=== PATIENT | male | born 1960 | race Caucasian/White ===

== ENCOUNTER → 2020-06-18 09:11 | Outpatient (CLI) | payer MEDICARE, SELFPAY ==
[2020-06-18 19:16] LABS: SARS-CoV-2 RNA PCR Negative
== END ==
DX: Z01.812 Encounter for preprocedural laboratory examination (principal); Z20.822 Contact with and (suspected) exposure to COVID-19
CPT/HCPCS: C9803; U0003; U0005

== ENCOUNTER 2020-07-11 00:54 | Day surgery (SDC) | payer MEDICARE, MEDICAID, SELFPAY ==
[2020-06-08 14:34] VITALS: BMI 28.3
[2020-07-08 10:14] VITALS: BMI 28.0
[2020-07-11 08:38] VITALS: BP 138/87; PULSE 100; RESP 20; TEMP 36; O2SAT 100; BMI 28.2
--- NOTE | 2020-07-11 08:51 | WPDANESEPPF ---
Anes - Initial Pre Proc Eval Procedure: Operation Date: 07/11/20 09:00 Proposed Procedures p Esophagogastroduodenoscopy & Screening Colonoscopy - Mich Miller MD Date/Time: 07/11/20 08:51 Surgeon: Mich Miller MD Pre Op Diagnosis: dysphagia, neoplasm screening Patient Data Age: 59 Gender: M Height: 5 ft 6 in Weight: 79.3 kg Last Vital Signs Temp 36.0 C L 07/11/20 08:38 Pulse 100 07/11/20 08:38 Resp 20 07/11/20 08:38 BP 138/87 07/11/20 08:38 Pulse Ox 100 07/11/20 08:38 Allergies Allergy/AdvReac Type Severity Reaction Status Date / Time No Known Allergies Allergy Verified 07/11/20 08:37 Home Medications Medication Instructions Recorded Confirmed Type losartan 50 mg tablet 50 mg PO DAILY 05/24/20 07/11/20 History memantine 10 mg tablet 10 mg PO BID 05/24/20 07/11/20 History omeprazole 20 mg capsule,delayed 20 mg PO DAILY 05/24/20 07/11/20 History release sennosides 8.6 mg tablet 8.6 mg PO BID 05/24/20 07/11/20 History aripiprazole [Abilify] 5 mg PO DAILY 06/08/20 07/11/20 History donepezil 10 mg PO HS 06/08/20 07/11/20 History duloxetine 60 mg PO DAILY 06/08/20 07/11/20 History lamotrigine [Lamictal] 100 mg PO BID 06/08/20 07/11/20 History melatonin 5 mg PO HS 06/08/20 07/11/20 History Patient hx anesthesia problems: none Family hx anesthesia problems: none [facility] Past Medical History Medical History (Updated 07/11/20 @ 08:51 by Oscar Bowden MD) GERD (gastroesophageal reflux disease) Hypertension Schizophrenia Social History Social History Smoking status: Former smoker Tobacco type: cigarettes Alcohol intake: former Alcohol use details: ALCOHOL ABUSE Substance use: never Living arrangements: half-way Additional living arrangements comments: INFORMATION PROVIDED BY LEYDA AT [facility] Gender identity (if verbalized by the patient): Male Spiritual care concerns: No Anes - Eval Final PreProcedure Day of Procedure 07/11/20 08:51 Patient weight: overweight Lungs: clear to auscultation Airway: Mallampati scale class II Neurological: alert and oriented Last oral intake: >/= 8 hours ASA classification: III Emergent: no Anesthetic plan: proceed Anesthesia type and monitoring: general GIVS and standard monitoring Informed Consent: The patient's anesthetic plan and its attendant risks and benefits were discussed with the patient/family/POA. Questions were solicited and answers provided to the satisfaction of the patient/family/POA.
[2020-07-11] MEDS: LACTATED RINGERS 1,000 ML 150 ML IV CONT (09:00)
--- NOTE | 2020-07-11 09:09 | SUR.OPER ---
esophageal balloon 12-15 mm, lot [id number], exp 02/22/2022(
--- NOTE | 2020-07-11 09:15 | P.HP_ITS ---
History of Present Illness History of Present Illness Consent: Risks, benefits, and alternatives have been discussed and questions answered. Patient agrees to proceed with procedure. Chief complaint: dysphagia, neoplasm screening Narrative: Dax Esteban is a 59 year old male With chronic dysphagia. He is also here for colon cancer screening Review of Systems Review of Systems: All systems reviewed & are unremarkable except as noted in HPI and below PMFSH Past Medical History Medical History GERD (gastroesophageal reflux disease) Hypertension Schizophrenia Social History Social History Smoking status: Former smoker Tobacco type: cigarettes Alcohol intake: former Alcohol use details: ALCOHOL ABUSE Substance use: never Living arrangements: [facility] Additional living arrangements comments: INFORMATION PROVIDED BY LEYDA AT [facility] Gender identity (if verbalized by the patient): Male Spiritual care concerns: No Meds Home Medications and Allergies Home Medications Medication Instructions Recorded Confirmed Type losartan 50 mg tablet 50 mg PO DAILY 05/24/20 07/11/20 History memantine 10 mg tablet 10 mg PO BID 05/24/20 07/11/20 History omeprazole 20 mg capsule,delayed 20 mg PO DAILY 05/24/20 07/11/20 History release sennosides 8.6 mg tablet 8.6 mg PO BID 05/24/20 07/11/20 History aripiprazole [Abilify] 5 mg PO DAILY 06/08/20 07/11/20 History donepezil 10 mg PO HS 06/08/20 07/11/20 History duloxetine 60 mg PO DAILY 06/08/20 07/11/20 History lamotrigine [Lamictal] 100 mg PO BID 06/08/20 07/11/20 History melatonin 5 mg PO HS 06/08/20 07/11/20 History Allergies Allergy/AdvReac Type Severity Reaction Status Date / Time No Known Allergies Allergy Verified 07/11/20 08:37 Vital Signs Vital Signs - 24 hr 07/11/20 08:38 Temperature 36.0 C L Pulse Rate 100 Respiratory Rate 20 Blood Pressure 138/87 Pulse Oximetry 100 Exam Const: General: alert Orientation/consciousness: patient oriented x3 Resp: Auscultation: clear to auscultation bilaterally Cardio: Rhythm: regular rhythm GI: GI Palp: Yes Soft to palpation and No Tenderness to palpation present (GI) Neuro: General: patient oriented x3 Assessment and Plan Assessment and plan (1) Dysphagia: Code(s): R13.10 - Dysphagia, unspecified Status: Acute Assessment and Plan: EGD with possible biopsy or dilatation or cautery. (2) Colon cancer screening: Code(s): Z12.11 - Encounter for screening for malignant neoplasm of colon Status: Acute Assessment and Plan: Colonoscopy with possible biopsy or polypectomy or cautery or injection of substances.
--- NOTE | 2020-07-11 09:26 | SUR.OPER ---
resolution 360 clip 235 cm, lot [id number], exp 04/29/2023
[2020-07-11 09:31] VITALS: BP 142/71; PULSE 85; RESP 21; O2SAT 99
[2020-07-11 09:41] VITALS: BP 143/77; PULSE 85; RESP 25; O2SAT 96
[2020-07-11 09:51] VITALS: BP 135/79; PULSE 82; RESP 19; O2SAT 100
== END 2020-07-11 10:03 | disposition home or self-care (01) ==
PROVIDERS: PCP Internal Medicine; Visit Provider Internal Medicine Gastroenterology
PROC: 0DJ08ZZ Inspection of Upper Intestinal Tract, Via Natural or Artificial Opening Endoscopic (ICD-10-PCS; CPT 43235; principal; 2020-07-11 09:00)
DX: Z12.11 Encounter for screening for malignant neoplasm of colon (principal); R13.10 Dysphagia, unspecified; D12.3 Benign neoplasm of transverse colon; K22.2 Esophageal obstruction; K21.9 Gastro-esophageal reflux disease without esophagitis; K63.89 Other specified diseases of intestine; I10 Essential (primary) hypertension; F20.9 Schizophrenia, unspecified; Z87.891 Personal history of nicotine dependence
CPT/HCPCS: 45385; 43249; 88305; C1726; J2704; J7120

== ENCOUNTER 2020-09-12 12:52 | Inpatient (IN) | payer MEDICARE, MEDICAID, SELFPAY ==
[2020-09-12] VITALS (9 sets, daily range): BP systolic 92–105; BP diastolic 48–84; PULSE 75–101; RESP 12–20; TEMP 36.3–36.7; O2SAT 95–99; BMI 23.9
--- NOTE | ~2020-09-12 | CT_ITS ---
EXAMINATION: CT abdomen pelvis wo con EXAM DATE: 09/12/2020 14:14 INDICATION: Nausea and vomiting. Planning gastric bypass surgery. TECHNIQUE: Spiral CT of the abdomen and pelvis was performed without contrast. Axial, coronal and sag ittal images were reviewed. The dose-length product (DLP) for this examination was 701.16 mGy-cm. T he exposure was tailored according to patient size (auto mA exposure control), and iterative reconstr uction (ASIR) was used as additional dose reduction technique. Comparison is made to prior examinatio n from 02/04/2008. FINDINGS: Esophagus is mildly distended with mildly hyperdense fluid inside, can't exclude intralumin al polyp given that there is a round density measuring 1.5 cm within the lumen of this. 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 No r ight nephrolithiasis or hydronephrosis. The prostate is unremarkable. Small left inguinal fat-contai karis hernia. The bladder is unremarkable. The liver, spleen, adrenal glands and pancreas are unrema rkable. Single small gallstone identified. There is no retroperitoneal or pelvic lymphadenopathy. There is mild to moderate scattered arteriosclerotic disease. The appendix is normal. The stomach and small bowel are unremarkable. There is expected amount of c olonic stool. No free intraperitoneal gas. The heart is normal in size. There are no pericardial or pleural effusions. The lung bases are unremarkable. There are no osteoblastic or osteolytic les ions identified. IMPRESSION: 1. Esophageal fluid with more central filling defect, could be ingested food stuff or polyp/mass. Co nsider esophagram or endoscopy. 2. Severe chronic left renal atrophy. Reviewed, dictated and finalized at location B. IMPRESSION: 1. Esophageal fluid with more central filling defect, could be ingested food s tuff or polyp/mass. Consider esophagram or endoscopy. 2. Severe chronic left renal atrophy.
--- NOTE | ~2020-09-12 | XR_ITS ---
EXAMINATION: XR esophogram water soluble DATE: 09/12/2020 15:23 INDICATION: Vomiting with possible distal esophageal mass TECHNIQUE: The patient drank water soluble contrast. Fluoroscopic spot radiographs of the soft tissue s were obtained. Fluoroscopy exposure time was 0.8 minutes. A total of 242 images were obtained. Tot al DAP was 2.96 mGycm^2 COMPARISON: CT dated 09/12/2020 FINDINGS: There is an obstructing approximately 2-2.5 cm mass with smooth margins at the distalmost esophagus. Over the course of 4 minutes of observation following the initial swallow, no contrast was seen exten ding beyond the mass. At this point the patient experienced additional nausea and vomited the contras t material. The more proximal esophagus appears normal without additional mass or stricture. IMPRESSION: 1. Obstructing 2-2.5 cm mass in the distal esophagus. Unclear whether this represents an endogenous n eoplasm or exogenous ingested foreign body. Recommend endoscopy for further evaluation. Reviewed, dictated and finalized at location A. IMPRESSION: 1. Obstructing 2-2.5 cm mass in the distal esophagus. Unclear whether this repr esents an endogenous neoplasm or exogenous ingested foreign body. Recommend end oscopy for further evaluation.
[2020-09-12] MEDS: SODIUM CHLORIDE 0.9% IV 1,000 ML 999 ML IV CONT (13:32)
[2020-09-12] MEDS: ONDANSETRON INJ 4 MG/2 ML VIAL IV PUSH (13:32)
[2020-09-12 13:36] LABS: Basophils Absolute Auto 0.2 K/mm3 (0.0-0.1); Basophils Percent Auto 1.1 % (0.2-1.2); Eosinophils Percent Auto 0.2 % (0-4.4); Hematocrit 49.3 % (42.0-52.0); Immature Granulocyte Absolute 0.09 K/mm3 (0.00-0.031); Immature Granulocyte Percent A 0.7 % (0-0.5); Lymphocytes Percent Auto 13.4 % (18.3-44.2); Mean Corpuscular HGB Conc 28.4 g/dl (32-36); Mean Corpuscular Hemoglobin 22.2 pg (26-34); Mean Corpuscular Volume 78.3 fl (80-100); Mean Platelet Volume 10.3 fl (7.4-10.4); Monocytes Absolute Auto 0.9 K/mm3 (0.1-0.6); Monocytes Percent Auto 6.4 % (2.6-8.5); Neutrophils Absolute Auto 10.5 K/mm3 (1.3-6.7); Neutrophils Percent Auto 78.2 % (45.5-73.1); Platelet Count Result 418 k/mm3 (150-375); Red Cell Distribution Width 22.7 % (11.5-14.5); White Blood Count 13.5 K/mm3 (4.5-10.0)
[2020-09-12 13:48] LABS: Alanine Aminotransferase 30 U/L (4-50); Albumin Level 4.8 g/dL (3.5-5.1); Alkaline Phosphatase 145 U/L (38-126); Anion Gap 20 mmol/L (8-16); Aspartate Amino Transferase 48 U/L (17-59); Bilirubin,Total 1.5 mg/dL (0.2-1.3); Blood Urea Nitrogen 106 mg/dL (9-20); Calcium 9.8 mg/dL (8.4-10.2); Carbon Dioxide 24 mmol/L (22-30); Chloride 111 mmol/L (98-107); Estimated CRCL calculation 24 ml/min; Estimated Glomerular Filt Rate 24; Glucose 159 mg/dL (65-110); Lipase 205 U/L (23-300); Potassium 3.7 mmol/L (3.4-5.0); Sodium 155 mmol/L (137-145)
--- NOTE | 2020-09-12 14:22 | ED.NAVMDI ---
HPI - Nausea/Vomiting/Diarrhea General Chief complaint: Nausea/Vomiting/Diarrhea Stated complaint: N/V Time Seen by Provider: 09/12/20 12:57 History of Present Illness HPI Narrative: Patient is a 5-year-old male who [facility] from [facility] with [facility] and vomiting. Patient is a poor historian and has history of schizophrenia. According to the [facility] patient has had nausea and vomiting for years however it is increased in frequency. They have scheduled him for an outpatient endoscopy performed next week at [facility]. Vomiting worsened today so he was sent in for further evaluation. Related Data Home Medications Medication Instructions Recorded Confirmed aripiprazole 5 mg PO DAILY 09/12/20 09/12/20 donepezil 10 mg PO HS 09/12/20 09/12/20 duloxetine 60 mg PO HS 09/12/20 09/12/20 lamotrigine 100 mg PO BID 09/12/20 09/12/20 losartan 50 mg PO DAILY 09/12/20 09/12/20 melatonin 5 mg PO HS 09/12/20 09/12/20 memantine 10 mg PO BID 09/12/20 09/12/20 multivitamin with minerals 1 tablet PO DAILY 09/12/20 09/12/20 omeprazole 20 mg PO DAILY 09/12/20 09/12/20 sennosides [senna] 8.6 mg PO BID 09/12/20 09/12/20 Allergies Allergy/AdvReac Type Severity Reaction Status Date / Time spider venom Allergy Unknown Swelling Verified 09/12/20 21:36 Review of Systems Review of Systems: ROS unobtainable: Yes unobtainable due to mental status (Poor historian due to schizophrenia and memory impairment.) [facility] Past Medical History Medical History (Updated 09/12/20 @ 23:46 by Huber Montalvo MD) Benign tumor of meningioma (cerebral) Bipolar disorder Chronic obstructive pulmonary disease Fatty liver Former smoker Hypertension Left renal atrophy Memory impairment Peripheral neuropathy Recovering alcoholic in remission Type 2 diabetes mellitus Surgical History Surgical History History of arthroscopic knee surgery Anterior cruciate ligament repair. Family History Family History Mother Liver cancer Social History Social History (Updated 09/12/20 @ 22:04 by Natasha Centeno PA-C) Social History: The patient is currently at [facility]. He does not remember how long he has been there. Former smoker. Recovering alcoholic. No illicit substance use. His brother, Tee Esteban, is his emergency contact. Code status: DNR. Exam Narrative: Exam Narrative: GENERAL: Well-appearing, well-nourished, and in no acute distress. HEAD: Normocephalic, atraumatic. EYES: PERRL and EOMI. ENT: Mucous membranes moist. CHEST: Clear to auscultation. No respiratory distress. HEART: Regular rate and rhythm. Normal peripheral pulses. ABDOMEN: Soft, nontender, nondistended. EXTREMITIES: Normal range of motion. No edema. SKIN: Warm, dry, no rash. NEURO: Alert and oriented x3. PSYCH: Normal mood and affect. Course Course Emergency Course: Admit to hospitalist service. GI consulted. They like patient to remain n.p.o. so he can have a scope in the morning. Vital Signs Vital signs: Vital Signs Temperature 97.3 F L 09/12/20 13:32 Pulse Rate 101 H 09/12/20 13:32 Respiratory Rate 14 09/12/20 13:32 Blood Pressure 104/84 09/12/20 13:32 Pulse Oximetry 99 09/12/20 13:32 Temperature 98.0 F 09/12/20 21:49 Pulse Rate 75 09/12/20 21:49 Respiratory Rate 17 09/12/20 21:49 Blood Pressure 92/48 L 09/12/20 21:49 Pulse Oximetry 95 09/12/20 21:49 MDM - Nausea/Vomiting/Diarrhea Lab Data Result diagrams: 09/12/20 13:21 09/12/20 13:21 Labs: Lab Results 09/12/20 09/12/20 Range/Units 13:21 13:21 WBC 13.5 H (4.5-10.0) K/mm3 RBC 6.30 H (4.6-6.20) M/mm3 Hgb 14.0 (14.0-18.0) g/dL Hct 49.3 (42.0-52.0) % MCV 78.3 L (80-100) fl MCH 22.2 L (26-34) pg MCHC 28.4 L (32-36) g/dl RDW 22.7 H (11.5-14.5) % Plt Count 418 H (150-37
[2020-09-12] MEDS: SODIUM CHLORIDE 0.9% IV 1,000 ML 999 ML (17:30)
--- NOTE | 2020-09-12 17:30 | PC.NURSE ---
ERP notified about patient manual blood pressure being 96/60. EDP ordered additional 1L fluid bolus via verbal order readback.
[2020-09-12] MEDS: SODIUM CHLORIDE 0.45% 1,000 ML 100 ML IV CONT (18:36)
--- NOTE | 2020-09-12 18:45 | PC.NURSE ---
EDP aware about patient blood pressure being low. Good radial pulses. No new orders at this time.
--- NOTE | 2020-09-12 19:15 | PM.IMHP ---
H&P: HPI History of Present Illness Date/Time: 09/12/20 19:15 Chief Complaint: Nausea and vomiting. Narrative: This is a 59-year-old male with memory impairment, bipolar disorder, GERD, and hypertension who presented to the emergency department earlier today via EMS from [facility] for evaluation of nausea and vomiting. He is not a very good historian and answers a lot of my questions I forgot or I do not know and as such some of the following is obtained via a review of his electronic medical records. He reports ongoing issues with vomiting over a couple of years and it sounds like he has intermittent dysphagia with both liquids and solids. It is my understanding that he has an upcoming appointment for an EGD at [facility] in the next week or so for evaluation of the same. I am not sure why the patient was sent in today as he cannot give me a good history. At the time my evaluation he does endorse a weight loss though he is unable to quantify. He has no complaints at this time and in fact asked me several times for something to drink. He denies fever, chills, sweats, odynophagia, chest pain, shortness of breath, and nausea. Review of Systems Review of Systems: Narrative: Twelve systems were reviewed with pertinent positives and negatives as per HPI. Somewhat limited as he seems to have pretty significant short-term memory loss. For instance he does not recall how long he has been at the care home, does not remember when he quit smoking or drinking, and he does not even know why he was brought to the hospital today. He does not believe he has had any recent cold or flu symptoms. He has not noticed a change in urine output. He denies lightheadedness and dizziness. Reports occasional dyspnea on exertion. No cough. Except as documented all other systems were reviewed and are negative. [facility] Past Medical History Medical History (Updated 09/12/20 @ 22:08 by Natasha Centeno PA-C) Benign tumor of meningioma (cerebral) Bipolar disorder Chronic obstructive pulmonary disease Fatty liver Former smoker Hypertension Left renal atrophy Memory impairment Peripheral neuropathy Recovering alcoholic in remission Type 2 diabetes mellitus Surgical History Surgical History History of arthroscopic knee surgery Anterior cruciate ligament repair. Family History Family History Mother Liver cancer Social History Social History (Updated 09/12/20 @ 22:04 by Natasha Centeno PA-C) Social History: The patient is currently at [facility]. He does not remember how long he has been there. Former smoker. Recovering alcoholic. No illicit substance use. His brother, Tee Esteban, is his emergency contact. Code status: DNR. Meds Home Medications and Allergies Home Medications Medication Instructions Recorded Confirmed Type aripiprazole 5 mg PO DAILY 09/12/20 09/12/20 History donepezil 10 mg PO HS 09/12/20 09/12/20 History duloxetine 60 mg PO HS 09/12/20 09/12/20 History lamotrigine 100 mg PO BID 09/12/20 09/12/20 History losartan 50 mg PO DAILY 09/12/20 09/12/20 History melatonin 5 mg PO HS 09/12/20 09/12/20 History memantine 10 mg PO BID 09/12/20 09/12/20 History multivitamin with minerals 1 tablet PO DAILY 09/12/20 09/12/20 History omeprazole 20 mg PO DAILY 09/12/20 09/12/20 History sennosides [senna] 8.6 mg PO BID 09/12/20 09/12/20 History Allergies Allergy/AdvReac Type Severity Reaction Status Date / Time spider venom Allergy Unknown Swelling Verified 09/12/20 21:36 Vital Signs Vital Signs - 24 hr 09/12/20 13:32 09/12/20 15:02 09/12/20 16:00 Temperature 97.3 F L Pulse Rate 101 H 92 94 Respiratory Rate 14 14 14 Blood Pressure 104/84 100/71 101/70 Pulse Oximetry 99 98 99 09/12/20 16:21 Temperature Pulse Rate 96 Respiratory Rate 14 Blood Pressure 105/66 Pulse Oximetr
--- NOTE | 2020-09-12 20:18 | PC.NURSE ---
This patient, Dax Esteban, was admitted to [facility] Room 333-01. Patient/family oriented to hospital policies and general routines including ID bracelet, bed and alarms, visiting hours, pain management, procedures, bathroom and other care routines, personal items, smoking policy, room service/diet, and visiting hours. Information on how to activate the Rapid Response Team has been discussed. Patient/Family are encouraged to report perceived risks to care and to ask questions if they do not understand what they are told or what they should do.
[2020-09-13] VITALS (10 sets, daily range): BP systolic 84–115; BP diastolic 47–76; PULSE 56–77; RESP 14–25; TEMP 35.6–36.6; O2SAT 95–100; BMI 23.9
[2020-09-13 06:34] LABS: Hematocrit 41.1 % (42.0-52.0); Hemoglobin 11.3 g/dL (14.0-18.0); Mean Corpuscular HGB Conc 27.5 g/dl (32-36); Mean Corpuscular Hemoglobin 22.4 pg (26-34); Mean Corpuscular Volume 81.4 fl (80-100); Mean Platelet Volume 10.3 fl (7.4-10.4); Platelet Count Result 282 k/mm3 (150-375); Red Blood Count 5.05 M/mm3 (4.6-6.20); Red Cell Distribution Width 22.6 % (11.5-14.5); White Blood Count 9.2 K/mm3 (4.5-10.0)
--- NOTE | 2020-09-13 07:42 | WPDGICN ---
Assessment and Plan Assessment and plan (1) Esophageal obstruction: Code(s): K22.2 - Esophageal obstruction Status: Acute Assessment and Plan: he is NPO and will be scheduled for EGD to be done later this morning. Hopefully this is something benign that we can treat endoscopically, although he is a former smoker and I am suspicious he may have malignancy (2) Anemia: Code(s): D64.9 - Anemia, unspecified Status: Acute Assessment and Plan: hemoglobin dropped from 14 to 11.3, obviously from rehydration. He has shown no signs of gastrointestinal bleeding. (3) ISABELA (acute kidney injury): Code(s): N17.9 - Acute kidney failure, unspecified Status: Acute Assessment and Plan: Hopefully this is mostly from dehydration and the fact that he has been unable to eat or drink for several days prior to his admission. GI Consult Note Consult date/time: 09/13/20 07:42 HPI: Dax Esteban is a 59 year old male who is admitted through the emergency room with inability to swallow. He states that he has been having trouble eating and drinking for at least 2 weeks. He does not believe that he was eating something that got stuck. He does not give a lot of history or details. A CT scan done in the emergency room revealed an apparent esophageal mass or foreign body, as well as standing fluid in the esophagus Review of Systems Review of Systems: All systems reviewed & are unremarkable except as noted in HPI and below PMFSH Past Medical History Medical History Benign tumor of meningioma (cerebral) Bipolar disorder Chronic obstructive pulmonary disease Fatty liver Former smoker Hypertension Left renal atrophy Memory impairment Peripheral neuropathy Recovering alcoholic in remission Type 2 diabetes mellitus Surgical History Surgical History History of arthroscopic knee surgery Anterior cruciate ligament repair. Family History Family History Mother Liver cancer Social History Social History Social History: The patient is currently at [facility]. He does not remember how long he has been there. Former smoker. Recovering alcoholic. No illicit substance use. His brother, Tee Esteban, is his emergency contact. Code status: DNR. Meds Home Medications and Allergies Home Medications Medication Instructions Recorded Confirmed Type aripiprazole 5 mg PO DAILY 09/12/20 09/12/20 History donepezil 10 mg PO HS 09/12/20 09/12/20 History duloxetine 60 mg PO HS 09/12/20 09/12/20 History lamotrigine 100 mg PO BID 09/12/20 09/12/20 History losartan 50 mg PO DAILY 09/12/20 09/12/20 History melatonin 5 mg PO HS 09/12/20 09/12/20 History memantine 10 mg PO BID 09/12/20 09/12/20 History multivitamin with minerals 1 tablet PO DAILY 09/12/20 09/12/20 History omeprazole 20 mg PO DAILY 09/12/20 09/12/20 History sennosides [senna] 8.6 mg PO BID 09/12/20 09/12/20 History Allergies Allergy/AdvReac Type Severity Reaction Status Date / Time spider venom Allergy Unknown Swelling Verified 09/12/20 21:36 Vital Signs Vital Signs - 24 hr 09/12/20 13:32 09/12/20 15:02 09/12/20 16:00 Temperature 36.3 C L Pulse Rate 101 H 92 94 Respiratory Rate 14 14 14 Blood Pressure 104/84 100/71 101/70 Pulse Oximetry 99 98 99 09/12/20 16:21 09/12/20 17:30 09/12/20 18:08 Temperature Pulse Rate 96 84 90 Respiratory Rate 14 12 14 Blood Pressure 105/66 96/60 L 104/58 L Pulse Oximetry 98 98 99 09/12/20 18:46 09/12/20 19:50 09/12/20 21:49 Temperature 36.4 C 36.7 C Pulse Rate 81 77 75 Respiratory Rate 20 20 17 Blood Pressure 92/58 L 97/55 L 92/48 L Pulse Oximetry 99 96 95 09/13/20 05:36 Temperature 36.6 C Pulse Rate 77 Respiratory Rate 18 Blood Pre
[2020-09-13] MEDS: SODIUM CHLORIDE 0.45% 1,000 ML 100 ML IV CONT (07:47)
--- NOTE | 2020-09-13 08:26 | WPDANESEPPF ---
Anes - Initial Pre Proc Eval Procedure: Operation Date: 09/13/20 12:30 Proposed Procedures p Esophagogastroduodenoscopy - Mich Miller MD Date/Time: 09/13/20 08:26 Surgeon: Vikram Barron MD Pre Op Diagnosis: esophageal obstruction, eugenio, hypernatremia Patient Data Age: 59 Gender: M Height: 1.68 m Weight: 67.2 kg Last Vital Signs Temp 36.6 C 09/13/20 05:36 Pulse 77 09/13/20 05:36 Resp 18 09/13/20 05:36 BP 115/57 L 09/13/20 05:36 Pulse Ox 95 09/13/20 05:36 Allergies Allergy/AdvReac Type Severity Reaction Status Date / Time spider venom Allergy Unknown Swelling Verified 09/12/20 21:36 Home Medications Medication Instructions Recorded Confirmed Type aripiprazole 5 mg PO DAILY 09/12/20 09/12/20 History donepezil 10 mg PO HS 09/12/20 09/12/20 History duloxetine 60 mg PO HS 09/12/20 09/12/20 History lamotrigine 100 mg PO BID 09/12/20 09/12/20 History losartan 50 mg PO DAILY 09/12/20 09/12/20 History melatonin 5 mg PO HS 09/12/20 09/12/20 History memantine 10 mg PO BID 09/12/20 09/12/20 History multivitamin with minerals 1 tablet PO DAILY 09/12/20 09/12/20 History omeprazole 20 mg PO DAILY 09/12/20 09/12/20 History sennosides [senna] 8.6 mg PO BID 09/12/20 09/12/20 History Laboratory Tests 09/12/20 09/12/20 09/12/20 13:21 13:21 22:23 WBC 13.5 K/mm3 H K/mm3 (4.5-10.0) RBC 6.30 M/mm3 H M/mm3 (4.6-6.20) Hgb 14.0 g/dL g/dL (14.0-18.0) Hct 49.3 % % (42.0-52.0) MCV 78.3 fl L fl (80-100) MCH 22.2 pg L pg (26-34) MCHC 28.4 g/dl L g/dl (32-36) RDW 22.7 % H % (11.5-14.5) Plt Count 418 k/mm3 H k/mm3 (150-375) MPV 10.3 fl fl (7.4-10.4) Immature Gran % (Auto) 0.7 % H % (0-0.5) Neut % (Auto) 78.2 % H % (45.5-73.1) Lymph % (Auto) 13.4 % L % (18.3-44.2) [place] % (Auto) 6.4 % % (2.6-8.5) Eos % (Auto) 0.2 % % (0-4.4) Baso % (Auto) 1.1 % % (0.2-1.2) Lymph # (Auto) 1.80 K/mm3 K/mm3 (0.9-3.2) [place] # (Auto) 0.9 K/mm3 H K/mm3 (0.1-0.6) Eos # (Auto) 0.0 K/mm3 K/mm3 (0-0.3) Baso # (Auto) 0.2 K/mm3 H K/mm3 (0.0-0.1) Abs Immat Gran (auto) 0.09 K/mm3 H K/mm3 (0.00-0.031) Absolute Neuts (auto) 10.5 K/mm3 H K/mm3 (1.3-6.7) Absolute Nucleated RBC 0.0 K/mm3 K/mm3 (0.0-0.012) Nucleated RBC % 0.0 % % (0.0-0.2) Sodium 155 mmol/L H mmol/L Pending (137-145) Potassium 3.7 mmol/L mmol/L Pending (3.4-5.0) Chloride 111 mmol/L H mmol/L Pending (98-107) Carbon Dioxide 24 mmol/L mmol/L Pending (22-30) Anion Gap 20 mmol/L H mmol/L Pending (8-16) BUN 106 mg/dL H mg/dL Pending (9-20) Creatinine 2.70 mg/dL H mg/dL Pending (0.7-1.3) Estim Creat Clear Calc 24 ml/min ml/min Pending Estimated GFR 24 L Pending (59 - ) Glucose 159 mg/dL H mg/dL Pending (65-110) Hemoglobin A1c Calcium 9.8 mg/dL mg/dL Pending (8.4-10.2) Magnesium Pending Total Bilirubin 1.5 mg/dL H mg/dL (0.2-1.3) AST 48 U/L U/L (17-59) ALT 30 U/L U/L (4-50) Alkaline Phosphatase 145 U/L H U/L (38-126) Total Protein 9.0 g/dL H g/dL (6.3-8.2) Albumin 4.8 g/dL g/dL (3.5-5.1) Lipase 205 U/L U/L (23-300) 09/12/20 09/13/20 09/13/20 23:37 05:45 07:22 WBC 9.2 K/mm3 K/mm3 (4.5-10.0) RBC 5.05 M/mm3 M/mm3 (4.6-6.20) Hgb 11.3 g/dL L g/dL (14.0-18.0) Hct 41.1 % L % (42.0-52.0) MCV 81.4 fl fl (80-100) MCH 22.4 pg L pg (26-34) MCHC 27.5 g/dl L g/dl (32-36) RDW 22.6 % H % (11.5-14.5) Plt Count 282 k/mm3 k/mm3 (150-375) MPV 10.3 fl fl (7.4-10.4) Ayla
[2020-09-13 10:54] LABS: Anion Gap 12 mmol/L (8-16); Blood Urea Nitrogen 94 mg/dL (9-20); Calcium 8.3 mg/dL (8.4-10.2); Carbon Dioxide 23 mmol/L (22-30); Chloride 119 mmol/L (98-107); Estimated CRCL calculation 29 ml/min; Estimated Glomerular Filt Rate 31; Glucose 106 mg/dL (65-110); Sodium 154 mmol/L (137-145)
[2020-09-13] MEDS: LACTATED RINGERS 1,000 ML 100 ML IV CONT (11:27)
[2020-09-13] MEDS: BENZOCAINE (*SP) 60 ML SPRAY CAN (HURRICAINE) 1 SPRAY MUCOUS MEM (11:52)
--- NOTE | 2020-09-13 12:49 | PM.IMPN ---
Progress Note: A&P Assessment and Plan (1) Mass of esophagus: Code(s): K22.8 - Other specified diseases of esophagus Status: Acute Assessment and Plan: he has been complaining of nausea vomiting and dysphagia. He also has significant weight loss. CT shows a superficial fluid with central filling defect. Severe chronic left renal atrophy was also seen. Barium esophagram showed to 2.5 cm mass in the distal esophagus. Gastroenterology service was consulted. Endoscopy shows severe stenosis in the gastroesophageal junction. Multiple biopsies were obtained from the lower 3rd esophagus for pathology. Stenosis could be traversed. No other significant findings other than here till hernia seen. Gastroenterology service has recommended pantoprazole 40 mg twice a day. He will be started on diet With full liquid diet. Will advance the diet if he is able to tolerated. (2) Dehydration: Code(s): E86.0 - Dehydration Status: Acute Assessment and Plan: Continue IV fluid hydration. (3) Acute kidney injury: Code(s): N17.9 - Acute kidney failure, unspecified Status: Acute Assessment and Plan: He did have acute kidney injury with creatinine of 2.7. With IV fluid hydration creatinine is trending down which is 2.2 today. Continue IV fluid resuscitation. Repeat BMP in the a.m.. Continue to monitor renal parameters and electrolytes. Continue to monitor intake output records. Avoid nephrotoxic agent. (4) Hypertension: Code(s): I10 - Essential (primary) hypertension Status: Acute Assessment and Plan: Will hold losartan for now. Resume blood pressure medication once his blood pressure improved and his acute kidney injury improves as well. (5) Bipolar disorder: Code(s): F31.9 - Bipolar disorder, unspecified Status: Acute Assessment and Plan: Continue Abilify, duloxetine and lamotrigine. (6) Hypernatremia: Code(s): E87.0 - Hyperosmolality and hypernatremia Status: Acute Assessment and Plan: Serum sodium was 155 at the time of presentation likely secondary to dehydration and free water deficit. Will change IV fluids from half-normal saline to D5 half-normal saline. I encouraged him to hydrate himself with free water as well. (7) Anemia: Code(s): D64.9 - Anemia, unspecified Status: Acute Assessment and Plan: Some drop in H&H noticed today which is likely as a result of hemodilution because of IV hydration. Has no ongoing bleeding signs. Additional Plan DVT prophylaxis with subcu heparin GI prophylaxis with pantoprazole full code Subjective Date/time seen: 09/13/20 12:49 He was NPO for GI evaluation and upper GI endoscopy. Denied have any specific complaints. He was asking for ice chips. He denied have any chest pain cough shortness of breath abdominal pain fever and chills. He denied have any further nausea vomiting. Review of Systems Review of Systems: All systems reviewed & are unremarkable except as noted in HPI and below Exam Narrative: Exam Narrative: General: Chronically ill-appearing male sitting up in bed in no distress. Neck: Supple. Respiratory: Decreased lung sounds at the bases otherwise clear to auscultation. Cardiovascular: Regular rate and rhythm with S1-S2. Gastrointestinal: soft nontender Extremities: No cyanosis, clubbing, or edema. Neurological: Alert oriented x3 Psychiatric: Pleasantly confused and cooperative. Appropriate mood. Objective Data Vital Signs Vital Signs: Vital Signs - 24 hr 09/12/20 13:32 09/12/20 15:02 09/12/20 16:00 Temperature 36.3 C L Pulse Rate 101 H 92 94 Respiratory Rate 14 14 14 Blood Pressure 104/84 100/71 101/70 Pulse Oximetry 99 98 99 09/12/20 16:21 09/12/20 17:30 09/12/20 18:08 Temperature Pulse Rate 96 84 90 Respiratory Rate 14 1
[2020-09-13] MEDS: DEXTROSE 5%/0.45% SOD CHL 1,000 ML 150 ML IV CONT ×2 (13:07→19:55)
--- NOTE | 2020-09-13 15:16 | PCNSR ---
On 09/13/20, the student, Nicolasa Meadows, provided care and [facility]. I have reviewed the student's documentation and agree with the findings.
[2020-09-13] MEDS: SENNOSIDES 8.6 MG TABLET PO (16:40)
[2020-09-13] MEDS: MEMANTINE 10 MG TABLET PO (16:40)
[2020-09-13 16:56] LABS: Hemoglobin A1C 9.7 % (<5.7)
[2020-09-13] MEDS: HEPARIN SODIUM 5,000 UNITS/ML VIAL 5000 UNITS SUB-Q (19:56)
[2020-09-13] MEDS: DULoxetine HCL 60 MG CAPSULE.DR PO (19:56)
[2020-09-13] MEDS: PANTOPRAZOLE 40 MG TABLET PO (19:56)
[2020-09-13] MEDS: MELATONIN 5 MG TABLET PO (19:56)
[2020-09-13] MEDS: lamoTRIgine 100 MG TABLET PO (19:56)
[2020-09-13] MEDS: DONEPEZIL HCL 10 MG TABLET PO (19:56)
[2020-09-14 05:54] VITALS: BP 95/51; PULSE 57; RESP 18; TEMP 36.3; O2SAT 98
[2020-09-14 06:40] LABS: Basophils Absolute Auto 0.1 K/mm3 (0.0-0.1); Basophils Percent Auto 1.2 % (0.2-1.2); Eosinophils Absolute Auto 0.3 K/mm3 (0-0.3); Eosinophils Percent Auto 4.2 % (0-4.4); Hematocrit 37.1 % (42.0-52.0); Hemoglobin 10.3 g/dL (14.0-18.0); Immature Granulocyte Absolute 0.06 K/mm3 (0.00-0.031); Immature Granulocyte Percent A 0.9 % (0-0.5); Lymphocytes Absolute Auto 1.58 K/mm3 (0.9-3.2); Lymphocytes Percent Auto 22.8 % (18.3-44.2); Mean Corpuscular HGB Conc 27.8 g/dl (32-36); Mean Corpuscular Hemoglobin 22.2 pg (26-34); Mean Platelet Volume 10.5 fl (7.4-10.4); Monocytes Absolute Auto 0.5 K/mm3 (0.1-0.6); Monocytes Percent Auto 6.6 % (2.6-8.5); Neutrophils Absolute Auto 4.5 K/mm3 (1.3-6.7); Neutrophils Percent Auto 64.3 % (45.5-73.1); Platelet Count Result 210 k/mm3 (150-375); Red Blood Count 4.64 M/mm3 (4.6-6.20); Red Cell Distribution Width 21.2 % (11.5-14.5); White Blood Count 6.9 K/mm3 (4.5-10.0)
[2020-09-14 06:58] LABS: Anion Gap 11 mmol/L (8-16); Blood Urea Nitrogen 33 mg/dL (9-20); Calcium 8.3 mg/dL (8.4-10.2); Carbon Dioxide 23 mmol/L (22-30); Chloride 111 mmol/L (98-107); Estimated CRCL calculation 63 ml/min; Estimated Glomerular Filt Rate > 60; Glucose 203 mg/dL (65-110); Potassium 3.2 mmol/L (3.4-5.0); Sodium 145 mmol/L (137-145)
--- NOTE | 2020-09-14 07:27 | WPDGIPROGNO ---
Progress Note: A&P Assessment and Plan (1) Esophageal obstruction: Code(s): K22.2 - Esophageal obstruction Status: Acute Assessment and Plan: he is tolerating diet. Will give him regular food this morning and then he should be able to be discharged. He needs to call me on Saturday to discuss results of his biopsies (2) Erosive esophagitis: Code(s): K22.10 - Ulcer of esophagus without bleeding Status: Acute Assessment and Plan: biopsies were obtained to rule out malignancy. He will need b.i.d. pantoprazole for 3 weeks. He should call me Saturday to discuss results Subjective Date/time seen: 09/14/20 07:27 he has no complaints today. He has no difficulty swallowing. I discussed results of endoscopy, severe esophagitis with ulceration and stricture. He states that he is sure it is due to his lifestyle. 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 He does not usually get heartburn Review of Systems Review of Systems: All systems reviewed & are unremarkable except as noted in HPI and below Exam Const: General: alert Orientation/consciousness: patient oriented x3 Resp: Auscultation: clear to auscultation bilaterally Cardio: Rhythm: regular rhythm GI: GI Palp: Yes Soft to palpation and No Tenderness to palpation present (GI) Neuro: General: patient oriented x3 Objective Data Vital Signs Vital Signs: Vital Signs - 24 hr 09/13/20 10:22 09/13/20 11:07 09/13/20 12:00 Temperature 35.6 C L Pulse Rate 60 72 Respiratory Rate 16 25 H Blood Pressure 107/62 84/52 L Pulse Oximetry 95 98 97 09/13/20 12:10 09/13/20 12:20 09/13/20 12:30 Temperature Pulse Rate 61 66 56 L Respiratory Rate 14 14 16 Blood Pressure 107/61 101/60 115/76 Pulse Oximetry 97 100 100 09/13/20 14:00 09/13/20 20:00 09/13/20 21:43 Temperature 36.3 C L 36.3 C L Pulse Rate 56 L 63 Respiratory Rate 18 18 18 Blood Pressure 112/58 L 98/47 L Pulse Oximetry 96 99 09/14/20 05:54 Temperature 36.3 C L Pulse Rate 57 L Respiratory Rate 18 Blood Pressure 95/51 L Pulse Oximetry 98 Intake/Output Intake/Output: Intake & Output 07/25/21 07/26/21 07/27/21 07/28/21 23:59 23:59 23:59 23:59 Intake Total 1999 3970 350 Balance 1999 3970 350 Meds/Results Medications: Active Medications Generic Name Dose Route Start Last Admin Trade Name Dustyq PRN Reason Stop Dose Admin Aripiprazole 5 mg 09/13/20 09:00 09/13/20 07:44 Aripiprazole 5 Mg Tablet PO Not Given DAILY KARISSA Donepezil HCl 10 mg 09/13/20 03:15 09/13/20 19:56 Donepezil Hcl 10 Mg Tablet PO 10 mg HS KARISSA Administration Duloxetine HCl 60 mg 09/13/20 03:15 09/13/20 19:56 Duloxetine Hcl 60 Mg Capsule.Dr PO 60 mg HS KARISSA Administration Heparin Sodium (Porcine) 5,000 units 09/13/20 21:00 09/13/20 19:56 Heparin Sodium 5,000 Units/Ml Vial SUB-Q 5,000 units Q12HR KARISSA Administration Dextrose/Sodium Chloride 1,000 mls @ 150 mls/hr 09/13/20 13:00 09/13/20 19:55 Dextrose 5% Sodium Chloride 0.45% IV CONT 150 mls/hr .Q6H40M KARISSA Administration Lamotrigine 100 mg 09/13/20 09:00 09/13/20 19:56 Lamotrigine 100 Mg Tablet PO 100 mg Q12HR KARISSA Administration Melatonin 5 mg 09/13/20 03:15 09/13/20 19:56 Melatonin 5 Mg Tablet PO 5 mg HS KARISSA Administration Memantine 10 mg 09/13/20 09:00 09/13/20 16:40 Memantine 10 Mg Tablet PO 10 mg BID KARISSA Administration Multivitamins/Calcium 1 tablet 09/13/20 09:00 09/13/20 07:44 Therapeutic Multivitamins/Minerals Tab (*Bkc) PO Not Given DAILY KARISSA Ondansetron HCl 4 mg 09/12/20 16:45 Ondansetron Inj 4 Mg/2 Ml Vial IV PUSH Q4H PRN Nausea Pantoprazole Sodium 40 mg 09/13/20 21:00 09/13/20 19:56 Pantoprazole 40 Mg Tablet PO 40 mg Q12HR KARISSA Administration Senna 8.6 mg 09/13/20 09:00 09/13/20 16:40 Sennosides 8.6 Mg Tablet PO 8.6 mg BID KARISSA Administration Ra
[2020-09-14 07:40] LABS: Burr Cells 1+ (NORMAL); Ovalocytes 1+ (NORMAL); Platelet Estimate Adequate (Adequate)
[2020-09-14] MEDS: lamoTRIgine 100 MG TABLET PO (07:59)
[2020-09-14] MEDS: SENNOSIDES 8.6 MG TABLET PO (07:59)
[2020-09-14] MEDS: MEMANTINE 10 MG TABLET PO (07:59)
[2020-09-14] MEDS: THERAPEUTIC MULTIVITAMINS/MINERALS TAB (*BKC) 1 TABLET PO (07:59)
[2020-09-14] MEDS: ARIPiprazole 5 MG TABLET PO (08:00)
[2020-09-14] MEDS: HEPARIN SODIUM 5,000 UNITS/ML VIAL 5000 UNITS SUB-Q (08:00)
--- NOTE | 2020-09-14 08:48 | P.PNAN_ITS ---
Anes - Prog Note Post-Op Date/Time: 09/14/20 08:48 Cardiovascular status: normal Respiratory status: normal Airway patency: baseline Mental status: baseline Post-Op hydration status: normal Vital Signs: Last Vital Signs Temp 36.3 C L 09/14/20 05:54 Pulse 57 L 09/14/20 05:54 Resp 18 09/14/20 05:54 BP 95/51 L 09/14/20 05:54 Pulse Ox 98 09/14/20 05:54 Pain Score (VAS): 0 I/O: Intake & Output 09/13/20 09/14/20 09/14/20 23:59 07:59 15:59 Intake Total 2009 350 Balance 2009 350 Laboratory Tests 09/14/20 06:21 09/14/20 06:21 09/12/20 09/13/20 09/13/20 23:23 05:45 07:22 WBC RBC Hgb Hct MCV MCH MCHC RDW Plt Count MPV Immature Gran % (Auto) Neut % (Auto) Lymph % (Auto) [place] % (Auto) Eos % (Auto) Baso % (Auto) Lymph # (Auto) [place] # (Auto) Eos # (Auto) Baso # (Auto) Abs Immat Gran (auto) Absolute Neuts (auto) Absolute Nucleated RBC Nucleated RBC % Platelet Estimate Ovalocytes [place] Cells Sodium Cancelled 154 H Potassium Cancelled 4.0 Chloride Cancelled 119 H Carbon Dioxide Cancelled 23 Anion Gap Cancelled 12 BUN Cancelled 94 H D Creatinine Cancelled 2.20 H Estim Creat Clear Calc Cancelled 29 Estimated GFR Cancelled 31 L Glucose Cancelled 106 Hemoglobin A1c 9.7 H Calcium Cancelled 8.3 L Magnesium Cancelled 3.0 H 09/14/20 09/14/20 06:21 06:21 WBC 6.9 RBC 4.64 Hgb 10.3 L Hct 37.1 L MCV 80.0 MCH 22.2 L MCHC 27.8 L RDW 21.2 H Plt Count 210 MPV 10.5 H Immature Gran % (Auto) 0.9 H Neut % (Auto) 64.3 Lymph % (Auto) 22.8 [place] % (Auto) 6.6 Eos % (Auto) 4.2 Baso % (Auto) 1.2 Lymph # (Auto) 1.58 [place] # (Auto) 0.5 Eos # (Auto) 0.3 Baso # (Auto) 0.1 Abs Immat Gran (auto) 0.06 H Absolute Neuts (auto) 4.5 Absolute Nucleated RBC 0.0 Nucleated RBC % 0.0 Platelet Estimate Adequate Ovalocytes 1+ [place] Cells 1+ Sodium 145 Potassium 3.2 L Chloride 111 H Carbon Dioxide 23 Anion Gap 11 BUN 33 H D Creatinine 1.00 Estim Creat Clear Calc 63 Estimated GFR > 60 Glucose 203 H Hemoglobin A1c Calcium 8.3 L Magnesium Post-procedural complaints: none Patient Feedback: Patient satisfied with anesthetic care.
[2020-09-14] MEDS: PANTOPRAZOLE 40 MG TABLET PO (09:56)
--- NOTE | 2020-09-14 11:02 | PM.DS ---
DS: Admitting Diagnosis Admitting Diagnosis (1) Mass of esophagus: Code(s): K22.8 - Other specified diseases of esophagus Status: Acute (2) Dehydration: Code(s): E86.0 - Dehydration Status: Acute (3) Acute kidney injury: Code(s): N17.9 - Acute kidney failure, unspecified Status: Acute (4) Hypertension: Code(s): I10 - Essential (primary) hypertension Status: Acute (5) Bipolar disorder: Code(s): F31.9 - Bipolar disorder, unspecified Status: Acute (6) Type 2 diabetes mellitus: Code(s): E11.9 - Type 2 diabetes mellitus without complications Status: Acute DS: Discharge Diagnosis Discharge Diagnosis (1) Erosive esophagitis: Code(s): K22.10 - Ulcer of esophagus without bleeding Status: Acute (2) Anemia: Code(s): D64.9 - Anemia, unspecified Status: Acute (3) Esophageal obstruction: Code(s): K22.2 - Esophageal obstruction Status: Acute (4) ISABELA (acute kidney injury): Code(s): N17.9 - Acute kidney failure, unspecified Status: Acute (5) Hypernatremia: Code(s): E87.0 - Hyperosmolality and hypernatremia Status: Acute (6) Type 2 diabetes mellitus: Code(s): E11.9 - Type 2 diabetes mellitus without complications Status: Acute (7) Mass of esophagus: Code(s): K22.8 - Other specified diseases of esophagus Status: Acute (8) Chronic obstructive pulmonary disease: Code(s): J44.9 - Chronic obstructive pulmonary disease, unspecified Status: Acute (9) Bipolar disorder: Code(s): F31.9 - Bipolar disorder, unspecified Status: Acute (10) Tobacco dependence due to cigarettes: Code(s): F17.210 - Nicotine dependence, cigarettes, uncomplicated Status: Acute (11) Alcoholism: Code(s): F10.20 - Alcohol dependence, uncomplicated Status: Acute DS: Summary Hospital Course Reason for hospitalization: nausea and vomiting Hospital Course: 59-year-old male admitted for nausea vomiting. CT imaging revealed massive lower esophagus. patient underwent uncomplicated EGD and was found to have severe esophagitis with ulceration and stricture. patient was placed on clear liquid diet and advance as tolerated to general diet. He did well and was discharged home in stable condition on PPI b.i.d. for 3 weeks. Biopsies taken during EGD to be resulted this Saturday patient advised to call office of [facility] for results. Patient also encouraged during 10 min counseling to join AA and to refrain from using alcohol and tobacco. Status at Discharge Overall status at discharge: patient is back to baseline Time Spent with Patient Time attestation: Total time spent providing and/or coordinating discharge services: Time spent: Greater than 30 minutes Exam Narrative: Exam Narrative: GEN: NAD, AAOx3, cooperative HEENT: NCAT, MMM, EOMI Neck: no JVD Heart: S1S2 RRR Lungs: CTA B/l Abd: soft, NT, ND, bowel sounds normoactive Ext: moves all, no cyanosis, no clubbing, no edema Neuro: no motor deficits, CN intact Psych: mood and affect congruent DS: Data Data Completed and Pending Pending studies at discharge: Pending at discharge 09/13/20 12:00 Surgical [PTH] Routine Labs on day of discharge: Labs from last 24 hours 09/14/20 09/14/20 09/13/20 06:21 06:21 05:45 WBC 6.9 RBC 4.64 Hgb 10.3 L Hct 37.1 L MCV 80.0 MCH 22.2 L MCHC 27.8 L RDW 21.2 H Plt Count 210 MPV 10.5 H Immature Gran % (Auto) 0.9 H Neut % (Auto) 64.3 Lymph % (Auto) 22.8 [place] % (Auto) 6.6 Eos % (Auto) 4.2 Baso % (Auto) 1.2 Lymph # (Auto) 1.58 [place] # (Auto) 0.5 Eos # (Auto) 0.3 Baso # (Auto) 0.1 Abs Immat Gran (auto) 0.06 H Absolute Neuts (auto) 4.5 Absolute Nucleated RBC 0.0 Nucleated RBC % 0.0 Platelet Estimate Adequate Ovalocytes 1+ Veronica Cells 1+ Sodium 145 [place]
[2020-09-14] MEDS: POTASSIUM CHLORIDE 20 MEQ PACKET (FOR LIQUID) 40 MEQ PO (11:11)
[2020-09-14 14:00] VITALS: BP 127/70; PULSE 60; RESP 20; TEMP 36.4; O2SAT 100
== END 2020-09-14 14:30 | disposition home or self-care (01) | DRG 381 ==
LOC: ANHED 14:12 → ANH3MEDSUR 19:24
PROVIDERS: Internal Medicine Gastroenterology; Physician Assistant; Admitting Provider Internal Medicine Critical Care Medicine; Emergency Provider Emergency Medicine; PCP Internal Medicine; Visit Provider Hospitalist
PROC: 0DJ08ZZ Inspection of Upper Intestinal Tract, Via Natural or Artificial Opening Endoscopic (ICD-10-PCS; CPT 43235; principal; 2020-09-13 12:30)
DX: K22.10 Ulcer of esophagus without bleeding (principal); N17.9 Acute kidney failure, unspecified; E87.0 Hyperosmolality and hypernatremia; K22.8 Other specified diseases of esophagus; K22.2 Esophageal obstruction; R19.7 Diarrhea, unspecified; F20.9 Schizophrenia, unspecified; F31.9 Bipolar disorder, unspecified; J44.9 Chronic obstructive pulmonary disease, unspecified; K76.0 Fatty (change of) liver, not elsewhere classified; Z87.891 Personal history of nicotine dependence; I10 Essential (primary) hypertension; N26.1 Atrophy of kidney (terminal); E11.42 Type 2 diabetes mellitus with diabetic polyneuropathy; F10.21 Alcohol dependence, in remission; R41.3 Other amnesia; R13.10 Dysphagia, unspecified; E86.0 Dehydration; E86.1 Hypovolemia; D64.9 Anemia, unspecified; K44.9 Diaphragmatic hernia without obstruction or gangrene
CPT/HCPCS: 36415; 74176; 74220; 80048; 80053; 83036; 83690; 83735; 85025; 85027; 87081; 88305; 96361; 96374; 99285; A9270; G0378; J1644; J2405; J2704; J7030; J7120

== ENCOUNTER 2023-02-17 09:48 | Inpatient (IN) | payer OTHER, SELFPAY ==
[2023-02-17] VITALS (23 sets, daily range): BP systolic 129–170; BP diastolic 70–104; PULSE 98–119; RESP 13–27; TEMP 36.3–36.6; O2SAT 92–99; BMI 26.8
--- NOTE | ~2023-02-17 | XR_ITS ---
EXAMINATION: XR chest 1V portable DATE: 02/18/2023 05:29 INDICATION: Pneumonia. TECHNIQUE: A single frontal view of the chest was obtained. COMPARISON: Chest single view 02/17/2023, chest CT 02/17/2023 FINDINGS: There are airspace opacities in right upper lobe. No pleural effusion or pneumothorax. The heart size is normal. IMPRESSION: 1. Stable airspace opacities in right upper lobe, consistent with pneumonia. Reviewed, dictated and finalized at location A. [employer]MENT
--- NOTE | ~2023-02-17 | US_ITS ---
EXAMINATION: US renal BI DATE: 02/17/2023 INDICATION: Acute renal insufficiency TECHNIQUE: Multiple ultrasound grayscale images of the kidneys were obtained. Due to a technical erro r at the images were not available on PACS until 02/19/2023 at 5:00 PM. COMPARISON: CT dated 09/12/2020 FINDINGS: The right kidney measures 1.2 x 6.5 x 6.9 cm with normal cortical echogenicity and no hydronephrosis. The left kidney measures 9.3 x 3.1 x 5.1 cm. There is severe left renal atrophy with persistent mode rate hydronephrosis with transition point on prior imaging at the ureteropelvic junction suggesting s equela of chronic UPJ obstruction. The bladder is normal. IMPRESSION: 1. Normal right kidney without hydronephrosis. 2. Likely chronic left UPJ obstruction with unchanged moderate left hydronephrosis and severe cortica l atrophy. Reviewed, dictated and finalized at location A. RIALS INTERN IMPRESSION: 1. Normal right kidney without hydronephrosis. 2. Likely chronic left UPJ obstruction with unchanged moderate left hydronephro sis and severe cortical atrophy.
--- NOTE | ~2023-02-17 | CT_ITS ---
EXAMINATION:CT diagnostic chest w con DATE: 02/17/2023 12:54 INDICATION: Lung mass. TECHNIQUE: Computed tomography (CT) of the chest was performed with 75 mL Omnipaque 350 intravenous c ontrast. Automated exposure control and iterative reconstruction technique were employed. The dose-le ngth product (DLP) was 287.16 mGy-cm. COMPARISON: Chest single view 02/17/2023 FINDINGS: There are airspace and groundglass opacities in right upper lobe, consistent with pneumonia . There is mild atelectasis bilaterally. No pleural effusion. The heart size is normal. There are cor onary artery calcifications. No pericardial effusion. There is material in the esophagus. There is wa ll thickening of the esophagus. There is mild thoracic spondylosis. There is mild chronic anterior we dging of multiple lower thoracic vertebral bodies. IMPRESSION: 1. Right upper lobe pneumonia correlating with the chest radiograph abnormality. 2. Wall thickening of the esophagus, consistent with esophagitis. Reviewed, dictated and finalized at location A. ROAD FIRER IMPRESSION: 1. Right upper lobe pneumonia correlating with the chest radiograph abnormality . 2. Wall thickening of the esophagus, consistent with esophagitis.
--- NOTE | ~2023-02-17 | XR_ITS ---
Portable chest x-ray Comparison: 02/18/2023 Clinical History: Pneumonia Findings: There is mild haziness right upper lobe. Left lung clear. Cardiomediastinal silhouette is stable. Bones and soft tissues are unremarkable. Impression: Subtle hazy right upper lobe pneumonia. Reviewed, dictated and finalized at [facility]. [employer]OR OF PROMOTIONS Impression: Subtle hazy right upper lobe pneumonia.
--- NOTE | ~2023-02-17 | XR_ITS ---
EXAMINATION: XR chest 1V portable DATE: 02/17/2023 12:01 INDICATION: Weakness. TECHNIQUE: A single frontal view of the chest was obtained. COMPARISON: Chest single view 02/04/2008, CT abdomen and pelvis 09/12/2020 FINDINGS: There is a mass in right midlung zone. No pleural effusion or pneumothorax. The heart size is normal. IMPRESSION: 1. Mass in right midlung zone suspicious for primary bronchogenic carcinoma. Chest CT is recommended. Reviewed, dictated and finalized at location A. SUPERVISOR IMPRESSION: 1. Mass in right midlung zone suspicious for primary bronchogenic carcinoma. Ch est CT is recommended.
[2023-02-17 10:09] LABS: Glucose Point of Care > 500 mg/dl (65-105)
[2023-02-17] MEDS: SODIUM CHLORIDE 0.9% IV 1,000 ML 999 ML IV CONT ×2 (10:20)
--- NOTE | 2023-02-17 10:23 | ED.GENADULT ---
HPI - General Adult General Chief complaint: Recheck/Abnormal Lab/Rx Stated complaint: hyperglycemic after drinking [address] herrera Time Seen by Provider: 02/17/23 09:52 History of Present Illness HPI narrative: 62-year-old male presenting to the emergency department for evaluation of hyperglycemia and dehydration. Patient was given a case of Dr. Herrera last night and patient drink the entire case. This morning patient felt lethargic. Patient does have history of type 2 DM. Related Data Home Medications Medication Instructions Recorded Confirmed acetaminophen 500 mg tablet 1,000 mg PO Q8H PRN pain 02/17/23 02/17/23 aripiprazole 2 mg tablet (Abilify) 2 mg PO DAILY 02/17/23 02/17/23 donepezil 10 mg tablet 10 mg PO HS 02/17/23 02/17/23 duloxetine 40 mg capsule,delayed 40 mg PO DAILY 02/17/23 02/17/23 release ferrous sulfate 325 mg (65 mg 325 mg PO BID 02/17/23 02/17/23 iron) tablet lamotrigine 100 mg tablet 100 mg PO BID 02/17/23 02/17/23 (Lamictal) melatonin 5 mg tablet 5 mg PO HS 02/17/23 02/17/23 memantine 10 mg tablet (Namenda) 10 mg PO BID 02/17/23 02/17/23 metformin 500 mg tablet 500 mg PO BID 02/17/23 02/17/23 mirtazapine 15 mg tablet (Remeron) 7.5 mg PO HS 02/17/23 02/17/23 multivitamin with minerals 1 tablet PO DAILY 02/17/23 02/17/23 pantoprazole 40 mg tablet,delayed 40 mg PO DAILY 02/17/23 02/17/23 release (Protonix) sennosides 8.6 mg tablet (senna) 8.6 mg PO BID 02/17/23 02/17/23 Allergies Allergy/AdvReac Type Severity Reaction Status Date / Time No Known Allergies Allergy Verified 07/11/20 08:37 Review of Systems Review of Systems: All systems reviewed & are unremarkable except as noted in HPI and below PMFSH Past Medical History Medical History (Updated 02/17/23 @ 15:32 by Natasha Centeno PA-C) Dementia Depression with anxiety Esophageal stricture Gastroesophageal reflux disease Hypertension Schizophrenia Surgical History Surgical History (Updated 02/17/23 @ 15:29 by Natasha Centneo PA-C) History of colonoscopy with polypectomy (06/2020) History of esophagogastroduodenoscopy (06/2020) Family History Family History (Updated 02/17/23 @ 15:30 by Natasha Centeno PA-C) Other Family history unknown Social History Social History (Updated 02/17/23 @ 15:30 by Natasha Centeno PA-C) Social History: Surrogate medical decision maker: Code status: Full code. Smoking status: Former smoker Alcohol intake: current Alcohol use details: History of alcohol abuse. Substance use: never Substance use type: does not use Living arrangements: penitentiary Additional living arrangements comments: Resident at [facility]. 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 Spiritual care concerns: No Exam Narrative: APPEARANCE: Well appearing, no pain, no distress, well-nourished. HEAD: normocephalic, atraumatic. EYES: PERRLA/EOMI, conjunctivae clear. NOSE: Normal no drainage EARS:TMS clear with good light reflex. THROAT: Pharynx clear, no exudate. NECK: Supple. No adenopathy, no masses. RESPIRATORY: Airway patent, respirations nonlabored. Clear to auscultation bilaterally, no rales, rhonchi, wheezing. CARDIOVASCULAR: Regular rate and rhythm without murmurs rubs or gallops. ABDOMINAL: Soft, nontender, nondistended, normal bowel sounds MUSCULOSKELETAL: Moves all extremities. Strength/ROM intact, No edema, No calf tenderness. NEURO: Alert. Cranial nerves II through XII intact. SKIN: Warm, dry. Normal Color Course Course Emergency Course: 62-year-old male presenting to ED for evaluation of feeling lethargic. Patient was found to be in DKA and also found to have a pneumonia. Patient was started on IV fluids, insulin bolus and infusion along with Rocephin and azithromycin. Case was discussed with the trimming assembler and patient was accepted to the ICU. Case discussed with hospitalist. Patient stable at time of ad
[2023-02-17 10:27] LABS: Basophils Absolute Auto 0.1 K/mm3 (0.0-0.1); Basophils Percent Auto 0.3 % (0.2-1.2); Hematocrit 63.4 % (42.0-52.0); Hemoglobin 20.4 g/dL (14.0-18.0); Immature Granulocyte Absolute 0.14 K/mm3 (0.00-0.031); Immature Granulocyte Percent A 0.7 % (0-0.5); Lymphocytes Percent Auto 6.1 % (18.3-44.2); Mean Corpuscular HGB Conc 32.2 g/dl (32-36); Mean Corpuscular Hemoglobin 31.1 pg (26-34); Mean Corpuscular Volume 96.5 fl (80-100); Mean Platelet Volume 10.5 fl (7.4-10.4); Monocytes Absolute Auto 1.4 K/mm3 (0.1-0.6); Monocytes Percent Auto 7.1 % (2.6-8.5); Neutrophils Absolute Auto 16.9 K/mm3 (1.3-6.7); Neutrophils Percent Auto 85.8 % (45.5-73.1); Platelet Count Result 268 k/mm3 (150-375); Red Blood Count 6.57 M/mm3 (4.6-6.20); Red Cell Distribution Width 13.9 % (11.5-14.5); White Blood Count 19.7 K/mm3 (4.5-10.0)
[2023-02-17 10:37] LABS: Alanine Aminotransferase 24 U/L (6-50); Albumin Level 4.5 g/dL (3.5-5.1); Alkaline Phosphatase 130 U/L (38-126); Anion Gap 25 mmol/L (8-16); Aspartate Amino Transferase 29 U/L (17-59); Bilirubin,Total 2.5 mg/dL (0.2-1.3); Blood Urea Nitrogen 91 mg/dL (9-20); Calcium 9.5 mg/dL (8.4-10.2); Carbon Dioxide 18 mmol/L (22-30); Chloride 106 mmol/L (98-107); Estimated CRCL calculation 31 ml/min; Estimated Glomerular Filt Rate 30; Phosphorus 5.5 mg/dL (2.5-4.5); Potassium 4.8 mmol/L (3.4-5.0); Sodium 149 mmol/L (137-145)
[2023-02-17 10:44] LABS: Glucose 680 mg/dL (65-110)
[2023-02-17] MEDS: INSULIN HUMAN REGULAR (*BKC) 100 UNITS/ML 7 UNITS IV PUSH (11:14)
[2023-02-17 11:33] LABS: Appearance Urine Turbid (Clear); Bacteria Urine None Seen /hpf; Bilirubin Urine Negative (Negative); Blood Urine 1+ (Negative); Color Urine Yellow (Yellow); Glucose Urine UA 3+ mg/dL (Negative); Hyaline Casts Urine Present /lpf; Ketones Urine 1+ mg/dL (Negative); Leukocyte Esterase Ur Negative LEU/UL (Negative); Need Manual Microscopic Reviewed; Nitrate Urine Negative (Negative); Protein Urine 2+ mg/dL (Negative); RBC Urine 0-2 /hpf (0-2); Specific Grav Ur 1.025 (1.001-1.035); Squamous Epithelial Cell Urine None seen /hpf (Few); WBC Urine 0-5 /hpf
[2023-02-17 11:34] LABS: Add Urine Microscopic? YES
[2023-02-17 11:57] LABS: Influenza A QL RT-PCR Negative (Negative); Influenza B QL RT-PCR Negative (Negative); RSV RNA, RT-PCR Negative (Negative); SARS-CoV-2 RNA PCR Negative (Negative)
[2023-02-17 12:17] LABS: Beta-Hydroxybutyrate/Acetoacetate 6.11 mmol/L (0.02-0.27)
[2023-02-17 13:00] LABS: Glucose Point of Care 372 mg/dl (65-105)
[2023-02-17] MEDS: INSULIN HUMAN REGULAR (*BKC) 100 UNITS in SODIUM CHLORIDE 0.9% IV 99 ML 7.5 UNITS IV CONT (13:17)
[2023-02-17] MEDS: SODIUM CHLORIDE 0.9% IV 1,000 ML 125 ML IV CONT (13:17)
[2023-02-17 14:19] LABS: Glucose Point of Care 349 mg/dl (65-105)
--- NOTE | 2023-02-17 14:44 | WPDCNINT ---
Assessment and Plan Assessment and plan (1) DKA (diabetic ketoacidosis): Code(s): E11.10 - Type 2 diabetes mellitus with ketoacidosis without coma Status: Acute Assessment and Plan: Patient presented the ED from group home with hyperglycemia, dehydration -he drank a case of [address] Herrera and had 2 bags of cheese puffs -was hyperglycemic at the group home and was transferred to the ER for evaluation where he was found to be in diabetic ketoacidosis with elevated blood sugars, anion gap metabolic acidosis, elevated beta hydroxybutyrate. UA did show positive ketones, glucose and protein -patient was given 2 L IV fluid bolus in the ER, started on insulin infusion and transferred to the ICU for further management -I will give additional 500 mL IV fluid bolus and may repeat if heart rate remains elevated -will check serial BMPs -will transition to long-acting insulin and sliding scale insulin once anion gap closes -will check hemoglobin A1c (2) Pneumonia: Code(s): J18.9 - Pneumonia, unspecified organism Status: Acute Assessment and Plan: Pneumonia on CT scan of the chest -continue ceftriaxone and azithromycin (3) Acute kidney injury: Code(s): N17.9 - Acute kidney failure, unspecified Status: Acute Assessment and Plan: Patient presented with dehydration, creatinine of 2.20 and sodium of 149. Could be related diabetic ketoacidosis, hypovolemia -patient has been given 2 L IV fluid bolus in the ER and 500 mL IV fluid bolus in the ICU -will check sodium and creatinine on the next BMP -continue monitor urine output, renal function and electrolytes (4) GERD (gastroesophageal reflux disease): Code(s): K21.9 - Gastro-esophageal reflux disease without esophagitis Status: Acute Assessment and Plan: Patient does take Protonix at home, will order IV Protonix for now (5) Schizophrenia: Code(s): F20.9 - Schizophrenia, unspecified Status: Acute Assessment and Plan: Patient takes Namenda, melatonin, mirtazapine, lamotrigine, duloxetine, donepezil Abilify at the group home -will start medications once able to take p.o. Plan DVT prophylaxis: Lovenox Stress ulcer prophylaxis: Proton Nutrition: NPO for now except ice chips Code Status: Full code Critical Care Time Spent: 42 minutes Due to a high probability of clinically significant, life threatening deterioration, the patient required my highest level of preparedness to intervene emergently and I personally spent this critical care time directly and personally managing the patient. This critical care time included obtaining a history; examining the patient; pulse oximetry; ordering and review of studies; arranging urgent treatment with development of a management plan; evaluation of patient's response to treatment; frequent reassessment; and discussions with other providers. It was exclusive of separately billable procedures and treating other patients and teaching time. Please see Assessment and Plan section and the rest of the note for further information on patient assessment and treatment This dictation may have been done utilizing a voice recognition system. Attempts have been made to correct errors. However, there may be uncorrected grammatical, spelling, and recognitions errors present. Street Roller Engineer Consult Note Consult date: 02/17/23 Reason for consult: Diabetic ketoacidosis, dehydration HPI: Dax Esteban is a 62 year old male with significant past medical history of GERD, hypertension, schizophrenia presented the ED from group home after being found hyperglycemia with dehydration. Patient complains of thirst. He drank [address] Herrera and had 2 packs of cheese puffs. In the ER patient was hyperglycemic with blood sugar of 680, anion gap of 25, CO2 of 18, acute kidney injury with a creatinine of 2.2 and BUN of 91. Elevated beta hydroxybutyrate. Sodium 149. UA was positive fo
[2023-02-17] MEDS: SODIUM CHLORIDE 0.9% IV 500 ML 999 ML IV CONT (14:52)
[2023-02-17] MEDS: AZITHROMYCIN 500 MG/NS 250 ML 500 MG/250 ML BAG 250 MG IVPB (14:53)
--- NOTE | 2023-02-17 15:08 | ADMGEN ---
This patient, Dax Esteban, was admitted to Intensive Care Unit-1. Patient/family oriented to hospital policies and general routines including ID bracelet, bed and alarms, visiting hours, pain management, procedures, bathroom and other care routines, personal items, smoking policy, room service/diet, and visiting hours. Information on how to activate the Rapid Response Team has been discussed. Patient/Family are encouraged to report perceived risks to care and to ask questions if they do not understand what they are told or what they should do.
--- NOTE | 2023-02-17 15:16 | PM.IMHP ---
H&P: HPI History of Present Illness Date/Time: 02/17/23 15:15 Chief Complaint: Vomiting and high blood sugar. Narrative: This is a 62-year-old male with type 2 diabetes mellitus, dementia, schizophrenia, depression, anxiety, and hypertension who presented to the emergency department via EMS from [facility] for evaluation of vomiting and high blood sugar. He is alert and oriented x1 at baseline and is a poor historian thus some of the following is supplemented via a review of his electronic medical records. He has apparently been vomiting incessantly since last night and is unable to hold down anything. He has become increasingly lethargic and when staff checked his blood sugar it was over 500 and he was sent to the ER for evaluation. It is reported that the patient was given a [address] Herrera yesterday and he supposedly consumed them all. At the time my evaluation he still has some nausea but reports that he is hungry. He is feeling better. He denies fever, chills, sweats, cold and flu symptoms, chest pain, shortness a breath, hematemesis, diarrhea, melena, hematochezia, and dysuria. In the ED: He was afebrile on arrival with blood pressures in the 140s to 150s systolic. He has been in the sinus tachycardia in the low 100s to 1 teens. Labs were significant for WBC count of 19.7, hemoglobin 20.4, hematocrit 63.4, platelet 268, sodium 149, carbon dioxide 18, anion gap 25, BUN 91, creatinine 2.20, glucose 680, beta hydroxybutyrate 6.11. UA was positive for 3+ glucose and 1+ ketones. Chest x-ray showed a mass in the right midlung zone a subsequent chest CT showed findings instead area in addition to wall thickening of the esophagus consistent with esophagitis. Thus far he has received a total of 3 L normal saline in addition to 40 mg pantoprazole, 500 mg of azithromycin, 1 g ceftriaxone, and 7 units IV insulin. He is being admitted in this setting for further treatment and evaluation of DKA, pneumonia, dehydration, and acute kidney injury. Review of Systems Review of Systems: Twelve systems were reviewed and are negative except for as per HPI. [facility] Past Medical History Medical History (Updated 02/17/23 @ 15:32 by Natasha G Gerling, PA-C) Dementia Depression with anxiety Esophageal stricture Gastroesophageal reflux disease Hypertension Schizophrenia Surgical History Surgical History (Updated 02/17/23 @ 15:29 by Natasha Centeno PA-C) History of colonoscopy with polypectomy (06/2020) History of esophagogastroduodenoscopy (06/2020) Family History Family History (Updated 02/17/23 @ 15:30 by Natasha Centeno PA-C) Other Family history unknown Social History Social History (Updated 02/18/23 @ 00:12 by Natasha Centeno PA-C) Social History: Code status: Full code. Smoking status: Former smoker Alcohol intake: current Alcohol use details: History of alcohol abuse. Substance use: never Substance use type: does not use Living arrangements: long-term Additional living arrangements comments: Resident at [facility]. 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 Spiritual care concerns: No Meds Home Medications and Allergies Home Medications Medication Instructions Recorded Confirmed Type acetaminophen 500 mg tablet 1,000 mg PO Q8H PRN pain 02/17/23 02/17/23 History aripiprazole 2 mg tablet (Abilify) 2 mg PO DAILY 02/17/23 02/17/23 History donepezil 10 mg tablet 10 mg PO HS 02/17/23 02/17/23 History duloxetine 40 mg capsule,delayed 40 mg PO DAILY 02/17/23 02/17/23 History release ferrous sulfate 325 mg (65 mg 325 mg PO BID 02/17/23 02/17/23 History iron) tablet lamotrigine 100 mg tablet 100 mg PO BID 02/17/23 02/17/23 History (Lamictal) melatonin 5 mg tablet 5 mg PO HS 02/17/23 02/17/23 History memantine 10 mg tablet (Namenda) 10 mg PO BID 02/17/23 02/17/23 History metformin 500 mg tablet 500 mg PO BID 02/17/23
[2023-02-17 15:26] LABS: Glucose Point of Care 240 mg/dl (65-105)
[2023-02-17] MEDS: KCL 20 MEQ/D5/0.45% SOD CHL 1,000 ML 150 ML IV CONT (15:33)
[2023-02-17 16:06] LABS: Hemoglobin A1C 13.3 % (<5.7)
[2023-02-17 16:13] LABS: Anion Gap 12 mmol/L (8-16); Blood Urea Nitrogen 69 mg/dL (9-20); Calcium 8.4 mg/dL (8.4-10.2); Carbon Dioxide 22 mmol/L (22-30); Chloride 122 mmol/L (98-107); Estimated CRCL calculation 49 ml/min; Estimated Glomerular Filt Rate 51; Glucose 253 mg/dL (65-110); Potassium 3.1 mmol/L (3.4-5.0); Sodium 156 mmol/L (137-145)
[2023-02-17 17:21] LABS: Glucose Point of Care 160 mg/dl (65-105)
[2023-02-17 18:11] LABS: Glucose Point of Care 157 mg/dl (65-105)
[2023-02-17] MEDS: INSULIN GLARGINE (*BKC) 100 UNITS/ML 15 UNITS SUB-Q (18:54)
[2023-02-17] MEDS: SODIUM CHLORIDE 0.45% 1,000 ML 75 ML IV CONT (18:54)
[2023-02-17 19:07] LABS: Glucose Point of Care 167 mg/dl (65-105)
[2023-02-17 19:49] LABS: Anion Gap 10 mmol/L (8-16); Blood Urea Nitrogen 60 mg/dL (9-20); Calcium 8.3 mg/dL (8.4-10.2); Carbon Dioxide 26 mmol/L (22-30); Chloride 120 mmol/L (98-107); Estimated CRCL calculation 45 ml/min; Estimated Glomerular Filt Rate 56; Glucose 169 mg/dL (65-110); Potassium 3.2 mmol/L (3.4-5.0); Sodium 156 mmol/L (137-145)
[2023-02-17 20:21] LABS: Glucose Point of Care 161 mg/dl (65-105)
[2023-02-17 21:05] LABS: Glucose Point of Care 216 mg/dl (65-105)
[2023-02-17] MEDS: TOLNAFTATE 1% POWDER 45 GM BTL 1 APPLIC TOPICAL (22:27)
[2023-02-17 23:57] LABS: Anion Gap 14 mmol/L (8-16); Blood Urea Nitrogen 51 mg/dL (9-20); Calcium 8.5 mg/dL (8.4-10.2); Carbon Dioxide 21 mmol/L (22-30); Chloride 121 mmol/L (98-107); Estimated CRCL calculation 53 ml/min; Estimated Glomerular Filt Rate > 60; Glucose 219 mg/dL (65-110); Potassium 3.8 mmol/L (3.4-5.0); Sodium 156 mmol/L (137-145)
--- NOTE | 2023-02-17 23:58 | PC.NURSE ---
2230 650ml of dark urine returned once Hurt placed.
[2023-02-18] VITALS (10 sets, daily range): BP systolic 122–135; BP diastolic 70–82; PULSE 78–104; RESP 16–22; TEMP 36.7–37.1; O2SAT 92–98
[2023-02-18 04:05] LABS: Basophils Absolute Auto 0.1 K/mm3 (0.0-0.1); Basophils Percent Auto 0.7 % (0.2-1.2); Eosinophils Percent Auto 0.2 % (0-4.4); Hematocrit 56.2 % (42.0-52.0); Hemoglobin 18.3 g/dL (14.0-18.0); Immature Granulocyte Absolute 0.05 K/mm3 (0.00-0.031); Immature Granulocyte Percent A 0.4 % (0-0.5); Lymphocytes Percent Auto 12.3 % (18.3-44.2); Mean Corpuscular HGB Conc 32.6 g/dl (32-36); Mean Corpuscular Hemoglobin 31.6 pg (26-34); Mean Corpuscular Volume 97.1 fl (80-100); Monocytes Absolute Auto 0.9 K/mm3 (0.1-0.6); Monocytes Percent Auto 6.7 % (2.6-8.5); Neutrophils Absolute Auto 10.4 K/mm3 (1.3-6.7); Neutrophils Percent Auto 79.7 % (45.5-73.1); Platelet Count Result 166 k/mm3 (150-375); Red Blood Count 5.79 M/mm3 (4.6-6.20); Red Cell Distribution Width 13.2 % (11.5-14.5)
[2023-02-18 04:20] LABS: Alanine Aminotransferase 16 U/L (6-50); Albumin Level 3.4 g/dL (3.5-5.1); Alkaline Phosphatase 103 U/L (38-126); Anion Gap 13 mmol/L (8-16); Aspartate Amino Transferase 28 U/L (17-59); Bilirubin,Total 1.8 mg/dL (0.2-1.3); Blood Urea Nitrogen 47 mg/dL (9-20); Calcium 8.6 mg/dL (8.4-10.2); Carbon Dioxide 22 mmol/L (22-30); Chloride 119 mmol/L (98-107); Estimated CRCL calculation 53 ml/min; Estimated Glomerular Filt Rate > 60; Glucose 241 mg/dL (65-110); Magnesium 2.3 mg/dL (1.6-2.3); Phosphorus 3.1 mg/dL (2.5-4.5); Potassium 4.1 mmol/L (3.4-5.0); Sodium 154 mmol/L (137-145)
[2023-02-18] MEDS: INSULIN ASPART (*BKC) 100 UNITS/ML SUB-Q ×3 (05:36→17:37)
[2023-02-18 05:42] LABS: Glucose Point of Care 225 mg/dl (65-105)
[2023-02-18 07:39] LABS: Glucose Point of Care 249 mg/dl (65-105)
[2023-02-18] MEDS: PANTOPRAZOLE SODIUM IV 40 MG VIAL IV PUSH ×2 (07:55→20:44)
[2023-02-18] MEDS: ENOXAPARIN 40 MG/0.4 ML SYRINGE SUB-Q (07:55)
[2023-02-18] MEDS: LACTATED RINGERS 500 ML IV CONT (07:56)
[2023-02-18] MEDS: TOLNAFTATE 1% POWDER 45 GM BTL 1 APPLIC TOPICAL ×2 (07:56→20:45)
[2023-02-18 08:48] LABS: Anion Gap 12 mmol/L (8-16); Blood Urea Nitrogen 40 mg/dL (9-20); Calcium 8.4 mg/dL (8.4-10.2); Carbon Dioxide 23 mmol/L (22-30); Chloride 119 mmol/L (98-107); Estimated CRCL calculation 64 ml/min; Estimated Glomerular Filt Rate > 60; Glucose 247 mg/dL (65-110); Potassium 3.6 mmol/L (3.4-5.0); Sodium 154 mmol/L (137-145)
--- NOTE | 2023-02-18 08:48 | WPDINTPN ---
Progress Note: A&P Assessment and Plan (1) DKA (diabetic ketoacidosis): Code(s): E11.10 - Type 2 diabetes mellitus with ketoacidosis without coma Status: Acute Assessment and Plan: [facility] from [facility] with hyperglycemia, dehydration -he drank a case of [address] Herrera and had 2 bags of cheese puffs -was hyperglycemic at the [facility] and was transferred to the ER for evaluation where he was found to be in diabetic ketoacidosis with elevated blood sugars, anion gap metabolic acidosis, elevated beta hydroxybutyrate. UA did show positive ketones, glucose and protein -patient was adequately fluid-resuscitated, -transitioned to long-acting insulin sliding scale insulin on 02/17/2023 evening -hemoglobin A1c is 13.3 this admission -currently NPO for dysphagia and vomiting, possible aspiration (2) Pneumonia: Code(s): J18.9 - Pneumonia, unspecified organism Status: Acute Assessment and Plan: Pneumonia on CT scan of the chest -continue ceftriaxone and azithromycin -possible aspiration will add Flagyl (3) Acute kidney injury: Code(s): N17.9 - Acute kidney failure, unspecified Status: Acute Assessment and Plan: Patient presented with dehydration, creatinine of 2.20 and sodium of 149. Could be related diabetic ketoacidosis, hypovolemia -adequately fluid-resuscitated -creatinine has normalized -continue monitor urine output, renal function and electrolytes Hypernatremia likely related to dehydration edge DKA -sodium levels improving gradually -continue 0.45% normal saline for hydration -will also give additional IV fluid bolus (4) GERD (gastroesophageal reflux disease): Code(s): K21.9 - Gastro-esophageal reflux disease without esophagitis Status: Acute Assessment and Plan: IV Protonix for GERD and esophagitis -Patient does have a history of esophageal stricture in June of 2020, status post upper endoscopy which showed esophagitis and esophageal stricture with balloon dilatation done by Dr. Miller here at [facility] Patient is having difficulty swallowing and hurting in his throat -will have GI evaluate the patient -speech for bedside swallow (5) Schizophrenia: Code(s): F20.9 - Schizophrenia, unspecified Status: Acute Assessment and Plan: Continue Namenda, melatonin, mirtazapine, lamotrigine, duloxetine, donepezil Abilify, these in the medications he takes at the [facility] Plan DVT prophylaxis: Lovenox Stress ulcer prophylaxis: Protonix IV q.12 hours Nutrition: NPO for now except ice chips Code Status: Full code Critical Care Time Spent: 34 minutes Patient may transfer out of the ICU Due to a high probability of clinically significant, life threatening deterioration, the patient required my highest level of preparedness to intervene emergently and I personally spent this critical care time directly and personally managing the patient. This critical care time included obtaining a history; examining the patient; pulse oximetry; ordering and review of studies; arranging urgent treatment with development of a management plan; evaluation of patient's response to treatment; frequent reassessment; and discussions with other providers. It was exclusive of separately billable procedures and treating other patients and teaching time. Please see Assessment and Plan section and the rest of the note for further information on patient assessment and treatment This dictation may have been done utilizing a voice recognition system. Attempts have been made to correct errors. However, there may be uncorrected grammatical, spelling, and recognitions errors present. Subjective Date/time seen: 02/18/23 08:48 Interval history: Reason for consult: Diabetic ketoacidosis, dehydration, hypernatremia 02/18/2023: Patient seen and examined the ICU, is awake, alert oriented x2. Answers to questions appropriately but
[2023-02-18] MEDS: SODIUM CHLORIDE 0.45% 1,000 ML 75 ML IV CONT ×2 (09:00→23:26)
[2023-02-18] MEDS: metroNIDAZOLE 500 MG/ISO 100ML 500 MG/100 ML BAG 100 MG IVPB ×2 (09:34→17:23)
[2023-02-18 12:08] LABS: Glucose Point of Care 223 mg/dl (65-105)
[2023-02-18] MEDS: AZITHROMYCIN 500 MG/NS 250 ML 500 MG/250 ML BAG 250 MG IVPB (13:14)
--- NOTE | 2023-02-18 15:05 | PCSTNOTE ---
Bedside swallowing evaluation completed. Cursory oral peripheral examination results within functional limits. Patient resides in a long term and has a reported history of esophageal stricture with vomiting. His prior diet is unknown but he was receiving thin liquids. Trials of thin liquid (water) by spoon and sips by cup were given and no soft signs of aspiration were observed. Patient tried one bite of vanilla pudding by spoon, and again swallowing was within normal limits. According to nursing, patient self report, and medical record patient has been vomiting after swallowing food or liquid, at least for a few days. This did not occur during this evaluation, but only very small amounts were given. Patient also showed no soft signs of aspiration with individual ice chips by spoon. Due to this patient's risk of vomiting he is at risk for aspiration on vomited material. Based on this evaluation, a pureed diet with thin liquids is recommended. Please note that silent aspiration cannot be ruled out at bedside and can be evaluated with a modified barium swallow study. No further speech therapy is recommended for this patient at this time. Thank you for this referral.
--- NOTE | 2023-02-18 15:28 | PM.IMPN ---
Progress Note: A&P Assessment and Plan (1) Diabetic ketoacidosis associated with type 2 diabetes mellitus: Code(s): E11.10 - Type 2 diabetes mellitus with ketoacidosis without coma Status: Acute (2) Pneumonia involving right lung: Code(s): J18.9 - Pneumonia, unspecified organism Status: Acute (3) Acute kidney injury: Code(s): N17.9 - Acute kidney failure, unspecified Status: Acute (4) Dehydration: Code(s): E86.0 - Dehydration Status: Acute (5) Esophagitis: Code(s): K20.90 - Esophagitis, unspecified without bleeding Status: Acute (6) Hypertension: Code(s): I10 - Essential (primary) hypertension Status: Acute (7) Psychiatric illness: Code(s): F99 - Mental disorder, not otherwise specified Status: Acute Plan The patient presented to the emergency department via EMS from [facility] for evaluation of vomiting and high blood sugar. He is alert and oriented x1 at baseline historian. Has been vomiting consistently unable to hold increasingly. When blood sugar was checked it was over 100 sent to the ED for evaluation. He has history of dementia schizophrenia hypertension esophageal stricture and GERD anxiety depression. ED evaluation revealed sinus tachycardia leukocytosis of 19.7 hemoglobin of 20.4 hematocrit of 63 sodium 149 elevated blood sugar as 680 creatinine of 2.2 beta hydroxybutyrate of 6.11. UA positive for glucose and ketones. Chest x-ray showed mass in right mid lung zone however subsequent CT chest showed findings of pneumonia along with wall thickening of the esophagus consistent with esophagitis. Received IV fluid resuscitation PPI IV antibiotics with ceftriaxone and azithromycin and insulin drip. 02/18/2023 anion gap closed and has been transition to Lantus. A1c more than 13 Right upper lobe pneumonia possible aspiration related. Continue azithromycin and ceftriaxone and Flagyl. Urine antigens. Speech to see. Started on oral diet as tolerated Esophagitis ISABELA creatinine 2.2 this is resolved with hydration Hyponatremia at 1:49 a.m. continue to monitor with half-normal saline Type 2 diabetes on A1c 13.3 started Lantus Schizophrenia/dementia home medication DVT prophylaxis Lovenox Code status do not resuscitate Subjective Date/time seen: 02/18/23 15:28 Interval history: Frustrated that he cannot eat. Gets annoyed and states she has not been eating and drinking for several days now. He is going to of hunger Review of Systems Review of Systems: All systems reviewed & are unremarkable except as noted in HPI and below Exam Narrative: General: Pleasant gentleman in no acute distress HEENT:? Pupils equal and reactive, sclera is clear, dry oral mucosa Neck:? Supple Respiratory:? Clear to auscultation bilateral, decreased air entry at bases, no wheezing Cardiac:? S1-S2 is normal, sinus tachycardia Abdomen:? Soft, nontender, nondistended, hypoactive bowel sounds Extremities:? No edema, palpable pedal pulses Neuro:? Patient is awake, alert, oriented x2, follows simple commands in all extremities and answers to questions appropriately Skin:? No skin lesions noted, warm and dry Psych:? Agitated at times Objective Data Vital Signs Vital Signs: Vital Signs - 24 hr 02/17/23 16:00 02/17/23 16:00 02/17/23 16:00 Temperature Pulse Rate 103 H 103 H Respiratory Rate 22 H Blood Pressure 129/93 H Pulse Oximetry 93 Oxygen Delivery Room Air 02/17/23 18:00 02/17/23 18:00 02/17/23 20:30 Temperature Pulse Rate 103 H 103 H 104 H Respiratory Rate 17 17 Blood Pressure 133/83 Pulse Oximetry 94 92 Oxygen Delivery Room Air 02/17/23 20:30 02/17/23 20:00 02/17/23 22:00 Temperature 97.9 F Pulse Rate 104 H 103 H 105 H Respiratory Rate 17 Blood Pressure 139/81 Pulse Oximetry 92 Oxygen Delivery 02/17/23 22:00 02/18/23 00:00 02/18/23 00:00 Temperature Pulse Rat
[2023-02-18 16:12] LABS: Anion Gap 9 mmol/L (8-16); Blood Urea Nitrogen 33 mg/dL (9-20); Calcium 8.3 mg/dL (8.4-10.2); Carbon Dioxide 25 mmol/L (22-30); Chloride 118 mmol/L (98-107); Estimated CRCL calculation 72 ml/min; Estimated Glomerular Filt Rate > 60; Glucose 244 mg/dL (65-110); Potassium 3.9 mmol/L (3.4-5.0); Sodium 152 mmol/L (137-145)
[2023-02-18] MEDS: FERROUS SULFATE 325 MG TABLET DR PO (17:24)
[2023-02-18] MEDS: MEMANTINE 10 MG TABLET PO (17:24)
[2023-02-18] MEDS: SENNOSIDES 8.6 MG TABLET PO (17:24)
[2023-02-18 17:34] LABS: Glucose Point of Care 227 mg/dl (65-105)
[2023-02-18 20:38] LABS: Glucose Point of Care 255 mg/dl (65-105)
[2023-02-18] MEDS: lamoTRIgine 100 MG TABLET PO (20:44)
[2023-02-18] MEDS: INSULIN GLARGINE (*BKC) 100 UNITS/ML 15 UNITS SUB-Q (20:44)
[2023-02-18] MEDS: MELATONIN 5 MG TABLET PO (20:44)
[2023-02-18 23:31] LABS: Glucose Point of Care 192 mg/dl (65-105)
[2023-02-19] MEDS: metroNIDAZOLE 500 MG/ISO 100ML 500 MG/100 ML BAG 100 MG IVPB ×3 (00:18→16:31)
[2023-02-19 00:44] LABS: Anion Gap 9 mmol/L (8-16); Blood Urea Nitrogen 25 mg/dL (9-20); Calcium 8.4 mg/dL (8.4-10.2); Carbon Dioxide 27 mmol/L (22-30); Chloride 114 mmol/L (98-107); Estimated CRCL calculation 81 ml/min; Estimated Glomerular Filt Rate > 60; Glucose 209 mg/dL (65-110); Potassium 3.6 mmol/L (3.4-5.0); Sodium 150 mmol/L (137-145)
[2023-02-19 04:55] LABS: Basophils Absolute Auto 0.1 K/mm3 (0.0-0.1); Basophils Percent Auto 0.7 % (0.2-1.2); Eosinophils Absolute Auto 0.1 K/mm3 (0-0.3); Eosinophils Percent Auto 0.8 % (0-4.4); Hematocrit 46.9 % (42.0-52.0); Hemoglobin 15.5 g/dL (14.0-18.0); Immature Granulocyte Absolute 0.05 K/mm3 (0.00-0.031); Immature Granulocyte Percent A 0.5 % (0-0.5); Immature Platelet Fraction Pct 2.9 % (0.9-11.2); Lymphocytes Absolute Auto 1.31 K/mm3 (0.9-3.2); Lymphocytes Percent Auto 13.6 % (18.3-44.2); Mean Corpuscular Hemoglobin 31.8 pg (26-34); Mean Corpuscular Volume 96.3 fl (80-100); Mean Platelet Volume 10.3 fl (7.4-10.4); Monocytes Absolute Auto 0.7 K/mm3 (0.1-0.6); Monocytes Percent Auto 7.6 % (2.6-8.5); Neutrophils Absolute Auto 7.4 K/mm3 (1.3-6.7); Neutrophils Percent Auto 76.8 % (45.5-73.1); Platelet Count Result 129 k/mm3 (150-375); Red Blood Count 4.87 M/mm3 (4.6-6.20); White Blood Count 9.6 K/mm3 (4.5-10.0)
[2023-02-19 05:07] LABS: Alanine Aminotransferase 18 U/L (6-50); Albumin Level 2.8 g/dL (3.5-5.1); Alkaline Phosphatase 106 U/L (38-126); Anion Gap 8 mmol/L (8-16); Aspartate Amino Transferase 33 U/L (17-59); Bilirubin,Total 1.6 mg/dL (0.2-1.3); Blood Urea Nitrogen 22 mg/dL (9-20); Calcium 8.1 mg/dL (8.4-10.2); Carbon Dioxide 25 mmol/L (22-30); Chloride 113 mmol/L (98-107); Estimated CRCL calculation 93 ml/min; Estimated Glomerular Filt Rate > 60; Glucose 185 mg/dL (65-110); Magnesium 1.8 mg/dL (1.6-2.3); Phosphorus 2.5 mg/dL (2.5-4.5); Potassium 3.5 mmol/L (3.4-5.0); Sodium 146 mmol/L (137-145)
--- NOTE | 2023-02-19 07:01 | WPDGICN ---
Assessment and Plan Assessment and plan (1) Pneumonia involving right lung: Code(s): J18.9 - Pneumonia, unspecified organism Status: Acute Assessment and Plan: his pneumonia is likely due to aspiration her (2) Diabetic ketoacidosis associated with type 2 diabetes mellitus: Code(s): E11.10 - Type 2 diabetes mellitus with ketoacidosis without coma Status: Acute Assessment and Plan: blood sugar is an issue of 600. Has come down to 200s with insulin. (3) Dysphagia: Code(s): R13.10 - Dysphagia, unspecified Status: Acute Assessment and Plan: He had a severe stricture of the esophagus when I saw him about 2 years ago. I was only able to dilate that stricture up to 13.5 mm and recommended repeat in 2-3 months. That did never happened (4) Esophagitis: Code(s): K20.90 - Esophagitis, unspecified without bleeding Status: Acute Assessment and Plan: will perform EGD with dilatation later today. We may need to consider modified barium swallow but I think his aspiration is likely due to his altered mental status and brought released part by his severe stricture. GI Consult Note Consult date/time: 02/19/23 07:01 HPI: Dax Esteban is a 62 year old male who was admitted with diabetic ketoacidosis. He admits to drinking a 24 pack of DrJairo Herrera as well as bags of snacks. His blood sugars were over 600 when he came to the emergency room. He also had been vomiting at that time. He was lethargic and therefore was consequently moved to intensive care unit. A chest x-ray showed a possible mass in the right mid lung zone but CT scan of the chest showed that this is actually thickening of the esophagus. The patient has been rehydrated his blood sugar somewhat controlled. He states that he has had difficulty swallowing solid food for some time. He did in fact have esophageal dilatation of a severe stricture about 2 years ago. Review of Systems Review of Systems: All systems reviewed & are unremarkable except as noted in HPI and below PMFSH Past Medical History Medical History Dementia Depression with anxiety Esophageal stricture Gastroesophageal reflux disease Hypertension Schizophrenia Surgical History Surgical History History of colonoscopy with polypectomy (06/2020) History of esophagogastroduodenoscopy (06/2020) Family History Family History Other Family history unknown Social History Social History Social History: Code status: Full code. Smoking status: Former smoker Alcohol intake: current Alcohol use details: History of alcohol abuse. Substance use: never Substance use type: does not use Living arrangements: long term Additional living arrangements comments: Resident at [facility]. 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 Spiritual care concerns: No Meds Home Medications and Allergies Home Medications Medication Instructions Recorded Confirmed Type acetaminophen 500 mg tablet 1,000 mg PO Q8H PRN pain 02/17/23 02/17/23 History aripiprazole 2 mg tablet (Abilify) 2 mg PO DAILY 02/17/23 02/17/23 History donepezil 10 mg tablet 10 mg PO HS 02/17/23 02/17/23 History duloxetine 40 mg capsule,delayed 40 mg PO DAILY 02/17/23 02/17/23 History release ferrous sulfate 325 mg (65 mg 325 mg PO BID 02/17/23 02/17/23 History iron) tablet lamotrigine 100 mg tablet 100 mg PO BID 02/17/23 02/17/23 History (Lamictal) melatonin 5 mg tablet 5 mg PO HS 02/17/23 02/17/23 History memantine 10 mg tablet (Namenda) 10 mg PO BID 02/17/23 02/17/23 History metformin 500 mg tablet 500 mg PO BID 02/17/23 02/17/23 History mirtazapine 15 mg tablet (Remeron) 7.5 mg P
[2023-02-19 08:00] VITALS: BP 124/63; PULSE 71; RESP 16; TEMP 37.6; O2SAT 95
[2023-02-19] MEDS: TOLNAFTATE 1% POWDER 45 GM BTL 1 APPLIC TOPICAL ×2 (09:36→21:09)
[2023-02-19] MEDS: PANTOPRAZOLE SODIUM IV 40 MG VIAL IV PUSH ×2 (09:36→21:09)
[2023-02-19 12:03] LABS: Glucose Point of Care 169 mg/dl (65-105)
[2023-02-19 12:14] LABS: Anion Gap 9 mmol/L (8-16); Blood Urea Nitrogen 18 mg/dL (9-20); Calcium 7.8 mg/dL (8.4-10.2); Carbon Dioxide 26 mmol/L (22-30); Chloride 109 mmol/L (98-107); Estimated CRCL calculation 93 ml/min; Estimated Glomerular Filt Rate > 60; Glucose 183 mg/dL (65-110); Potassium 3.5 mmol/L (3.4-5.0); Sodium 144 mmol/L (137-145)
[2023-02-19] MEDS: SODIUM CHLORIDE 0.45% 1,000 ML 50 ML IV CONT (12:25)
[2023-02-19 12:26] VITALS: BMI 27.0
--- NOTE | 2023-02-19 12:42 | PM.IMPN ---
Progress Note: A&P Assessment and Plan (1) Diabetic ketoacidosis associated with type 2 diabetes mellitus: Code(s): E11.10 - Type 2 diabetes mellitus with ketoacidosis without coma Status: Acute (2) Pneumonia involving right lung: Code(s): J18.9 - Pneumonia, unspecified organism Status: Acute (3) Acute kidney injury: Code(s): N17.9 - Acute kidney failure, unspecified Status: Acute (4) Dehydration: Code(s): E86.0 - Dehydration Status: Acute (5) Esophagitis: Code(s): K20.90 - Esophagitis, unspecified without bleeding Status: Acute (6) Hypertension: Code(s): I10 - Essential (primary) hypertension Status: Acute (7) Psychiatric illness: Code(s): F99 - Mental disorder, not otherwise specified Status: Acute Plan The patient presented to the emergency department via EMS from [facility] for evaluation of vomiting and high blood sugar. He is alert and oriented x1 at baseline historian. Has been vomiting consistently unable to hold increasingly. When blood sugar was checked it was over 100 sent to the ED for evaluation. He has history of dementia schizophrenia hypertension esophageal stricture and GERD anxiety depression. ED evaluation revealed sinus tachycardia leukocytosis of 19.7 hemoglobin of 20.4 hematocrit of 63 sodium 149 elevated blood sugar as 680 creatinine of 2.2 beta hydroxybutyrate of 6.11. UA positive for glucose and ketones. Chest x-ray showed mass in right mid lung zone however subsequent CT chest showed findings of pneumonia along with wall thickening of the esophagus consistent with esophagitis. Received IV fluid resuscitation PPI IV antibiotics with ceftriaxone and azithromycin and insulin drip. 02/18/2023 anion gap closed and has been transition to Lantus. A1c more than 13 Right upper lobe pneumonia possible aspiration related. Continue azithromycin and ceftriaxone and Flagyl. Urine antigens. Speech to see. Started on oral diet as tolerated. Started and advanced as tolerated Esophagitis PPI ISABELA creatinine 2.2 this is resolved with hydration Hypernatremia on admission continues to improve and nearly resolved today. continue to monitor with half-normal saline History of esophageal stricture needing dilatation in the past GI has been consulted and undergoing EGD today Type 2 diabetes on A1c 13.3 started Lantus Schizophrenia/dementia home medication DVT prophylaxis Lovenox Code status do not resuscitate Subjective Date/time seen: 02/19/23 12:42 Interval history: No overnight events. Going for an EGD today. Remains confused. 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 Review of Systems Review of Systems: All systems reviewed & are unremarkable except as noted in HPI and below Exam Narrative: General: Pleasant gentleman in no acute distress HEENT:? Pupils equal and reactive, sclera is clear, dry oral mucosa Neck:? Supple Respiratory:? Clear to auscultation bilateral, decreased air entry at bases, no wheezing Cardiac:? S1-S2 is normal, sinus tachycardia Abdomen:? Soft, nontender, nondistended, hypoactive bowel sounds Extremities:? No edema, palpable pedal pulses Neuro:? Patient is awake, alert, oriented x2, follows simple commands in all extremities and answers to questions appropriately Skin:? No skin lesions noted, warm and dry Psych:? Calm and cooperative Objective Data Vital Signs Vital Signs: Vital Signs - 24 hr 02/18/23 17:30 02/18/23 20:30 02/18/23 20:00 Temperature 98.8 F 98.7 F Pulse Rate 92 Respiratory Rate 16 Blood Pressure 122/70 Pulse Oximetry 96 Oxygen Delivery Room Air 02/18/23 23:24 02/19/23 08:00 02/19/23 08:00 Temperature 98.1 F 99.7 F H Pulse Rate 78 71 Respiratory Rate 18 16 Blood Pressure 125/77 124/63 Pulse Oximetry 92 95 95 Oxygen Delivery Room Air Intake/Output Intake/Output: Intake & Output 02/16/23 02/17/23 02/18/23 02/19/23 23:59 23:59 23:5
[2023-02-19] MEDS: AZITHROMYCIN 500 MG/NS 250 ML 500 MG/250 ML BAG 250 MG IVPB (13:19)
[2023-02-19 13:43] LABS: Glucose Point of Care 170 mg/dl (65-105)
--- NOTE | 2023-02-19 13:44 | PC.NURSE ---
Addendum entered by Yenifer Schilling RN 02/19/23 13:45: Patient left for GI lab at 1335. Original Note: To GI Lab per [GI lab nurses ], IV [18 Left FA and 18 Right hand ]. Report given to [nurses. Also informed that patient is on suicidal precautions and needs someone with him at all times. They state that they can accomplish that and that the sitter can wait here for him to return].
[2023-02-19 13:47] VITALS: BP 116/56; PULSE 79; RESP 20; TEMP 36.6; O2SAT 97
[2023-02-19] MEDS: LACTATED RINGERS 1,000 ML 150 ML IV CONT (13:50)
--- NOTE | 2023-02-19 14:03 | WPDANESEPPF ---
Anes - Initial Pre Proc Eval Procedure: Operation Date: 02/19/23 14:30 Proposed Procedures p Esophagogastroduodenoscopy - Mich Miller MD Date/Time: 02/19/23 14:03 Surgeon: Sherif Mendoza MD Pre Op Diagnosis: dka,hyperglycemia Patient Data Age: 62 Gender: M Height: 1.65 m Weight: 73.7 kg Last Vital Signs Temp 97.9 F 02/19/23 13:47 Pulse 79 02/19/23 13:47 Resp 20 02/19/23 13:47 BP 116/56 L 02/19/23 13:47 Pulse Ox 97 02/19/23 13:47 O2 Del Method Room Air 02/19/23 13:47 Allergies Allergy/AdvReac Type Severity Reaction Status Date / Time No Known Allergies Allergy Verified 07/11/20 08:37 Home Medications Medication Instructions Recorded Confirmed Type acetaminophen 500 mg tablet 1,000 mg PO Q8H PRN pain 02/17/23 02/17/23 History aripiprazole 2 mg tablet (Abilify) 2 mg PO DAILY 02/17/23 02/17/23 History donepezil 10 mg tablet 10 mg PO HS 02/17/23 02/17/23 History duloxetine 40 mg capsule,delayed 40 mg PO DAILY 02/17/23 02/17/23 History release ferrous sulfate 325 mg (65 mg 325 mg PO BID 02/17/23 02/17/23 History iron) tablet lamotrigine 100 mg tablet 100 mg PO BID 02/17/23 02/17/23 History (Lamictal) melatonin 5 mg tablet 5 mg PO HS 02/17/23 02/17/23 History memantine 10 mg tablet (Namenda) 10 mg PO BID 02/17/23 02/17/23 History metformin 500 mg tablet 500 mg PO BID 02/17/23 02/17/23 History mirtazapine 15 mg tablet (Remeron) 7.5 mg PO HS 02/17/23 02/17/23 History multivitamin with minerals 1 tablet PO DAILY 02/17/23 02/17/23 History pantoprazole 40 mg tablet,delayed 40 mg PO DAILY 02/17/23 02/17/23 History release (Protonix) sennosides 8.6 mg tablet (senna) 8.6 mg PO BID 02/17/23 02/17/23 History Laboratory Tests 02/18/23 02/18/23 02/18/23 15:58 17:32 20:28 WBC RBC Hgb Hct MCV MCH MCHC RDW Plt Count MPV Immature Gran % (Auto) Neut % (Auto) Lymph % (Auto) [place] % (Auto) Eos % (Auto) Baso % (Auto) Lymph # (Auto) [place] # (Auto) Eos # (Auto) Baso # (Auto) Abs Immat Gran (auto) Absolute Neuts (auto) Absolute Nucleated RBC Nucleated RBC % % Immature Plt Fraction Sodium 152 H mmol/L (137-145) Potassium 3.9 mmol/L (3.4-5.0) Chloride 118 H mmol/L (98-107) Carbon Dioxide 25 mmol/L (22-30) Anion Gap 9 mmol/L (8-16) BUN 33 H mg/dL (9-20) Creatinine 0.80 mg/dL (0.7-1.3) Estim Creat Clear Calc 72 ml/min Estimated GFR > 60 (59 - ) Glucose 244 H mg/dL (65-110) POC Capillary Glucose 227 H mg/dl 255 H mg/dl (65-105) (65-105) Calcium 8.3 L mg/dL (8.4-10.2) Phosphorus Magnesium Total Bilirubin AST ALT Alkaline Phosphatase Total Protein Albumin 02/18/23 02/19/23 02/19/23 23:21 00:26 04:26 WBC 9.6 K/mm3 (4.5-10.0) RBC 4.87 M/mm3 (4.6-6.20) Hgb 15.5 g/dL (14.0-18.0) Hct 46.9 % (42.0-52.0) MCV 96.3 fl (80-100) MCH 31.8 pg (26-34) MCHC 33.0 g/dl (32-36) RDW 13.0 % (11.5-14.5) Plt Count 129 L k/mm3 (150-375) MPV 10.3 fl (7.4-10.4) Immature Gran % (Auto) 0.5 % (0-0.5) Neut % (Auto) 76.8 H % (45.5-73.1) Lymph % (Auto) 13.6 L % (18.3-44.2) [place] % (Auto) 7.6 % (2.6-8.5) Eos % (Auto) 0.8 % (0-4.4) Baso % (Auto) 0.7 % (0.2-1.2) Lymph # (Auto) 1.31 K/mm3 (0.9-3.2) [place] # (Auto) 0.7 H K/mm3 (0.1-0.6) Eos # (Auto) 0.1
[2023-02-19] MEDS: BENZOCAINE (*SP) 60 ML SPRAY CAN (HURRICAINE) 1 SPRAY MUCOUS MEM (14:26)
[2023-02-19 14:40] VITALS: BP 98/53; PULSE 73; RESP 23; O2SAT 99
[2023-02-19 14:50] VITALS: BP 125/70; PULSE 64; RESP 28; O2SAT 97
[2023-02-19 15:00] VITALS: BP 125/70; PULSE 79; RESP 23; O2SAT 98
[2023-02-19 15:07] LABS: Glucose Point of Care 149 mg/dl (65-105)
[2023-02-19 15:31] VITALS: BP 128/60; PULSE 64; RESP 16; TEMP 37; O2SAT 96
--- NOTE | 2023-02-19 15:32 | PC.NURSE ---
Pt back to ICU 1 post-EGD
[2023-02-19] MEDS: SENNOSIDES 8.6 MG TABLET PO (16:30)
[2023-02-19] MEDS: FERROUS SULFATE 325 MG TABLET DR PO (16:31)
[2023-02-19] MEDS: MEMANTINE 10 MG TABLET PO (16:31)
[2023-02-19 16:42] LABS: Glucose Point of Care 167 mg/dl (65-105)
[2023-02-19] MEDS: ACETAMINOPHEN 325 MG TABLET 650 MG PO (18:16)
[2023-02-19] MEDS: INSULIN GLARGINE (*BKC) 100 UNITS/ML 15 UNITS SUB-Q (21:08)
[2023-02-19] MEDS: MELATONIN 5 MG TABLET PO (21:09)
[2023-02-19] MEDS: lamoTRIgine 100 MG TABLET PO (21:09)
[2023-02-20] VITALS: BP 133/71; PULSE 86; RESP 22; TEMP 36.8; O2SAT 93
[2023-02-20] MEDS: metroNIDAZOLE 500 MG/ISO 100ML 500 MG/100 ML BAG 100 MG IVPB ×2 (00:04→09:56)
[2023-02-20] MEDS: INSULIN ASPART (*BKC) 100 UNITS/ML SUB-Q ×3 (00:05→20:01)
[2023-02-20 00:06] LABS: Glucose Point of Care 296 mg/dl (65-105)
[2023-02-20 03:33] LABS: Basophils Absolute Auto 0.1 K/mm3 (0.0-0.1); Basophils Percent Auto 0.6 % (0.2-1.2); Eosinophils Absolute Auto 0.1 K/mm3 (0-0.3); Eosinophils Percent Auto 0.8 % (0-4.4); Hemoglobin 15.7 g/dL (14.0-18.0); Immature Granulocyte Absolute 0.09 K/mm3 (0.00-0.031); Immature Granulocyte Percent A 1.1 % (0-0.5); Lymphocytes Absolute Auto 1.16 K/mm3 (0.9-3.2); Lymphocytes Percent Auto 14.7 % (18.3-44.2); Mean Corpuscular HGB Conc 32.7 g/dl (32-36); Mean Corpuscular Hemoglobin 30.9 pg (26-34); Mean Corpuscular Volume 94.5 fl (80-100); Mean Platelet Volume 10.4 fl (7.4-10.4); Monocytes Absolute Auto 0.6 K/mm3 (0.1-0.6); Monocytes Percent Auto 7.2 % (2.6-8.5); Neutrophils Absolute Auto 5.9 K/mm3 (1.3-6.7); Neutrophils Percent Auto 75.6 % (45.5-73.1); Platelet Count Result 124 k/mm3 (150-375); Red Blood Count 5.08 M/mm3 (4.6-6.20); Red Cell Distribution Width 12.6 % (11.5-14.5); White Blood Count 7.9 K/mm3 (4.5-10.0)
[2023-02-20 03:51] LABS: Alanine Aminotransferase 22 U/L (6-50); Albumin Level 2.8 g/dL (3.5-5.1); Alkaline Phosphatase 149 U/L (38-126); Anion Gap 6 mmol/L (8-16); Aspartate Amino Transferase 34 U/L (17-59); Bilirubin,Total 1.4 mg/dL (0.2-1.3); Blood Urea Nitrogen 11 mg/dL (9-20); Calcium 8.5 mg/dL (8.4-10.2); Carbon Dioxide 27 mmol/L (22-30); Chloride 111 mmol/L (98-107); Estimated CRCL calculation 93 ml/min; Estimated Glomerular Filt Rate > 60; Glucose 144 mg/dL (65-110); Magnesium 1.8 mg/dL (1.6-2.3); Sodium 144 mmol/L (137-145)
[2023-02-20] MEDS: POTASSIUM CHLORIDE INJ 40 MEQ in SODIUM CHLORIDE 0.9% IV 500 ML 130 MEQ IVPB (04:56)
[2023-02-20 07:22] VITALS: BP 146/73; PULSE 75; RESP 18; TEMP 36.9; O2SAT 99
[2023-02-20] MEDS: ARIPiprazole 2 MG TABLET PO (09:50)
[2023-02-20] MEDS: MEMANTINE 10 MG TABLET PO ×2 (09:50→16:24)
[2023-02-20] MEDS: FERROUS SULFATE 325 MG TABLET DR PO ×2 (09:50→16:24)
[2023-02-20] MEDS: lamoTRIgine 100 MG TABLET PO ×2 (09:50→20:02)
[2023-02-20] MEDS: ACETAMINOPHEN 325 MG TABLET 650 MG PO ×3 (09:50→23:42)
[2023-02-20] MEDS: DULoxetine HCL 20 MG CAPSULE.DR 40 MG PO (09:50)
[2023-02-20] MEDS: PANTOPRAZOLE SODIUM IV 40 MG VIAL IV PUSH ×2 (09:56→20:02)
[2023-02-20] MEDS: TOLNAFTATE 1% POWDER 45 GM BTL 1 APPLIC TOPICAL ×2 (09:56→20:02)
[2023-02-20] MEDS: ENOXAPARIN 40 MG/0.4 ML SYRINGE SUB-Q (09:56)
--- NOTE | 2023-02-20 10:24 | PM.IMPN ---
Progress Note: A&P Assessment and Plan (1) Diabetic ketoacidosis associated with type 2 diabetes mellitus: Code(s): E11.10 - Type 2 diabetes mellitus with ketoacidosis without coma Status: Acute (2) Pneumonia involving right lung: Code(s): J18.9 - Pneumonia, unspecified organism Status: Acute (3) Acute kidney injury: Code(s): N17.9 - Acute kidney failure, unspecified Status: Acute (4) Dehydration: Code(s): E86.0 - Dehydration Status: Acute (5) Esophagitis: Code(s): K20.90 - Esophagitis, unspecified without bleeding Status: Acute (6) Hypertension: Code(s): I10 - Essential (primary) hypertension Status: Acute (7) Psychiatric illness: Code(s): F99 - Mental disorder, not otherwise specified Status: Acute Plan T he patient presented to the emergency department via EMS from [facility] for evaluation of vomiting and high blood sugar. He is alert and oriented x1 at baseline historian. Has been vomiting consistently unable to hold increasingly. When blood sugar was checked it was over 100 sent to the ED for evaluation. He has history of dementia schizophrenia hypertension esophageal stricture and GERD anxiety depression. ED evaluation revealed sinus tachycardia leukocytosis of 19.7 hemoglobin of 20.4 hematocrit of 63 sodium 149 elevated blood sugar as 680 creatinine of 2.2 beta hydroxybutyrate of 6.11. UA positive for glucose and ketones. ?severe stricture of the esophagus Chest x-ray showed mass in right mid lung zone however subsequent CT chest showed findings of pneumonia along with wall thickening of the esophagus consistent with esophagitis. Received IV fluid resuscitation PPI IV Patient underwent EGD and dilatation yesterday DKA Received insulin drip. anion gap closed and has been transition to Lantus. A1c more than 13 Type 2 diabetes on A1c 13.3 started Lantus Resolved Aspiration pneumonia Right upper lobe pneumonia possible aspiration related. Received azithromycin and ceftriaxone and Flagyl. Urine antigens. Started on oral diet as tolerated. Started and advanced as tolerated Esophagitis PPI Changed to Augmentin p.o. today ISABELA creatinine 2.2 this is resolved with hydration Hypernatremia on admission continues to improve and nearly resolved today. continue to monitor with half-normal saline History of esophageal stricture needing dilatation in the past GI has been consulted and undergoing EGD today Schizophrenia/dementia home medication DVT prophylaxis Lovenox Code status do not resuscitate Patient denies suicide ideation and attempt, patient stated he was frustrated, he was not seriously talking about suicide Remove bedside sitter, patient will follow-up with psychiatrist as scheduled appointment of patient Subjective Date/time seen: 02/20/23 10:24 Interval history: I saw exam patient today, patient is mentally clear, patient underwent EGD, stricture dilatation yesterday. Patient denies chest pain, shortness of breath. Pleasant person, patient denies suicidal ideation attempt, patient state he was frustrated, and stated he would like to hurt himself. Patient stated he was not seriously to commit suicide. I had a discussion with the patient in present patient's nurse in the ICU Exam Narrative: General: Pleasant gentleman in no acute distress HEENT:? Pupils equal and reactive, sclera is clear, dry oral mucosa Neck:? Supple Respiratory:? Clear to auscultation bilateral, decreased air entry at bases, no wheezing Cardiac:? S1-S2 is normal, sinus tachycardia Abdomen:? Soft, nontender, nondistended, hypoactive bowel sounds Extremities:? No edema, palpable pedal pulses Neuro:? Patient is awake, alert, oriented x2, follows simple commands in all extremities and answers to questions appropriately Skin:? No skin lesions noted, warm and dry Psych:? Calm and cooperative Objective
[2023-02-20 11:20] LABS: Glucose Point of Care 298 mg/dl (65-105)
[2023-02-20 11:50] LABS: Mycoplasma IgM Antibody Titer 103 U/mL (<770)
--- NOTE | 2023-02-20 12:45 | PC.NURSE ---
Suicidal precautions discontinued per Dr. Limon. Patient now denies never having suicidal thoughts and states that he just did it because he didn't like the rules of not eating while waiting for tests. Patient is at his baseline level of confusion, and this level of confusion has been stable throughout patient's stay.
[2023-02-20 13:11] LABS: Potassium 3.5 mmol/L (3.4-5.0)
[2023-02-20] MEDS: AZITHROMYCIN 500 MG/NS 250 ML 500 MG/250 ML BAG 250 MG IVPB (13:38)
[2023-02-20 14:00] VITALS: BMI 27.9
--- NOTE | 2023-02-20 14:35 | WPDANESPN ---
Anes - Prog Note Post-Op Date/Time: 02/20/23 14:35 Cardiovascular status: normal Respiratory status: normal Airway patency: baseline Mental status: baseline Post-Op hydration status: normal Vital Signs: Last Vital Signs Temp 36.9 C 02/20/23 07:22 Pulse 75 02/20/23 07:22 Resp 18 02/20/23 07:22 BP 146/73 H 02/20/23 07:22 Pulse Ox 99 02/20/23 07:22 O2 Del Method Room Air 02/20/23 08:00 Pain Score (VAS): 02/27 I/O: Intake & Output 02/19/23 02/20/23 02/20/23 23:59 07:59 15:59 Intake Total 446 805 3088 Output Total 275 1300 Balance -125 -600 1100 Laboratory Tests 02/20/23 03:10 02/20/23 12:51 02/17/23 02/19/23 02/19/23 19:30 15:03 16:25 WBC RBC Hgb Hct MCV MCH MCHC RDW Plt Count MPV Immature Gran % (Auto) Neut % (Auto) Lymph % (Auto) [place] % (Auto) Eos % (Auto) Baso % (Auto) Lymph # (Auto) [place] # (Auto) Eos # (Auto) Baso # (Auto) Abs Immat Gran (auto) Absolute Neuts (auto) Absolute Nucleated RBC Nucleated RBC % % Immature Plt Fraction Sodium Potassium Chloride Carbon Dioxide Anion Gap BUN Creatinine Estim Creat Clear Calc Estimated GFR Glucose POC Capillary Glucose 149 H 167 H Calcium Magnesium Total Bilirubin AST ALT Alkaline Phosphatase Total Protein Albumin Mycoplasma pneumon IgM 103 02/19/23 02/20/23 02/20/23 23:57 03:10 11:18 WBC 7.9 RBC 5.08 Hgb 15.7 Hct 48.0 MCV 94.5 MCH 30.9 MCHC 32.7 RDW 12.6 Plt Count 124 L MPV 10.4 Immature Gran % (Auto) 1.1 H Neut % (Auto) 75.6 H Lymph % (Auto) 14.7 L [place] % (Auto) 7.2 Eos % (Auto) 0.8 Baso % (Auto) 0.6 Lymph # (Auto) 1.16 [place] # (Auto) 0.6 Eos # (Auto) 0.1 Baso # (Auto) 0.1 Abs Immat Gran (auto) 0.09 H Absolute Neuts (auto) 5.9 Absolute Nucleated RBC 0.0 Nucleated RBC % 0.0 % Immature Plt Fraction 4.0 Sodium 144 Potassium 3.0 L Chloride 111 H Carbon Dioxide 27 Anion Gap 6 L BUN 11 D Creatinine 0.60 L Estim Creat Clear Calc 93 Estimated GFR > 60 Glucose 144 H POC Capillary Glucose 296 H 298 H Calcium 8.5 Magnesium 1.8 Total Bilirubin 1.4 H AST 34 ALT 22 Alkaline Phosphatase 149 H Total Protein 6.0 L Albumin 2.8 L Mycoplasma pneumon IgM 02/20/23 12:51 WBC RBC Hgb Hct MCV MCH MCHC RDW Plt Count MPV Immature Gran % (Auto) Neut % (Auto) Lymph % (Auto) [place] % (Auto) Eos % (Auto) Baso % (Auto) Lymph # (Auto) [place] # (Auto) Eos # (Auto) Baso # (Auto) Abs Immat Gran (auto) Absolute Neuts (auto) Absolute Nucleated RBC Nucleated RBC % % Immature Plt Fraction Sodium Potassium 3.5 Chloride Carbon Dioxide Anion Gap BUN Creatinine Estim Creat Clear Calc Estimated GFR Glucose POC Capillary Glucose Calcium Magnesium Total Bilirubin AST ALT Alkaline Phosphatase Total Protein Albumin Mycoplasma pneumon IgM Post-procedural complaints: none Patient Feedback: Patient satisfied with anesthetic care.
[2023-02-20 16:00] VITALS: BP 159/78; PULSE 79; RESP 12; TEMP 37.2; O2SAT 98
[2023-02-20 16:01] LABS: Pneumococcal Antigen Urine Not Detected (Not Detected)
[2023-02-20 16:33] LABS: Glucose Point of Care 183 mg/dl (65-105)
[2023-02-20 18:35] LABS: Glucose Point of Care 216 mg/dl (65-105)
--- NOTE | 2023-02-20 18:53 | WPDGIPROGNO ---
Progress Note: A&P Assessment and Plan (1) Pneumonia involving right lung: Code(s): J18.9 - Pneumonia, unspecified organism Status: Acute Assessment and Plan: his pneumonia is likely due to aspiration her (2) Diabetic ketoacidosis associated with type 2 diabetes mellitus: Code(s): E11.10 - Type 2 diabetes mellitus with ketoacidosis without coma Status: Acute Assessment and Plan: blood sugar is an issue of 600. Has come down to 200s with insulin. Blood sugar remains over 200. (3) Dysphagia: Code(s): R13.10 - Dysphagia, unspecified Status: Acute Assessment and Plan: He had a severe stricture of the esophagus when I saw him about 2 years ago. I was only able to dilate that stricture up to 13.5 mm and recommended repeat in 2-3 months. That did never happened I was able to dilate his stricture up to 15 mm yesterday. (4) Esophagitis: Code(s): K20.90 - Esophagitis, unspecified without bleeding Status: Acute Assessment and Plan: will perform EGD with dilatation later today. We may need to consider modified barium swallow but I think his aspiration is likely due to his altered mental status and brought released part by his severe stricture. So far he is tolerating diet, 1st full liquid and now will start him on pureed diet. Subjective Date/time seen: 02/20/23 18:53 he remains confused but appears comfortable. He is lying almost transversely in his bed, legs hanging over 1 side. He denies having any pain. He has been tolerating his full liquid diet no signs of aspiration. Exam Const: General: cooperative and healthy appearing Orientation/consciousness: oriented to person and oriented to place HENMT: Head: normal to inspection Ears: hearing grossly normal bilaterally Mouth: Yes Normal oral and palatal mucosa present Eyes: General: appearance normal, both eyes and all related structures Neck: Neck: normal visual inspection Chest: Chest palpation & inspection: normal inspection of the chest Resp: Effort & Inspection: normal respiratory effort Auscultation: clear to auscultation bilaterally Cardio: Rate: regular rate Rhythm: regular rhythm GI: Inspection: normal to inspection GI Palp: No abdominal tenderness, Yes Soft to palpation, No Guarding due to palpation present (GI) and Yes No hepatosplenomegaly present Auscultation: normal bowel sounds Skin: General skin exam: normal color, no jaundice and other ( Heavily tattooed) Neuro: General: patient oriented x3 Speech: normal speech Objective Data Vital Signs Vital Signs: Vital Signs - 24 hr 02/19/23 19:46 02/20/23 00:00 02/20/23 07:22 Temperature 36.8 C 36.9 C Pulse Rate 86 75 Respiratory Rate 22 H 18 Blood Pressure 133/71 146/73 H Pulse Oximetry 93 99 Oxygen Delivery Room Air 02/20/23 08:00 02/20/23 16:00 Temperature 37.2 C Pulse Rate 79 Respiratory Rate 12 Blood Pressure 159/78 H Pulse Oximetry 98 Oxygen Delivery Room Air Intake/Output Intake/Output: Intake & Output 02/17/23 02/18/23 02/19/23 02/20/23 23:59 23:59 23:59 23:59 Intake Total 3600 3270 3150 1850 Output Total 0 1800 1625 2600 Balance 3600 1470 1525 -750 Meds/Results Medications: Active Medications Generic Name Dose Route Start Last Admin Trade Name Dustyq PRN Reason Stop Dose Admin Acetaminophen 650 mg 02/17/23 15:36 02/20/23 16:24 Acetaminophen 325 Mg Tablet PO 650 mg Q6H PRN Administration Mild Pain (1-3) or Fever Amoxicillin/Clavulanate Potassium 1 tablet 02/21/23 09:00 Amoxicillin/Clavulanate K 875-125 Mg Tab PO 02/23/23 21:01 Q12HR KARISSA Aripiprazole 2 mg 02/18/23 09:00 02/20/23 09:50 Aripiprazole 2 Mg Tablet PO 2 mg DAILY KARISSA Administration Azithromycin 500 mg 02/21/23 09:00 Azithromycin 250 Mg Tablet PO 02/21/23 09:01 ONCE ONE Dextrose 12.5 gm 02/17/23 11:07 Dextrose 50% 25 Gm/50 Ml Syringe IV PUSH P
[2023-02-20] MEDS: INSULIN GLARGINE (*BKC) 100 UNITS/ML 15 UNITS SUB-Q (20:01)
[2023-02-20] MEDS: MELATONIN 5 MG TABLET PO (20:02)
[2023-02-20 20:21] LABS: Glucose Point of Care 203 mg/dl (65-105)
--- NOTE | 2023-02-20 23:39 | PC.NURSE ---
The patient was transferred to room 316 bed 1 in stable condition. All belongings were sent with the patient and the receiving nurse Jenni was given report.
[2023-02-20 23:50] VITALS: BP 136/76; PULSE 84; RESP 16; TEMP 36.4; O2SAT 94
[2023-02-21 01:16] LABS: Legionella pneumophila Ag Ur Not Detected (Not Detected)
[2023-02-21 05:19] VITALS: BP 142/86; PULSE 84; RESP 18; TEMP 36.1; O2SAT 93
[2023-02-21 08:23] LABS: Glucose Point of Care 140 mg/dl (65-105)
--- NOTE | 2023-02-21 08:36 | PM.IMPN ---
Progress Note: A&P Assessment and Plan (1) Diabetic ketoacidosis associated with type 2 diabetes mellitus: Code(s): E11.10 - Type 2 diabetes mellitus with ketoacidosis without coma Status: Acute (2) Pneumonia involving right lung: Code(s): J18.9 - Pneumonia, unspecified organism Status: Acute (3) Acute kidney injury: Code(s): N17.9 - Acute kidney failure, unspecified Status: Acute (4) Dehydration: Code(s): E86.0 - Dehydration Status: Acute (5) Esophagitis: Code(s): K20.90 - Esophagitis, unspecified without bleeding Status: Acute (6) Hypertension: Code(s): I10 - Essential (primary) hypertension Status: Acute (7) Psychiatric illness: Code(s): F99 - Mental disorder, not otherwise specified Status: Acute Plan patient presented to the emergency department via EMS from [facility] for evaluation of vomiting and high blood sugar. He is alert and oriented x1 at baseline historian. Has been vomiting consistently unable to hold increasingly. When blood sugar was checked it was over 100 sent to the ED for evaluation. He has history of dementia schizophrenia hypertension esophageal stricture and GERD anxiety depression. ED evaluation revealed sinus tachycardia leukocytosis of 19.7 hemoglobin of 20.4 hematocrit of 63 sodium 149 elevated blood sugar as 680 creatinine of 2.2 beta hydroxybutyrate of 6.11. UA positive for glucose and ketones. ?severe stricture of the esophagus Chest x-ray showed mass in right mid lung zone however subsequent CT chest showed findings of pneumonia along with wall thickening of the esophagus consistent with esophagitis. Received IV fluid resuscitation PPI IV Patient underwent EGD and dilatation 02/19/23 Current patient still on clear diet, patient cannot tolerate diet well, has epigastric pain Add Carafate 1 g a.c. q.h.s.02/21/22 DKA Received insulin drip. anion gap closed and has been transition to Lantus. A1c more than 13 Type 2 diabetes on A1c 13.3 started Lantus Resolved Aspiration pneumonia Right upper lobe pneumonia possible aspiration related. Received azithromycin and ceftriaxone and Flagyl. Urine antigens. Started on oral diet as tolerated. Started and advanced as tolerated Esophagitis PPI Changed to Augmentin p.o. today ISABELA creatinine 2.2 this is resolved with hydration Hypokalemia 2.8 Start potassium chloride 40 mEq IV and 40 mEq p.o. b.i.d. Follow magnesium level Hypernatremia on admission continues to improve and nearly resolved today. continue to monitor with half-normal saline History of esophageal stricture needing dilatation in the past GI has been consulted and undergoing EGD today Schizophrenia/dementia home medication DVT prophylaxis Lovenox Code status do not resuscitate Patient denies suicide ideation and attempt, patient stated he was frustrated, he was not seriously talking about suicide Remove bedside sitter, patient will follow-up with psychiatrist as scheduled appointment of patient Subjective Date/time seen: 02/21/23 08:36 Interval history: I saw exam patient today,, patient underwent EGD, stricture dilatation d2. Patient is on clear diet, still has difficulty with swallowing per patient denies choking, has epigastric pain Exam Narrative: General: Pleasant gentleman in no acute distress HEENT:? Pupils equal and reactive, sclera is clear, dry oral mucosa Neck:? Supple Respiratory:? Clear to auscultation bilateral, decreased air entry at bases, no wheezing Cardiac:? S1-S2 is normal, sinus tachycardia Abdomen:? Soft, nontender, nondistended, hypoactive bowel sounds Extremities:? No edema, palpable pedal pulses Neuro:? Patient is awake, alert, oriented x2, follows simple commands in all extremities and answers to questions appropriately Skin:? No skin lesions noted, warm and dry Psych:? Calm and cooperative Objective Data Vital Sign
[2023-02-21 09:13] LABS: Basophils Absolute Auto 0.1 K/mm3 (0.0-0.1); Basophils Percent Auto 1.1 % (0.2-1.2); Eosinophils Absolute Auto 0.4 K/mm3 (0-0.3); Eosinophils Percent Auto 3.9 % (0-4.4); Hematocrit 49.7 % (42.0-52.0); Hemoglobin 16.7 g/dL (14.0-18.0); Immature Granulocyte Absolute 0.19 K/mm3 (0.00-0.031); Immature Granulocyte Percent A 1.9 % (0-0.5); Lymphocytes Absolute Auto 1.23 K/mm3 (0.9-3.2); Lymphocytes Percent Auto 12.2 % (18.3-44.2); Mean Corpuscular HGB Conc 33.6 g/dl (32-36); Mean Corpuscular Hemoglobin 31.5 pg (26-34); Mean Corpuscular Volume 93.8 fl (80-100); Mean Platelet Volume 10.9 fl (7.4-10.4); Monocytes Absolute Auto 0.7 K/mm3 (0.1-0.6); Neutrophils Absolute Auto 7.4 K/mm3 (1.3-6.7); Neutrophils Percent Auto 73.9 % (45.5-73.1); Platelet Count Result 145 k/mm3 (150-375); Red Cell Distribution Width 12.4 % (11.5-14.5); White Blood Count 10.1 K/mm3 (4.5-10.0)
[2023-02-21] MEDS: FERROUS SULFATE 325 MG TABLET DR PO ×2 (09:18→16:23)
[2023-02-21] MEDS: AMOXICILLIN/CLAVULANATE K 875-125 MG TAB 1 TABLET PO ×2 (09:18→21:41)
[2023-02-21] MEDS: DULoxetine HCL 20 MG CAPSULE.DR 40 MG PO (09:18)
[2023-02-21] MEDS: lamoTRIgine 100 MG TABLET PO ×2 (09:18→21:41)
[2023-02-21] MEDS: MEMANTINE 10 MG TABLET PO ×2 (09:18→16:23)
[2023-02-21] MEDS: AZITHROMYCIN 250 MG TABLET 500 MG PO (09:29)
[2023-02-21] MEDS: SENNOSIDES 8.6 MG TABLET PO ×2 (09:32→16:24)
[2023-02-21] MEDS: PANTOPRAZOLE SODIUM IV 40 MG VIAL IV PUSH ×2 (09:32→21:42)
[2023-02-21] MEDS: ENOXAPARIN 40 MG/0.4 ML SYRINGE SUB-Q (09:32)
[2023-02-21 09:40] LABS: Anion Gap 12 mmol/L (8-16); Blood Urea Nitrogen 5 mg/dL (9-20); Calcium 8.2 mg/dL (8.4-10.2); Carbon Dioxide 24 mmol/L (22-30); Chloride 104 mmol/L (98-107); Estimated CRCL calculation 110 ml/min; Estimated Glomerular Filt Rate > 60; Glucose 175 mg/dL (65-110); Potassium 2.8 mmol/L (3.4-5.0); Sodium 140 mmol/L (137-145)
[2023-02-21] MEDS: TOLNAFTATE 1% POWDER 45 GM BTL 1 APPLIC TOPICAL ×2 (09:40→21:43)
[2023-02-21] MEDS: ARIPiprazole 2 MG TABLET PO (10:06)
[2023-02-21 12:02] LABS: Glucose Point of Care 190 mg/dl (65-105)
[2023-02-21] MEDS: POTASSIUM CHLORIDE INJ 40 MEQ in SODIUM CHLORIDE 0.9% IV 500 ML 130 MEQ IVPB (12:06)
[2023-02-21] MEDS: POTASSIUM CHLORIDE 20 MEQ PACKET (FOR LIQUID) 40 MEQ PO ×2 (12:06→16:23)
[2023-02-21 15:32] LABS: Magnesium 1.8 mg/dL (1.6-2.3); Phosphorus 2.9 mg/dL (2.5-4.5)
[2023-02-21 16:00] VITALS: BP 129/88; PULSE 83; RESP 8; TEMP 36.7; O2SAT 95
[2023-02-21] MEDS: SUCRALFATE SUSP 100 MG/ML 10 ML UDC 1000 MG PO ×2 (16:23→21:42)
[2023-02-21 20:08] VITALS: BP 136/90; PULSE 95; RESP 20; TEMP 36.8; O2SAT 94
[2023-02-21] MEDS: MELATONIN 5 MG TABLET PO (21:41)
[2023-02-21] MEDS: INSULIN GLARGINE (*BKC) 100 UNITS/ML 15 UNITS SUB-Q (21:41)
[2023-02-21] MEDS: INSULIN HUMAN REGULAR (*BKC) 100 UNITS/ML 10 UNITS SUB-Q (21:44)
[2023-02-22] VITALS: BP 138/87; PULSE 87; RESP 20; TEMP 36.8; O2SAT 93
[2023-02-22 04:34] VITALS: BP 132/80; PULSE 82; RESP 20; TEMP 36.8; O2SAT 94
[2023-02-22] MEDS: SUCRALFATE SUSP 100 MG/ML 10 ML UDC 1000 MG PO ×3 (04:55→20:34)
[2023-02-22] MEDS: ACETAMINOPHEN 325 MG TABLET 650 MG PO (04:55)
[2023-02-22 05:08] LABS: Glucose Point of Care 171 mg/dl (65-105)
[2023-02-22 05:08] LABS: Glucose Point of Care 409 mg/dl (65-105)
[2023-02-22 06:29] LABS: Basophils Absolute Auto 0.1 K/mm3 (0.0-0.1); Basophils Percent Auto 1.2 % (0.2-1.2); Eosinophils Absolute Auto 0.4 K/mm3 (0-0.3); Eosinophils Percent Auto 4.5 % (0-4.4); Hematocrit 46.5 % (42.0-52.0); Hemoglobin 15.6 g/dL (14.0-18.0); Immature Granulocyte Absolute 0.35 K/mm3 (0.00-0.031); Immature Granulocyte Percent A 3.6 % (0-0.5); Lymphocytes Percent Auto 15.6 % (18.3-44.2); Mean Corpuscular HGB Conc 33.5 g/dl (32-36); Mean Corpuscular Hemoglobin 31.3 pg (26-34); Mean Corpuscular Volume 93.2 fl (80-100); Mean Platelet Volume 10.4 fl (7.4-10.4); Monocytes Absolute Auto 0.9 K/mm3 (0.1-0.6); Monocytes Percent Auto 9.1 % (2.6-8.5); Neutrophils Absolute Auto 6.4 K/mm3 (1.3-6.7); Platelet Count Result 159 k/mm3 (150-375); Red Blood Count 4.99 M/mm3 (4.6-6.20); Red Cell Distribution Width 12.6 % (11.5-14.5); White Blood Count 9.6 K/mm3 (4.5-10.0)
[2023-02-22 06:44] LABS: Anion Gap 9 mmol/L (8-16); Blood Urea Nitrogen 6 mg/dL (9-20); Carbon Dioxide 24 mmol/L (22-30); Chloride 102 mmol/L (98-107); Estimated CRCL calculation 110 ml/min; Estimated Glomerular Filt Rate > 60; Glucose 174 mg/dL (65-110); Potassium 2.9 mmol/L (3.4-5.0); Sodium 135 mmol/L (137-145)
[2023-02-22] MEDS: ENOXAPARIN 40 MG/0.4 ML SYRINGE SUB-Q (08:33)
[2023-02-22] MEDS: ARIPiprazole 2 MG TABLET PO (08:33)
[2023-02-22] MEDS: PANTOPRAZOLE SODIUM IV 40 MG VIAL IV PUSH ×2 (08:33→20:34)
[2023-02-22] MEDS: SENNOSIDES 8.6 MG TABLET PO ×2 (08:33→16:08)
[2023-02-22] MEDS: DULoxetine HCL 20 MG CAPSULE.DR 40 MG PO (08:33)
[2023-02-22] MEDS: FERROUS SULFATE 325 MG TABLET DR PO ×2 (08:33→16:07)
[2023-02-22] MEDS: POTASSIUM CHLORIDE 20 MEQ PACKET (FOR LIQUID) 40 MEQ PO ×2 (08:33→14:01)
[2023-02-22] MEDS: AMOXICILLIN/CLAVULANATE K 875-125 MG TAB 1 TABLET PO ×2 (08:33→20:32)
[2023-02-22] MEDS: MEMANTINE 10 MG TABLET PO ×2 (08:34→16:07)
[2023-02-22] MEDS: lamoTRIgine 100 MG TABLET PO ×2 (08:34→20:32)
[2023-02-22] MEDS: TOLNAFTATE 1% POWDER 45 GM BTL 1 APPLIC TOPICAL ×2 (08:34→20:36)
[2023-02-22 08:36] LABS: Glucose Point of Care 191 mg/dl (65-105)
--- NOTE | 2023-02-22 09:06 | PM.IMPN ---
Progress Note: A&P Assessment and Plan (1) Diabetic ketoacidosis associated with type 2 diabetes mellitus: Code(s): E11.10 - Type 2 diabetes mellitus with ketoacidosis without coma Status: Acute (2) Pneumonia involving right lung: Code(s): J18.9 - Pneumonia, unspecified organism Status: Acute (3) Acute kidney injury: Code(s): N17.9 - Acute kidney failure, unspecified Status: Acute (4) Dehydration: Code(s): E86.0 - Dehydration Status: Acute (5) Esophagitis: Code(s): K20.90 - Esophagitis, unspecified without bleeding Status: Acute (6) Hypertension: Code(s): I10 - Essential (primary) hypertension Status: Acute (7) Psychiatric illness: Code(s): F99 - Mental disorder, not otherwise specified Status: Acute Plan patient presented to the emergency department via EMS from [facility] for evaluation of vomiting and high blood sugar. He is alert and oriented x1 at baseline historian. Has been vomiting consistently unable to hold increasingly. When blood sugar was checked it was over 100 sent to the ED for evaluation. He has history of dementia schizophrenia hypertension esophageal stricture and GERD anxiety depression. ED evaluation revealed sinus tachycardia leukocytosis of 19.7 hemoglobin of 20.4 hematocrit of 63 sodium 149 elevated blood sugar as 680 creatinine of 2.2 beta hydroxybutyrate of 6.11. UA positive for glucose and ketones. ?severe stricture of the esophagus Chest x-ray showed mass in right mid lung zone however subsequent CT chest showed findings of pneumonia along with wall thickening of the esophagus consistent with esophagitis. Received IV fluid resuscitation PPI IV Patient underwent EGD and dilatation 02/19/23 Current patient still on clear diet, patient cannot tolerate diet well, has epigastric pain Add Carafate 1 g a.c. q.h.s.02/21/22 DKA Received insulin drip. anion gap closed and has been transition to Lantus. A1c more than 13 Type 2 diabetes on A1c 13.3 started Lantus Resolved Aspiration pneumonia Right upper lobe pneumonia possible aspiration related. Received azithromycin and ceftriaxone and Flagyl. Urine antigens. Started on oral diet as tolerated. Started and advanced as tolerated Esophagitis PPI Changed to Augmentin p.o. t ISABELA creatinine 2.2 this is resolved with hydration Hypokalemia 2.8 Start potassium chloride 40 mEq IV and 40 mEq p.o. b.i.d. Follow magnesium level Hypernatremia on admission continues to improve and nearly resolved today. continue to monitor with half-normal saline Na135 dc fluid History of esophageal stricture needing dilatation in the past GI has been consulted and undergoing EGD and esophageal dilatation Schizophrenia/dementia home medication DVT prophylaxis Lovenox Code status do not resuscitate Patient denies suicide ideation and attempt, patient stated he was frustrated, he was not seriously talking about suicide Remove bedside sitter, patient will follow-up with psychiatrist as scheduled appointment of patient Subjective Date/time seen: 02/22/23 09:06 Interval history: I saw exam patient today,, patient underwent EGD, stricture dilatation d3 pt ate solid food today and tolerated well. he denies difficulties with swallowing choking,afib hemodynamic status, potassium 2.9 Exam Narrative: General: Pleasant gentleman in no acute distress HEENT:? Pupils equal and reactive, sclera is clear, dry oral mucosa Neck:? Supple Respiratory:? Clear to auscultation bilateral, decreased air entry at bases, no wheezing Cardiac:? S1-S2 is normal, sinus tachycardia Abdomen:? Soft, nontender, nondistended, hypoactive bowel sounds Extremities:? No edema, palpable pedal pulses Neuro:? Patient is awake, alert, oriented x2, follows simple commands in all extremities and answers to questions appropriately Skin:? No skin lesions noted, warm and dry Psych:? Ca
--- NOTE | 2023-02-22 13:30 | PCNFU ---
Nutrition Follow-Up Complete: Inadequate oral intake related to dysphagia, as evidenced by need for esophageal dilation Goal: Adequate PO intake when diet is advanced Safe textures for patient needs Patient is progressing towards goal. We will continue current goal. Pt current nutrition is Pureed, Level 4 Diabetic Consistent Carb. Last recorded weight is 63.8 kg, unsure of bedscale weight admit weight was 73.7 kg. Bowel Motility:+BM reported 02/22 Labs Reviewed:Glu 174, Cr 0.5,BUN 6, NA 135 Meds Noted:Lovenox, Lantus, Ferrous Sulfate, Protonix Skin: WNL Additional Notes: Patient remains on Pureed, Level 4/DBCC diet. Speech Evaluation on 02/18/23. Tolerating diet, lunch intake about 50% of meals. Diet supplements are on trays BID for an additional 220 kcals and 10 gms protein. Agree with diet orders. Monitoring swallowing ability, plan of care, labs, weights, intakes every 5 days.
[2023-02-22] MEDS: POTASSIUM CHLORIDE INJ 40 MEQ in SODIUM CHLORIDE 0.9% IV 500 ML 130 MEQ IVPB (14:01)
[2023-02-22 14:07] LABS: Glucose Point of Care 190 mg/dl (65-105)
[2023-02-22 15:31] LABS: Phosphorus 2.9 mg/dL (2.5-4.5)
[2023-02-22 16:00] VITALS: BP 115/65; PULSE 87; RESP 16; TEMP 36.8; O2SAT 99
--- NOTE | 2023-02-22 16:01 | PM.DS ---
DS: Admitting Diagnosis Discharge Date 02/22/23 Admitting Diagnosis (1) Diabetic ketoacidosis associated with type 2 diabetes mellitus: ?Code(s): E11.10 - Type 2 diabetes mellitus with ketoacidosis without coma ?Status:?Acute (2) Pneumonia involving right lung: ?Code(s): J18.9 - Pneumonia, unspecified organism ?Status:?Acute (3) Acute kidney injury: ?Code(s): N17.9 - Acute kidney failure, unspecified ?Status:?Acute (4) Dehydration: ?Code(s): E86.0 - Dehydration ?Status:?Acute (5) Esophagitis: ?Code(s): K20.90 - Esophagitis, unspecified without bleeding ?Status:?Acute (6) Hypertension: ?Code(s): I10 - Essential (primary) hypertension ?Status:?Acute (7) Psychiatric illness: ?Code(s): F99 - Mental disorder, not otherwise specified ?Status:?Acute DS: Discharge Diagnosis Discharge Diagnosis (1) Diabetic ketoacidosis associated with type 2 diabetes mellitus: Code(s): E11.10 - Type 2 diabetes mellitus with ketoacidosis without coma Status: Acute (2) Pneumonia involving right lung: Code(s): J18.9 - Pneumonia, unspecified organism Status: Acute (3) Acute kidney injury: Code(s): N17.9 - Acute kidney failure, unspecified Status: Acute (4) Dehydration: Code(s): E86.0 - Dehydration Status: Acute (5) Esophagitis: Code(s): K20.90 - Esophagitis, unspecified without bleeding Status: Acute (6) Hypertension: Code(s): I10 - Essential (primary) hypertension Status: Acute (7) Psychiatric illness: Code(s): F99 - Mental disorder, not otherwise specified Status: Acute DS: Summary Hospital Course Hospital Course: patient presented to the emergency department via EMS from [facility] for evaluation of vomiting and high blood sugar. He is alert and oriented x1 at baseline historian. Has been vomiting consistently unable to hold increasingly. When blood sugar was checked it was over 100 sent to the ED for evaluation. He has history of dementia schizophrenia hypertension esophageal stricture and GERD anxiety depression. ED evaluation revealed sinus tachycardia leukocytosis of 19.7 hemoglobin of 20.4 hematocrit of 63 sodium 149 elevated blood sugar as 680 creatinine of 2.2 beta hydroxybutyrate of 6.11. UA positive for glucose and ketones. ?severe stricture of the esophagus Chest x-ray showed mass in right mid lung zone however subsequent CT chest showed findings of pneumonia along with wall thickening of the esophagus consistent with esophagitis. Received IV fluid resuscitation PPI IV Patient underwent EGD and dilatation 02/19/23 Current patient is on solid diet t, patient tolerate diet well. Add Carafate 1 g a.c. q.h.s.02/21/22 DKA Received insulin drip. anion gap closed and has been transition to Lantus. A1c more than 13 Type 2 diabetes on A1c 13.3 started Lantus Resolved Continue Lantus 50 units q.h.s., continue sliding scale a.c. q.h.s. with parameters Aspiration pneumonia Right upper lobe pneumonia possible aspiration related. Received azithromycin and ceftriaxone and Flagyl. Urine antigens. Started on oral diet as tolerated. Started and advanced as tolerated Esophagitis PPI Changed to Augmentin p.o. for 3 more days ISABELA creatinine 2.2 this is resolved with hydration Hypokalemia 2.8 Start potassium chloride 40 mEq IV and 40 mEq p.o. b.i.d. Follow magnesium level p.m. after receiving the potassium chloride replacement Discharge patient potassium level is within normal limit Hypernatremia on admission continues to improve and nearly resolved today. continue to monitor with half-normal saline Na135 dc fluid History of esophageal stricture needing dilatation in the past GI has been consulted and undergoing EGD and esophageal dilatation Schizophrenia/dementia home medication DVT prophylaxis Lovenox Code status do not resuscitate
[2023-02-22 18:31] LABS: Glucose Point of Care 169 mg/dl (65-105)
[2023-02-22 19:16] LABS: Potassium 4.1 mmol/L (3.4-5.0)
[2023-02-22 20:24] LABS: Glucose Point of Care 199 mg/dl (65-105)
[2023-02-22] MEDS: MELATONIN 5 MG TABLET PO (20:32)
[2023-02-22] MEDS: INSULIN GLARGINE (*BKC) 100 UNITS/ML 15 UNITS SUB-Q (20:35)
== END 2023-02-22 22:36 | DRG 637 ==
LOC: ANHED 11:13 → ANHICU 13:47 → ANH3MEDSUR 02-20 23:25
PROVIDERS: Internal Medicine; Internal Medicine Gastroenterology; Physician Assistant; Admitting Provider Internal Medicine; Emergency Provider Emergency Medicine; PCP Internal Medicine; Visit Provider Hospitalist
PROC: 0DJ08ZZ Inspection of Upper Intestinal Tract, Via Natural or Artificial Opening Endoscopic (ICD-10-PCS; CPT 43235; principal; 2023-02-19 14:30)
DX: E11.10 Type 2 diabetes mellitus with ketoacidosis without coma (principal); J69.0 Pneumonitis due to inhalation of food and vomit; N17.9 Acute kidney failure, unspecified; E87.0 Hyperosmolality and hypernatremia; K22.10 Ulcer of esophagus without bleeding; K22.2 Esophageal obstruction; K21.9 Gastro-esophageal reflux disease without esophagitis; E86.0 Dehydration; E87.6 Hypokalemia; F03.90 Unspecified dementia, unspecified severity, without behavioral disturbance, psychotic disturbance, mood disturbance, and anxiety; F20.9 Schizophrenia, unspecified; F41.8 Other specified anxiety disorders; I10 Essential (primary) hypertension; Z66 Do not resuscitate; Z79.84 Long term (current) use of oral hypoglycemic drugs; Z87.891 Personal history of nicotine dependence; Z20.822 Contact with and (suspected) exposure to COVID-19
CPT/HCPCS: 36415; 71045; 71260; 76775; 80048; 80053; 81001; 82010; 82948; 83036; 83735; 84100; 84132; 85025; 85055; 86738; 87040; 87449; 87637; 87899; 88305; 92610; 96361; 96365; 96366; 96367; 96368; 96375; 97161; 97165; 99285; A9270; C1726; C9113; G0378; J0456; J0696; J1650; J1815; J1836; J2704; J3480; J7030; J7040; J7120; Q9967

== ENCOUNTER 2023-02-27 23:00 | Emergency (ER) | payer OTHER, SELFPAY ==
[2023-02-27 23:22] VITALS: BP 125/69; PULSE 97; RESP 16; TEMP 36.9; O2SAT 98
[2023-02-27 23:40] LABS: Basophils Absolute Auto 0.1 K/mm3 (0.0-0.1); Eosinophils Absolute Auto 0.3 K/mm3 (0-0.3); Eosinophils Percent Auto 2.7 % (0-4.4); Hematocrit 48.5 % (42.0-52.0); Hemoglobin 16.2 g/dL (14.0-18.0); Immature Granulocyte Absolute 0.14 K/mm3 (0.00-0.031); Immature Granulocyte Percent A 1.5 % (0-0.5); Lymphocytes Percent Auto 22.6 % (18.3-44.2); Mean Corpuscular HGB Conc 33.4 g/dl (32-36); Mean Corpuscular Hemoglobin 31.3 pg (26-34); Mean Corpuscular Volume 93.6 fl (80-100); Mean Platelet Volume 9.3 fl (7.4-10.4); Monocytes Absolute Auto 0.6 K/mm3 (0.1-0.6); Neutrophils Absolute Auto 6.2 K/mm3 (1.3-6.7); Neutrophils Percent Auto 66.2 % (45.5-73.1); Platelet Count Result 293 k/mm3 (150-375); Red Blood Count 5.18 M/mm3 (4.6-6.20); Red Cell Distribution Width 12.6 % (11.5-14.5); White Blood Count 9.3 K/mm3 (4.5-10.0)
[2023-02-27 23:50] LABS: Alanine Aminotransferase 30 U/L (6-50); Albumin Level 3.4 g/dL (3.5-5.1); Alkaline Phosphatase 243 U/L (38-126); Anion Gap 7 mmol/L (8-16); Aspartate Amino Transferase 34 U/L (17-59); Bilirubin,Total 0.7 mg/dL (0.2-1.3); Calcium 8.4 mg/dL (8.4-10.2); Carbon Dioxide 28 mmol/L (22-30); Chloride 99 mmol/L (98-107); Estimated Glomerular Filt Rate > 60; Glucose 249 mg/dL (65-110); Potassium 3.8 mmol/L (3.4-5.0); Sodium 134 mmol/L (137-145)
[2023-02-27 23:52] LABS: Prothrombin Time 13.8 Seconds (11.1-14.7)
[2023-02-27 23:53] LABS: Partial Thromboplastin Time 28.3 SECONDS (22.3-36.8)
[2023-02-28 00:06] LABS: Blood Urea Nitrogen < 2 mg/dL (9-20)
[2023-02-28 01:15] VITALS: BP 115/54; PULSE 89; RESP 16; TEMP 36.6; O2SAT 97
[2023-02-28 01:22] VITALS: BP 133/74; BP 137/85; PULSE 90; PULSE 96
[2023-02-28 01:24] VITALS: BP 108/79; PULSE 102
--- NOTE | 2023-02-28 02:23 | ED.GENADULT ---
HPI - General Adult General Chief complaint: GI Bleed Stated complaint: GI bleed Time Seen by Provider: 02/28/23 02:06 History of Present Illness HPI narrative: Move patient 62-year-old gentleman who presents emergency department with chief complaint of loose stool the patient states he has had pain in his rectal area reports that his stool has been slimy and reports that he has had irritation in his rectal area the patient denies abdominal pain Related Data Home Medications Medication Instructions Recorded Confirmed acetaminophen 500 mg tablet 1,000 mg PO Q8H PRN pain 02/17/23 02/17/23 aripiprazole 2 mg tablet (Abilify) 2 mg PO DAILY 02/17/23 02/17/23 donepezil 10 mg tablet 10 mg PO HS 02/17/23 02/17/23 duloxetine 40 mg capsule,delayed 40 mg PO DAILY 02/17/23 02/17/23 release ferrous sulfate 325 mg (65 mg 325 mg PO BID 02/17/23 02/17/23 iron) tablet lamotrigine 100 mg tablet 100 mg PO BID 02/17/23 02/17/23 (Lamictal) melatonin 5 mg tablet 5 mg PO HS 02/17/23 02/17/23 memantine 10 mg tablet (Namenda) 10 mg PO BID 02/17/23 02/17/23 metformin 500 mg tablet 500 mg PO BID 02/17/23 02/17/23 mirtazapine 15 mg tablet (Remeron) 7.5 mg PO HS 02/17/23 02/17/23 multivitamin with minerals 1 tablet PO DAILY 02/17/23 02/17/23 sennosides 8.6 mg tablet (senna) 8.6 mg PO BID 02/17/23 02/17/23 Allergies Allergy/AdvReac Type Severity Reaction Status Date / Time No Known Allergies Allergy Verified 07/11/20 08:37 Review of Systems Review of Systems: A 10 system review of systems was completed on the patient and is negative except for what is stated in the HPI. Nursing and ancillary documentation was reviewed. [facility] Past Medical History Medical History Dementia Depression with anxiety Esophageal stricture Gastroesophageal reflux disease Hypertension Schizophrenia Surgical History Surgical History History of colonoscopy with polypectomy (06/2020) History of esophagogastroduodenoscopy (06/2020) Family History Family History Other Family history unknown Social History Social History Social History: Code status: Full code. Smoking status: Former smoker Alcohol intake: current Alcohol use details: History of alcohol abuse. Substance use: never Substance use type: does not use Living arrangements: detention Additional living arrangements comments: Resident at [facility]. 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 Spiritual care concerns: No Exam Narrative: GENERAL: Well-appearing, well-nourished, and in no acute distress. HEAD: Normocephalic, atraumatic. EYES: PERRLA and EOMI. ENT: Nares clear, no rhinorrhea or epistaxis. Mucous membranes moist. NECK: Supple. CHEST: Clear to auscultation. No respiratory distress. HEART: Regular rate and rhythm. No murmur heard. Normal peripheral pulses. ABDOMEN: Soft, nontender, nondistended, normal active bowel sounds. : And stool is guaiac negative there is irritation in the rectal area EXTREMITIES: Normal range of motion. No edema. SKIN: Warm, dry, no rash. NEURO: No focal deficits. Alert and oriented x3. PSYCH: Normal mood and affect. Course Vital Signs Vital signs: Vital Signs Temperature 36.9 C 02/27/23 23:22 Pulse Rate 97 02/27/23 23:22 Respiratory Rate 16 02/27/23 23:22 Blood Pressure 125/69 02/27/23 23:22 Pulse Oximetry 98 02/27/23 23:22 Oxygen Delivery Room Air 02/27/23 23:22 Temperature 36.6 C 02/28/23 01:15 Pulse Rate 102 H 02/28/23 01:24 Respiratory Rate 16 02/28/23 01:15 Blood Pressure 108/79 02/28/23 01:24 Pulse Oximetry 97 02/28/23 01:15 Oxygen Delivery Room Air 02/27/23 23:22
[2023-02-28 03:13] VITALS: BP 117/67; PULSE 92; RESP 16; TEMP 36.6; O2SAT 98
== END 2023-02-28 03:49 ==
LOC: ANHED 02-28 02:31
PROVIDERS: Emergency Provider Emergency Medicine; PCP Internal Medicine
DX: K62.89 Other specified diseases of anus and rectum (principal); F03.94 Unspecified dementia, unspecified severity, with anxiety; I10 Essential (primary) hypertension; F20.9 Schizophrenia, unspecified; Z87.891 Personal history of nicotine dependence
CPT/HCPCS: 36415; 80053; 85025; 85610; 85730; 86850; 86900; 86901; 99283

== ENCOUNTER 2023-06-06 10:08 | Emergency (ER) | payer OTHER, SELFPAY ==
[2023-06-06] VITALS (9 sets, daily range): BP systolic 164–202; BP diastolic 81–98; PULSE 68–78; RESP 15–25; TEMP 36.4; O2SAT 96–99
--- NOTE | ~2023-06-06 | XR_ITS ---
EXAM: XR finger 5th LT min 2V DATE: 06/06/2023 14:29 HISTORY: fall, PAIN ENTIRE 5TH FINGER . COMPARISON: None available. FINDINGS: Decreased mineralization. Comminuted, minimally displaced fracture at the base of the fift h metacarpal. No lytic or blastic lesion. Scattered moderate arthritic changes. Chondrocalcinosis. No erosion or periosteal change. Soft tissues within normal limits. IMPRESSION: Comminuted, minimally displaced fracture at the base of the left fifth metacarpal. Reviewed, dictated and finalized at location K. IMPRESSION: Comminuted, minimally displaced fracture at the base of the left fi fth metacarpal.
--- NOTE | ~2023-06-06 | CT_ITS ---
EXAMINATION: CT brain wo con DATE: 06/06/2023 10:48 INDICATION: Head injury. TECHNIQUE: Computed tomography (CT) of the head was performed without intravenous contrast. The mA wa s adjusted according to patient size. Iterative reconstruction technique was employed. The dose-lengt h product was 605.33 mGy-cm. COMPARISON: None FINDINGS: There are scattered areas of low attenuation in the cerebral white matter. There is no intr acranial hemorrhage, acute infarction, or abnormal intracranial mass lesion. The ventricles are wilman l in size. The orbits are normal. There is mild mucosal thickening in the ethmoid sinuses. The mastoi d air cells are normal. There is left cheek soft tissue swelling. Partially visualized are fractures fractures of left zygoma, posterolateral wall of left maxillary sinus, left zygomatic arch, and floor of left orbit. IMPRESSION: 1. Extensive nonspecific cerebral white matter disease, which likely represents chronic small vessel ischemic disease. 2. Left zygomaticomaxillary complex fractures. Reviewed, dictated and finalized at location E.
--- NOTE | ~2023-06-06 | CT_ITS ---
EXAMINATION: 1. CT facial & cervical spine wo DATE: 06/06/2023 10:49 INDICATION: Head injury TECHNIQUE: 1. Computed tomography (CT) of the maxillofacial region and of the cervical spine were performed with out intravenous contrast. Sagittal and coronal reconstructions of both regions were obtained. Automat ed exposure control and iterative reconstruction technique were employed. The dose-length product was 433.43 mGy-cm. COMPARISON: None. FINDINGS: Maxillofacial CT: Minimal displacement and tripod fracture of the left zygoma which includes a mildly comminuted fractu res at the anterior left zygomatic arch with extension of fracture lines into the lateral aspect of t he inferior orbital wall, the lateral and superior herr of the left maxillary sinus and with extensi on of one of the fracture lines along the anterior aspect of the left infraorbital canal. There is so ft tissue swelling overlying the zygoma and extending to the left malar region. Minimal mucosal thick ening versus blood along the floor of the left maxillary sinus. Leftward bowing of the nasal septum w hich parallels the contours of the turbinates and without evident fracture. No other maxillofacial fr actures identified. Specifically the nasal bones, mandible, right zygomatic arch and herr of the rig ht orbit and remaining paranasal sinuses are intact. The bilateral globes appear intact and there is no post septal inflammatory stranding in the orbits. The ocular muscles do not appear to extend into the vicinity of the fracture to suggest entrapment. Mastoid air cells and middle ear cavities are jacque ar. Patient is edentulous. Cervical spine CT: Alignment is normal. Vertebral body heights are normal. No acute fracture. Mild disc height loss at C 4-C5, C5-C6, C6-C7 and C7-T1. There are associated mild disc bulges resulting in mild central canal s tenosis at C5-C6 and C6-C7, minimally at C4-C5. Multilevel mild cervical uncovertebral osteoarthritis . Severe facet osteoarthritis on the left at C7-T1 with mild facet osteoarthritis throughout the bruce silvano of the cervical spine. There is mild neural foraminal stenosis on the left at C7-T1. Otherwise the apices of the lungs are clear. Small amount of atherosclerotic calcific a cyst at the left caroti d bulb. Cervical soft tissues are otherwise unremarkable. IMPRESSION: 1. Minimally displaced tripod fracture of the left zygoma involving the zygomatic arch, the herr of the left orbit and maxillary sinus and with extension to involve the left infraorbital canal. 2. Mild cervical spondylosis with no acute osseous abnormality. Reviewed, dictated and finalized at location A. IMPRESSION: 1. Minimally displaced tripod fracture of the left zygoma involving the zygomat ic arch, the herr of the left orbit and maxillary sinus and with extension to involve the left infraorbital canal. 2. Mild cervical spondylosis with no acute osseous abnormality.
--- NOTE | 2023-06-06 10:20 | ED.FALL ---
HPI - Fall General Chief Complaint: Fall Stated Complaint: GLF - HI, DIZZINESS History of Present Illness HPI Narrative: 62-year-old male history of alcohol-induced dementia, hypertension, diabetes type 2 presents to the emergency room via EMS from [facility] for evaluation of injury sustained in a fall. Patient normal mental status is alert oriented x2, presently alert orient x2. Patient states that he was returning from eating breakfast when he became dizzy lightheaded apparently passed out striking his head on a hand rail. Patient complains of a headache and left-sided facial pain. According to verbal report given by EMS, patient was given all of his morning medications. Of blood sugar EN route was 462. Blood pressure is 200/100. Related Data Home Medications Medication Instructions Recorded Confirmed acetaminophen 500 mg tablet 1,000 mg PO Q8H PRN pain 02/17/23 02/17/23 aripiprazole 2 mg tablet (Abilify) 2 mg PO DAILY 02/17/23 02/17/23 donepezil 10 mg tablet 10 mg PO HS 02/17/23 02/17/23 duloxetine 40 mg capsule,delayed 40 mg PO DAILY 02/17/23 02/17/23 release ferrous sulfate 325 mg (65 mg 325 mg PO BID 02/17/23 02/17/23 iron) tablet lamotrigine 100 mg tablet 100 mg PO BID 02/17/23 02/17/23 (Lamictal) melatonin 5 mg tablet 5 mg PO HS 02/17/23 02/17/23 memantine 10 mg tablet (Namenda) 10 mg PO BID 02/17/23 02/17/23 metformin 500 mg tablet 500 mg PO BID 02/17/23 02/17/23 mirtazapine 15 mg tablet (Remeron) 7.5 mg PO HS 02/17/23 02/17/23 multivitamin with minerals 1 tablet PO DAILY 02/17/23 02/17/23 sennosides 8.6 mg tablet (senna) 8.6 mg PO BID 02/17/23 02/17/23 Allergies Allergy/AdvReac Type Severity Reaction Status Date / Time No Known Allergies Allergy Verified 07/11/20 08:37 Review of Systems Review of Systems: ROS unremarkable except as noted in HPI and below PMFSH Past Medical History Medical History Dementia Depression with anxiety Esophageal stricture Gastroesophageal reflux disease Hypertension Schizophrenia Surgical History Surgical History History of colonoscopy with polypectomy (06/2020) History of esophagogastroduodenoscopy (06/2020) Family History Family History Other Family history unknown Social History Social History Social History: Code status: Full code. Smoking status: Former smoker Alcohol intake: current Alcohol use details: History of alcohol abuse. Substance use: never Substance use type: does not use Living arrangements: [facility] Additional living arrangements comments: Resident at [facility]. 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 Spiritual care concerns: No Exam Narrative: GENERAL: Chronically ill-appearing, well-nourished, no physical limitations, and in no acute distress. HEAD: Normocephalic, hematoma noted to left maxilla EYES: Conjunctivae normal, PERRLA and EOMI. ENT: External nose normal, Nares clear, no rhinorrhea or epistaxis. Mucous membranes moist. . External ears normal, bilateral TMs normal bilaterally NECK: Supple. CHEST: Clear to auscultation. No respiratory distress. No wheezes rales or rhonchi. HEART: Regular rate and rhythm. No murmur heard. Normal peripheral pulses. ABDOMEN: Soft, nontender, nondistended, normal active bowel sounds. BACK: No cervical/thoracic/lumbar tenderness, step-offs, bony abnormality; FROM EXTREMITIES: Normal range of motion. No edema. No clubbing or cyanosis SKIN: Warm, dry, no rash. No noted wounds NEURO: No focal deficits. Alert and oriented x2. MAEW. CN's II-XI intact bilaterally PSYCH: Cooperative. Normal mood and affect. Course Course Emergency Course: 62-year-old gentleman
[2023-06-06 10:26] LABS: Glucose Point of Care 368 mg/dl (65-105)
[2023-06-06 10:40] LABS: Basophils Absolute Auto 0.1 K/mm3 (0.0-0.1); Basophils Percent Auto 0.5 % (0.2-1.2); Eosinophils Absolute Auto 0.1 K/mm3 (0-0.3); Eosinophils Percent Auto 0.6 % (0-4.4); Hematocrit 51.2 % (42.0-52.0); Hemoglobin 17.9 g/dL (14.0-18.0); Immature Granulocyte Absolute 0.14 K/mm3 (0.00-0.031); Lymphocytes Absolute Auto 1.07 K/mm3 (0.9-3.2); Lymphocytes Percent Auto 7.6 % (18.3-44.2); Mean Corpuscular Hemoglobin 31.2 pg (26-34); Mean Corpuscular Volume 89.4 fl (80-100); Mean Platelet Volume 9.5 fl (7.4-10.4); Monocytes Percent Auto 6.8 % (2.6-8.5); Neutrophils Absolute Auto 11.8 K/mm3 (1.3-6.7); Neutrophils Percent Auto 83.5 % (45.5-73.1); Platelet Count Result 184 k/mm3 (150-375); Red Blood Count 5.73 M/mm3 (4.6-6.20); Red Cell Distribution Width 12.8 % (11.5-14.5); White Blood Count 14.1 K/mm3 (4.5-10.0)
[2023-06-06 10:59] LABS: Alanine Aminotransferase 48 U/L (6-50); Albumin Level 4.5 g/dL (3.5-5.1); Alkaline Phosphatase 161 U/L (38-126); Anion Gap 10 mmol/L (4-12); Aspartate Amino Transferase 34 U/L (17-59); Bilirubin,Total 0.9 mg/dL (0.2-1.3); Blood Urea Nitrogen 7 mg/dL (9-20); Calcium 9.3 mg/dL (8.4-10.2); Carbon Dioxide 25 mmol/L (22-30); Chloride 99 mmol/L (98-107); Estimated CRCL calculation 97 ml/min; Estimated Glomerular Filt Rate > 60; Glucose 364 mg/dL (65-110); Potassium 4.5 mmol/L (3.4-5.0); Sodium 134 mmol/L (137-145)
[2023-06-06 11:11] LABS: Troponin I < 0.012 ng/mL (0.000-0.034)
[2023-06-06 11:39] LABS: Partial Thromboplastin Time 25.2 Seconds (22.3-36.8); Prothrombin Time 13.9 Seconds (11.1-14.7)
--- NOTE | 2023-06-06 11:49 | PC.NURSE ---
Pt reports hx of having high blood pressure, does not take any medicine for it.
[2023-06-06] MEDS: LABETALOL HCL INJ 100 MG/20 ML VIAL IV PUSH ×2 (11:53→13:14)
[2023-06-06 13:08] LABS: Glucose Point of Care 394 mg/dl (65-105)
[2023-06-06] MEDS: INSULIN HUMAN REGULAR (*BKC) 100 UNITS/ML SUB-Q (13:14)
[2023-06-06] MEDS: SODIUM CHLORIDE 0.9% IV 1,000 ML 999 ML IV CONT (13:16)
[2023-06-06] MEDS: HYDROmorphone HCL INJ (*CRX) 1 MG/ML SYR 0.5 MG IV PUSH (13:20)
[2023-06-06 13:32] LABS: Base Excess ABG -4.1 mEq/l (+/-2.0); Fractional Inspired Oxygen 21 %; HCO3 ABG 20.8 mEq/l (22.0-26.0); Oxygen Content ABG 21.8 %vol (16.0-22.0); Oxygen Saturation ABG 90.2 % (95.0-100.0); Oxyhemoglobin 88.7 % THb (90.0-100.0); PCO2 ABG 38.1 mmHg (35.0-45.0); PO2 ABG 60.1 mmHg (80.0-100.0); PO2 FiO2 Ratio Arterial Blood 2.86 %; Total Hemoglobin 17.5 g/dL (12.0-18.0); pH ABG 7.356 (7.350-7.450)
[2023-06-06 13:34] LABS: Device ROOM AIR; Modified Allen's Test Pass; Site Drawn LEFT RADIAL
[2023-06-06 13:50] LABS: Troponin I < 0.012 ng/mL (0.000-0.034)
--- NOTE | 2023-06-06 14:09 | PC.NURSE ---
Update given to Cherelle at [facility] who called about patient status.
[2023-06-06 14:10] LABS: Glucose Point of Care 378 mg/dl (65-105)
--- NOTE | 2023-06-06 14:48 | PC.NURSE ---
Report given to Cherelle at [facility]. Follow-up instructions discussed as well as medication rx.
== END 2023-06-06 18:33 ==
PROVIDERS: Emergency Provider Nurse Practitioner Family; Referring Provider Emergency Medicine
DX: S02.40FA Zygomatic fracture, left side, initial encounter for closed fracture (principal); S02.85XA Fracture of orbit, unspecified, initial encounter for closed fracture; S02.40DA Maxillary fracture, left side, initial encounter for closed fracture; S62.317A Displaced fracture of base of fifth metacarpal bone, left hand, initial encounter for closed fracture; F10.97 Alcohol use, unspecified with alcohol-induced persisting dementia; I10 Essential (primary) hypertension; E11.65 Type 2 diabetes mellitus with hyperglycemia; K21.9 Gastro-esophageal reflux disease without esophagitis; F41.8 Other specified anxiety disorders; F20.9 Schizophrenia, unspecified; Z87.891 Personal history of nicotine dependence; Z79.4 Long term (current) use of insulin; Z79.84 Long term (current) use of oral hypoglycemic drugs; M47.812 Spondylosis without myelopathy or radiculopathy, cervical region; W01.198A Fall on same level from slipping, tripping and stumbling with subsequent striking against other object, initial encounter
CPT/HCPCS: 36415; 36600; 70450; 70486; 72125; 73140; 80053; 82805; 82948; 84484; 85025; 85610; 85730; 96361; 96374; 96375; 96376; 99284; J1170; J1815; J7030

== ENCOUNTER 2023-12-18 05:11 | Emergency (ER) | payer MEDICARE, SELFPAY ==
[2023-12-18] VITALS (12 sets, daily range): BP systolic 136–163; BP diastolic 75–107; PULSE 78–112; RESP 13–25; TEMP 36.6; O2SAT 94–98
--- NOTE | ~2023-12-18 | CT_ITS ---
CT of the Abdomen and Pelvis: Indication: Abdominal pain, vomiting Technique: 2.5 mm axial scans were obtained through the abdomen and pelvis following intravenous adm inistration of 100 cc of Omnipaque 350. Dose reduction technique was used on this scan by utilizing a utomated exposure control and iterative reconstruction technique. The dose-length product (DLP) was 4 67.55 mGy-cm. COMPARISON: 09/12/2020 Findings: Scans through the lung bases are unremarkable. There is wall thickening of the visualized esophagus, compatible with esophagitis. The liver, spleen, pancreas, gallbladder, adrenals and right kidney are within normal limits. Left ki dney is severely atrophic with severe cortical thinning and severe hydronephrosis with abrupt taperin g at the UPJ, compatible with sequela of chronic UPJ obstruction. There are atherosclerotic calcifica tions of the aorta. No lymphadenopathy. Stomach is distended, but no evidence of bowel obstruction or gastric outlet obstruction clearly evid ent. Small bowel unremarkable. Large bowel are unremarkable. Images through the pelvis were performed. Urinary bladder unremarkable. No pelvic mass seen. No ascit es. Impression: Esophagitis. Distended stomach, possibly due to recent ingestion. No distinct evidence of small bowel obstruction or gastric outlet obstruction. Chronic left UPJ obstruction with marked atrophy and cortical thinning of the left kidney, as well as severe left hydronephrosis. Reviewed, dictated and finalized at location . Impression: Esophagitis. Distended stomach, possibly due to recent ingestion. No distinct evidence of sm all bowel obstruction or gastric outlet obstruction. Chronic left UPJ obstruction with marked atrophy and cortical thinning of the l eft kidney, as well as severe left hydronephrosis.
[2023-12-18 05:38] LABS: Basophils Absolute Auto 0.1 K/mm3 (0.0-0.1); Basophils Percent Auto 0.7 % (0.2-1.2); Eosinophils Absolute Auto 0.1 K/mm3 (0-0.3); Eosinophils Percent Auto 0.8 % (0-4.4); Hematocrit 55.8 % (42.0-52.0); Hemoglobin 19.1 g/dL (14.0-18.0); Immature Granulocyte Absolute 0.11 K/mm3 (0.00-0.031); Immature Granulocyte Percent A 0.7 % (0-0.5); Lymphocytes Absolute Auto 1.39 K/mm3 (0.9-3.2); Lymphocytes Percent Auto 9.5 % (18.3-44.2); Mean Corpuscular HGB Conc 34.2 g/dl (32-36); Mean Corpuscular Hemoglobin 31.3 pg (26-34); Mean Corpuscular Volume 91.5 fl (80-100); Mean Platelet Volume 9.7 fl (7.4-10.4); Monocytes Absolute Auto 0.8 K/mm3 (0.1-0.6); Monocytes Percent Auto 5.7 % (2.6-8.5); Neutrophils Absolute Auto 12.1 K/mm3 (1.3-6.7); Neutrophils Percent Auto 82.6 % (45.5-73.1); Platelet Count Result 270 k/mm3 (150-375); White Blood Count 14.7 K/mm3 (4.5-10.0)
[2023-12-18 05:46] LABS: Alanine Aminotransferase 37 U/L (6-50); Albumin Level 4.6 g/dL (3.5-5.1); Alkaline Phosphatase 119 U/L (38-126); Anion Gap 13 mmol/L (4-12); Aspartate Amino Transferase 41 U/L (17-59); Bilirubin,Total 0.7 mg/dL (0.2-1.3); Blood Urea Nitrogen 25 mg/dL (9-20); Calcium 9.7 mg/dL (8.4-10.2); Carbon Dioxide 26 mmol/L (22-30); Chloride 105 mmol/L (98-107); Estimated CRCL calculation 83 ml/min; Estimated Glomerular Filt Rate > 60; Glucose 245 mg/dL (65-110); Lipase 83 U/L (23-300); Potassium 4.2 mmol/L (3.4-5.0); Sodium 144 mmol/L (137-145)
[2023-12-18] MEDS: ONDANSETRON INJ 4 MG/2 ML VIAL IV PUSH (05:54)
[2023-12-18] MEDS: SODIUM CHLORIDE 0.9% IV 1,000 ML 999 ML IV CONT (06:33)
--- NOTE | 2023-12-18 06:36 | ED.GENADULT ---
HPI - General Adult General Chief complaint: Nausea/Vomiting/Diarrhea Stated complaint: VOMITED Time Seen by Provider: 12/18/23 05:48 History of Present Illness HPI narrative: Patient 63-year-old gentleman who presents emergency department chief complaint of vomiting. Patient is resident of a local nursing facility that apparently had an episode of vomiting and the facility decided to wait till after the vomitus and dried to check on the patient and reported that they felt it might have been coffee-ground colored. The patient currently has no complaints although does have history of dementia. Related Data Home Medications Medication Instructions Recorded Confirmed aripiprazole 5 mg tablet 5 mg PO DAILY 09/12/20 09/12/20 donepezil 10 mg tablet 10 mg PO HS 09/12/20 09/12/20 duloxetine 60 mg capsule,delayed 60 mg PO HS 09/12/20 09/12/20 release lamotrigine 100 mg tablet 100 mg PO BID 09/12/20 09/12/20 melatonin 5 mg tablet 5 mg PO HS 09/12/20 09/12/20 memantine 10 mg tablet 10 mg PO BID 09/12/20 09/12/20 multivitamin with minerals 1 tablet PO DAILY 09/12/20 09/12/20 omeprazole 20 mg tablet,delayed 20 mg PO DAILY 09/12/20 09/12/20 release sennosides 8.6 mg tablet (senna) 8.6 mg PO BID 09/12/20 09/12/20 acetaminophen 500 mg tablet 1,000 mg PO Q8H PRN pain 02/17/23 02/17/23 aripiprazole 2 mg tablet (Abilify) 2 mg PO DAILY 02/17/23 02/17/23 donepezil 10 mg tablet 10 mg PO HS 02/17/23 02/17/23 duloxetine 40 mg capsule,delayed 40 mg PO DAILY 02/17/23 02/17/23 release ferrous sulfate 325 mg (65 mg 325 mg PO BID 02/17/23 02/17/23 iron) tablet lamotrigine 100 mg tablet 100 mg PO BID 02/17/23 02/17/23 (Lamictal) melatonin 5 mg tablet 5 mg PO HS 02/17/23 02/17/23 memantine 10 mg tablet (Namenda) 10 mg PO BID 02/17/23 02/17/23 metformin 500 mg tablet 500 mg PO BID 02/17/23 02/17/23 mirtazapine 15 mg tablet (Remeron) 7.5 mg PO HS 02/17/23 02/17/23 multivitamin with minerals 1 tablet PO DAILY 02/17/23 02/17/23 sennosides 8.6 mg tablet (senna) 8.6 mg PO BID 02/17/23 02/17/23 Allergies Allergy/AdvReac Type Severity Reaction Status Date / Time spider venom Allergy Unknown Swelling Verified 06/07/23 07:50 Review of Systems Review of Systems: A 10 system review of systems was completed on the patient and is negative except for what is stated in the HPI. Nursing and ancillary documentation was reviewed. [facility] Past Medical History Medical History Benign tumor of meningioma (cerebral) Bipolar disorder Chronic obstructive pulmonary disease Dementia Depression with anxiety Esophageal stricture Fatty liver Former smoker Gastroesophageal reflux disease Hypertension Hypertension Left renal atrophy Memory impairment Peripheral neuropathy Recovering alcoholic in remission Schizophrenia Type 2 diabetes mellitus Surgical History Surgical History History of arthroscopic knee surgery Anterior cruciate ligament repair. History of colonoscopy with polypectomy (06/2020) History of esophagogastroduodenoscopy (06/2020) Family History Family History Mother Liver cancer Other Family history unknown Social History Social History Social History: The patient is currently at [facility]. He does not remember how long he has been there. Former smoker. Recovering alcoholic. No illicit substance use. His brother, Tee Esteban, is his emergency contact. Code status: DNR. Smoking status: Former smoker Alcohol intake: current Alcohol use details: History of alcohol abuse. Substance use: never Substance use type: does not use Living arrangements: longterm Additional living arrangements comments: Resident at [facility]. 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 Spiritual care concerns: No Exam Narrative: GENERAL: Well-appearing, well-nourished, and in no acute distress. HEAD: Normocephalic, atraumatic. EYES: PERRLA and EOMI. ENT: Nares clear, no rhinorrhea or epistaxis. Mucous membranes moist. NECK: Supple. CHEST: Clear to auscultation. No respiratory distress. HEART: Regular rate and rhythm. No murmur heard. Normal peripheral pulses. ABDOMEN: Soft, nontender, nondistended, normal active bowel sounds. : Guaiac-negative stool EXTREMITIES: Normal range of motion. No edema. SKIN: Warm, dry, no rash. NEURO: No focal deficits. Alert and oriented x3. PSYCH: Normal mood and affect. Course Vital Signs Vital signs: Vital Signs Temperature 36.6 C 12/18/23 05:11 Pulse Rate 112 H 12/18/23 05:11 Respiratory Rate 25 H 12/18/23 05:11 Blood Pressure 156/107 H 12/18/23 05:11 Pulse Oximetry 94 12/18/23 05:11 Oxygen Delivery Room Air 12/18/23 05:11 Temperature 36.6 C 12/18/23 05:11 Pulse Rate 112 H 12/18/23 05:11 Respiratory Rate 25 H 12/18/23 05:11 Blood Pressure 156/107 H 12/18/23 05:11 Pulse Oximetry 94 12/18/23 05:11 Oxygen Delivery Room Air 12/18/23 05:11 Medical Decision Making MDM Narrative Medical decision making narrative: Differential diagnosis includes bowel obstruction, intra-abdominal infection, gastritis, colitis, dehydration White count was 14.7 hemoglobin was 19.1 patient was given IV fluids electrolytes showed a BUN of 25 CT scan of the abdomen pelvis showed Esophagitis. Distended stomach, possibly due to recent ingestion. No distinct evidence of small bowel obstruction or gastric outlet obstruction. Chronic left UPJ obstruction with marked atrophy and cortical thinning of the left kidney, as well as severe left hydronephrosis. Vital Signs Vital Signs: Vital Signs Temperature 36.6 C 12/18/23 05:11 Pulse Rate 112 H 12/18/23 05:11 Respiratory Rate 25 H 12/18/23 05:11 Blood Pressure 156/107 H 12/18/23 05:11 Pulse Oximetry 94 12/18/23 05:11 Oxygen Delivery Room Air 12/18/23 05:11 Temperature 36.6 C 12/18/23 05:11 Pulse Rate 112 H 12/18/23 05:11 Respiratory Rate 25 H 12/18/23 05:11 Blood Pressure 156/107 H 12/18/23 05:11 Pulse Oximetry 94 12/18/23 05:11 Oxygen Delivery Room Air 12/18/23 05:11 Lab Data 12/18/23 05:18 12/18/23 05:18 Labs: Lab Results 12/18/23 Range/Units 05:18 WBC 14.7 H (4.5-10.0) K/mm3 RBC 6.10 (4.6-6.20) M/mm3 Hgb 19.1 H (14.0-18.0) g/dL Hct 55.8 H (42.0-52.0) % MCV 91.5 (80-100) fl MCH 31.3 (26-34) pg MCHC 34.2 (32-36) g/dl RDW 13.0 (11.5-14.5) % Plt Count 270 (150-375) k/mm3 MPV 9.7 (7.4-10.4) fl Immature Gran % (Auto) 0.7 H (0-0.5) % Neut % (Auto) 82.6 H (45.5-73.1) % Lymph % (Auto) 9.5 L (18.3-44.2) % Mineral % (Auto) 5.7 (2.6-8.5) % Eos % (Auto) 0.8 (0-4.4) % Baso % (Auto) 0.7 (0.2-1.2) % Lymph # (Auto) 1.39 (0.9-3.2) K/mm3 Mineral # (Auto) 0.8 H (0.1-0.6) K/mm3 Eos # (Auto) 0.1 (0-0.3) K/mm3 Baso # (Auto) 0.1 (0.0-0.1) K/mm3 Abs Immat Gran (auto) 0.11 H (0.00-0.031) K/mm3 Absolute Neuts (auto) 12.1 H (1.3-6.7) K/mm3 Absolute Nucleated RBC 0.000 (0.0-0.012) K/mm3 Nucleated RBC % 0.0 (0.0-0.2) % Sodium 144 (137-145) mmol/L Potassium 4.2 (3.4-5.0) mmol/L Chloride 105 (98-107) mmol/L Carbon Dioxide 26 (22-30) mmol/L Anion Gap 13 H (4-12) mmol/L BUN 25 H D (9-20) mg/dL Creatinine 0.70 (0.7-1.3) mg/dL Estim Creat Clear Calc 83 ml/min Estimated GFR > 60 (59 - ) Glucose 245 H (65-110) mg/dL Calcium 9.7 (8.4-10.2) mg/dL Total Bilirubin 0.7 (0.2-1.3) mg/dL AST 41 (17-59) U/L ALT 37 (6-50) U/L Alkaline Phosphatase 119 (38-126) U/L Total Protein 8.0 (6.3-8.2) g/dL Albumin 4.6 (3.5-5.1) g/dL Lipase 83 (23-300) U/L Discharge Plan Discharge Clinical Impression: Nausea and vomiting Patient Disposition: NH Snf/Asst Living Condition: Stable Instructions: Antibiotic Form, Acute Nausea and Vomiting (ED) Prescriptions: No Action metformin 500 mg Tablet 500 mg PO BID sennosides [senna] 8.6 mg Tablet 8.6 mg PO BID donepezil 10 mg Tablet 10 mg PO HS acetaminophen 500 mg Tablet 1,000 mg PO Q8H PRN (Reason: pain) ferrous sulfate 325 mg (65 mg iron) Tablet 325 mg PO BID mirtazapine [Remeron] 15 mg Tablet 7.5 mg PO HS multivitamin with minerals Tablet 1 tablet PO DAILY lamotrigine [Lamictal] 100 mg Tablet 100 mg PO BID memantine [Namenda] 10 mg Tablet 10 mg PO BID aripiprazole [Abilify] 2 mg Tablet 2 mg PO DAILY melatonin 5 mg Tablet 5 mg PO HS duloxetine 40 mg Capsule,Delayed Release(Dr/Ec) 40 mg PO DAILY sucralfate 100 mg/mL Suspension 1,000 mg PO ACHS Qty: 120 0RF amoxicillin-pot clavulanate 875-125 mg tablet 1 tablet PO Q12H Qty: 7 0RF pantoprazole [Protonix] 40 mg Tablet,Delayed Release (Dr/Ec) 40 mg PO DAILY Qty: 30 0RF insulin glargine [Lantus U-100 Insulin] 100 unit/mL Solution 15 unit subcut HS Qty: 10 0RF potassium chloride 20 mEq Packet 20 meq PO DAILY Qty: 30 0RF insulin aspart U-100 [Novolog U-100 Insulin aspart] 100 unit/mL Solution 2 - 5 unit subcut WMHS Qty: 10 0RF Protocol: Insulin Corrective Low-Dose Condition: glucose < 70 mg/dl Dose/Route: Follow Hypoglycemia Order Condition: glucose 70-200 mg/dl Dose/Route: No additional insulin Condition: glucose 201-250 mg/dl Dose/Route: 2 units sub-Q Condition: glucose 251-300 mg/dl Dose/Route: 3 units sub-Q Condition: glucose 301-350 mg/dl Dose/Route: 4 units sub-Q Condition: glucose 351-400 mg/dl Dose/Route: 5 units sub-Q Condition: glucose > 400 mg/dl Dose/Route: Call Rx Instructions: Condition Dose/Route Instruction glucose < 70 mg/dl Follow Hypoglycemia Order glucose 70-200 mg/dl No additional insulin glucose 201-250 mg/dl 2 units sub-Q glucose 251-300 mg/dl 3 units sub-Q glucose 301-350 mg/dl 4 units sub-Q glucose 351-400 mg/dl 5 units sub-Q glucose > 400 mg/dl Call donepezil 10 mg tablet 10 mg PO HS multivitamin with minerals Tablet 1 tablet PO DAILY lamotrigine 100 mg tablet 100 mg PO BID aripiprazole 5 mg tablet 5 mg PO DAILY duloxetine 60 mg capsule,delayed release(DR/EC) 60 mg PO HS melatonin 5 mg Tablet 5 mg PO HS sennosides [senna] 8.6 mg Tablet 8.6 mg PO BID memantine 10 mg tablet 10 mg PO BID omeprazole 20 mg Tablet,Delayed Release (Dr/Ec) 20 mg PO DAILY Hold Instructions: Resume on 08/30/21. pantoprazole 40 mg Tablet,Delayed Release (Dr/Ec) 40 mg PO Q12HR 21 Days Qty: 42 0RF losartan 50 mg tablet 25 mg PO DAILY Qty: 30 0RF Desitin Daily Defense 13 % cream 1 applic topical TID PRN (Reason: skin irritation) Qty: 136 0RF amoxicillin-pot clavulanate 875-125 mg tablet 1 tablet PO Q12H Qty: 14 0RF Follow-up/Referrals: Ampadu,MD Carlos [Primary Care Provider] - Time of Disposition: 06:42
--- NOTE | 2023-12-18 07:22 | PC.NURSE ---
0647 [facility] called for a return jail trip [place] 0730 0721 [facility] declined 0721 [facility] eta 0830
== END 2023-12-18 10:20 ==
PROVIDERS: Emergency Provider Emergency Medicine; PCP Internal Medicine
DX: R11.2 Nausea with vomiting, unspecified (principal); F03.90 Unspecified dementia, unspecified severity, without behavioral disturbance, psychotic disturbance, mood disturbance, and anxiety; F41.8 Other specified anxiety disorders; K21.9 Gastro-esophageal reflux disease without esophagitis; I10 Essential (primary) hypertension; E11.9 Type 2 diabetes mellitus without complications; F20.9 Schizophrenia, unspecified; F10.11 Alcohol abuse, in remission; Z87.891 Personal history of nicotine dependence
CPT/HCPCS: 36415; 74177; 80053; 83690; 85025; 96361; 96374; 99284; J2405; J7030; Q9967

== ENCOUNTER 2024-04-12 13:27 | Inpatient (IN) | payer MEDICARE, MEDICAID, SELFPAY ==
--- NOTE | ~2024-04-12 | CT_ITS ---
CLINICAL INDICATION: Coughing ground emesis with leukocytosis COMPARISON: 12/18/2023. TECHNIQUE: Multiple contiguous axial images of the abdomen and pelvis were performed following the ad ministration of with 100 mL Omnipaque-350 intravenous contrast The dose-length product (DLP) was 371.75 mGy-cm. Automated exposure control and iterative reconstruction technique were employed. FINDINGS/OBSERVATIONS: Visualized lower thorax: The bilateral lung bases are clear. The heart is of normal size, without pericardial effusion. Mural thickening and dilatation of the distal esophagus, similar to previous examination. Liver: The liver enhances homogeneously and is not enlarged. Gallbladder and biliary system: The gallbladder is only minimally distended, and otherwise unremarkable. Pancreas: The pancreas enhances homogeneously without ductal dilatation. Spleen: The spleen enhances homogeneously and is not enlarged measuring 10 cm in longitudinal dimension. Kidneys: The left kidney demonstrates significant cortical atrophy and moderate hydronephrosis, unchanged from prior consistent with chronic UPJ obstruction. Compensatory enlargement of the right kidney which is otherwise unremarkable. Adrenal glands: Unremarkable. Gastrointestinal tract: Colonic diverticulosis without surrounding inflammatory change. Fecal stasis distending the rectum. Appendix: The air-filled appendix is of normal caliber (axial series, images 97 through 108) Vasculature: Densely calcified atherosclerotic disease. The inferior vena cava is narrowed, consistent with hypovo lemia. Lymph nodes: No pathologically enlarged or morphologically suspicious lymph nodes within the retroperitoneum or at the root of the mesentery. Pelvic structures: The bladder is distended, and otherwise unremarkable. The prostate gland is not enlarged. Body wall and musculoskeletal: Small fat-containing umbilical hernia. No significant degenerative disease within the lower thoracic or lumbosacral spine. IMPRESSION: Distal esophagitis. Otherwise, no acute intra-abdominal findings, as detailed above. Reviewed, dictated and finalized at location A. LER OPERATOR
[2024-04-12 13:34] VITALS: BP 141/100; PULSE 117; RESP 20; TEMP 36.8; O2SAT 96
--- NOTE | 2024-04-12 13:40 | ECG_ITS ---
Test Date: 2024-04-12 13:44:06 Measurements Intervals [place] Rate: 115 P: 48 SC: 126 QRS: -65 QRSD: 98 T: 78 QT: 319 QTc: 443 Interpretive Statements SINUS TACHYCARDIA LEFT ANTERIOR FASCICULAR BLOCK NONSPECIFIC ST-T WAVE ABNORMALITY- HIGH LATERAL LEADS ABNORMAL ECG No previous ECG available for comparison Electronically Signed On 04-12-2024 16:57:24 HOME HEALTH CARE PHYSICIAN by Jai Toussaint D.O.
[2024-04-12 14:03] LABS: Alanine Aminotransferase 26 U/L (6-50); Albumin Level 4.5 g/dL (3.5-5.1); Alkaline Phosphatase 123 U/L (38-126); Anion Gap 17 mmol/L (4-12); Aspartate Amino Transferase 25 U/L (17-59); Bilirubin,Total 1.1 mg/dL (0.2-1.3); Blood Urea Nitrogen 20 mg/dL (9-20); Calcium 9.7 mg/dL (8.4-10.2); Carbon Dioxide 21 mmol/L (22-30); Chloride 102 mmol/L (98-107); Estimated CRCL calculation 75 ml/min; Estimated Glomerular Filt Rate > 60; Glucose 224 mg/dL (65-110); Lipase 51 U/L (23-300); Potassium 4.5 mmol/L (3.4-5.0); Sodium 140 mmol/L (137-145)
--- OUTSIDE RECORDS SUMMARY | 2024-04-12 14:08 | XMS_ITS | CONTINUITY OF CARE DOCUMENT ---
Author Name mason cuevas Address Unknown Organization [facility] Address [address] [place] [address] Phone [phone] Care Team Providers Care Database Programmer Analyst Name Role Phone Collin GARCIA, Cuong Unavailable PERCY GARCIA, NICO Unavailable Unavailable NICO GREER MD Unavailable Unavailable PROBLEMS Condition Status Date Provider Notes TOBACCO ABUSE active Cuong Polanco MD PULMONARY HYPERTENSION, SECONDARY PAS P40 active 11/06 Cuong Polanco MD SEIZURE DISORDER active Cuong Polanco MD ANXIETY DEPRESSION active Cuong Polanco MD ALCOHOL ABUSE HX OF active Cuong Polanco MD ENCOUNTERS Date Type Provider Location Encounter Diag nosis - In-person encounter Office Visit Cuong Polanco MD [place] [facility] - In-person encounter Office Visit Cuong Polanco MD [place] [facility] ALCOHOL ABUSE HX OF - In-person encounter Office Visit Cuong Polanco MD [place] [facility] TOBACCO ABUSEPULMONARY HYPERTENSION, SECONDARY PAS [id number] DISORDERANXIETY DEPRESSION VITAL SIGNS Date Observation Value Provider Body Mass Index (Ratio) 25.53 kg/m2 Mccoy i Elfego blood pressure, diastolic 59 mm[Hg] Ke rri Elfego blood pressure, systolic 93 mm[Hg] Ker ri Elfego pulse rate 67 /min Trixie Tarik lder oxygen saturation, oximetry 98 % Trixie Elfego respiratory rate E&M 14 /min Trixie Montaño kim weight E&M 160 [lb_av] Trixie Montanez kristiner blood pressure, diastolic 82 mm[Hg] Armen irene Landry RN blood pressure, systolic 127 mm[Hg] Vivek Landry RN pulse rate 78 /min Vivek Landry RN oxygen saturation, oximetry 98 % Vivek Landry RN respiratory rate E&M 18 /min Vivek holcombpearl RN Body Mass Index (Ratio) 26.97 kg/m2 Vivek Landry RN weight E&M 169 [lb_av] Vivek Landry RN height E&M 66.5 [in_i] Vivek Landry RN blood pressure, diastolic 77 mm[Hg] He ather Blunt blood pressure, systolic 121 mm[Hg] Hea ther Blunt pulse rate 74 /min Juany Blunt oxygen saturation, oximetry 98 % Juany Blunt respiratory rate E&M 18 /min Juany Blunt weight E&M 159 [lb_av] Juany Blunt ALLERGIES No Known Drug Allergies RESULTS Date Observation Value Provider Reference Range Interpretation Location 8 cortisol, serum, morning 8.0 ug/dL [facility] [place] 7 B-12, serum 499 pg/mL [facility] [place] folate, serum 12.2 ng/mL [facility] [place] [facility] Estimated Glomerular Filtration Rate (calc) 82 mL/min/{1. 73_m2} [facility] [place] 0 blood glucose, finger stick 82 [facility] [place] [facility], [facility] calcium, serum 9.1 mg/dL [facility] [place] [facility] blood glucose, fasting 82 [facility] creatinine, serum 0.81 mg/dL [facility] [place] [facility] urea nitrogen, blood 13 mg/dL [facility] [place] [facility] carbon dioxide, serum, total 26 mmol/L Arnoldo Chaudhry 8 chloride, serum 106 mmol/L Arnoldo Chaudhry 8 potassium, serum 4.4 mmol/L Arnoldo Chaudhry 8 sodium, serum 140 mmol/L Arnoldo Chaudhry HISTORY OF MEDICATION USE Medication Status Instructions Dates Provider Indications Com ments OMEPRAZOLE TABLET DELAYED RELEASE active take one pill a day 4 Trixie Telles VITAMIN D 3 active 2000 international units daily Vivek Landry RN BENZTROPINE MESYLATE 1 MG ORAL TABLET active at hs Vivek Landry RN TRAZODONE HCL 100 MG ORAL TABLET active take one to two pills a day 4 Trixie Telles SIMVASTATIN 40 MG ORAL TABLET active ONE TAB. DAILY Vivek Landry RN FOLIC ACID 400 MCG ORAL TABLET active one tab daily 9 Juany Blunt DOCUSATE SODIUM 100 MG ORAL CAPSULE active 1 capsule by mouth at bedtime as needed Cristian Manacop B-1 100 MG ORAL TABLET active one tab daily 9 Juany Blunt RISPERDAL TABS active 20mg a day 4 Trixie Telles CELEXA TABLET active 30mg a day 4 Trixie Telles SOCIAL HISTORY Date Observation Value Provider smoking/tobacco cess ation, patient education and counseling yes Trixie Telles social history reviewed E&M reviewed Vivek Landry RN smoking history, tot al pack/year 38 Vivek Landry RN seatbelt usage 100 % Vivek Landry RN alcohol counseling yes Vivek kang RN In the past 3 months , have you been waking up wanting to use drugs? (CAGE substance use question #4) N Vivek Landry RN In the past 3 months , have you felt guilty or bad about using drugs? (CAGE substance use question #3) N Vivek Landry RN In the past 3 months , has anyone annoyed you by telling you to cut down or stop using drugs? (CAGE substance use question #2) N Vivek Landry RN In the past 3 months , have you felt you should cut down or stop using drugs?(CAGE substance use question #1) N Vivek Landry RN alcohol use, type recover alcoholic Vivek Pearl castano RN drug use no Vivek Landry RN passive cigarette sm alaina exposure no Vivek Landry RN smoking/tobacco cess ation, patient education and counseling yes Cuong Polanco MD chewing tobacco use no Vivek griffin RN cigar use no Vivek Landry RN smoking history, tot al pack/day 1 Vivek Landry RN smoking history, tot al pack/year 37 Vivek Landry RN cigarette use yes Vivek Landry RN smoking, date started 1974 Harjit ku RN smoking status current every day smoker Long Landry RN social history reviewed E&M reviewed Vivek Landry RN social history E&M Marital Statu s: Single L court with family/friends E thnicity: Cuong Polanco MD drug use none Cuong Polanco MD social history reviewed E&M reviewed Cuong Polanco MD smoking/tobacco cess ation, patient education and counseling yes Cuong Polanco MD caffeine use, averag e drinks per day yes [facility] alcohol use, average drinks per day none [facility] number of years as a smoker 10 years or m ore [facility] smoking status Smoker [facility] MENTAL STATUS Date Observation Value Provider assessment of judgme nt and insight E&M Alert and oriented to time, place and person. Mood and affect are normal. Vivek Landry RN assessment of judgme nt and insight E&M Alert and oriented to time, place and person. Mood and affect are normal. Vivek Landry RN assessment of judgme nt and insight E&M Alert and oriented to time, place and person. Mood and affect are normal. Cuong Polanco MD INSURANCE PROVIDERS Payer name Policy type / Coverage type [place] [employer] party ID [place] MED[place] Medicare [id number] [facility] Medicaid 1 [id number] TREATMENT PLAN Date Name Performer Cuong Polanco MD : O rders: E KG ([id number]) Cuong Polanco MD : L ast EEG: Cuong Polanco MD routine Cuong Polanco MD routine: O rders: E KG ([id number]) Cuong Polanco MD routine Cuong Polanco MD routine Cuong Polanco MD routine Cuong Polanco MD HFU Cuong Polanco MD HISTORY OF PROCEDURES Procedure Date Procedure Name Provider Procedure Notes S tatus EKG Cuong Polanco MD completed EKG Cuong Polanco MD completed
--- OUTSIDE RECORDS SUMMARY | 2024-04-12 14:08 | XMS_ITS | Referral Summary ---
Author Organization [facility] [employer] Address [address] [place] [address] Care Team Providers Care Screen Printing Supervisor Name Role Phone Unavailable Primary Care Provider Unavailabl e Source Comments [facility] [employer],non-owned Affiliates and Associated Physician Practices is amultiple site organization consisting of ambulatory clinics and hospital sitesin [place], [place], [place] and [place]. This disclosure is being madepursuant to the Care Everywhere program and may not contain all information available regarding this patient. Last updated 17.[facility] [employer] Allergies No known active allergies Medications * Be aware that medications may not be up to date on this document. Alwaysverify current medications with the patient. Medication Sig Dispensed Refills Start Date End Date Status magnesium oxide (MAG-OX) 400 MG tablet Take 400 mg by mouth 3 times daily with meals Active megestrol (MEGACE) 40 MG tablet Take 40 mg by mouth 3 times daily Active pantoprazole EC (PROTONIX) 20 MG tablet Take 20 mg by mouth 2 times daily Active potassium - sodium phosphates (PHOS-NAK) 280-160-250 MG powder Take 1 packet by mouth 2 times daily Active sucralfate (CARAFATE) 1 GM/10ML suspension Take by mouth 3 times daily before meals Active thiamine (VITAMIN B-1) 100 MG tablet Take 100 mg by mouth once daily Active citalopram (CELEXA) 10 MG tabletIndications: Depression Take 3 tablets by mouth once daily Reasons: Depression 04/18/2018 Active OLANZapine (ZYPREXA) 5 MG tabletIndications: Major Depressive Disorder Take 1 tablet by mouth at bedtime Reasons: Major Depressive Disorder 04/17/2018 Active senna-docusate (SENOKOT-S) 8.6-50 MG tabletIndications: Constipation Take 1 tablet by mouth 2 times daily Reasons: Constipation 60 tablet 04/17/2018 Active Active Problems Problem Noted Date Diagnosed Date Major depressive disorder, r ecurrent, severe without psychotic features 04/09/2018 Social History Tobacco Use Types Packs/Day Years Used Date Smoking Tobacco: Former Cigarettes Smokeless Tobacco: Never Tobacco Cessation:Counseling Given: No Comments:unknown states I don't know its been over a year I don't even care for them anymore Alcohol Use Standard Drinks/Week Comments No 0 (1 standard drink = 0.6 oz pur e alcohol) hx of alcohol abuse Sex and Gender Information Value Date Recorded Sex Assigned at Not on file Gender Identity Not on file Sexual Orientation Not on file Last Filed Vital Signs Vital Sign Reading Time Taken Comments Blood Pressure 136/75 04/17/2018 7:57 AM [employer] Pulse 62 04/17/2018 7:57 AM [employer] Temperature 36.3 C (97.4 F) 04/17/2018 7:57 AM [employer]GER Respiratory Rate 16 04/17/2018 7:57 AM [employer] MANAGER Oxygen Saturation 99% 04/17/2018 7:57 AM INTERNET MARK[employer] MANAGER Inhaled Oxygen Concentration - - Weight 42.2 kg (93 lb) 04/15/2018 2:58 PM [employer] Height 167.6 cm (5' 6 ) 04/09/2018 10:05 PM [employer] Body Mass Index 15.01 04/09/2018 10:05 PM [employer] Functional Status Functional Status Response Date of Assess ment Is person deaf or have serious hearing difficult y? No 04/17/2018 Is person blind or have serious difficulty seein g? No 04/17/2018 Does person have serious dif ficulty walking/climbing stairs? No 04/17/2018 Does person have difficulty dressing/bathing? No 04/17/2018 Does person have difficulty doing errands alone? No 04/17/2018 Cognitive Status Response Date of Assessm ent Does person have difficulty concentrating/remembering/making decisions? No 04/17/2018 Plan of Treatment Not on file Procedures Procedure Name Priority Date/Time Associated Diagnosis Comments LIPID PROFILE Routine 04/17/2018 7:17 AM [employer] from Last 3 Months or Most Recently Relevant to Health Maintenance Results * (ABNORMAL) LIPID PROFILE (04/17/2018 7:17 AM INTERNET MARKETING MANAGER) Cholesterol 140 <200 mg/dL 04/17/2018 8:03 AM INTERNET MARKETING MANAGER [facility] Triglycerides 69 <150 mg/dL 04/17/2018 8:03 AM [facility] HDL Cholesterol 34(L) >40 mg/dL 9 8:03 AM [facility] Chol HDL Ratio 4.1 1.0 - 6.0 04/17/2018 8:03 AM [facility] LDL Calculated 92 65 - 130 mg/dL 04/17/2018 8:03 AM [facility] VLDL Calculated 14 10 - 40 mg/dL 04/17/2018 8:03 AM [facility] Blood BLOOD SPECIMEN / Unknown Lab Venipuncture / Unknown 04/17/2018 7:17 AM [facility] 04/17/2018 7:32 AM [facility] [place] [facility] - 04/17/2018 8:03 AM [facility] Lipid Profile Comment: CHOLESTEROL LEVEL..................CLINICAL INTERPRETATION LESS THAN 200 MG/DL..............................DESIRABLE 200-239 MG/DL..............................BORDERLINE HIGH GREATER THAN 240 MG/DL................................HIGH LDL-CHOLESTEROL LEVEL..............CLINICAL INTERPRETATION LESS THAN 100 MG/DL................................OPTIMAL 100-129 MG/DL.................................NEAR OPTIMAL GREATER THAN 160 MG/DL...........................HIGH RISK HDL RISK LEVEL GREATER THEN 60 MG/DL............................DECREASED 40-60 MG/DL........................................AVERAGE LESS THAN 40 MG/DL...............................INCREASED TRIGLYCERIDE LEVEL..................CLINICAL INTERPRETATION LESS THAN 150 MG/DL...............................DESIRABLE 150-199 MG/DL...............................BORDERLINE HIGH 200-499 MG/DL..........................................HIGH GREATER THAN 500..................................VERY HIGH THE NATIONAL CHOLESTEROL EDUCATION PROGRAM HAS SET THE ABOVE GUIDELINES (REFERANCE VALUES) FOR CHOLESTEROL AND HDL. RISK ASSOCIATED WITH CHOLESTEROL/HDL RATIOS RISK....................MALE RATIO.............FEMALE RATIO 1/2 AVERAGE.................<3.4.......................<3.3 LOW RISK.................... 4.0 ...................... 3.8 AVERAGE..................... 5.0 ...................... 4.5 2X AVERAGE.................. 9.5 ...................... 7.0 3X AVERAGE...................>23........................>11 Socorro Messina MD LAB - CHEMISTRY LEO Malik Organization Address City/State/ZIP Co de Phone Number [facility] [address] [place] [address], [facility] from Last 3 Months or Most Recently Relevant to Health Maintenance Insurance Payer Benefit Plan / Group Subscriber ID Effective Dates Phone Address Type MEDICARE MEDICARE PART A AND B [id number] 2007-Pre sent [address] [place] [address] Medicare MEDICARE MANAGED CARE PLAN GENERIC MEDICARE ADV [place] COMPLETE MEDICARE [place] [id number] Effective for all dates [address] [place] [address] Medicare-[place] aged Care MEDICAID - OUT OF STATE MED[place] [id number] Effective for all dates [address] [address] [place] [address] Medicaid MEDICARE [place] [id number] 2007-Pre sent [address] [facility] [place] [address] Medicare [place] [id number] Effective for all dates [address] [address] [place] [address] Medicaid [place] Advance Directives * Full Code (Latest Code Status on File) Date Activated Date Inactivated Comments 04/09/2018 11:39 PM 04/17/2018 12:27 PM
--- OUTSIDE RECORDS SUMMARY | 2024-04-12 14:08 | XMS_ITS | Patient Health Summary ---
Author Organization [facility] Address [address] [place] [address] Care Team Providers Care Saas Architect Name Role Phone Unavailable Primary Care Provider Unavailabl e Note from [facility],non-owned Affiliates and Associated Physician Practices is amultiple site organization consisting of ambulatory clinics and hospital sitesin [place], [place], [place] and [place]. This disclosure is being madepursuant to the Care Everywhere program and may not contain all information available regarding this patient. Last updated 17.[facility] Allergies No known active allergies Medications * Be aware that medications may not be up to date on this document. Alwaysverify current medications with the patient. * magnesium oxide (MAG-OX) 400 MG tablet Take 400 mg by mouth 3 times daily with meals * megestrol (MEGACE) 40 MG tablet Take 40 mg by mouth 3 times daily * pantoprazole EC (PROTONIX) 20 MG tablet Take 20 mg by mouth 2 times daily * potassium - sodium phosphates (PHOS-NAK) 280-160-250 MG powder Take 1 packet by mouth 2 times daily * sucralfate (CARAFATE) 1 GM/10ML suspension Take by mouth 3 times daily before meals * thiamine (VITAMIN B-1) 100 MG tablet Take 100 mg by mouth once daily * citalopram (CELEXA) 10 MG tablet(Started 04/18/2018) Take 3 tablets by mouth once daily Reasons: Depression * OLANZapine (ZYPREXA) 5 MG tablet(Started 04/17/2018) Take 1 tablet by mouth at bedtime Reasons: Major Depressive Disorder * senna-docusate (SENOKOT-S) 8.6-50 MG tablet(Started 04/17/2018) Take 1 tablet by mouth 2 times daily Reasons: Constipation Active Problems Problem Noted Date Diagnosed Date [...] Comments Blood Pressure 136/75 04/17/2018 7:57 AM [employer] Pulse 62 04/17/2018 7:57 AM [employer] Temperature 36.3 C (97.4 F) 04/17/2018 7:57 AM [employer] Respiratory Rate 16 04/17/2018 7:57 AM [employer] Oxygen Saturation 99% 04/17/2018 7:57 AM [employer] Inhaled Oxygen Concentration - - Weight 42.2 kg (93 lb) 04/15/2018 2:58 PM [employer] Height 167.6 cm (5' 6 ) 04/09/2018 10:05 PM [employer] Body Mass Index 15.01 04/09/2018 10:05 PM [employer] Procedures * HEMOGLOBIN A1C(Performed 04/17/2018) * LIPID PROFILE(Performed 04/17/2018) * CT ABDOMEN PELVIS WO CONTRAST(Performed 04/14/2018) Performed for Intractable vomiting with nausea, unspecified vomiting type * COMPREHENSIVE METABOLIC PANEL(Performed 04/13/2018) * CT HEAD WO CONTRAST(Performed 04/13/2018) Performed for Major depressive disorder, recurrent, severe without psychotic features (HCC) * BASIC METABOLIC PANEL (CALCIUM TOTAL)(Performed 04/11/2018) * CBC W AUTO DIFFERENTIAL(Performed 04/11/2018) Results * HEMOGLOBIN A1C (04/17/2018 7:17 AM [facility]) Hemoglobin A1c 5.0 4.2 - 5.6 % 04/17/2018 7:[address] [facility] Estimated Average Glucose 97 mg/dL 04/17/2018 7:[address] [facility] Blood BLOOD SPECIMEN / Unknown Lab Venipuncture / Unknown 04/17/2018 7:17 AM [employer] 04/17/2018 7:32 AM [facility] Narrative [facility] - 04/17/2018 7:48 AM [facility] The following cutoff levels are recommended by [place] [employer]. A1c > 6.5% : considered as diabetes if two separate tests >6.5% or in an appropriate clinical setting. A1c 5.7% - 6.4% : considered as prediabetes (suggest increased risk for diabetes and cardiovascular disease) Control target level: Should be individualized. < 7 for general (non-) , < 8% less stringent goal, < 6.5 more stringent goal. Hemoglobin A1c measurements are used as an aid in the diagnosis of diabetic mellitus, as an aid to identify patients who may be at the risk for developing diabetic mellitus, and for the monitoring long-term blood glucose control in individuals with diabetes mellitus. This test should not replace glucose testing for patients with Type 1 diabetes, pediatric patients, or women. Falsely low HbA1c results may be observed in patients with clinical conditions that shorten erythrocyte life span or decrease mean erythrocyte age such as the presence of unstable hemoglobin variants, elevated hemoglobin F level or other causes of hemolytic anemia . HbA1c may not accurately reflect glycemic control when clinical conditions that affect erythrocyte survival are present. Severe Iron deficiency anemia may yield falsely high results. Hemoglobin A1c assay should not be used to diagnose or monitor diabetes in patients with malignancy, recent blood transfusion, chronic kidney or liver disease and interpretation. This method may yield falsely low results when hemoglobin (HbF) exceeds 5% in the specimen. Socorro Messina MD LAB - CHEMISTRY [facility] Organization Address City/State/[facility] de Phone Number [facility] [address] [place] [address] * (ABNORMAL) LIPID PROFILE (04/17/2018 7:17 AM [facility]) [facility] Cholesterol 140 <200 mg/dL 04/17/2018 8:[address] [facility] Triglycerides 69 <150 mg/dL 04/17/2018 8:[address] [facility] HDL Cholesterol 34(L) >40 mg/dL 9 8:[address] [facility] Chol HDL Ratio 4.1 1.0 - 6.0 04/17/2018 8:[address] [facility] LDL Calculated 92 65 - 130 mg/dL 04/17/2018 8:[address] [facility] VLDL Calculated 14 10 - 40 mg/dL 04/17/2018 8:[address] [facility] Blood BLOOD SPECIMEN / Unknown Lab Venipuncture / Unknown 04/17/2018 7:17 AM [employer] 04/17/2018 7:32 AM [employer] [facility] - 04/17/2018 8:03 AM [employer] Lipid Profile Comment: CHOLESTEROL LEVEL..................CLINICAL INTERPRETATION LESS [...] Socorro Messina MD LAB - CHEMISTRY [facility] [address] [place], [place] [id number] [place] [address] * CT ABDOMEN AND PELVIS WO IV CONTRAST [id number] (04/14/2018 2:13 PM [employer]) Anatomical Region Laterality Modality Abdomen, Pelvis Computed Tomogra phy 04/14/2018 2:37 PM [employer] Impressions 04/14/2018 2:45 PM [employer] 1. Directed noncontrast exam demonstrating nonobstructive bowel gas. Multiple loops of fluid-filled distal small bowel are present possibly associated with enteritis. 2. Mild thickened appearance of the distal esophageal wall; gastric wall thickening may also be present. Consider endoscopic evaluation as clinically appropriate. 3. Extensive cystic replacement of the left kidney with cystic neoplasm not excluded. This could be further evaluated with dynamic phase contrast abdominal CT or MRI. 4. Bibasilar parenchymal markings in the lower chest of uncertain chronicity possibly representing chronic fibrotic changes but acute inflammatory or infectious process is not excluded. Correlation with dedicated chest CT suggested. Narrative 04/14/2018 2:45 PM [employer] PROCEDURE: CT ABDOMEN PELVIS WO CONTRAST 04/14/2018 2:37 PM HISTORY: Nausea with vomiting, unspecified. Radiation dose reduction technique was utilized. DATE: 04/14/2018 2:13 PM COMPARISON STUDIES: No previous available TECHNIQUE: Helical axial images were acquired from the lung bases to symphysis pubis. Sagittal and coronal reconstructions were obtained. Radiation dose reduction technique was utilized. FINDINGS: The bowel gas pattern is nonobstructive with no free air. Multiple loops of fluid-filled distal small bowel present. A mild to moderate amount of stool is present in the large bowel extending to the cecum. The appendix is not well seen but no grossly inflamed appendix identified. The distal esophagus appears to have mild wall thickening. Gastric wall thickening may also be present as seen posteriorly in the fundal upper body region, images 20 through 30 of series 2. No obvious lymphadenopathy, with exam limited by noncontrast technique and minimal mesenteric fat. Aorta is normal size. Liver pancreas spleen appear grossly normal for noncontrast technique. No radiopaque gallstones seen. A 6.7 x 6.7 x 6.5 cm predominantly simple appearing cystic mass is present in the left kidney region with more complex cystic appearing changes extending posteriorly and superiorly from the upper pole of the left kidney. No discrete renal parenchymal or collecting system seen. The right kidney appears hypertrophied with 7 x 6 mm calcification in the right renal pelvis but no hydronephrosis or hydroureter seen. In the lung bases mild diffusely increased interlobular septal changes and reticulation seen. No effusion in the lung bases. Procedure Note Van Farley MD - 04/14/2018 PROCEDURE: CT ABDOMEN PELVIS WO CONTRAST 04/14/2018 2:37 PM HISTORY: Nausea with vomiting, unspecified. Radiation dose reduction technique was utilized. DATE: 04/14/2018 2:13 PM COMPARISON STUDIES: No previous available TECHNIQUE: Helical axial images were acquired from the lung bases to symphysis pubis. Sagittal and coronal reconstructions were obtained. Radiation dose reduction technique was utilized. FINDINGS: The bowel gas pattern is nonobstructive with no free air. Multiple loops of fluid-filled distal small bowel present. A mild to moderate amount of stool is present in the large bowel extending to the cecum. The appendix is not well seen but no grossly inflamed appendix identified. The distal esophagus appears to have mild wall thickening. Gastric wall thickening may also be present as seen posteriorly in the fundal upper body region, images 20 through 30 of series 2. No obvious lymphadenopathy, with exam limited by noncontrast technique and minimal mesenteric fat. Aorta is normal size. Liver pancreas spleen appear grossly normal for noncontrast technique. No radiopaque gallstones seen. A 6.7 x 6.7 x 6.5 cm predominantly simple appearing cystic mass is present in the left kidney region with more complex cystic appearing changes extending posteriorly and superiorly from the upper pole of the left kidney. No discrete renal parenchymal or collecting system seen. The right kidney appears hypertrophied with 7 x 6 mm calcification in the right renal pelvis but no hydronephrosis or hydroureter seen. In the lung bases mild diffusely increased interlobular septal changes and reticulation seen. No effusion in the lung bases. IMPRESSION 1. Directed noncontrast exam demonstrating nonobstructive bowel gas. Multiple loops of fluid-filled distal small bowel are present possibly associated with enteritis. 2. Mild thickened appearance of the distal esophageal wall; gastric wall thickening may also be present. Consider endoscopic evaluation as clinically appropriate. 3. Extensive cystic replacement of the left kidney with cystic neoplasm not excluded. This could be further evaluated with dynamic phase contrast abdominal CT or MRI. 4. Bibasilar parenchymal markings in the lower chest of uncertain chronicity possibly representing chronic fibrotic changes but acute inflammatory or infectious process is not excluded. Correlation with dedicated chest CT suggested. Nasir Biswas MD CT ORDERABLES * (ABNORMAL) COMPREHENSIVE METABOLIC PANEL (04/13/2018 12:03 PM [facility]) Glucose 88 70 - 125 mg/dL 04/13/2018 12:[address] [facility] Sodium 136 136 - 145 mmol/L 04/13/2018 12:[address] [facility] Potassium 4.2 3.4 - 4.5 mmol/L 04/13/2018 12:[address] [facility] Chloride 103 98 - 107 mmol/L 04/13/2018 12:[address] [facility] CO2 25 22 - 29 mmol/L 04/13/2018 12:[address] [facility] Calcium 9.3 8.4 - 10.2 mg/dL 04/13/2018 12:[address] [facility] Anion Gap 12 10 - 20 mmol/L 04/13/2018 12:[address] [facility] BUN 10.9 8.4 - 25.7 mg/dL 04/13/2018 12:[address] [facility] Creatinine 0.67(L) 0.72 - 1.25 mg/dL 04/13/2018 12:[address] [facility] eGFR by MDRD >60 >60 mL/min/1.7 3m2 04/13/2018 12:[address] [facility] eGFR by MDRD >60 >60 mL/min/1.7 3m2 04/13/2018 12:[address] [facility] Alkaline Phosphatase 74 40 - 150 U/L 04/13/2018 12:[address] [facility] ALT 16 5 - 55 U/L 04/13/2018 12:[address] [facility] AST 19 5 - 34 U/L 04/13/2018 12:[address] [facility] Protein Total 6.0(L) 6.4 - 8.3 gm/dL 04/13/2018 12:[address] [facility] Albumin 3.0(L) 3.5 - 5.0 gm/dL 04/13/2018 12:[address] [facility] Globulin Total 3.0 2.6 - 4.0 gm/dL 04/13/2018 12:37 PM [employer] [facility] Albumin/Globulin Ratio 1.0 0.9 - 1.6 04/13/2018 12:37 PM [employer] [facility] Bilirubin Total 0.7 0.2 - 1.2 mg/dL 04/13/2018 12:37 PM [employer] [facility] Blood BLOOD SPECIMEN / Unknown Lab Venipuncture / Unknown 04/13/2018 12:03 PM [employer] 04/13/2018 12:11 PM [employer] Lorelei Tracey [employer] LAB - CHEMISTRY O RDERABLES [facility] [address] * CT BRAIN WO CONTRAST [id number] (04/13/2018 11:25 AM [employer]) Anatomical Region Laterality Modality Head Computed Tomogra phy 04/13/2018 11:4 1 AM [employer] Impressions 04/13/2018 11:44 AM [employer] No apparent mass, hemorrhage, or major territory infarction identified. Narrative 04/13/2018 11:44 [address] [employer] CT HEAD SCAN WITHOUT IV CONTRAST 04/13/2018 HISTORY: Major depressive disorder. Confusion. Failure to thrive. Automated exposure control with radiation dose reduction technique utilized. COMPARISON: None. FINDINGS: No apparent mass, mass effect, hemorrhage, or major territory infarction. Mild cerebral atrophy and microvascular disease change. Mild intracranial vascular calcification. Mastoid air cells and visualized paranasal sinuses appear clear. Procedure Note Joe Wallace MD - 04/13/2018 CT HEAD SCAN WITHOUT IV CONTRAST 04/13/2018 HISTORY: Major depressive disorder. Confusion. Failure to thrive. Automated exposure control with radiation dose reduction technique utilized. COMPARISON: None. FINDINGS: No apparent mass, mass effect, hemorrhage, or major territory infarction. Mild cerebral atrophy and microvascular disease change. Mild intracranial vascular calcification. Mastoid air cells and visualized paranasal sinuses appear clear. IMPRESSION No apparent mass, hemorrhage, or major territory infarction identified. Jarvis Barraza MD CT ORDERABLES * (ABNORMAL) CBC W AUTO DIFFERENTIAL (04/11/2018 6:55 AM [employer]) WBC 5.7 4.0 - 10.0 x10E9/L 04/11/2018 7:[address] [facility] RBC 3.68(L) 4.40 - 6.10 x10E12/L 04/11/2018 7:[address] [facility] Hemoglobin 11.3(L) 13.7 - 17.5 gm/dL 04/11/2018 7:[address] [facility] Hematocrit 32.6(L) 40.1 - 51.0 % 04/11/2018 7:[address] [facility] MCV 88.6 78.0 - 100.0 fl 04/11/2018 7:[address] [facility] MCH 30.7 25.6 - 34.0 pg 04/11/2018 7:[address] [facility] MCHC 34.7 32.3 - 36.5 gm/dL 04/11/2018 7:[address] [facility] RDW 16.3(H) 11.6 - 14.4 % 04/11/2018 7:[address] [facility] MPV 9.4 9.4 - 12.4 fl 04/11/2018 7:[address] [facility] Platelet Count 159(L) 163 - 369 x10E9/L 04/11/2018 7:[address] [facility] Neutrophils % 57.1 40.0 - 75.0 % 04/11/2018 7:[address] [facility] Lymphocytes % 31.6 19.3 - 53.1 % 04/11/2018 7:[address] [facility] Monocytes % 7.0 4.7 - 12.5 % 04/11/2018 7:[address] [facility] Eosinophils % 2.6 0.7 - 7.0 % 04/11/2018 7:[address] [facility] Basophils % 1.4(H) 0.1 - 1.2 % 04/11/2018 7:[address] [facility] Immature Granulocytes 0.3 0 - 0.5 % 04/11/2018 7:[address] [facility] Neutrophil Absolute 3.27 1.56 - 6.13 x10E9/L 04/11/2018 7:[address] [facility] Lymphocytes Absolute 1.81 1.18 - 3.74 x10E9/L 04/11/2018 7:[address] [facility] Monocytes Absolute 0.40 0.24 - 0.86 x10E9/L 04/11/2018 7:[address] [facility] Eosinophils Absolute 0.15 0.04 - 0.54 x10E9/L 04/11/2018 7:[address] [facility] Basophils Absolute 0.08 0.01 - 0.08 x10E9/L 04/11/2018 7:[address] [facility] Immature Granulocytes Absolute 0.02 0 - 0.03 x10E9/L 04/11/2018 7:[address] [facility] nRBC Auto 0 <=0 /100 WBC 04/11/2018 7:[address] [facility] nRBC Absolute 0.00 <=0 x10E9/L 04/11/2018 7:[address] [facility] Blood BLOOD SPECIMEN / Unknown Lab Venipuncture / Unknown 04/11/2018 6:55 AM [employer] 04/11/2018 7:00 AM [facility] Nasir Biswas MD LAB - HEMATOLOGY ORD ERABLES Performing Organization Address [facility] Co de Phone Number [facility] [address] * (ABNORMAL) BASIC METABOLIC PANEL (CALCIUM TOTAL) (04/11/2018 6:55 AM [facility]) [facility] Glucose 84 70 - 125 mg/dL 04/11/2018 7:[address] [facility] Sodium 136 136 - 145 mmol/L 04/11/2018 7:[address] [facility] Potassium 3.6 3.4 - 4.5 mmol/L 04/11/2018 7:[address] [facility] Chloride 107 98 - 107 mmol/L 04/11/2018 7:[address] [facility] CO2 23 22 - 29 mmol/L 04/11/2018 7:[address] [facility] Calcium 8.6 8.4 - 10.2 mg/dL 04/11/2018 7:[address] [facility] Anion Gap 10 10 - 20 mmol/L 04/11/2018 7:[address] [facility] BUN 7.3(L) 8.4 - 25.7 mg/dL 04/11/2018 7:[address] [facility] Creatinine 0.54(L) 0.72 - 1.25 mg/dL 04/11/2018 7:[address] [facility] eGFR by MDRD >60 >60 mL/min/1.7 3m2 04/11/2018 7:29 AM [employer] [facility] eGFR by MDRD >60 >60 mL/min/1.7 3m2 04/11/2018 7:29 AM [employer] [facility] Blood BLOOD SPECIMEN / Unknown Lab Venipuncture / Unknown 04/11/2018 6:55 AM [employer] 04/11/2018 7:00 AM [employer] Nasir Biswas MD LAB - CHEMISTRY [facility] Organization Address City/State/ZIP Co de Phone Number [facility] [address] [place], [place] [id number] [place] [address]
--- OUTSIDE RECORDS SUMMARY | 2024-04-12 14:08 | XMS_ITS | Clinical Summary ---
Author Organization [facility] Address [address] [place] [address] Care Team Providers Care Mason [facility] Name Role Phone Unavailable Primary Care Provider Unavailabl e Source Comments [facility],non-owned Affiliates and Associated Physician Practices is amultiple site organization consisting of ambulatory clinics and hospital sitesin [place], [place] and [place]. This disclosure is being madepursuant to the Care Everywhere program and may not contain all information available regarding this patient. 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 Plan of Treatment Health Maintenance Due Date Last Done Comments COLOGUARD (AGES 45-75) - COL ON CA SCREENING 1959 COLON MONITORING 1959 COLONOSCOPY - COLON CA SCREENING 1959 CT COLONOGRAPHY - COLON CA SCREENING 1959 Colorectal Cancer Screening 1959 FIT - COLON CA SCREENING 1959 FLEX SIG - COLON CA SCREENING 1959 MEDICARE AWV 12 MONTHS 1959 HIV SCREENING 11/12/1974 HEPATITIS C SCREENING 11/08/1977 DTAP/TDAP/TD VACCINES (1 - Tdap) 11/12/1978 PNEUMOCOCCAL VACCINE 50+ (1 of 1 - PCV) 11/12/2009 ZOSTER VACCINE (1 of 2) 11/12/2009 LIPID TESTING 04/17/2023 04/17/2018 COVID-19 VACCINE (1 - 2023-2 5 season) 2023 INFLUENZA VACCINE (#1) 2023 DEPRESSION SCREENING 02/19/2024 Respiratory Syncytial Virus (RSV) Vaccine Pt: or over 60 yrs (1 - 1-dose 75+ series) 11/12/2034 HEPATITIS B VACCINE Aged Out No longe r eligible based on patient's age to complete this topic HIB VACCINE Aged Out No longer eligi ble based on patient's age to complete this topic HPV VACCINE Aged Out No longer eligi ble based on patient's age to complete this topic MENINGOCOCCAL (Group B) VACCINE Aged Out No longer eligible based on patient's age to complete this topic MENINGOCOCCAL VACCINE Aged Out No nikolay joe eligible based on patient's age to complete this topic PNEUMOCOCCAL VACCINE Aged Out No long er eligible based on patient's age to complete this topic Procedures Procedure Name Priority Date/Time Associated Diagnosis Comments LIPID PROFILE Routine 04/17/2018 7:17 AM F[employer]IC DESIGNER from Last 3 Months or Most Recently Relevant to Health Maintenance Results * (ABNORMAL) LIPID PROFILE (04/17/2018 7:17 AM FABRIC DESIGNER) Cholesterol 140 <200 mg/dL 04/17/2018 8:[address] [facility] Triglycerides 69 <150 mg/dL 04/17/2018 8:[address] [facility] HDL Cholesterol 34(L) >40 mg/dL 9 8:[address] [facility] Chol HDL Ratio 4.1 1.0 - 6.0 04/17/2018 8:[address] [facility] LDL Calculated 92 65 - 130 mg/dL 04/17/2018 8:[address] [facility] VLDL Calculated 14 10 - 40 mg/dL 04/17/2018 8:[address] [facility] Blood BLOOD SPECIMEN / Unknown Lab Venipuncture / Unknown 04/17/2018 7:17 AM [facility] DES[employer]ER 04/17/2018 7:32 AM [facility] Narrative [facility] - 04/17/2018 8:03 AM [facility] Lipid Profile Comment: CHOLESTEROL LEVEL..................CLINICAL INTERPRETATION LESS [...] AVERAGE...................>23........................>11 Socorro Messina MD LAB - CHEMISTRY LOE SANDRA [facility] Organization Address City/State/[facility] de Phone Number [facility] [address] [place] [address], [facility] from Last 3 Months or Most Recently Relevant to Health Maintenance Insurance Payer Benefit Plan / Group Subscriber ID Effective Dates Phone Address Type MEDICARE MEDICARE PART A AND B [id number] 2007-Pre sent [address] [place] [address] Medicare MEDICARE MANAGED CARE PLAN GENERIC MEDICARE ADV [place] COMPLETE MEDICARE ADV OUT OF [place] [id number] Effective for all dates [phone] [address] [place] [address] Medicare-Man aged Care MEDICAID - OUT OF STATE MEDICA[place] - [place] PUBLIC AID [id number] Effective for all dates [address] [address] [place] [address] Medicaid MEDICARE [place] [id number] 2007-Pre sent [address] [place] [phone] Medicare [place] [id number] Effective for all dates [address] [address] [place] [address] Medicaid [place] Advance Directives * Full Code (Latest Code Status on File) Date Activated Date Inactivated Comments 04/09/2018 11:39 PM 04/17/2018 12:27 PM
[2024-04-12 14:14] LABS: Basophils Percent Auto 0.2 % (0.2-1.2); Hematocrit 58.2 % (42.0-52.0); Hemoglobin 20.1 g/dL (14.0-18.0); Immature Granulocyte Absolute 0.12 K/mm3 (0.00-0.031); Immature Granulocyte Percent A 0.5 % (0-0.5); Lymphocytes Absolute Auto 0.97 K/mm3 (0.9-3.2); Lymphocytes Percent Auto 4.2 % (18.3-44.2); Mean Corpuscular HGB Conc 34.5 g/dl (32-36); Mean Corpuscular Hemoglobin 30.9 pg (26-34); Mean Corpuscular Volume 89.4 fl (80-100); Mean Platelet Volume 9.9 fl (7.4-10.4); Monocytes Absolute Auto 1.1 K/mm3 (0.1-0.6); Monocytes Percent Auto 4.9 % (2.6-8.5); Neutrophils Absolute Auto 20.8 K/mm3 (1.3-6.7); Neutrophils Percent Auto 90.2 % (45.5-73.1); Platelet Count Result 289 k/mm3 (150-375); Red Blood Count 6.51 M/mm3 (4.6-6.20); Red Cell Distribution Width 13.2 % (11.5-14.5)
--- NOTE | 2024-04-12 14:21 | ED.GENADULT ---
HPI - General Adult General Chief complaint: Nausea/Vomiting/Diarrhea Stated complaint: N/V COFFEE GROUND Time Seen by Provider: 04/12/24 14:04 History of Present Illness HPI narrative: Patient is 63-year-old gentleman presents emergency department with chief complaint of coffee-ground emesis nausea and diarrhea. The patient is from a local nursing facility and has history of dementia is alert oriented x2 at baseline history is somewhat limited due to dementia Related Data Home Medications ?Medication ?Instructions ?Recorded ?Confirmed ?Last Taken ?Type aripiprazole 5 mg tablet 5 mg PO DAILY 09/12/20 09/12/20 Unknown History donepezil 10 mg tablet 10 mg PO HS 09/12/20 09/12/20 Unknown History duloxetine 60 mg capsule,delayed 60 mg PO HS 09/12/20 09/12/20 Unknown History release lamotrigine 100 mg tablet 100 mg PO BID 09/12/20 09/12/20 Unknown History melatonin 5 mg tablet 5 mg PO HS 09/12/20 09/12/20 Unknown History memantine 10 mg tablet 10 mg PO BID 09/12/20 09/12/20 Unknown History multivitamin with minerals 1 tablet PO DAILY 09/12/20 09/12/20 Unknown History omeprazole 20 mg tablet,delayed 20 mg PO DAILY 09/12/20 09/12/20 Unknown History release sennosides 8.6 mg tablet (senna) 8.6 mg PO BID 09/12/20 09/12/20 Unknown History acetaminophen 500 mg tablet 1,000 mg PO Q8H PRN pain 02/17/23 02/17/23 Unknown History aripiprazole 2 mg tablet (Abilify) 2 mg PO DAILY 02/17/23 02/17/23 Unknown History donepezil 10 mg tablet 10 mg PO HS 02/17/23 02/17/23 Unknown History duloxetine 40 mg capsule,delayed 40 mg PO DAILY 02/17/23 02/17/23 Unknown History release ferrous sulfate 325 mg (65 mg 325 mg PO BID 02/17/23 02/17/23 Unknown History iron) tablet lamotrigine 100 mg tablet 100 mg PO BID 02/17/23 02/17/23 Unknown History (Lamictal) melatonin 5 mg tablet 5 mg PO HS 02/17/23 02/17/23 Unknown History memantine 10 mg tablet (Namenda) 10 mg PO BID 02/17/23 02/17/23 Unknown History metformin 500 mg tablet 500 mg PO BID 02/17/23 02/17/23 Unknown History mirtazapine 15 mg tablet (Remeron) 7.5 mg PO HS 02/17/23 02/17/23 Unknown History multivitamin with minerals 1 tablet PO DAILY 02/17/23 02/17/23 Unknown History sennosides 8.6 mg tablet (senna) 8.6 mg PO BID 02/17/23 02/17/23 Unknown History Allergies Allergy/AdvReac Type Severity Reaction Status Date / Time spider venom Allergy Unknown Swelling Verified 04/12/24 13:39 Review of Systems Review of Systems: A 10 system review of systems was completed on the patient and is negative except for what is stated in the HPI. Nursing and ancillary documentation was reviewed. [facility] Past Medical History Medical History Left renal atrophy Type 2 diabetes mellitus Former smoker Recovering alcoholic in remission Memory impairment Hypertension Fatty liver Peripheral neuropathy Benign tumor of meningioma (cerebral) Chronic obstructive pulmonary disease Bipolar disorder Esophageal stricture Depression with anxiety Dementia Gastroesophageal reflux disease Schizophrenia Hypertension Surgical History Surgical History History of arthroscopic knee surgery Anterior cruciate ligament repair. History of esophagogastroduodenoscopy (06/2020) History of colonoscopy with polypectomy (06/2020) Family History Family History Mother Liver cancer Other Family history unknown Social History Social History Social History: The patient is currently at [facility]. He does not remember how long he has been there. Former smoker. Recovering alcoholic. No illicit substance use. His brother, Tee Esteban, is his emergency contact. Code status: DNR. Smoking status: Former smoker Alcohol intake: current Alcohol use details: History of alcohol abuse. Substance use: never Substance use type: does not use Living arrangements: correction Additional living arrangements comments: Resident at [facility]. 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 Spiritual care concerns: No Exam Narrative: GENERAL: Well-appearing, well-nourished, and in no acute distress. HEAD: Normocephalic, atraumatic. EYES: PERRLA and EOMI. ENT: Nares clear, no rhinorrhea or epistaxis. Mucous membranes moist. NECK: Supple. CHEST: Clear to auscultation. No respiratory distress. HEART: Regular rate and rhythm. No murmur heard. Normal peripheral pulses. ABDOMEN: Soft, nontender, nondistended, normal active bowel sounds. : Faintly guaiac-positive stool EXTREMITIES: Normal range of motion. No edema. SKIN: Warm, dry, no rash. NEURO: No focal deficits. Alert and oriented x2. PSYCH: Normal mood and affect. Course Vital Signs Vital signs: Vital Signs Temperature 36.8 C 04/12/24 13:34 Pulse Rate 117 H 04/12/24 13:34 Respiratory Rate 20 04/12/24 13:34 Blood Pressure 141/100 H 04/12/24 13:34 Pulse Oximetry 96 04/12/24 13:34 Oxygen Delivery Room Air 04/12/24 13:34 Temperature 36.8 C 04/12/24 13:34 Pulse Rate 109 H 04/12/24 16:08 Respiratory Rate 04/12/24 16:08 Blood Pressure 155/98 H 04/12/24 16:08 Pulse Oximetry 04/12/24 16:08 Oxygen Delivery Room Air 04/12/24 13:34 Medical Decision Making Vital Signs Vital Signs: Vital Signs Temperature 36.8 C 04/12/24 13:34 Pulse Rate 117 H 04/12/24 13:34 Respiratory Rate 04/12/24 13:34 Blood Pressure 141/100 H 04/12/24 13:34 Pulse Oximetry 96 04/12/24 13:34 Oxygen Delivery Room Air 04/12/24 13:34 Temperature 36.8 C 04/12/24 13:34 Pulse Rate 109 H 04/12/24 16:08 Respiratory Rate 04/12/24 16:08 Blood Pressure 155/98 H 04/12/24 16:08 Pulse Oximetry 96 04/12/24 16:08 Oxygen Delivery Room Air 04/12/24 13:34 Lab Data 04/12/24 13:44 04/12/24 13:44 Labs: Lab Results 02/23/25 Range/Units 13:44 WBC 23.0 H (4.5-10.0) K/mm3 RBC 6.51 H (4.6-6.20) M/mm3 Hgb 20.1 H (14.0-18.0) g/dL Hct 58.2 H (42.0-52.0) % MCV 89.4 (80-100) fl MCH 30.9 (26-34) pg MCHC 34.5 (32-36) g/dl RDW 13.2 (11.5-14.5) % Plt Count 289 (150-375) k/mm3 MPV 9.9 (7.4-10.4) fl Immature Gran % (Auto) 0.5 (0-0.5) % Neut % (Auto) 90.2 H (45.5-73.1) % Lymph % (Auto) 4.2 L (18.3-44.2) % Morrison % (Auto) 4.9 (2.6-8.5) % Eos % (Auto) 0.0 (0-4.4) % Baso % (Auto) 0.2 (0.2-1.2) % Lymph # (Auto) 0.97 (0.9-3.2) K/mm3 Morrison # (Auto) 1.1 H (0.1-0.6) K/mm3 Eos # (Auto) 0.0 (0-0.3) K/mm3 Baso # (Auto) 0.0 (0.0-0.1) K/mm3 Abs Immat Gran (auto) 0.12 H (0.00-0.031) K/mm3 Absolute Neuts (auto) 20.8 H (1.3-6.7) K/mm3 Absolute Nucleated RBC 0.000 (0.0-0.012) K/mm3 Nucleated RBC % 0.0 (0.0-0.2) % Sodium 140 (137-145) mmol/L Potassium 4.5 (3.4-5.0) mmol/L Chloride 102 (98-107) mmol/L Carbon Dioxide 21 L (22-30) mmol/L Anion Gap 17 H (4-12) mmol/L BUN 20 (9-20) mg/dL Creatinine 0.76 (0.7-1.3) mg/dL Estim Creat Clear Calc 75 ml/min Estimated GFR > 60 (59 - ) Glucose 224 H (65-110) mg/dL Calcium 9.7 (8.4-10.2) mg/dL Total Bilirubin 1.1 (0.2-1.3) mg/dL AST 25 (17-59) U/L ALT 26 (6-50) U/L Alkaline Phosphatase 123 (38-126) U/L Total Protein 8.0 (6.3-8.2) g/dL Albumin 4.5 (3.5-5.1) g/dL Lipase 51 (23-300) U/L Discharge Plan Discharge Clinical Impression: Abdominal pain, Nausea vomiting and diarrhea Patient Disposition: Still a Patient Condition: Stable Patient Language: [place] Prescriptions: No Action metformin 500 mg Tablet 500 mg PO BID sennosides [senna] 8.6 mg Tablet 8.6 mg PO BID donepezil 10 mg Tablet 10 mg PO HS acetaminophen 500 mg Tablet 1,000 mg PO Q8H PRN (Reason: pain) ferrous sulfate 325 mg (65 mg iron) Tablet 325 mg PO BID mirtazapine [Remeron] 15 mg Tablet 7.5 mg PO HS multivitamin with minerals Tablet 1 tablet PO DAILY lamotrigine [Lamictal] 100 mg Tablet 100 mg PO BID memantine [Namenda] 10 mg Tablet 10 mg PO BID aripiprazole [Abilify] 2 mg Tablet 2 mg PO DAILY melatonin 5 mg Tablet 5 mg PO HS duloxetine 40 mg Capsule,Delayed Release(Dr/Ec) 40 mg PO DAILY sucralfate 100 mg/mL Suspension 1,000 mg PO ACHS Qty: 120 0RF amoxicillin-pot clavulanate 875-125 mg tablet 1 tablet PO Q12H Qty: 7 0RF pantoprazole [Protonix] 40 mg Tablet,Delayed Release (Dr/Ec) 40 mg PO DAILY Qty: 30 0RF insulin glargine [Lantus U-100 Insulin] 100 unit/mL Solution 15 unit subcut HS Qty: 10 0RF potassium chloride 20 mEq Packet 20 meq PO DAILY Qty: 30 0RF insulin aspart U-100 [Novolog U-100 Insulin aspart] 100 unit/mL Solution 2 - 5 unit subcut WMHS Qty: 10 0RF Protocol: Insulin Corrective Low-Dose Condition: glucose < 70 mg/dl Dose/Route: Follow Hypoglycemia Order Condition: glucose 70-200 mg/dl Dose/Route: No additional insulin Condition: glucose 201-250 mg/dl Dose/Route: 2 units sub-Q Condition: glucose 251-300 mg/dl Dose/Route: 3 units sub-Q Condition: glucose 301-350 mg/dl Dose/Route: 4 units sub-Q Condition: glucose 351-400 mg/dl Dose/Route: 5 units sub-Q Condition: glucose > 400 mg/dl Dose/Route: Call Rx Instructions: Condition Dose/Route Instruction glucose < 70 mg/dl Follow Hypoglycemia Order glucose 70-200 mg/dl No additional insulin glucose 201-250 mg/dl 2 units sub-Q glucose 251-300 mg/dl 3 units sub-Q glucose 301-350 mg/dl 4 units sub-Q glucose 351-400 mg/dl 5 units sub-Q glucose > 400 mg/dl Call donepezil 10 mg tablet 10 mg PO HS multivitamin with minerals Tablet 1 tablet PO DAILY lamotrigine 100 mg tablet 100 mg PO BID aripiprazole 5 mg tablet 5 mg PO DAILY duloxetine 60 mg capsule,delayed release(DR/EC) 60 mg PO HS melatonin 5 mg Tablet 5 mg PO HS sennosides [senna] 8.6 mg Tablet 8.6 mg PO BID memantine 10 mg tablet 10 mg PO BID omeprazole 20 mg Tablet,Delayed Release (Dr/Ec) 20 mg PO DAILY pantoprazole 40 mg Tablet,Delayed Release (Dr/Ec) 40 mg PO Q12HR 21 Days Qty: 42 0RF losartan 50 mg tablet 25 mg PO DAILY Qty: 30 0RF Desitin Daily Defense 13 % cream 1 applic topical TID PRN (Reason: skin irritation) Qty: 136 0RF amoxicillin-pot clavulanate 875-125 mg tablet 1 tablet PO Q12H Qty: 14 0RF Follow-up/Referrals: Ruben,MD Carlos [Primary Care Provider] - Time of Disposition: 17:29
[2024-04-12] MEDS: SODIUM CHLORIDE 0.9% IV 1,000 ML 999 ML IV CONT ×2 (16:07)
[2024-04-12 16:08] VITALS: BP 155/98; PULSE 109; RESP 20; O2SAT 96
[2024-04-12 18:38] VITALS: BP 149/86; PULSE 95; RESP 20; O2SAT 99
--- NOTE | 2024-04-12 18:40 | P.HP_ITS ---
H&P: HPI History of Present Illness Date/Time: 04/12/24 18:40 Chief Complaint: ?Coffee-ground emesis.? Narrative: This is a 63-year-old male with type 2 diabetes mellitus, dementia, schizophrenia, depression, anxiety, and hypertension who presented to the emergency department via EMS from [facility] for evaluation of reported coffee-ground emesis. He is alert and oriented times 1 to 2 at [facility], has significant short-term memory loss, and the vast majority of the following is supplemented via a review of his electronic medical records. According to the triage note, the patient was complaining of nausea and diarrhea and he had several episodes of vomiting, reportedly with coffee-ground emesis. He does not remember why he was brought to the hospital and does not remember feeling bad this morning. He has no complaints at the time my evaluation aside from the fact that he is hungry. He denies fever, chest pain, shortness of breath, abdominal pain, epigastric pain, bloating, belching, nausea, and diarrhea. In the ED: He was tachycardic on arrival with a heart rate of 117 blood pressure 141/100. Labs are significant for WBC count of 23, hemoglobin 10.1, hematocrit 50.2%, carbon dioxide 21, anion gap 17, glucose 224. CT the abdomen and pelvis showed distal esophagitis otherwise no acute findings. He was started on IV fluids and is being admitted in this setting for further evaluation. Review of Systems Review of Systems: Unable to be obtained accurately given a significant short-term memory loss. [facility] Past Medical History Medical History Left renal atrophy Type 2 diabetes mellitus Former smoker Recovering alcoholic in remission Memory impairment Hypertension Fatty liver Peripheral neuropathy Benign tumor of meningioma (cerebral) Chronic obstructive pulmonary disease Bipolar disorder Esophageal stricture Depression with anxiety Dementia Gastroesophageal reflux disease Schizophrenia Hypertension Surgical History Surgical History History of arthroscopic knee surgery Anterior cruciate ligament repair. History of esophagogastroduodenoscopy (06/2020) History of colonoscopy with polypectomy (06/2020) Family History Family History Mother Liver cancer Other Family history unknown Social History Social History (Updated 04/12/24 @ 22:30 by Natasha Centeno PA-C) Social History: Surrogate medical decision maker: Tee Esteban, brother. Code status: Do not resuscitate. Smoking status: Former smoker Second hand tobacco smoke exposure: No Alcohol intake: former Alcohol use details: History of alcohol abuse. Substance use: never Substance use type: does not use Do You Feel Safe in your Home?: Yes Lack of Transportation: No Lack of Food: Never True Current Housing: I Have Housing Concerned About Future Housing: No Difficulty Paying Gas/Electric Bills: No Difficulty Paying for Meds: No Currently Unemployed: No Education: Decline to Answer Difficulty w/ Childcare or Family Care: No Living arrangements: senior living Additional living arrangements comments: Resident at [facility]. 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 Spiritual care concerns: No Meds Home Medications and Allergies Home Medications ?Medication ?Instructions ?Recorded ?Confirmed ?Type aripiprazole 5 mg tablet 5 mg PO DAILY 09/12/20 09/12/20 History donepezil 10 mg tablet 10 mg PO HS 09/12/20 09/12/20 History duloxetine 60 mg capsule,delayed 60 mg PO HS 09/12/20 09/12/20 History release lamotrigine 100 mg tablet 100 mg PO BID 09/12/20 09/12/20 History melatonin 5 mg tablet 5 mg PO HS 09/12/20 09/12/20 History memantine 10 mg tablet 10 mg PO BID 09/12/20 09/12/20 History multivitamin with minerals 1 tablet PO DAILY 09/12/20 09/12/20 History omeprazole 20 mg tablet,delayed 20 mg PO DAILY 09/12/20 09/12/20 History release sennosides 8.6 mg tablet (senna) 8.6 mg PO BID 09/12/20 09/12/20 History losartan 50 mg tablet 25 mg (1/2 x 50 mg) PO DAILY #30 09/14/20 Rx tabs pantoprazole 40 mg tablet,delayed 40 mg PO Q12HR 21 days #42 tabs 09/14/20 Rx release acetaminophen 500 mg tablet 1,000 mg PO Q8H PRN pain 02/17/23 02/17/23 History aripiprazole 2 mg tablet (Abilify) 2 mg PO DAILY 02/17/23 02/17/23 History donepezil 10 mg tablet 10 mg PO HS 02/17/23 02/17/23 History duloxetine 40 mg capsule,delayed 40 mg PO DAILY 02/17/23 02/17/23 History release ferrous sulfate 325 mg (65 mg 325 mg PO BID 02/17/23 02/17/23 History iron) tablet lamotrigine 100 mg tablet 100 mg PO BID 02/17/23 02/17/23 History (Lamictal) melatonin 5 mg tablet 5 mg PO HS 02/17/23 02/17/23 History memantine 10 mg tablet (Namenda) 10 mg PO BID 02/17/23 02/17/23 History metformin 500 mg tablet 500 mg PO BID 02/17/23 02/17/23 History mirtazapine 15 mg tablet (Remeron) 7.5 mg PO HS 02/17/23 02/17/23 History multivitamin with minerals 1 tablet PO DAILY 02/17/23 02/17/23 History sennosides 8.6 mg tablet (senna) 8.6 mg PO BID 02/17/23 02/17/23 History amoxicillin 875 mg-potassium 1 tablet PO Q12H #7 tabs 02/22/23 Rx clavulanate 125 mg tablet insulin aspart U-100 100 unit/mL 2 - 5 unit subcut WMHS #10 mL 02/22/23 Rx subcutaneous solution (Novolog U-100 Insulin aspart) insulin glargine 100 unit/mL 15 unit (0.15 mL) subcut HS #10 mL 02/22/23 Rx subcutaneous solution (Lantus U-100 Insulin) pantoprazole 40 mg tablet,delayed 40 mg PO DAILY #30 tabs 02/22/23 02/17/23 Rx release (Protonix) potassium chloride 20 mEq oral 20 meq PO DAILY #30 ea 02/22/23 Rx packet sucralfate 100 mg/mL oral 1,000 mg (10 mL) PO ACHS #120 mL 02/22/23 Rx suspension zinc oxide 13 % topical cream 1 applic topical TID PRN skin 02/28/23 Rx (Desitin Daily Defense) irritation #136 grams amoxicillin 875 mg-potassium 1 tablet PO Q12H #14 tabs 06/06/23 Rx clavulanate 125 mg tablet Allergies Allergy/AdvReac Type Severity Reaction Status Date / Time spider venom Allergy Unknown Swelling Verified 04/12/24 13:39 Vital Signs Vital Signs - 24 hr 04/12/24 13:34 04/12/24 16:08 04/12/24 18:38 Temperature 98.2 F Pulse Rate 117 H 109 H 95 Respiratory Rate 20 20 20 Blood Pressure 141/100 H 155/98 H 149/86 H Pulse Oximetry 96 96 99 Oxygen Delivery Room Air Exam Narrative: General: Chronically ill-appearing male in no distress in the semi-Monge position in bed. Weight: 62.3 kg. BMI: 22.2. HEENT: PERRL, EOMI. Sclera anicteric. Tacky mucous membranes. Neck: Supple. Respiratory: Respirations are nonlabored and lungs are clear to auscultation. Cardiovascular: Regular rate and rhythm with S1-S2. Gastrointestinal: Abdomen is soft, nontender, and nondistended with positive bowel sounds. Skin: Warm and dry. Extremities: No cyanosis, clubbing, or edema. Radial and pedal pulses intact. Neurological: Alert and oriented to name and date of . He did not remember why he was in the hospital or even being brought to the hospital today. Cranial nerves 2-12 are grossly intact. Speech is clear. No gross focal deficits to casual conversation. He follows simple commands. Psychiatric: Pleasantly confused and cooperative. Seems to suffer from significant memory loss. H&P: Results Labs Labs: Short CBC 04/12/24 Range/Units 13:44 WBC 23.0 H (4.5-10.0) K/mm3 Hgb 20.1 H (14.0-18.0) g/dL Hct 58.2 H (42.0-52.0) % Plt Count 289 (150-375) k/mm3 BMP 04/12/24 13:44 Sodium 140 Potassium 4.5 Chloride 102 Carbon Dioxide 21 L BUN 20 Creatinine 0.76 Glucose 224 H Calcium 9.7 Liver Function 04/12/24 Range/Units 13:44 Total Bilirubin 1.1 (0.2-1.3) mg/dL AST 25 (17-59) U/L ALT 26 (6-50) U/L Alkaline Phosphatase 123 (38-126) U/L Albumin 4.5 (3.5-5.1) g/dL Impressions Abdomen/Pelvis CT 04/12/24 17:04 IMPRESSION: Distal esophagitis. Otherwise, no acute intra-abdominal findings, as detailed above. Assessment and Plan Assessment and plan (1) Coffee ground emesis: Code(s): K92.0 - Hematemesis Status: Acute (2) Esophagitis: Code(s): K20.90 - Esophagitis, unspecified without bleeding Status: Acute (3) Polycythemia: Code(s): D75.1 - Secondary polycythemia Status: Acute (4) Hypertension: Code(s): I10 - Essential (primary) hypertension Status: Acute (5) Type 2 diabetes mellitus: Code(s): E11.9 - Type 2 diabetes mellitus without complications Status: Acute (6) Psychiatric illness: Code(s): F99 - Mental disorder, not otherwise specified Status: Acute (7) Dementia: Code(s): F03.90 - Unspecified dementia, unspecified severity, without behavioral disturbance, psychotic disturbance, mood disturbance, and anxiety Status: Acute Plan The patient presented to the emergency department earlier this morning for evaluation of reported coffee-ground emesis however he does not recall why he was brought to the hospital as detailed in HPI. Labs, imaging, EKG, and all reports were personally reviewed. He has not had any episodes of emesis or diarrhea since arrival to the hospital. CT scan shows findings of esophagitis and he has been started on pantoprazole. GI consulted for recommendations. Hemoglobin is 20.1 and he has had polycythemia before but not consistently. He may be dry and is being hydrated overnight. WBC count is 23 however his history and imaging do not suggest underlying bacterial infection. Will hold on antibiotics for now and send stool for C diff. Urinalysis ordered for completeness sake. Vital signs were reviewed and they are stable. Continue basal insulin. Initiate sliding scale insulin, Accu-Cheks, and hypoglycemic protocol. The rest of his home medications will be reviewed and resumed as appropriate. Findings and treatment plan were discussed with the patient. Questions were solicited and answered to satisfaction. The patient's medical management will be taken over by the hospitalist team in a.m. Quality VTE Prophylaxis VTE prophylaxis: mechanical ordered If No VTE Prophylaxis Answer both mechanical and pharmacologic: Reason no pharmacologic proph: medical contraindication (reported hematemesis) The patient has been admitted under observation status. Hospitalist [facility] Advance Care Plan I have confirmed that the patient's Advanced Care Plan is present, code status is documented, or surrogate decision maker is listed in patient medical record.: Yes Medication Reconciliation I have utilized all available resources to obtain, update and review the patients current medications (includes all prescriptions, OTC, herbals, cannabis, and nutritional supplements).: Yes
--- NOTE | 2024-04-12 19:27 | PC.NURSE ---
ED called and I asked a question about ambulation status and I was told I do not have to give you any information, I have to clear out beds patient was sent to the floor with getting report from the ED as they refused to give any information. UPDATE: 1754 patient arrives to the floor in room 325-1. He was oriented to the call light. No vision, or hearing issues. No teeth and no dentures. When asked how he moves at [facility] he shrugged his shoulders. I asked if he used a cane, walker, or wheelchair. He replied yeah wheel chair , walker, whatever . Patient resting comfortably in bed. Whiteboard updated with the information I had at the time of his arrival to the floor at 175.
[2024-04-12] MEDS: SODIUM CHLORIDE 0.9% IV 1,000 ML 125 ML IV CONT (20:31)
[2024-04-12 20:50] VITALS: BP 144/81; PULSE 90; RESP 18; TEMP 36.9; O2SAT 94
[2024-04-12 21:38] VITALS: BMI 24.0
--- NOTE | 2024-04-12 21:46 | ADMGEN ---
This patient, Dax Esteban, was admitted to 3 [facility] [place] Surg Room 325-01. Patient/family oriented to hospital policies and general routines including ID bracelet, bed and alarms, visiting hours, pain management, procedures, bathroom and other care routines, personal items, smoking policy, room service/diet, and visiting hours. Information on how to activate the Rapid Response Team has been discussed. Patient/Family are encouraged to report perceived risks to care and to ask questions if they do not understand what they are told or what they should do.
[2024-04-12 23:07] LABS: Hematocrit 50.3 % (42.0-52.0); Hemoglobin 17.1 g/dL (14.0-18.0)
[2024-04-12 23:17] LABS: Hemoglobin A1C 6.7 % (<5.7)
[2024-04-12 23:19] LABS: CRP 4.6 mg/dL (<1.0)
[2024-04-12 23:56] LABS: Procalcitonin 0.1 ng/mL
[2024-04-13 00:15] LABS: Glucose Point of Care 125 mg/dl (65-105)
[2024-04-13] MEDS: FLUTICASONE PROPIONATE 0.05% NA SPR 16 GM BTL (*BKC) 1 SPRAY NASAL ×2 (01:07→20:50)
[2024-04-13] MEDS: MIRTAZAPINE 7.5 MG TABLET PO ×2 (01:08→20:49)
[2024-04-13] MEDS: INSULIN GLARGINE (*BKC) 100 UNITS/ML 15 UNITS SUB-Q ×2 (01:08→20:55)
[2024-04-13] MEDS: DONEPEZIL HCL 10 MG TABLET PO ×2 (01:08→20:49)
[2024-04-13] MEDS: MELATONIN 5 MG TABLET PO ×2 (01:08→20:49)
[2024-04-13] MEDS: lamoTRIgine 25 MG TABLET PO ×3 (01:08→20:49)
[2024-04-13] MEDS: SODIUM CHLORIDE 0.9% IV 1,000 ML 125 ML IV CONT ×3 (04:39→20:58)
[2024-04-13 05:35] VITALS: BP 132/72; PULSE 96; RESP 16; TEMP 36.3; O2SAT 96
[2024-04-13 07:35] LABS: Glucose Point of Care 121 mg/dl (65-105)
--- NOTE | 2024-04-13 07:36 | PM.IMPN ---
Progress Note: A&P Assessment and Plan (1) Coffee ground emesis: Code(s): K92.0 - Hematemesis Status: Acute Assessment and Plan: Patient was complaining of nausea and diarrhea and he had several episodes of vomiting, reportedly with coffee-ground emesis He has not had any episodes of emesis or diarrhea since arrival to the hospital. - Hemoglobin was 20.1 on admission, however he has had polycythemia before but not consistently. H/H 16.2/52.4 on am labs. - WBC count is 23 on admission, however his history and imaging do not suggest underlying bacterial infection. Will hold on antibiotics. WBC 16.4 on am labs. - Blood cultures obtained: pending - C diff and stool cultures ordered - CT abdomen/pelvis: Distal esophagitis.No acute intra-abdominal findings - Pantoprazole. - GI consulted for recommendations. plan for EGD today continue b.i.d. PPI and Carafate continue supportive care with antiemetics as needed (2) Esophagitis: Code(s): K20.90 - Esophagitis, unspecified without bleeding Status: Acute Assessment and Plan: - CT abdomen/pelvis: Distal esophagitis.No acute intra-abdominal findings - Pantoprazole. - GI consulted for recommendations. (3) Polycythemia: Code(s): D75.1 - Secondary polycythemia Status: Acute Assessment and Plan: - Hemoglobin is 20.1 on admission. He has had polycythemia before but not consistently. - Hgb 16.2 on am labs (4) Hypertension: Code(s): I10 - Essential (primary) hypertension Status: Acute Assessment and Plan: Chronic, not on any antihypertensives - blood pressures remain stable, continue to monitor (5) Type 2 diabetes mellitus: Code(s): E11.9 - Type 2 diabetes mellitus without complications Status: Acute Assessment and Plan: - hypoglycemia protocol - POC blood glucose ACHS - home medication - novolog 2-5 units WMHS, lantus 15 units HS, metformin 500 mg BID - correct regimen ordered - continue home insulin, holding metformin - A1C 6.7 (6) Psychiatric illness: Code(s): F99 - Mental disorder, not otherwise specified Status: Acute Assessment and Plan: Continue home medications (7) Dementia: Code(s): F03.90 - Unspecified dementia, unspecified severity, without behavioral disturbance, psychotic disturbance, mood disturbance, and anxiety Status: Acute Assessment and Plan: alert and oriented times 1 to 2 at baseline, has significant short-term memory loss Time Spent With Patient Time with patient: 25 - 35 minutes Subjective Date/time seen: 04/13/24 07:36 Interval history: 63-year-old male with type 2 diabetes mellitus, dementia, schizophrenia, depression, anxiety, and hypertension who presented to the emergency department via EMS from [facility] for evaluation of reported coffee-ground emesis. patient is pleasant lying comfortably in bed. He has no complaints at this time denying chest pain, shortness a breath palpitations, nausea/ vomiting and abdominal pain. He states that he has not had any vomiting since admission. Review of Systems Review of Systems: All systems reviewed & are unremarkable except as noted in HPI and below Exam Narrative: AF HR 96 RR 16 SpO2 96 BP 132/72 General: male in no acute respiratory distress who is nontoxic appearing, lying semi recumbent in bed. HEENT: Normocephalic. Atraumatic. Extraocular movement intact. Sclera clear and anicteric. No facial asymmetry. Chest: Lungs are clear to auscultation bilaterally. No wheezes or crackles. CV: Heart was regular rate and rhythm. S1/S2. No murmurs, gallops, or rubs. Abd: Abdomen was soft. Nontender. Nondistended. Positive bowel sounds. Neuro: Patient is alert and oriented x2 (person, place). Speech is clear. Objective Data Vital Signs Vital Signs: Vital Signs - 24 hr 04/12/24 13:34 04/12/24 16:08 04/12/24 18:38 Temperature 98.2 F Pulse Rate 117 H 109 H 95 Respiratory Rate 20 20 20 Blood Pressure 141/100 H 155/98 H 149/86 H Pulse Oximetry 96 96 99 Oxygen Delivery Room Air 04/12/24 20:50 04/12/24 22:37 04/13/24 05:35 Temperature 98.5 F 97.4 F L Pulse Rate 90 96 Respiratory Rate 18 16 Blood Pressure 144/81 H 132/72 Pulse Oximetry 94 96 Oxygen Delivery Room Air Intake/Output Intake/Output: Intake & Output 04/10/24 04/11/24 04/12/24 04/13/24 23:59 23:59 23:59 23:59 Intake Total 1999 1360 Balance 1999 1360 Meds/Results Medications: Active Medications Generic Name Dose Route Start Last Admin Trade Name Freq PRN Reason Stop Dose Admin Acetaminophen 650 mg 04/12/24 17:29 Acetaminophen 325 Mg Tablet PO Q4H PRN Mild Pain (1-3) or Fever Aripiprazole 5 mg 04/13/24 09:00 Aripiprazole 5 Mg Tablet PO DAILY KARISSA Dextrose 12.5 gm 04/12/24 22:37 Dextrose 50% 25 Gm/50 Ml Syringe IV PUSH PRN PRN Hypoglycemia Protocol Donepezil HCl 10 mg 04/13/24 00:30 04/13/24 01:08 Donepezil Hcl 10 Mg Tablet PO 10 mg HS KARISSA Administration Duloxetine HCl 40 mg 04/13/24 09:00 Duloxetine Hcl 20 Mg Capsule.Dr PO DAILY KARISSA Ferrous Sulfate 325 mg 04/13/24 09:00 Ferrous Sulfate [address] BY MOUTH BID KARISSA Fluticasone Propionate 1 spray 04/13/24 00:30 04/13/24 01:07 Fluticasone Propionate 0.05% Na Spr 16 Gm Btl (*Bkc) NASAL 1 spray HS KARISSA Administration Glucagon 1 mg 04/12/24 22:37 Glucagon For Inj 1 Mg Vial IM PRN PRN Hypoglycemia Protocol Glucose 15 gm 04/12/24 22:37 Glucose Oral Gel 15 Gm Of Glucse In 37.5 Gm Tube PO PRN PRN Hypoglycemia Protocol Sodium Chloride 1,000 mls @ 125 mls/hr 04/12/24 17:30 04/13/24 04:39 Normal Saline Iv IV CONT 125 mls/hr .Q8H KARISSA Administration Dextrose 1,000 mls @ 100 mls/hr 04/12/24 22:37 Dextrose 5% 1,000 Ml IVPB PRN PRN Hypoglycemia Protocol Insulin Aspart 3 - 6 units 04/13/24 00:00 04/13/24 05:48 Insulin Aspart (*Bkc) 100 Units/Ml SUB-Q Not Given Q6HR KARISSA Protocol Insulin Glargine 15 units 04/13/24 00:30 04/13/24 01:08 Insulin Glargine (*Bkc) 100 Units/Ml SUB-Q 15 units HS KARISSA Administration Lamotrigine 25 mg 04/13/24 00:30 04/13/24 01:08 Lamotrigine 25 Mg Tablet PO 25 mg Q12HR KARISSA Administration Melatonin 5 mg 04/13/24 00:30 04/13/24 01:08 Melatonin 5 Mg Tablet PO 5 mg HS KARISSA Administration Memantine 10 mg 04/13/24 09:00 Memantine 10 Mg Tablet PO BID KARISSA Mirtazapine 7.5 mg 04/13/24 00:30 04/13/24 01:08 Mirtazapine 7.5 Mg Tablet PO 7.5 mg HS KARISSA Administration Multivitamins/Calcium 1 tablet 04/13/24 09:00 Therapeutic Multivitamins/Minerals Tab (*Bkc) PO DAILY [facility] Ondansetron HCl 4 mg 04/12/24 17:29 Ondansetron Inj 4 Mg/2 Ml Vial IV PUSH Q4H PRN Nausea Pantoprazole Sodium 40 mg 04/13/24 09:00 Pantoprazole Sodium Iv 40 Mg Vial IV PUSH Q12HR [facility] Potassium Chloride 20 meq 04/13/24 09:00 Potassium Chloride 20 Meq Packet (For Liquid) PO DAILY [facility] Senna 8.6 mg 04/13/24 09:00 Sennosides 8.6 Mg Tablet PO BID [facility] Sucralfate 1,000 mg 04/13/24 07:00 04/13/24 06:28 Sucralfate Susp 100 Mg/Ml 10 Ml Udc PO Not Given 0700,1100,1600,2100 [facility] Zinc Oxide 1 applic 04/13/24 00:50 Zinc Oxide 20% Oint 30 Gm Tube TOPICAL TID PRN skin irritation Radiology Results: ITS Impressions Abdomen/Pelvis CT 04/12/24 17:04 IMPRESSION: Distal esophagitis. Otherwise, no acute intra-abdominal findings, as detailed above. Labs Labs: Laboratory Results - last 24 hr 04/12/24 04/12/24 04/13/24 13:44 23:00 00:11 WBC 23.0 H RBC 6.51 H Hgb 20.1 H 17.1 D Hct 58.2 H 50.3 MCV 89.4 MCH 30.9 MCHC 34.5 RDW 13.2 Plt Count 289 MPV 9.9 Immature Gran % (Auto) 0.5 Neut % (Auto) 90.2 H Lymph % (Auto) 4.2 L [place] % (Auto) 4.9 Eos % (Auto) 0.0 Baso % (Auto) 0.2 Lymph # (Auto) 0.97 [place] # (Auto) 1.1 H Eos # (Auto) 0.0 Baso # (Auto) 0.0 Abs Immat Gran (auto) 0.12 H Absolute Neuts (auto) 20.8 H Absolute Nucleated RBC 0.000 Nucleated RBC % 0.0 Sodium 140 Potassium 4.5 Chloride 102 Carbon Dioxide 21 L Anion Gap 17 H BUN 20 Creatinine 0.76 Estim Creat Clear Calc 75 Estimated GFR > 60 Glucose 224 H POC Capillary Glucose 125 H Hemoglobin A1c 6.7 H Calcium 9.7 Total Bilirubin 1.1 AST 25 ALT 26 Alkaline Phosphatase 123 C-Reactive Protein 4.6 H Total Protein 8.0 Albumin 4.5 Lipase 51 Procalcitonin 0.1 04/13/24 05:33 WBC RBC Hgb Hct MCV MCH MCHC RDW Plt Count MPV Immature Gran % (Auto) Neut % (Auto) Lymph % (Auto) [place] % (Auto) Eos % (Auto) Baso % (Auto) Lymph # (Auto) [place] # (Auto) Eos # (Auto) Baso # (Auto) Abs Immat Gran (auto) Absolute Neuts (auto) Absolute Nucleated RBC Nucleated RBC % Sodium Potassium Chloride Carbon Dioxide Anion Gap BUN Creatinine Estim Creat Clear Calc Estimated GFR Glucose POC Capillary Glucose 121 H Hemoglobin A1c Calcium Total Bilirubin AST ALT Alkaline Phosphatase C-Reactive Protein Total Protein Albumin Lipase Procalcitonin Quality VTE Prophylaxis VTE prophylaxis: mechanical ordered
[2024-04-13 07:43] LABS: Basophils Absolute Auto 0.1 K/mm3 (0.0-0.1); Basophils Percent Auto 0.6 % (0.2-1.2); Eosinophils Absolute Auto 0.1 K/mm3 (0-0.3); Eosinophils Percent Auto 0.4 % (0-4.4); Hematocrit 52.4 % (42.0-52.0); Hemoglobin 16.2 g/dL (14.0-18.0); Immature Granulocyte Absolute 0.11 K/mm3 (0.00-0.031); Immature Granulocyte Percent A 0.7 % (0-0.5); Lymphocytes Absolute Auto 1.76 K/mm3 (0.9-3.2); Lymphocytes Percent Auto 10.8 % (18.3-44.2); Mean Corpuscular HGB Conc 30.9 g/dl (32-36); Mean Corpuscular Volume 100.4 fl (80-100); Mean Platelet Volume 9.6 fl (7.4-10.4); Monocytes Absolute Auto 1.1 K/mm3 (0.1-0.6); Monocytes Percent Auto 6.7 % (2.6-8.5); Neutrophils Absolute Auto 13.3 K/mm3 (1.3-6.7); Neutrophils Percent Auto 80.8 % (45.5-73.1); Platelet Count Result 150 k/mm3 (150-375); Red Blood Count 5.22 M/mm3 (4.6-6.20); Red Cell Distribution Width 13.5 % (11.5-14.5); White Blood Count 16.4 K/mm3 (4.5-10.0)
[2024-04-13 07:45] LABS: INR 1.2; Prothrombin Time 15.9 Seconds (11.1-14.7)
[2024-04-13 07:46] LABS: Partial Thromboplastin Time 25.2 Seconds (22.3-36.8)
[2024-04-13 08:00] LABS: Calcium 8.2 mg/dL (8.4-10.2); Estimated CRCL calculation 103 ml/min; Estimated Glomerular Filt Rate > 60; Glucose 96 mg/dL (65-110); Magnesium 1.9 mg/dL (1.6-2.3)
[2024-04-13 08:12] LABS: Blood Urea Nitrogen 14 mg/dL (9-20); Carbon Dioxide 15 mmol/L (22-30); Potassium 4.9 mmol/L (3.4-5.0); Sodium 139 mmol/L (137-145)
[2024-04-13] MEDS: DULoxetine HCL 20 MG CAPSULE.DR 40 MG PO (09:06)
[2024-04-13] MEDS: FERROUS SULFATE 325 MG TABLET DR BY MOUTH ×2 (09:07→17:43)
[2024-04-13] MEDS: PANTOPRAZOLE SODIUM IV 40 MG VIAL IV PUSH ×2 (09:07→20:50)
[2024-04-13] MEDS: THERAPEUTIC MULTIVITAMINS/MINERALS TAB (*BKC) 1 TABLET PO (09:07)
[2024-04-13] MEDS: SENNOSIDES 8.6 MG TABLET PO ×2 (09:07→17:43)
[2024-04-13] MEDS: POTASSIUM CHLORIDE 20 MEQ PACKET (FOR LIQUID) PO (09:07)
[2024-04-13] MEDS: MEMANTINE 10 MG TABLET PO ×2 (09:07→17:43)
[2024-04-13 09:59] LABS: Chloride 108 mmol/L (98-107)
--- NOTE | 2024-04-13 10:31 | P.CONGI_ITS ---
<Statement entered by Sukhjinder Guevara MD - 04/13/24 16:40> I, Sukhjinder Guevara MD, have provided a substantive portion of the care of this patient and discussed the patient with my Nurse Practitioner. I have reviewed any new relevant radiographic and laboratory results including medications. I agree with her documentation as noted below.?I personally performed the medical decision making and much of the history and exam for this encounter. briefly, he has known erosive esophagitis in previous EGD who came from [facility] with coffee ground emesis. He has polycythemia and dementia, hgb is normal in setting of h/o polycythemia. Plan is iv protonix and EGD tomorrow to evaluate. CT scan showed possible esophagitis. Assessment and Plan Assessment and plan (1) Coffee ground emesis: Code(s): K92.0 - Hematemesis <Sherrifarnaz Amin APRN - Last Filed: 04/13/24 10:46> Status: Acute <Sherri Amin MEDICAL ASSISTANT INTERNAL MEDICINE - Last Filed: 04/13/24 10:46> (2) GERD (gastroesophageal reflux disease): Qualifiers: Esophagitis bleeding: unspecified whether hemorrhage E sophagitis presence: with esophagitis Qualified Code(s): K21.00 - Gastro- esophageal reflux disease with esophagitis, without bleeding <Sherrifarnaz Amin, MEDICAL ASSISTANT INTERNAL MEDICINE - Last Filed: 04/13/24 10:46> Code(s): K21.9 - Gastro-esophageal reflux disease without esophagitis <Sherrifarnaz Amin MEDICAL ASSISTANT INTERNAL MEDICINE - Last Filed: 04/13/24 10:46> Status: Acute <Sherrifarnaz Amin, MEDICAL ASSISTANT INTERNAL MEDICINE - Last Filed: 04/13/24 10:46> (3) Colon cancer screening: Code(s): Z12.11 - Encounter for screening for malignant neoplasm of colon < Sherri Amin APRN - Last Filed: 04/13/24 10:46> Status: Acute <Sherri DJairo Amin MEDICAL ASSISTANT INTERNAL MEDICINE - Last Filed: 04/13/24 10:46> (4) Nausea vomiting and diarrhea: Code(s): R11.2 - Nausea with vomiting, unspecified; R19.7 - Diarrhea, unspecified <Sherri D. Eslinger, MEDICAL ASSISTANT INTERNAL MEDICINE - Last Filed: 04/13/24 10:46> Status: Acute <Sherri Alcazar STEPHANE Amin - Last Filed: 04/13/24 10:46> Assessment and Plan: 1. Coffee ground emesis/nausea/abnormal imaging digestive-esophagitis: Patient was brought to the emergency room yesterday from custodial for coffee-ground emesis, nausea and diarrhea. CT performed yesterday showed esophagitis. Distended stomach probably due to recent ingestion but no evidence of small- bowel obstruction or gastric outlet obstruction. Last EGD 02/19/[address] Miller showed multiple crater ulcers visualized in the mid esophagus and distal esophagus. A moderate stenosis was noted at the GE junction that was dilated with a 15 mm TTS balloon. Patient is a poor historian so unable to obtain subjective information. He is currently on pantoprazole 40 mg IV b.i.d. and Carafate q.i.d.. Patient was unable to say if he has been having nausea today but denies any bowel movements for the past few days . H&H shows no anemia with HGB 16, HCT 53, MCV 100, platelets 150, INR 1.2 he is currently on no anticoagulants, aspirin or NSAIDs. DDX: Esophagitis VS Kelsey-Vidal tear VS Peptic ulcer disease vs neoplasm * plan for EGD today * continue b.i.d. PPI and Carafate * continue supportive care with antiemetics as needed 2. Diarrhea: Patient denies any recent bowel movements but I am assuming from notes and pending stool studies that he has been having diarrhea since admission and CT showed fluid stasis in the rectum. C diff and stool cultures pending. last colonoscopy 07/11/2020 at which time he had a 20 mm polyp removed and was noted to have mild melanosis coli. * further recommendations to follow stool studies Thank you very much for allowing me to share in the care of this very nice patient. Further recommendations to follow endoscopy. This report may have been done utilizing a voice recognition system. Attempts have been made to correct errors. However, there may be uncorrected grammatical, spelling, and recognition errors present. <Sherri Amin APRN - Last Filed: 04/13/24 10:46> GI Consult Note Consult date/time: 04/13/24 10:31 <Sherri Amin APRN - Last Filed: 04/13/24 10:46> Reason for consult: Hematemesis and esophagitis <Sherri Amin APRN - Last Filed: 04/13/24 10:46> HPI: This is a pleasant 63 year old male with a past medical surgical history of depression, anxiety, GERD, schizophrenia, personal history colon polyps, dementia, diabetes type 2, recovering alcoholic, HTN, fatty liver, peripheral neuropathy, benign tumor of meningioma, cerebral hemorrhage disease, COPD, bipolar disorder, and history of esophageal stricture he presented to the ER room 04/12/2024 with complaints of coffee-ground emesis, nausea and diarrhea. GI consulted for hematemesis and esophagitis. Patient has dementia and was somewhat a poor historian so the accuracy of the information provided could not be verified. Patient is unable to say what medications he was on prior to admission. He denies any recent episodes of nausea and vomiting. He was unable to say when his symptoms initially started. No BM today. He currently denies any GI complaints other than he has not eaten for a few days. Patient has a history of esophageal ulcers and strictures with last EGD performed in February of 2023 at which time he had a dilation. Last colonoscopy was June of 2020. family medical surgical history unknown. Patient has a history of EtOH abuse but denies any current use patient denies tobacco or marijuana use with this cannot be verified. ENDOSCOPY HISTORY: EGD: 02/19/[address] Miller for dysphagia and abnormal CT Findings: Multiple crater ulcers were visualized in the mid esophagus and in the distal esophagus A moderate stenosis was noted at the GE junction. The stenosis was transverse. A TTS balloon dilation was performed using a 15 mm balloon A a few cold forceps biopsies were taken from the lower 3rd esophagus Bx results: EGD: 09/14/[address] Miller for dysphagia and abnormal CT Findings: a severe stenosis was noted at the GE junction. The stenosis was transverse. Multiple cold forceps biopsies were taken from the lower 3rd esophagus for pathology A small hiatal hernia was found in the fundus The stomach at the body, cardia and fundus was examined and was otherwise normal with no ulcers or masses. Cold forceps biopsies taken for EDGARD test The bulb and 2nd portion duodenum was normal with no ulcers or mass Bx Results: EGD: 07/11/[address] Miller for dysphagia Findings: Moderate localized esophagitis was seen in the distal esophagus. The esophagitis had a moderate erosive change. The esophagitis appeared at a depth of 30 cm to 33 cm from the incisors A severe stenosis was noted in the distal esophagus. The stenosis appeared a depth of 30 cm to 33 cm from the incisors. The stenosis was transverse. A TTS balloon dilation was performed using 12 mm and 13.5 mm balloons COLONOSCOPY: 07/11/[address] Miller for CRC screening Findings: mild melanosis coli was evident throughout the colon There was a single 20 mm semi pedunculated polyp was observed in the proximal transverse colon. The appearance seemed adenomatous in nature. Hot snare polypectomy was performed. The polyp was completely excised and retrieved. One resolution clip was placed successfully to prevent bleeding Five year repeat colonoscopy recommended Bx results: LABS AND STOOL STUDIES: LABS 04/13/2024: Sodium 139, potassium 4.9, BUN 14, creatinine 0.55, GFR > 60 WBC 16, HGB 16, HCT 53, MCV 100, platelets 150, INR 1.2 Calcitonin 0.1, CRP 4.6, calcium 8.2, magnesium 1.9 LABS 04/12/2024: Total bilirubin 1.1, BUN 25, creatinine 26, alkaline phosphatase 123 IMAGING: CT abd/pelvis w/contrast 04/12/2024: Mural thickening and dilatation of the distal esophagus, similar to previous examination. Liver: The liver enhances homogeneously and is not enlarged. Gallbladder and biliary system: The gallbladder is only minimally distended, and otherwise unremarkable. Pancreas: The pancreas enhances homogeneously without ductal dilatation. Spleen: The spleen enhances homogeneously and is not enlarged measuring 10 cm in longitudinal dimension. Kidneys: The left kidney demonstrates significant cortical atrophy and moderate hydronephrosis, unchanged from prior consistent with chronic UPJ obstruction. Compensatory enlargement of the right kidney which is otherwise unremarkable. Adrenal glands: Unremarkable. Gastrointestinal tract: Colonic diverticulosis without surrounding inflammatory change. Fecal stasis distending the rectum. IMPRESSION: Distal esophagitis. Otherwise, no acute intra-abdominal findings, as detailed above. CT abd/pelvis w/contrast 12/18/2023: Impression: Esophagitis. Distended stomach, possibly due to recent ingestion. No distinct evidence of small bowel obstruction or gastric outlet obstruction. Chronic left UPJ obstruction with marked atrophy and cortical thinning of the left kidney, as well as severe left hydronephrosis. Esophagus Xray 09/12/2020: IMPRESSION: 1. Obstructing 2-2.5 cm mass in the distal esophagus. Unclear whether this represents an endogenous neoplasm or exogenous ingested foreign body. Recommend endoscopy for further evaluation. <Sherri Amin APRN - Last Filed: 04/13/24 10:46> Review of Systems 2 Constitutional: Constitutional: Reports as per HPI and Reports lethargy < Sherri Amin APRN - Last Filed: 04/13/24 10:46> ENT: Reports as per HPI <Sherri Amin APRN - Last Filed: 04/13/24 10:46> Cardiovascular: Cardiovascular: Reports as per HPI, Denies chest pain and Denies dyspnea <Sherri Amin APRN - Last Filed: 04/13/24 10:46> Respiratory: Respiratory: Denies cough and Denies dyspnea <Sherri Amin APRN - Last Filed: 04/13/24 10:46> Gastrointestinal: Gastrointestinal: Reports as per HPI <Sherri Amin APRN - Last Filed: 04/13/24 10:46> Musculoskeletal: Musculoskeletal: Reports as per HPI <Sherri Amin APRN - Last Filed: 04/13/24 10:46> Integumentary/Breasts: Skin/Breast: Reports unusual bruising <Sherri Amin APRN - Last Filed: 04/13/24 10:46> Psychiatric: Psychiatric: Reports as per HPI <Sherri Amin APRN - Last Filed: 04/13/24 10:46> Endocrine: Endocrine: Reports no additional endocrine complaints <Sherri Amin APRN - Last Filed: 04/13/24 10:46> Hematologic/Lymphatic: Hematologic/Lymphatic: Reports no additional hematologic/lymphatic complaints <Sherri Amin APRN - Last Filed: 04/13/24 10:46> [facility] Past Medical History Medical History: Medical History Left renal atrophy Type 2 diabetes mellitus Former smoker Recovering alcoholic in remission Memory impairment Hypertension Fatty liver Peripheral neuropathy Benign tumor of meningioma (cerebral) Chronic obstructive pulmonary disease Bipolar disorder Esophageal stricture Depression with anxiety Dementia Gastroesophageal reflux disease Schizophrenia Hypertension <Sherri Amin APRN - Last Filed: 04/13/24 10:46> Surgical History Surgical History: Surgical History History of arthroscopic knee surgery Anterior cruciate ligament repair. History of esophagogastroduodenoscopy (06/2020) History of colonoscopy with polypectomy (06/2020) <Sherri Amin APRN - Last Filed: 04/13/24 10:46> Family History Family History: Family History Mother Liver cancer Other Family history unknown <Sherri Amin APRN - Last Filed: 04/13/24 10:46> Social History Social History: Social History (Updated 04/12/24 @ 22:30 by Natasha Centeno PA-C) Social History: Surrogate medical decision maker: Tee Esteban, brother. Code status: Do not resuscitate. Smoking status: Former smoker Second hand tobacco smoke exposure: No Alcohol intake: former Alcohol use details: History of alcohol abuse. Substance use: never Substance use type: does not use Do You Feel Safe in your Home?: Yes Lack of Transportation: No Lack of Food: Never True Current Housing: I Have Housing Concerned About Future Housing: No Difficulty Paying Gas/Electric Bills: No Difficulty Paying for Meds: No Currently Unemployed: No Education: Decline to Answer Difficulty w/ Childcare or Family Care: No Living arrangements: custodial Additional living arrangements comments: Resident at [facility]. 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 Spiritual care concerns: No <Sherri Amin APRN - Last Filed: 04/13/24 10:46> Meds Home Medications and Allergies Home medications: Home Medications ?Medication ?Instructions ?Recorded ?Confirmed ?Type aripiprazole 5 mg tablet 5 mg PO DAILY 09/12/20 04/12/24 History donepezil 10 mg tablet 10 mg PO HS 09/12/20 04/12/24 History melatonin 5 mg tablet 5 mg PO HS 09/12/20 04/12/24 History memantine 10 mg tablet 10 mg PO BID 09/12/20 04/12/24 History omeprazole 20 mg tablet,delayed 20 mg PO DAILY 09/12/20 04/12/24 History release acetaminophen 500 mg tablet 1,000 mg PO Q8H PRN pain 02/17/23 04/12/24 History duloxetine 40 mg capsule,delayed 40 mg PO DAILY 02/17/23 04/12/24 History release ferrous sulfate 325 mg (65 mg 325 mg PO BID 02/17/23 04/12/24 History iron) tablet metformin 500 mg tablet 500 mg PO BID 02/17/23 04/12/24 History mirtazapine 15 mg tablet (Remeron) 7.5 mg PO HS 02/17/23 04/12/24 History multivitamin with minerals 1 tablet PO DAILY 02/17/23 04/12/24 History sennosides 8.6 mg tablet (senna) 8.6 mg PO BID 02/17/23 04/12/24 History insulin aspart U-100 100 unit/mL 2 - 5 unit subcut WMHS #10 mL 02/22/23 04/12/24 Rx subcutaneous solution (Novolog U-100 Insulin aspart) insulin glargine 100 unit/mL 15 unit (0.15 mL) subcut HS #10 mL 02/22/23 04/12/24 Rx subcutaneous solution (Lantus U-100 Insulin) potassium chloride 20 mEq oral 20 meq PO DAILY #30 ea 02/22/23 04/12/24 Rx packet zinc oxide 13 % topical cream 1 applic topical TID PRN skin 02/28/23 04/12/24 Rx (Desitin Daily Defense) irritation #136 grams fluticasone propionate 50 1 spray intranasal HS 04/12/24 04/12/24 History mcg/actuation nasal spray,suspension (Allergy Relief (fluticasone)) lamotrigine 25 mg tablet 25 mg PO BID 04/12/24 04/12/24 History pen needle, diabetic, safety 31 04/12/24 04/12/24 History gauge x 5/16 (DropSafe Pen Needle) sucralfate 100 mg/mL oral 1,000 mg PO QID 04/12/24 04/12/24 History suspension <Sherri Amin APRN - Last Filed: 04/13/24 10:46> Allergies/Adverse reactions: Allergies Allergy/AdvReac Type Severity Reaction Status Date / Time spider venom Allergy Unknown Swelling Verified 04/12/24 13:39 <Sherri Amin APRN - Last Filed: 04/13/24 10:46> Vital Signs Vital Signs - 24 hr 04/12/24 13:34 04/12/24 16:08 04/12/24 18:38 Temperature 98.2 F Pulse Rate 117 H 109 H 95 Respiratory Rate 20 20 20 Blood Pressure 141/100 H 155/98 H 149/86 H Pulse Oximetry 96 96 99 Oxygen Delivery Room Air 04/12/24 20:50 04/12/24 22:37 04/13/24 05:35 Temperature 98.5 F 97.4 F L Pulse Rate 90 96 Respiratory Rate 18 16 Blood Pressure 144/81 H 132/72 Pulse Oximetry 94 96 Oxygen Delivery Room Air <Sherri Amin APRN - Last Filed: 04/13/24 10:46> Exam 2 Const: General: cooperative, healthy appearing, comfortable, no acute distress and well developed <Sherri Amin APRN - Last Filed: 04/13/24 10:46> Orientation/consciousness: oriented to person and oriented to place <Sherri Amin APRN - Last Filed: 04/13/24 10:46> HENMT: Head: normal to inspection, normocephalic and atraumatic <Sherri Amin APRN - Last Filed: 04/13/24 10:46> Mouth: Yes Normal oral and palatal mucosa present and Yes moist mucous membranes <Sherri Amin APRN - Last Filed: 04/13/24 10:46> Eyes: General: appearance normal, both eyes and all related structures < Sherri Amin APRN - Last Filed: 04/13/24 10:46> Conjunctivae: conjunctivae normal <Sherri Amin APRN - Last Filed: 04/13/24 10:46> Sclera: sclerae normal <Sherri Amin APRN - Last Filed: 04/13/24 10:46> Pupils: Equal, round and reactive pupils present <Sherri Amin MEDICAL ASSISTANT INTERNAL MEDICINE - Last Filed: 04/13/24 10:46> Neck: Neck: normal visual inspection <Sherri Amin MEDICAL ASSISTANT INTERNAL MEDICINE - Last Filed: 04/13/24 10:46> Chest: Chest palpation & inspection: normal inspection of the chest < Sherri Amin MEDICAL ASSISTANT INTERNAL MEDICINE - Last Filed: 04/13/24 10:46> Resp: Effort & Inspection: normal respiratory effort and able to speak in complete sentences <Sherri Amin MEDICAL ASSISTANT INTERNAL MEDICINE - Last Filed: 04/13/24 10:46> Auscultation: clear to auscultation bilaterally <Sherri Amin MEDICAL ASSISTANT INTERNAL MEDICINE - Last Filed: 04/13/24 10:46> Cardio: Jugular venous distension: no JVD <Sherri Amin [facility] Last Filed: 04/13/24 10:46> Rate: regular rate <Sherri Amin MEDICAL ASSISTANT INTERNAL MEDICINE - Last Filed: 04/13/24 10:46> Rhythm: regular rhythm <[facility] Last Filed: 04/13/24 10:46> Heart sounds: S1 normal heart sound present and S2 normal heart sound present <[facility] Last Filed: 04/13/24 10:46> GI: Inspection: normal to inspection <Sherri Amin [facility] Last Filed: 04/13/24 10:46> GI Palp: Yes Soft to palpation and Yes No hepatosplenomegaly present <Sherri Amin MEDICAL ASSISTANT INTERNAL MEDICINE - Last Filed: 04/13/24 10:46> Auscultation: normal bowel sounds <Sherri Amin APRN - Last Filed: 04/13/24 10:46> Rectal Exam: deferred <Sherri MeadowscliveDUNCAN brittN - Last Filed: 04/13/24 10:46> Skin: General skin exam: normal color and no rashes or lesions noted < Sherri MeadowsSTEPHANE reyez - Last Filed: 04/13/24 10:46> Neuro: General: oriented to person, oriented to place and oriented to time <Sherri MeadowsSTEPHANE reyez - Last Filed: 04/13/24 10:46> Cranial nerves: Yes Equal, round and reactive pupils present <Sherri MeadowsSTEPHANE reyez - Last Filed: 04/13/24 10:46> Speech: normal speech <Sherri MeadowsSTEPHANE reyez - Last Filed: 04/13/24 10:46> Other: Confusion secondary to dementia <Sherri MeadowsDUNCAN reyezN - Last Filed: 04/13/24 10:46> Extrem: General: normal to inspection and no clubbing, cyanosis or edema < Sherri VillanuevaJairo Amin APRN - Last Filed: 04/13/24 10:46> Psych: Appearance: grossly normal and well kempt <Sherri Alcazar STEPHANE Amin - Last Filed: 04/13/24 10:46> Affect: normal affect <Sherri MeadowsSTEPHANE reyez - Last Filed: 04/13/24 10:46> Results Labs CBC & Chem 7: 04/13/24 12:52 04/13/24 09:20 <Sherri MeadowsSTEPHANE reyez - Last Filed: 04/13/24 10:46> Labs: Short CBC 04/12/24 04/12/24 04/13/24 Range/Units 13:44 23:00 07:05 WBC 23.0 H 16.4 H (4.5-10.0) K/mm3 Hgb 20.1 H 17.1 D 16.2 (14.0-18.0) g/dL Hct 58.2 H 50.3 52.4 H (42.0-52.0) % Plt Count 289 150 (150-375) k/mm3 BMP 04/12/24 04/13/24 04/13/24 13:44 07:05 09:20 Sodium 140 139 Potassium 4.5 4.9 Chloride 102 108 H Carbon Dioxide 21 L 15 L BUN 20 14 D Creatinine 0.76 0.55 L Glucose 224 H 96 Calcium 9.7 8.2 L Liver Function 04/12/24 Range/Units 13:44 Total Bilirubin 1.1 (0.2-1.3) mg/dL AST 25 (17-59) U/L ALT 26 (6-50) U/L Alkaline Phosphatase 123 (38-126) U/L Albumin 4.5 (3.5-5.1) g/dL <Sherri Amin, MEDICAL ASSISTANT INTERNAL MEDICINE - Last Filed: 04/13/24 10:46>
[2024-04-13 11:20] LABS: Anion Gap 16 mmol/L (4-12); Chloride 108 mmol/L (98-107)
[2024-04-13] MEDS: SUCRALFATE SUSP 100 MG/ML 10 ML UDC 1000 MG PO ×3 (11:47→20:50)
[2024-04-13] MEDS: ARIPiprazole 5 MG TABLET PO (11:47)
[2024-04-13 12:25] LABS: Glucose Point of Care 91 mg/dl (65-105)
[2024-04-13 13:06] LABS: Hematocrit 46.1 % (42.0-52.0); Hemoglobin 15.2 g/dL (14.0-18.0)
[2024-04-13 14:20] VITALS: BP 136/66; PULSE 84; RESP 16; TEMP 36.8; O2SAT 96
[2024-04-13 17:50] LABS: Glucose Point of Care 178 mg/dl (65-105)
[2024-04-13 20:24] LABS: Hematocrit 45.6 % (42.0-52.0)
[2024-04-13 21:10] VITALS: BP 134/58; PULSE 82; RESP 18; TEMP 36.6; O2SAT 98
[2024-04-13 21:45] LABS: Glucose Point of Care 105 mg/dl (65-105)
[2024-04-14 00:20] LABS: Glucose Point of Care 96 mg/dl (65-105)
[2024-04-14] MEDS: SODIUM CHLORIDE 0.9% IV 1,000 ML 125 ML IV CONT ×2 (05:09→09:20)
[2024-04-14 05:15] VITALS: BP 129/59; PULSE 71; RESP 16; TEMP 36.3; O2SAT 95
[2024-04-14 05:58] LABS: Glucose Point of Care 85 mg/dl (65-105)
[2024-04-14] MEDS: SUCRALFATE SUSP 100 MG/ML 10 ML UDC 1000 MG PO ×3 (06:06→16:45)
[2024-04-14] MEDS: PANTOPRAZOLE SODIUM IV 40 MG VIAL IV PUSH (09:18)
--- NOTE | 2024-04-14 09:35 | PC.NURSE ---
To GI Lab per gisell.
--- NOTE | 2024-04-14 09:37 | PM.IMPN ---
Progress Note: A&P Assessment and Plan (1) Coffee ground emesis: Code(s): K92.0 - Hematemesis Status: Acute Assessment and Plan: Patient was complaining of nausea and diarrhea and he had several episodes of vomiting, reportedly with coffee-ground emesis He has not had any episodes of emesis or diarrhea since arrival to the hospital. - Hemoglobin was 20.1 on admission, however he has had polycythemia before but not consistently. H/H 16.2/52.4 on am labs. - WBC count is 23 on admission, however his history and imaging do not suggest underlying bacterial infection. Will hold on antibiotics. WBC 16.4 on am labs. - Blood cultures obtained: pending - CT abdomen/pelvis: Distal esophagitis.No acute intra-abdominal findings - Pantoprazole. - GI consulted for recommendations. (2) Esophagitis: Code(s): K20.90 - Esophagitis, unspecified without bleeding Status: Acute Assessment and Plan: - CT abdomen/pelvis: Distal esophagitis.No acute intra-abdominal findings - Pantoprazole. - GI consulted for recommendations. (3) Polycythemia: Code(s): D75.1 - Secondary polycythemia Status: Acute Assessment and Plan: - Hemoglobin is 20.1 on admission. He has had polycythemia before but not consistently. - Hgb 16.2 on am labs (4) Hypertension: Code(s): I10 - Essential (primary) hypertension Status: Acute Assessment and Plan: Chronic, not on any antihypertensives - blood pressures remain stable, continue to monitor (5) Type 2 diabetes mellitus: Code(s): E11.9 - Type 2 diabetes mellitus without complications Status: Acute Assessment and Plan: - hypoglycemia protocol - POC blood glucose ACHS - home medication - novolog 2-5 units WMHS, lantus 15 units HS, metformin 500 mg BID - correct regimen ordered - continue home insulin, holding metformin - A1C 6.7 (6) Psychiatric illness: Code(s): F99 - Mental disorder, not otherwise specified Status: Acute Assessment and Plan: Continue home medications (7) Dementia: Code(s): F03.90 - Unspecified dementia, unspecified severity, without behavioral disturbance, psychotic disturbance, mood disturbance, and anxiety Status: Acute Assessment and Plan: alert and oriented times 1 to 2 at baseline, has significant short-term memory loss Subjective Date/time seen: 04/14/24 09:37 Interval history: 63-year-old male with type 2 diabetes mellitus, dementia, schizophrenia, depression, anxiety, and hypertension who presented to the emergency department via EMS from [facility] for evaluation of reported coffee-ground emesis. Review of Systems Review of Systems: All systems reviewed & are unremarkable except as noted in HPI and below Exam Narrative: AF HR 68 RR 20 Spo2 97 BP 109/65 General: male in no acute respiratory distress who is nontoxic appearing, lying semi recumbent in bed. HEENT: Normocephalic. Atraumatic. Extraocular movement intact. Sclera clear and anicteric. No facial asymmetry. Chest: Lungs are clear to auscultation bilaterally. No wheezes or crackles. CV: Heart was regular rate and rhythm. S1/S2. No murmurs, gallops, or rubs. Abd: Abdomen was soft. Nontender. Nondistended. Positive bowel sounds. Neuro: Patient is alert and oriented x2 (person, place). Speech is clear. Objective Data Vital Signs Vital Signs: Vital Signs - 24 hr 04/13/24 14:20 04/13/24 17:05 04/13/24 20:49 Temperature 98.2 F Pulse Rate 84 Respiratory Rate 16 Blood Pressure 136/66 Pulse Oximetry 96 Oxygen Delivery Room Air Room Air 04/13/24 21:10 04/14/24 05:15 04/14/24 08:00 Temperature 97.8 F 97.4 F L Pulse Rate 82 71 Respiratory Rate 18 16 Blood Pressure 134/58 L 129/59 L Pulse Oximetry 98 95 Oxygen Delivery Room Air Intake/Output Intake/Output: Intake & Output 04/11/24 04/12/24 04/13/24 04/14/24 23:59 23:59 23:59 23:59 Intake Total 1999 3295.4 1522.9 Balance 1999 3295.4 1522.9 Meds/Results Medications: Active Medications Generic Name Dose Route Start Last Admin Trade Name Freq PRN Reason Stop Dose Admin Acetaminophen 650 mg 04/12/24 17:29 Acetaminophen 325 Mg Tablet PO Q4H PRN Mild Pain (1-3) or Fever Aripiprazole 5 mg 04/13/24 09:00 04/13/24 11:47 Aripiprazole 5 Mg Tablet PO 5 mg DAILY KARISSA Administration Dextrose 12.5 gm 04/12/24 22:37 Dextrose 50% 25 Gm/50 Ml Syringe IV PUSH PRN PRN Hypoglycemia Protocol Donepezil HCl 10 mg 04/13/24 00:30 04/13/24 20:49 Donepezil Hcl 10 Mg Tablet PO 10 mg HS KARSISA Administration Duloxetine HCl 40 mg 04/13/24 09:00 04/13/24 09:06 Duloxetine Hcl 20 Mg Capsule.Dr PO 40 mg DAILY KARISSA Administration Ferrous Sulfate 325 mg 04/13/24 09:00 04/13/24 17:43 Ferrous Sulfate [address] BY MOUTH 325 mg BID KARISSA Administration Fluticasone Propionate 1 spray 04/13/24 00:30 04/13/24 20:50 Fluticasone Propionate 0.05% Na Spr 16 Gm Btl (*Bkc) NASAL 1 spray HS KARISSA Administration Glucagon 1 mg 04/12/24 22:37 Glucagon For Inj 1 Mg Vial IM PRN PRN Hypoglycemia Protocol Glucose 15 gm 04/12/24 22:37 Glucose Oral Gel 15 Gm Of Glucse In 37.5 Gm Tube PO PRN PRN Hypoglycemia Protocol Sodium Chloride 1,000 mls @ 125 mls/hr 04/12/24 17:30 04/14/24 09:20 Normal Saline Iv IV CONT 125 mls/hr .Q8H KARISSA Administration Dextrose 1,000 mls @ 100 mls/hr 04/12/24 22:37 Dextrose 5% 1,000 Ml IVPB PRN PRN Hypoglycemia Protocol Insulin Aspart 3 - 6 units 04/13/24 00:00 04/14/24 06:07 Insulin Aspart (*Bkc) 100 Units/Ml SUB-Q Not Given Q6HR KARISSA Protocol Insulin Glargine 15 units 04/13/24 00:30 04/13/24 20:55 Insulin Glargine (*Bkc) 100 Units/Ml SUB-Q 15 units HS KARISSA Administration Lamotrigine 25 mg 04/13/24 00:30 04/13/24 20:49 Lamotrigine 25 Mg Tablet PO 25 mg Q12HR KARISSA Administration Melatonin 5 mg 04/13/24 00:30 04/13/24 20:49 Melatonin 5 Mg Tablet PO 5 mg HS KARISSA Administration Memantine 10 mg 04/13/24 09:00 04/13/24 17:43 Memantine 10 Mg Tablet PO 10 mg BID KARISSA Administration Mirtazapine 7.5 mg 04/13/24 00:30 04/13/24 20:49 Mirtazapine 7.5 Mg Tablet PO 7.5 mg HS KARISSA Administration Multivitamins/Calcium 1 tablet 04/13/24 09:00 04/13/24 09:07 Therapeutic Multivitamins/Minerals Tab (*Bkc) PO 1 tablet DAILY KARISSA Administration Ondansetron HCl 4 mg 04/12/24 17:29 Ondansetron Inj 4 Mg/2 Ml Vial IV PUSH Q4H PRN Nausea Pantoprazole Sodium 40 mg 04/13/24 09:00 04/14/24 09:18 Pantoprazole Sodium Iv 40 Mg Vial IV PUSH 40 mg Q12HR KARISSA Administration Potassium Chloride 20 meq 04/13/24 09:00 04/13/24 09:07 Potassium Chloride 20 Meq Packet (For Liquid) PO 20 meq DAILY KAIRSSA Administration Senna 8.6 mg 04/13/24 09:00 04/13/24 17:43 Sennosides 8.6 Mg Tablet PO 8.6 mg BID KARISSA Administration Sucralfate 1,000 mg 04/13/24 07:00 04/14/24 06:06 Sucralfate Susp 100 Mg/Ml 10 Ml Udc PO 1,000 mg 0700,1100,1600,2100 KARISSA Administration Zinc Oxide 1 applic 04/13/24 00:50 Zinc Oxide 20% Oint 30 Gm Tube TOPICAL TID PRN skin irritation Radiology Results: ITS Impressions Abdomen/Pelvis CT 04/12/24 17:04 IMPRESSION: Distal esophagitis. Otherwise, no acute intra-abdominal findings, as detailed above. Labs Labs: Laboratory Results - last 24 hr 04/13/24 04/13/24 04/13/24 07:05 09:20 11:51 Hgb Hct Chloride 108 H 108 H Anion Gap 16 H POC Capillary Glucose 91 04/13/24 04/13/24 04/13/24 12:52 17:48 20:15 Hgb 15.2 15.0 Hct 46.1 45.6 Chloride Anion Gap POC Capillary Glucose 178 H 04/13/24 04/14/24 04/14/24 21:03 00:17 05:56 Hgb Hct Chloride Anion Gap POC Capillary Glucose 105 96 85 Quality VTE Prophylaxis VTE prophylaxis: mechanical ordered
--- NOTE | 2024-04-14 09:48 | P.PNAN_ITS ---
Anes - Initial Pre Proc Eval Procedure: Operation Date: 04/14/24 15:00 Proposed Procedures p Esophagogastroduodenoscopy - Sukhjinder Guevara MD Date/Time: 04/14/24 09:48 Surgeon: Terence Gutierrez MD Pre Op Diagnosis: Nausea vomiting diarrhea, abdominal pain, leukocyt Patient Data Age: 63 Gender: M Height: 1.68 m Weight: 73.3 kg Last Vital Signs Temp 36.3 C L 04/14/24 05:15 Pulse 71 04/14/24 05:15 Resp 16 04/14/24 05:15 BP 129/59 L 04/14/24 05:15 Pulse Ox 95 04/14/24 05:15 O2 Del Method Room Air 04/14/24 08:00 Allergies Allergy/AdvReac Type Severity Reaction Status Date / Time spider venom Allergy Unknown Swelling Verified 04/14/24 09:48 Home Medications ?Medication ?Instructions ?Recorded ?Confirmed ?Type aripiprazole 5 mg tablet 5 mg PO DAILY 09/12/20 04/12/24 History donepezil 10 mg tablet 10 mg PO HS 09/12/20 04/12/24 History melatonin 5 mg tablet 5 mg PO HS 09/12/20 04/12/24 History memantine 10 mg tablet 10 mg PO BID 09/12/20 04/12/24 History omeprazole 20 mg tablet,delayed 20 mg PO DAILY 09/12/20 04/12/24 History release acetaminophen 500 mg tablet 1,000 mg PO Q8H PRN pain 02/17/23 04/12/24 History duloxetine 40 mg capsule,delayed 40 mg PO DAILY 02/17/23 04/12/24 History release ferrous sulfate 325 mg (65 mg 325 mg PO BID 02/17/23 04/12/24 History iron) tablet metformin 500 mg tablet 500 mg PO BID 02/17/23 04/12/24 History mirtazapine 15 mg tablet (Remeron) 7.5 mg PO HS 02/17/23 04/12/24 History multivitamin with minerals 1 tablet PO DAILY 02/17/23 04/12/24 History sennosides 8.6 mg tablet (senna) 8.6 mg PO BID 02/17/23 04/12/24 History insulin aspart U-100 100 unit/mL 2 - 5 unit subcut WMHS #10 mL 02/22/23 04/12/24 Rx subcutaneous solution (Novolog U-100 Insulin aspart) insulin glargine 100 unit/mL 15 unit (0.15 mL) subcut HS #10 mL 02/22/23 04/12/24 Rx subcutaneous solution (Lantus U-100 Insulin) potassium chloride 20 mEq oral 20 meq PO DAILY #30 ea 02/22/23 04/12/24 Rx packet zinc oxide 13 % topical cream 1 applic topical TID PRN skin 02/28/23 04/12/24 Rx (Desitin Daily Defense) irritation #136 grams fluticasone propionate 50 1 spray intranasal HS 04/12/24 04/12/24 History mcg/actuation nasal spray,suspension (Allergy Relief (fluticasone)) lamotrigine 25 mg tablet 25 mg PO BID 04/12/24 04/12/24 History pen needle, diabetic, safety 31 04/12/24 04/12/24 History gauge x 5/16 (DropSafe Pen Needle) sucralfate 100 mg/mL oral 1,000 mg PO QID 04/12/24 04/12/24 History suspension Laboratory Tests 04/13/24 04/13/24 04/13/24 07:05 09:20 11:51 Hgb Hct Chloride 108 H mmol/L 108 H mmol/L (98-107) (98-107) Anion Gap 16 H mmol/L (4-12) POC Capillary Glucose 91 mg/dl (65-105) 04/13/24 04/13/24 04/13/24 12:52 17:48 20:15 Hgb 15.2 g/dL 15.0 g/dL (14.0-18.0) (14.0-18.0) Hct 46.1 % 45.6 % (42.0-52.0) (42.0-52.0) Chloride Anion Gap POC Capillary Glucose 178 H mg/dl (65-105) 04/13/24 04/14/24 04/14/24 21:03 00:17 05:56 Hgb Hct Chloride Anion Gap POC Capillary Glucose 105 mg/dl 96 mg/dl 85 mg/dl (65-105) (65-105) (65-105) Patient hx anesthesia problems: none Family hx anesthesia problems: none Results Review: All pre-operative results and documents have been reviewed as part of the pre- operative evaluation. [facility] Past Medical History Medical History Left renal atrophy Type 2 diabetes mellitus Former smoker Recovering alcoholic in remission Memory impairment Hypertension Fatty liver Peripheral neuropathy Benign tumor of meningioma (cerebral) Chronic obstructive pulmonary disease Bipolar disorder Esophageal stricture Depression with anxiety Dementia Gastroesophageal reflux disease Schizophrenia Hypertension Surgical History Surgical History History of arthroscopic knee surgery Anterior cruciate ligament repair. History of esophagogastroduodenoscopy (06/2020) History of colonoscopy with polypectomy (06/2020) Family History Family History Mother Liver cancer Other Family history unknown Social History Social History (Updated 04/12/24 @ 22:30 by Natasha Centeno PA-C) Social History: Surrogate medical decision maker: Tee Esteban, brother. Code status: Do not resuscitate. Smoking status: Former smoker Second hand tobacco smoke exposure: No Alcohol intake: former Alcohol use details: History of alcohol abuse. Substance use: never Substance use type: does not use Do You Feel Safe in your Home?: Yes Lack of Transportation: No Lack of Food: Never True Current Housing: I Have Housing Concerned About Future Housing: No Difficulty Paying Gas/Electric Bills: No Difficulty Paying for Meds: No Currently Unemployed: No Education: Decline to Answer Difficulty w/ Childcare or Family Care: No Living arrangements: alf Additional living arrangements comments: Resident at [facility]. 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 Spiritual care concerns: No Anes - Eval Final PreProcedure Day of Procedure 04/14/24 09:48 Patient weight: overweight Heart: regular rate and rhythm Lungs: clear to auscultation Airway: Mallampati scale class II Neurological: alert and oriented Last oral intake: >/= 8 hours ASA classification: IV Emergent: no Anesthetic plan: proceed Anesthesia type and monitoring: general GIVS and standard monitoring Results Review: All pre-operative results and documents have been reviewed as part of the pre- operative evaluation. Informed Consent: The patient's anesthetic plan and its attendant risks and benefits were discussed with the patient/family/POA. Questions were solicited and answers provided to the satisfaction of the patient/family/POA.
[2024-04-14 09:49] LABS: Glucose Point of Care 82 mg/dl (65-105)
[2024-04-14 09:51] VITALS: BP 129/62; PULSE 73; RESP 18; TEMP 36.3; O2SAT 94
[2024-04-14] MEDS: LACTATED RINGERS 1,000 ML 150 ML IV CONT (09:54)
[2024-04-14] MEDS: BENZOCAINE (*SP) 60 ML SPRAY CAN (HURRICAINE) 1 SPRAY MUCOUS MEM (10:19)
[2024-04-14 10:26] VITALS: BP 107/61; PULSE 72; RESP 22; O2SAT 97
[2024-04-14 10:36] VITALS: BP 110/61; PULSE 69; RESP 20; O2SAT 96
[2024-04-14 10:45] LABS: Glucose Point of Care 77 mg/dl (65-105)
[2024-04-14 10:46] VITALS: BP 109/65; PULSE 68; RESP 20; O2SAT 97
--- NOTE | 2024-04-14 10:50 | PC.NURSE ---
Returned to room per stretcher from GI Lab.
[2024-04-14] MEDS: DULoxetine HCL 20 MG CAPSULE.DR 40 MG PO (10:56)
[2024-04-14] MEDS: SENNOSIDES 8.6 MG TABLET PO ×2 (10:57→16:46)
[2024-04-14] MEDS: POTASSIUM CHLORIDE 20 MEQ PACKET (FOR LIQUID) PO (10:57)
[2024-04-14] MEDS: ARIPiprazole 5 MG TABLET PO (10:57)
[2024-04-14] MEDS: lamoTRIgine 25 MG TABLET PO (10:57)
[2024-04-14] MEDS: THERAPEUTIC MULTIVITAMINS/MINERALS TAB (*BKC) 1 TABLET PO (10:57)
[2024-04-14] MEDS: FERROUS SULFATE 325 MG TABLET DR BY MOUTH ×2 (10:57→16:46)
[2024-04-14] MEDS: MEMANTINE 10 MG TABLET PO ×2 (10:57→16:46)
[2024-04-14 11:11] LABS: Hemoglobin 13.9 g/dL (14.0-18.0); Mean Corpuscular HGB Conc 33.1 g/dl (32-36); Mean Corpuscular Hemoglobin 30.8 pg (26-34); Mean Corpuscular Volume 93.1 fl (80-100); Mean Platelet Volume 9.2 fl (7.4-10.4); Platelet Count Result 149 k/mm3 (150-375); Red Blood Count 4.51 M/mm3 (4.6-6.20); Red Cell Distribution Width 13.2 % (11.5-14.5); White Blood Count 10.7 K/mm3 (4.5-10.0)
[2024-04-14 11:35] LABS: Glucose Point of Care 114 mg/dl (65-105)
[2024-04-14 14:00] VITALS: BP 139/65; PULSE 62; RESP 18; TEMP 36.7; O2SAT 97
--- NOTE | 2024-04-14 15:22 | P.DS_ITS ---
DS: Admitting Diagnosis Discharge Date 04/14/2024 Admitting Diagnosis coffee ground emesis esophagitis polycythemia hypertension psych illness dementia DS: Discharge Diagnosis Discharge Diagnosis (1) Coffee ground emesis: Code(s): K92.0 - Hematemesis Status: Acute (2) Esophagitis: Code(s): K20.90 - Esophagitis, unspecified without bleeding Status: Acute (3) Polycythemia: Code(s): D75.1 - Secondary polycythemia Status: Acute (4) Hypertension: Code(s): I10 - Essential (primary) hypertension Status: Acute (5) Type 2 diabetes mellitus: Code(s): E11.9 - Type 2 diabetes mellitus without complications Status: Acute (6) Psychiatric illness: Code(s): F99 - Mental disorder, not otherwise specified Status: Acute (7) Dementia: Code(s): F03.90 - Unspecified dementia, unspecified severity, without behavioral disturbance, psychotic disturbance, mood disturbance, and anxiety Status: Acute DS: Summary Hospital Course Reason for hospitalization: coffee ground emesis esophagitis polycythemia hypertension psych illness dementia Hospital Course: 63-year-old male with type 2 diabetes mellitus, dementia, schizophrenia, depression, anxiety, and hypertension who presented to the emergency department via EMS from [facility] for evaluation of reported coffee-ground emesis. Vitals remained stable on admission. Hemoglobin is 20.1 on admission. He has had polycythemia before but not consistently. Hemoglobin returned to normal prior to discharge. WBC count is 23 on admission, however his history and imaging do not suggest underlying bacterial infection. Antibiotics held and patients WBC continued to downtrend. Blood cultures showing NGTD. He has not had any episodes of emesis or diarrhea since arrival to the hospital. CT abdomen/pelvis showed distal esophagitis and no acute intra-abdominal findings. He was started on pantoprazole and GI was consulted. EGD was performed and showed esophagitis and gastritis, no active bleeding. Prior to discharge discussed patient with GI, Dr. Rahman who agrees that he is ready for discharge from a GI perspective. Patient was transitioned to p.o. Protonix twice a day and is to continue his carafate. he will need to follow-up in the GI office and obtain repeat colonoscopy in 3 months to reassess healing. At time of discharge patient is tolerating his diet, denying any nausea/vomiting or abdominal pain. Patient has not had any coffee-ground emesis since admission. He denies any chest pain, palpitations, and shortness of breath. Patient discharged back to his half-way longterm in a stable condition. He has a follow-up with his primary care provider in 1 week and GI as scheduled. Status at Discharge Functional status at discharge: uses cane/walker Time Spent with Patient Time attestation: Total time spent providing and/or coordinating discharge services: Time spent: Greater than 30 minutes Exam Narrative: AF HR 68 RR 20 SpO2 97 BP 109/65 General: male in no acute respiratory distress who is nontoxic appearing, lying semi recumbent in bed. HEENT: Normocephalic. Atraumatic. Extraocular movement intact. Sclera clear and anicteric. No facial asymmetry. Chest: Lungs are clear to auscultation bilaterally. No wheezes or crackles. CV: Heart was regular rate and rhythm. S1/S2. No murmurs, gallops, or rubs. Abd: Abdomen was soft. Nontender. Nondistended. Positive bowel sounds. Neuro: Patient is alert and oriented x2 (person, place). Speech is clear. DS: Data Data Completed and Pending Completed studies during hospitalization: abdomen/pelvis ct Pending studies at discharge: Pending at discharge 04/14/24 10:24 Surgical [PTH] Routine Labs on day of discharge: Labs from last 24 hours 04/14/24 04/14/24 04/14/24 11:33 11:05 10:41 WBC 10.7 H RBC 4.51 L Hgb 13.9 L Hct 42.0 MCV 93.1 D MCH 30.8 MCHC 33.1 RDW 13.2 Plt Count 149 L MPV 9.2 POC Capillary Glucose 114 H 77 04/14/24 04/14/24 04/14/24 09:47 05:56 00:17 WBC RBC Hgb Hct MCV MCH MCHC RDW Plt Count MPV POC Capillary Glucose 82 85 96 04/13/24 04/13/24 04/13/24 21:03 20:15 17:48 WBC RBC Hgb 15.0 Hct 45.6 MCV MCH MCHC RDW Plt Count MPV POC Capillary Glucose 105 178 H Preliminary micro results at discharge 04/12/24 15:39 Blood Culture - Preliminary Blood 04/12/24 15:39 Blood Culture - Preliminary Blood Discharge Plan Discharge Attending physician on discharge: Mark Munson Consulting providers: Zoey Hargrove; Sukhjinder Guevara Discharging Clinician: Zoey Hargrove Anticipated Discharge Date/Time: 04/14/24 15:10 Patient Disposition: [place] Residential/Asst Living Activity: as tolerated Diet: as tolerated and diabetic Discharge Instructions: Discharge disposition: Patient admitted to the hospital for concern of a GI bleed GI evaluated patient and EGD was performed, no signs of active bleeding Take medications as prescribed Protonix twice daily and carafate daily Attached is information on these medications Avoid use of NSAIDS Patient to follow up with GI in the outpatient setting He will require a repeat EGD in 3 months Monitor blood pressures Take caution while standing, rising, or moving Change positions slowly taking a break between each position change If you standing feel dizzy sit back down and take a break Encouraged to continue with yearly vaccinations Return to the emergency department if he developed sudden shortness of breath, chest pain, nausea, vomiting, upset stomach or intractable diarrhea Return to the emergency department if you develop fever greater than 101.5 Follow-up with the primary care physician within 1-2 weeks Thank you for [facility] for your healthcare needs Patient Instructions: Sucralfate (By mouth), Pantoprazole (By mouth), Gastritis (DC), Gastrointestinal Bleeding (DC), Esophagitis (DC) Patient Language: Thai Stand Alone Forms: General Discharge Information Follow-up/Referrals: Ruben,MD Carlos [Primary Care Provider] - 1 Week Sukhjinder Guevara MD [Physician] - Call for Appointment Discharge Medications: New pantoprazole 40 mg tablet,delayed release (DR/EC) 40 mg PO BID 14 Days Qty: 28 0RF Continued metformin 500 mg Tablet 500 mg PO BID sennosides [senna] 8.6 mg Tablet 8.6 mg PO BID acetaminophen 500 mg Tablet 1,000 mg PO Q8H PRN (Reason: pain) ferrous sulfate 325 mg (65 mg iron) Tablet 325 mg PO BID mirtazapine [Remeron] 15 mg Tablet 7.5 mg PO HS multivitamin with minerals Tablet 1 tablet PO DAILY duloxetine 40 mg Capsule,Delayed Release(Dr/Ec) 40 mg PO DAILY insulin glargine [Lantus U-100 Insulin] 100 unit/mL Solution 15 unit subcut HS Qty: 10 0RF potassium chloride 20 mEq Packet 20 meq PO DAILY Qty: 30 0RF insulin aspart U-100 [Novolog U-100 Insulin aspart] 100 unit/mL Solution 2 - 5 unit subcut WMHS Qty: 10 0RF Protocol: Insulin Corrective Low-Dose Condition: glucose < 70 mg/dl Dose/Route: Follow Hypoglycemia Order Condition: glucose 70-200 mg/dl Dose/Route: No additional insulin Condition: glucose 201-250 mg/dl Dose/Route: 2 units sub-Q Condition: glucose 251-300 mg/dl Dose/Route: 3 units sub-Q Condition: glucose 301-350 mg/dl Dose/Route: 4 units sub-Q Condition: glucose 351-400 mg/dl Dose/Route: 5 units sub-Q Condition: glucose > 400 mg/dl Dose/Route: Call Rx Instructions: Condition Dose/Route Instruction glucose < 70 mg/dl Follow Hypoglycemia Order glucose 70-200 mg/dl No additional insulin glucose 201-250 mg/dl 2 units sub-Q glucose 251-300 mg/dl 3 units sub-Q glucose 301-350 mg/dl 4 units sub-Q glucose 351-400 mg/dl 5 units sub-Q glucose > 400 mg/dl Call donepezil 10 mg tablet 10 mg PO HS aripiprazole 5 mg tablet 5 mg PO DAILY melatonin 5 mg Tablet 5 mg PO HS memantine 10 mg tablet 10 mg PO BID Desitin Daily Defense 13 % cream 1 applic topical TID PRN (Reason: skin irritation) Qty: 136 0RF lamotrigine 25 mg tablet 25 mg PO BID (DME) DropSafe Pen Needle 31 gauge x 5/16 needle MISCELLANEOUS fluticasone propionate [Allergy Relief (fluticasone)] 50 mcg/actuation spray,suspension 1 spray intranasal HS Rx Instructions: administer into each nostril sucralfate 100 mg/mL Suspension 1,000 mg PO QID Patient Comments: Administer before meals and at bed time Discontinued omeprazole 20 mg Tablet,Delayed Release (Dr/Ec) 20 mg PO DAILY Date of admission: 04/13/24 10:20 Primary Care Provider: Parish*Carlos Zurita Admitting Provider: Terence Gutierrez Attending physician on admission: Terence Gutierrez Condition: Stable Hospitalist MIPS Heart Failure (Exclusion) Patient has history of Heart Transplant or Left Ventricular Assistive Device?: No IF YES, STOP HERE Heart Failure (Qualifier) Patient has current or prior documentation of LVEF less than or equal to 40%, or mod/servere depressed LVSF?: No IF NO, STOP HERE
[2024-04-14 16:38] LABS: Glucose Point of Care 85 mg/dl (65-105)
== END 2024-04-14 17:00 | DRG 392 ==
LOC: ANHED 17:29 → ANH3MEDSUR 18:15
PROVIDERS: Emergency Medicine; Internal Medicine Gastroenterology; Physician Assistant; Admitting Provider Internal Medicine; Emergency Provider Emergency Medicine; PCP Internal Medicine; Visit Provider Student in an Organized Health Care Education/Training Program
PROC: 0DJ08ZZ Inspection of Upper Intestinal Tract, Via Natural or Artificial Opening Endoscopic (ICD-10-PCS; principal; 2024-04-14 15:00)
DX: K20.90 Esophagitis, unspecified without bleeding (principal); K92.0 Hematemesis; D75.1 Secondary polycythemia; K29.70 Gastritis, unspecified, without bleeding; K21.9 Gastro-esophageal reflux disease without esophagitis; F03.90 Unspecified dementia, unspecified severity, without behavioral disturbance, psychotic disturbance, mood disturbance, and anxiety; E11.9 Type 2 diabetes mellitus without complications; F20.9 Schizophrenia, unspecified; F41.9 Anxiety disorder, unspecified; F10.21 Alcohol dependence, in remission; I10 Essential (primary) hypertension; J44.9 Chronic obstructive pulmonary disease, unspecified; Z79.84 Long term (current) use of oral hypoglycemic drugs; Z79.4 Long term (current) use of insulin; Z66 Do not resuscitate; Z87.891 Personal history of nicotine dependence
CPT/HCPCS: 36415; 74177; 80048; 80053; 82435; 82948; 83036; 83690; 83735; 84145; 85014; 85018; 85025; 85027; 85610; 85730; 86140; 87040; 88305; 93005; 96360; 97161; 97165; 99285; A9270; G0378; J1815; J2003; J2470; J2704; J7030; J7120; Q9967

== ENCOUNTER 2024-06-29 13:02 | Inpatient (IN) | payer MEDICARE, MEDICAID, SELFPAY ==
[2024-06-29] VITALS (28 sets, daily range): BP systolic 126–142; BP diastolic 59–83; PULSE 73–126; RESP 16–36; TEMP 36.8–38.2; O2SAT 93–100; BMI 23.8
--- NOTE | ~2024-06-29 | CT_ITS ---
CT brain wo con Ordering provider: Olivia Hunt MD History: 63 years Male with . AMS . Comparison: June 06, 2023 Technique: CT of the head without contrast. Radiation reduction technique utilized. The dose-length p roduct was 605.33 mGy-cm. FINDINGS: BRAIN PARENCHYMA AND CSF SPACES: Mild leukoaraiosis and diffuse cortical atrophy. Mild atheromatous d isease. Lacunar infarct in the right basal ganglia is noted. No midline shift, mass effect or hemorrh age. The brain parenchyma and CSF spaces are otherwise normal. VISUALIZED PARANASAL SINUSES: Bilateral maxillary sinus disease. Bilateral ethmoid and sphenoid sinus disease. MASTOIDS: Well aerated. BONES: The bones appear intact. SOFT TISSUES: Visualized nasopharynx is normal. Superficial soft tissues are normal. IMPRESSION: No acute intracranial findings. Pansinusitis. Reviewed, dictated and finalized at location A.
--- NOTE | ~2024-06-29 | XR_ITS ---
XR chest 2V Ordering provider: Olivia Hunt MD History: 63 years Male with . dyspnea . Comparison: None. FINDINGS: MEDIASTINUM: The cardiac silhouette is not enlarged. LUNGS: No effusions or pneumothorax. Minimal opacification the lung bases is seen which may indicate atelectasis versus early pneumonia. OTHER: No free air under the diaphragm. IMPRESSION: Haziness in the lung bases suggestive of atelectasis versus early pneumonia. Follow-up advised. Reviewed, dictated and finalized at location A. IMPRESSION: Haziness in the lung bases suggestive of atelectasis versus early pneumonia. Fo llow-up advised.
--- NOTE | ~2024-06-29 | CT_ITS ---
EXAMINATION: CTA chest PE protocol DATE: 06/29/2024 15:03 INDICATION: hypoxia, tachycardia TECHNIQUE: Computed tomography angiography (CTA) of the chest was performed with 100 mL Omnipaque-350 intravenous contrast timed to evaluate the pulmonary arteries. Coronal maximum intensity projection 3D-reconstructions were created by the technologist. The dose-length product (DLP) was 348.79 mGy-cm. Automated exposure control and iterative reconstruction technique were employed. COMPARISON: 02/17/2023; CT abdomen pelvis 04/12/2024. FINDINGS: Lung parenchyma and airways: Patent airways. Subsegmental dependent consolidation with scattered area s of centrilobular nodular consolidation and groundglass opacities. Pleura: Unremarkable. Thoracic inlet, axillae and chest wall: Unremarkable. Thoracic aorta: No significant dilation. No dissection. Mild atherosclerotic calcification. Mediastinum: Normal. Heart and pericardium: Trace pericardial fluid. Coronary artery calcifications: Mild. Upper abdomen: Nodular appearing liver border. Chronic left renal atrophy and hydronephrosis, incompl etely visualized. Bones: No acute osseous finding. Pulmonary arteries: Study quality: Motion artifact limits evaluation of subsegmental pulmonary arteri es in the right lower lobe. No pulmonary emboli detected. IMPRESSION: Motion limits evaluation of subsegmental pulmonary arteries and the right lower lobe. No CT evidence of acute pulmonary embolus in the adequately visualized pulmonary arteries. Pulmonary opacities may represent atypical infection, pneumonitis, or aspiration. Trace pericardial effusion. Nodular appearing liver border, as can be seen with cirrhotic change. Reviewed, dictated and finalized at location K. IMPRESSION: Motion limits evaluation of subsegmental pulmonary arteries and the right lower lobe. No CT evidence of acute pulmonary embolus in the adequately visualized p ulmonary arteries. Pulmonary opacities may represent atypical infection, pneumonitis, or aspiratio n. Trace pericardial effusion. Nodular appearing liver border, as can be seen with cirrhotic change.
--- NOTE | 2024-06-29 13:16 | ECG_ITS ---
Test Date: 2024-06-29 13:13:05 Measurements Intervals Brooks Rate: 123 P: 63 UT: 132 QRS: -66 QRSD: 100 T: 89 QT: 322 QTc: 462 Interpretive Statements SINUS TACHYCARDIA LEFT ANTERIOR FASCICULAR BLOCK [QRS AXIS <= -45, QR IN I, RS IN II] NONSPECIFIC ST & T-WAVE ABNORMALITY Compared to ECG 04/12/2024 13:44:06 NO SIGNIFICANT CHANGES Electronically Signed On 06-30-2024 14:39:39 CDT by Rosario Leo M.D.
--- OUTSIDE RECORDS SUMMARY | 2024-06-29 13:42 | XMS_ITS | CONTINUITY OF CARE DOCUMENT ---
Author Name mason cuevas Address Unknown Organization [facility] Address [address] [place] [address] Phone [phone] Care Team Providers Care Director Geophysical Laboratory Name Role Phone Collin GARCIA, Cuong Unavailable [phone] PERCY GARCIA, NICO Unavailable Unavailable NICO GREER [...] In-person encounter Office Visit Cuong Polanco MD [place] [facility] - In-person encounter Office Visit Cuong Polanco MD [facility] ALCOHOL ABUSE HX OF - In-person encounter Office Visit Cuong Polanco MD [facility] TOBACCO ABUSEPULMONARY HYPERTENSION, SECONDARY PAS [id number] DISORDERANXIETY DEPRESSION VITAL SIGNS Date Observation Value Provider Body Mass Index (Ratio) 25.53 kg/m2 Mccoy i Elfego blood pressure, diastolic 59 mm[Hg] Ke rri Elfego blood pressure, systolic 93 mm[Hg] Ker ri Elfego pulse rate 67 /min Trixie Tarik lder oxygen saturation, oximetry 98 % Trixie Elfego respiratory rate E&M 14 /min Trixie Montaño kim weight E&M 160 [lb_av] Trixie Montanez krisitner blood pressure, diastolic 82 mm[Hg] Armen irene [...] Location 8 cortisol, serum, morning 8.0 ug/dL [facility] [place] 7 B-12, serum 499 pg/mL [facility] [place] 7 folate, serum 12.2 ng/mL [facility] [place] 7 Estimated Glomerular Filtration Rate (calc) 82 mL/min/{1. 73_m2} [facility] [place] 0 blood glucose, finger stick 82 [facility] [place] 8 anion gap, [facility] calcium, serum 9.1 mg/dL [facility] [place] 8 blood glucose, fasting 82 mg[facility] creatinine, serum 0.81 mg/dL [facility] [place] 8 urea nitrogen, blood 13 mg/dL [facility] [place] 8 carbon dioxide, serum, total 26 [...] use, averag e drinks per day yes [facility] alcohol use, average drinks per day none [facility] number of years as a smoker 10 years or m ore [facility] smoking status Smoker [facility] MENTAL STATUS Date Observation Value Provider assessment [...] Payer name Policy type / Coverage type [place] red libertarian ID [place] MED[place] Medicare [id number] [facility] Medicaid 1 [id number] TREATMENT PLAN Date Name Performer Cuong Polanco MD : O rders: E KG ([id number]) Cuong Polanco MD : L ast EEG: Cuong Polanco MD routine Cuong Polanco MD routine: O rders: E KG ([id number]) Cuong Polanco MD routine Cuong Polanco MD routine Cuong Polanco MD routine Cuong Polanco MD HFU Cuong Polanco MD HISTORY OF PROCEDURES Procedure Date Procedure Name Provider Procedure Notes S tatus EKG Cuong Polanco MD completed EKG Cuong Polanco MD completed
--- OUTSIDE RECORDS SUMMARY | 2024-06-29 13:42 | XMS_ITS | Clinical Summary ---
Author Organization [facility] Address [address] [place] [address] Care Team Providers Care Transplant Nurse Practitioner Name Role Phone Unavailable Primary Care Provider Unavailabl e Source Comments [facility],non-owned Affiliates and Associated Physician Practices is amultiple site organization consisting of ambulatory clinics and hospital sitesin [place], [place], [place] and [place]. This disclosure is being madepursuant to the Care Everywhere program and may not contain all information available regarding this patient. Last updated 17.[facility] Allergies No known active allergies Medications * This document contains information received from the source organization and may not represent a complete record from that organization. * Be aware that medications may not be up to date on this document. Alwaysverify current medications with the patient. magnesium oxide (MAG-OX) 400 MG tablet Take [...] once daily Active citalopram (CELEXA) 10 MG tabletIndicatio ns:Depression Take 3 tablets by mouth once daily Reasons: Depression 9 Active OLANZapine (ZYPREXA) 5 MG tabletIndicatio ns:Major Depressive Disorder Take 1 tablet by mouth at bedtime Reasons: Major Depressive Disorder 9 Active senna-docusate (SENOKOT-S) 8.6-50 MG tabletIndicatio ns:Constipation Take 1 tablet by mouth 2 times daily Reasons: Constipation 60 tablet 9 Active Active Problems Problem Noted Date Diagnosed [...] Recorded Sex Assigned at Not on file Legal Sex Male 11:20 AM TIRE RETREADER Gender Identity Not on file Sexual Orientation Not on file Last Filed Vital Signs Vital Sign Reading Time Taken Comments Blood Pressure 136/75 04/17/2018 7:57 AM TIRE RETREADER Pulse 62 04/17/2018 7:57 AM TIRE RETREADER Temperature 36.3 C (97.4 F) 04/17/2018 7:57 AM TIRE RETREADER Respiratory Rate 16 04/17/2018 7:57 AM TIRE RETREADER Oxygen Saturation 99% 04/17/2018 7:57 AM TIRE RETREADER Inhaled Oxygen Concentration - - Weight 42.2 kg (93 lb) 04/15/2018 2:58 PM TIRE RETREADER Height 167.6 cm (5' 6 ) 04/09/2018 10:05 PM TIRE RETREADER Body Mass Index 15.01 04/09/2018 10:05 PM TIRE RETREADER Plan of Treatment Health Maintenance Due Date [...] VACCINE (1 - 2023-2 5 season) 2023 DEPRESSION SCREENING 02/19/2024 INFLUENZA VACCINE (Season Ended) 2024 Respiratory Syncytial Virus (RSV) Vaccine Pt: or [...] to complete this topic MENINGOCOCCAL (Group B) VACC INE SHARED DECISION-MAKING Aged Out No longer eligibl e based on patient's age to complete this topic MENINGOCOCCAL GROUPS A/C/Y/W VACCINE Aged Out No longer eligible b ased on patient's age to complete this topic Procedures Procedure Name Priority Date/Time Associated Diagnosis Comments LIPID PROFILE Routine 04/17/2018 7:17 AM TIRE RETREADER from Last 3 Months or Most Recently Relevant to Health Maintenance Results * (ABNORMAL) LIPID PROFILE (04/17/2018 7:17 AM TIRE RETREADER) Cholesterol 140 <200 mg/dL 04/17/2018 8:03 AM [facility] Triglycerides 69 <150 mg/dL 04/17/2018 8:03 AM [facility] HDL Cholesterol 34(L) >40 mg/dL 9 8:03 AM [facility] Chol HDL Ratio 4.1 1.0 - 6.0 04/17/2018 8:03 AM [facility] LDL Calculated 92 65 - 130 mg/dL 04/17/2018 8:03 AM [facility] VLDL Calculated 14 10 - 40 mg/dL 04/17/2018 8:03 AM [facility] Blood BLOOD SPECIMEN / Unknown Lab Venipuncture / Unknown 04/17/2018 7:17 AM TIRE RETREADER 04/17/2018 7:32 AM [facility] - 04/17/2018 8:03 AM [facility] Lipid Profile Comment: CHOLESTEROL LEVEL..................CLINICAL INTERPRETATION [...] AVERAGE...................>23........................>11 Socorro Messina MD LAB - CHEMISTRY ORDERABLES Kristen garay Result Performing Organization Address City/State/[facility] Co de Phone Number [facility] [address] [place] [address], [facility] from Last 3 Months or Most Recently Relevant to Health Maintenance Insurance MEDICAID - OUT OF STATE MEDICARE MANAGED CARE PLAN GENERIC MEDICARE ADV SELF PAY NO INSURANCE Member Subscriber Plan / Payer (Ef fective for All Dates) Name:Rosalva Castillo Member ID:Not on file Relation to Subscriber:Not on file Name:ROSALVA CASTILLO Subscriber ID:Not on file Address: [address] [place] [address] Payer ID:Not on file Group ID:Not on file Type:Self Pay Address: [place], [place] MEDICARE [place] - [place] Advance Directives * Full Code (Latest Code Status on File) Date Activated Date Inactivated Comments 04/09/2018 11:39 PM 04/17/2018 12:27 PM
--- NOTE | 2024-06-29 13:47 | PC.NURSE ---
patient given urinal and advised we need a urine sample
[2024-06-29 13:57] LABS: Basophils Absolute Auto 0.1 K/mm3 (0.0-0.1); Basophils Percent Auto 0.4 % (0.2-1.2); Eosinophils Percent Auto 0.3 % (0-4.4); Hemoglobin 15.8 g/dL (14.0-18.0); Immature Granulocyte Absolute 0.22 K/mm3 (0.00-0.031); Immature Granulocyte Percent A 1.7 % (0-0.5); Lymphocytes Absolute Auto 0.41 K/mm3 (0.9-3.2); Lymphocytes Percent Auto 3.1 % (18.3-44.2); Mean Corpuscular HGB Conc 32.9 g/dl (32-36); Mean Corpuscular Hemoglobin 30.2 pg (26-34); Mean Corpuscular Volume 91.6 fl (80-100); Mean Platelet Volume 10.3 fl (7.4-10.4); Monocytes Absolute Auto 0.8 K/mm3 (0.1-0.6); Monocytes Percent Auto 5.9 % (2.6-8.5); Neutrophils Absolute Auto 11.8 K/mm3 (1.3-6.7); Neutrophils Percent Auto 88.6 % (45.5-73.1); Platelet Count Result 140 k/mm3 (150-375); Red Blood Count 5.24 M/mm3 (4.6-6.20); Red Cell Distribution Width 13.2 % (11.5-14.5); White Blood Count 13.3 K/mm3 (4.5-10.0)
--- NOTE | 2024-06-29 13:59 | ED_ITS ---
HPI - Altered Mental Status General Chief Complaint: Altered Mental Status Stated Complaint: fall, AMS Time Seen by Provider: 06/29/24 13:36 History of Present Illness HPI narrative: 63-year-old male with history of dementia, schizophrenia, diabetes, alcohol use disorder presenting with altered mental status. Patient is coming from a nursing facility where he was noted to be altered. When EMS arrived they found him to be hypoxic on room air to the 80s. His mental status improved on the way here and he is back at baseline. He currently denies any complaints. Poor historian secondary to underlying dementia. Related Data Home Medications Medication Instructions Recorded Confirmed Last Taken Type aripiprazole 5 mg tablet 5 mg PO DAILY 09/12/20 04/12/24 Unknown History donepezil 10 mg tablet 10 mg PO HS 09/12/20 04/12/24 Unknown History melatonin 5 mg tablet 5 mg PO HS 09/12/20 04/12/24 Unknown History memantine 10 mg tablet 10 mg PO BID 09/12/20 04/12/24 Unknown History acetaminophen 500 mg tablet 1,000 mg PO Q8H PRN pain 02/17/23 04/12/24 Unknown History duloxetine 40 mg capsule,delayed 40 mg PO DAILY 02/17/23 04/12/24 Unknown History release ferrous sulfate 325 mg (65 mg 325 mg PO BID 02/17/23 04/12/24 Unknown History iron) tablet metformin 500 mg tablet 500 mg PO BID 02/17/23 04/12/24 Unknown History mirtazapine 15 mg tablet (Remeron) 7.5 mg PO HS 02/17/23 04/12/24 Unknown History multivitamin with minerals 1 tablet PO DAILY 02/17/23 04/12/24 Unknown History sennosides 8.6 mg tablet (senna) 8.6 mg PO BID 02/17/23 04/12/24 Unknown History fluticasone propionate 50 1 spray intranasal HS 04/12/24 04/12/24 Unknown History mcg/actuation nasal spray,suspension (Allergy Relief (fluticasone)) lamotrigine 25 mg tablet 25 mg PO BID 04/12/24 04/12/24 Unknown History pen needle, diabetic, safety 31 04/12/24 04/12/24 Unknown History gauge x 5/16 (DropSafe Pen Needle) sucralfate 100 mg/mL oral 1,000 mg PO QID 04/12/24 04/12/24 Unknown History suspension Allergies Allergy/AdvReac Type Severity Reaction Status Date / Time spider venom Allergy Unknown Swelling Verified 04/14/24 09:48 Review of Systems 2 Review of Systems: ROS unobtainable: Yes unobtainable due to mental status and other (Underlying dementia) [facility] Past Medical History Medical History Left renal atrophy Type 2 diabetes mellitus Former smoker Recovering alcoholic in remission Memory impairment Hypertension Fatty liver Peripheral neuropathy Benign tumor of meningioma (cerebral) Chronic obstructive pulmonary disease Bipolar disorder Esophageal stricture Depression with anxiety Dementia Gastroesophageal reflux disease Schizophrenia Hypertension Surgical History Surgical History History of arthroscopic knee surgery Anterior cruciate ligament repair. History of esophagogastroduodenoscopy (06/2020) History of colonoscopy with polypectomy (06/2020) Family History Family History Mother Liver cancer Other Family history unknown Social History Social History Social History: Surrogate medical decision maker: Tee Esteban, brother. Code status: Do not resuscitate. Smoking status: Never smoker Second hand tobacco smoke exposure: No Alcohol intake: never Alcohol use details: History of alcohol abuse. Substance use: former Substance use type: does not use Do You Feel Safe in your Home?: Yes Lack of Transportation: No Lack of Food: Never True Current Housing: I Have Housing Concerned About Future Housing: No Difficulty Paying Gas/Electric Bills: No Difficulty Paying for Meds: No Currently Unemployed: No Education: Don't Know Difficulty w/ Childcare or Family Care: No Living arrangements: halfway Additional living arrangements comments: Resident at [facility]. 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 Spiritual care concerns: No Exam 2 Narrative: GENERAL: Chronically ill-appearing, no acute distress, pleasant cooperative HEAD: Normocephalic, atraumatic. EYES: PERRLA and EOMI. ENT: Mucous membranes dry NECK: Supple. CHEST: On 4 L nasal cannula satting in the mid 90s No respiratory distress. Crackles both bases HEART: Tachycardia, regular rhythm ABDOMEN: Soft, nontender, nondistended EXTREMITIES: Normal range of motion. No edema. SKIN: Warm, dry, no rash. NEURO: Alert and oriented x2-3. PSYCH: Normal mood and affect. Course Vital Signs Vital signs: Vital Signs Pulse Rate 125 H 06/29/24 13:04 Respiratory Rate 34 H 06/29/24 13:04 Blood Pressure 135/81 06/29/24 13:04 Pulse Oximetry 94 06/29/24 13:04 Oxygen Delivery Heliox 06/29/24 13:04 Temperature 98.5 F 06/29/24 13:15 Pulse Rate 99 06/29/24 17:16 Respiratory Rate 36 H 06/29/24 17:16 Blood Pressure 128/72 06/29/24 16:15 Pulse Oximetry 100 06/29/24 17:16 Oxygen Delivery Nasal Cannula 06/29/24 14:08 Oxygen Flow Rate 4 06/29/24 14:08 MDM - Altered Mental Status MDM Narrative Medical decision making narrative: 63-year-old male presenting with altered mental status and hypoxia. He continues to require 4-5 L, tachycardic in the 110s to 120s. IV fluids are ongoing. Blood cultures are pending. CT brain without acute abnormalities. CTA chest shows pulmonary opacities consistent with atypical infection, pneumonitis, or aspiration. IV Rocephin, Flagyl, doxycycline have been ordered. Blood work with white count of 13.3. Troponin undetectable. Patient requires admission for further management. He is agreeable with this plan. I spoke with the hospitalist who has accepted him for admission. Comorbidities affecting treatment: Dementia, alcohol use disorder, cirrhosis Differential Diagnosis Differential diagnosis: Likely altered mental status, delirium, hypoglycemia, sepsis and other (Pneumonia, hypoxia) Medical Records Attestation: I reviewed the patient's medical records. Lab Data Attestation: I reviewed the patient's lab results. 06/29/24 13:46 06/29/24 13:46 Labs: Lab Results 06/29/24 06/29/24 06/29/24 Range/Units 13:46 14:52 16:01 WBC 13.3 H (4.5-10.0) K/mm3 RBC 5.24 (4.6-6.20) M/mm3 Hgb 15.8 (14.0-18.0) g/dL Hct 48.0 (42.0-52.0) % MCV 91.6 (80-100) fl MCH 30.2 (26-34) pg MCHC 32.9 (32-36) g/dl RDW 13.2 (11.5-14.5) % Plt Count 140 L (150-375) k/mm3 MPV 10.3 (7.4-10.4) fl Immature Gran % (Auto) 1.7 H (0-0.5) % Neut % (Auto) 88.6 H (45.5-73.1) % Lymph % (Auto) 3.1 L (18.3-44.2) % Williams % (Auto) 5.9 (2.6-8.5) % Eos % (Auto) 0.3 (0-4.4) % Baso % (Auto) 0.4 (0.2-1.2) % Lymph # (Auto) 0.41 L (0.9-3.2) K/mm3 Williams # (Auto) 0.8 H (0.1-0.6) K/mm3 Eos # (Auto) 0.0 (0-0.3) K/mm3 Baso # (Auto) 0.1 (0.0-0.1) K/mm3 Abs Immat Gran (auto) 0.22 H (0.00-0.031) K/mm3 Absolute Neuts (auto) 11.8 H (1.3-6.7) K/mm3 Absolute Nucleated RBC 0.000 (0.0-0.012) K/mm3 Nucleated RBC % 0.0 (0.0-0.2) % PT 16.1 H (11.1-14.7) Seconds INR 1.3 APTT 30.4 (22.3-36.8) Seconds Sodium 141 (137-145) mmol/L Potassium 3.7 (3.4-5.0) mmol/L Chloride 103 (98-107) mmol/L Carbon Dioxide 20 L (22-30) mmol/L Anion Gap 18 H (4-12) mmol/L BUN 22 H (9-20) mg/dL Creatinine 0.80 (0.7-1.3) mg/dL Estim Creat Clear Calc Not Reportable Estimated GFR > 60 (59 - ) Glucose 236 H (65-110) mg/dL Calcium 8.8 (8.4-10.2) mg/dL Total Bilirubin 2.7 H (0.2-1.3) mg/dL AST 33 (17-59) U/L ALT 32 (6-50) U/L Alkaline Phosphatase 117 (38-126) U/L Ammonia 10 (9-30) umol/L Troponin I < 0.012 (0.000-0.034) ng/mL NT-Pro-B Natriuret Pep 188 H (19.9-100) pg/mL Total Protein 8.0 (6.3-8.2) g/dL Albumin 3.9 (3.5-5.1) g/dL Urine Color Dark yellow (Yellow) Urine Appearance Clear (Clear) Urine pH 6.0 (5.0-9.0) Ur Specific Bartlett > 1.045 H (1.001-1.035) Urine Protein 2+ H (Negative) mg/dL Urine Glucose (UA) Negative (Negative) mg/dL Urine Ketones 1+ H (Negative) mg/dL Ur Blood (Man) Negative (Negative) Urine Nitrate Negative (Negative) Urine Bilirubin 1+ H (Negative) Urine Urobilinogen 4.0 H (<2.0) mg/dL Leukocyte Esterase Rfl Negative (Negative) CORDELIA/UL Urine RBC 3-5 H (0-2) /hpf Urine WBC 0-5 (0-3) /hpf Ur Squamous Epith Cells None seen (Few) /hpf Urine Bacteria None seen /hpf Urine Casts 0-2 Influenza A (RT-PCR) Negative (Negative) Influenza B (RT-PCR) Negative (Negative) RSV (RT-PCR) Negative (Negative) SARS-CoV-2 RNA (RT-PCR) Negative (Negative) Imaging Data Radiologist's impression: ITS Impressions Chest X-Ray 06/29/24 14:19 IMPRESSION: Haziness in the lung bases suggestive of atelectasis versus early pneumonia. Follow-up advised. Head CT 06/29/24 15:06 IMPRESSION: No acute intracranial findings. Pansinusitis. Chest CTA 06/29/24 15:12 IMPRESSION: Motion limits evaluation of subsegmental pulmonary arteries and the right lower lobe. No CT evidence of acute pulmonary embolus in the adequately visualized pulmonary arteries. Pulmonary opacities may represent atypical infection, pneumonitis, or aspiration. Trace pericardial effusion. Nodular appearing liver border, as can be seen with cirrhotic change. Critical Care Time Critical Care Time Critical Care Time: Yes Total Critical Care Time: 35 Discharge Plan Discharge Clinical Impression: Pneumonia, Altered mental status, Respiratory failure with hypoxia Patient Disposition: Still a Patient Condition: Guarded Prognosis
[2024-06-29 14:10] LABS: Alanine Aminotransferase 32 U/L (6-50); Albumin Level 3.9 g/dL (3.5-5.1); Alkaline Phosphatase 117 U/L (38-126); Anion Gap 18 mmol/L (4-12); Aspartate Amino Transferase 33 U/L (17-59); Bilirubin,Total 2.7 mg/dL (0.2-1.3); Blood Urea Nitrogen 22 mg/dL (9-20); Calcium 8.8 mg/dL (8.4-10.2); Carbon Dioxide 20 mmol/L (22-30); Chloride 103 mmol/L (98-107); Estimated Glomerular Filt Rate > 60; Glucose 236 mg/dL (65-110); Potassium 3.7 mmol/L (3.4-5.0); Sodium 141 mmol/L (137-145)
[2024-06-29 14:11] LABS: INR 1.3; Prothrombin Time 16.1 Seconds (11.1-14.7)
[2024-06-29 14:12] LABS: Partial Thromboplastin Time 30.4 Seconds (22.3-36.8)
[2024-06-29 15:19] LABS: Ammonia 10 umol/L (9-30)
[2024-06-29 15:30] LABS: NT Pro B Type Natriuretic Pept 188 pg/mL (19.9-100); Troponin I < 0.012 ng/mL (0.000-0.034)
[2024-06-29] MEDS: SODIUM CHLORIDE 0.9% IV 1,000 ML 999 ML IV CONT ×2 (15:48→16:59)
[2024-06-29 15:49] LABS: Influenza A QL RT-PCR Negative (Negative); Influenza B QL RT-PCR Negative (Negative); RSV RNA, RT-PCR Negative (Negative); SARS-CoV-2 RNA PCR Negative (Negative)
[2024-06-29 16:17] LABS: Add Urine Microscopic? YES; Appearance Urine Clear (Clear); Bacteria Urine None Seen /hpf; Bilirubin Urine 1+ (Negative); Blood Urine Negative (Negative); Color Urine Dark Yellow (Yellow); Glucose Urine UA Negative (Negative); Ketones Urine 1+ mg/dL (Negative); Leukocyte Esterase Ur Negative LEU/UL (Negative); Nitrate Urine Negative (Negative); Non Pathogenic Casts 0-2; Protein Urine 2+ mg/dL (Negative); Specific Grav Ur > 1.045 (1.001-1.035); Squamous Epithelial Cell Urine None Seen /hpf (Few); WBC Urine 0-5 /hpf (0-3)
--- NOTE | 2024-06-29 16:17 | P.HP_ITS ---
H&P: HPI History of Present Illness Date/Time: 06/29/24 16:17 Chief Complaint: Hypoxia Narrative: 63-year-old male presents to the hospital with altered mental status and hypoxia. According to EMS patient had a pulse ox of 80% on room air. HPI is limited as patient does not remember the event. Patient denies shortness of breath, chest pain, any symptoms. When patient was asked if he had complaints he with tele provider he states no. In the ED patient leukocytosis at 13.3 carbon dioxide 20, anion gap 18, BUN of 22,, influenza A/B, RSV and COVID negative. Head CT shows no acute intercranial findings, pansinusitis present. CTA shows no acute pulmonary embolism, with pulmonary opacities may represent atypical infection, pneumonitis, or aspiration and a trace pericardial effusion Review of Systems Review of Systems: ROS unobtainable: Yes unobtainable due to mental status PMFSH Past Medical History Medical History Left renal atrophy Type 2 diabetes mellitus Former smoker Recovering alcoholic in remission Memory impairment Hypertension Fatty liver Peripheral neuropathy Benign tumor of meningioma (cerebral) Chronic obstructive pulmonary disease Bipolar disorder Esophageal stricture Depression with anxiety Dementia Gastroesophageal reflux disease Schizophrenia Hypertension Surgical History Surgical History History of arthroscopic knee surgery Anterior cruciate ligament repair. History of esophagogastroduodenoscopy (06/2020) History of colonoscopy with polypectomy (06/2020) Family History Family History Mother Liver cancer Other Family history unknown Social History Social History Social History: Surrogate medical decision maker: Tee Esteban, brother. Code status: Do not resuscitate. Smoking status: Never smoker Second hand tobacco smoke exposure: No Alcohol intake: never Alcohol use details: History of alcohol abuse. Substance use: former Substance use type: does not use Do You Feel Safe in your Home?: Yes Lack of Transportation: No Lack of Food: Never True Current Housing: I Have Housing Concerned About Future Housing: No Difficulty Paying Gas/Electric Bills: No Difficulty Paying for Meds: No Currently Unemployed: No Education: Don't Know Difficulty w/ Childcare or Family Care: No Living arrangements: [facility] Additional living arrangements comments: Resident at [facility]. 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 Spiritual care concerns: No Meds Home Medications and Allergies Home Medications Medication Instructions Recorded Confirmed Type aripiprazole 5 mg tablet 4 mg PO DAILY 09/12/20 06/29/24 History donepezil 10 mg tablet 10 mg PO HS 09/12/20 06/29/24 History melatonin 5 mg tablet 5 mg PO HS 09/12/20 06/29/24 History memantine 10 mg tablet 10 mg PO BID 09/12/20 06/29/24 History acetaminophen 500 mg tablet 1,000 mg PO Q8H PRN pain 02/17/23 06/29/24 History duloxetine 40 mg capsule,delayed 40 mg PO DAILY 02/17/23 06/29/24 History release ferrous sulfate 325 mg (65 mg 325 mg PO BID 02/17/23 06/29/24 History iron) tablet metformin 500 mg tablet 500 mg PO BID 02/17/23 06/29/24 History mirtazapine 15 mg tablet (Remeron) 7.5 mg PO HS 02/17/23 06/29/24 History multivitamin with minerals 1 tablet PO DAILY 02/17/23 06/29/24 History sennosides 8.6 mg tablet (senna) 8.6 mg PO BID 02/17/23 06/29/24 History insulin aspart U-100 100 unit/mL 2 - 5 unit subcut [facility] #10 mL 02/22/23 06/29/24 Rx subcutaneous solution (Novolog U-100 Insulin aspart) insulin glargine 100 unit/mL 15 unit (0.15 mL) subcut HS #10 mL 02/22/23 06/29/24 Rx subcutaneous solution (Lantus U-100 Insulin) potassium chloride 20 mEq oral 20 meq PO DAILY #30 ea 02/22/23 06/29/24 Rx packet zinc oxide 13 % topical cream 1 applic topical TID PRN skin 02/28/23 06/29/24 Rx (Desitin Daily Defense) irritation #136 grams fluticasone propionate 50 1 spray intranasal HS 04/12/24 06/29/24 History mcg/actuation nasal spray,suspension (Allergy Relief (fluticasone)) lamotrigine 25 mg tablet 25 mg PO BID 04/12/24 06/29/24 History pen needle, diabetic, safety 31 04/12/24 04/12/24 History gauge x 5/16 (DropSafe Pen Needle) sucralfate 100 mg/mL oral 1,000 mg PO QID 04/12/24 06/29/24 History suspension pantoprazole 40 mg tablet,delayed 40 mg PO BID 14 days #28 tabs 04/14/24 06/29/24 Rx release Allergies Allergy/AdvReac Type Severity Reaction Status Date / Time spider venom Allergy Unknown Swelling Verified 06/29/24 19:46 Vital Signs Vital Signs - 24 hr 06/29/24 13:04 06/29/24 13:15 06/29/24 14:08 Temperature 98.5 F Pulse Rate 125 H 124 H Respiratory Rate 34 H 30 H Blood Pressure 135/81 126/77 Pulse Oximetry 94 95 94 Oxygen Delivery Heliox Nasal Cannula Oxygen Flow Rate 4 Exam Narrative: General: Ill-appearing HEENT: normocephalic, atraumatic. Mucous membranes moist. EOMI, PERRLA, bilateral sclera anicteric, no conjunctival injection. Neck supple without JVD, lymphadenopathy, or bruit. Respiratory: clear to ascultation bilaterally. No rales/rhonic/wheezes. Cardiovascular: Regular rate and rhythm, normal S1-S2 upon ascultation. No murmurs, rubs, or clicks. PMI is nondisplaced, capillary refill less than 3 second. Abdomen: Soft, round, no pulsatile masses, nondistended and nontender. No rebound, no guarding. No CVA tenderness, no hepatosplenomegaly. Bowel sounds present to all four quadrants. No high pitch or tinkling sounds, resonant to percussion. Extremities: No cyanosis, clubbing, or edema present. Pulses are palpable 2/2. Active ROM to all four extremities. Neuro: Alert and orientated x 4. PERRLA. Cranial nerves 2-12 intact without focal deficit. Skin: Warm, dry, and intact, without rash, erythema, or lesion. Psych: pleasant, cooperative, normal speech, normal affect, no hallucinations, no dysarthia H&P: Results Labs Labs: Short CBC 06/29/24 Range/Units 13:46 WBC 13.3 H (4.5-10.0) K/mm3 Hgb 15.8 (14.0-18.0) g/dL Hct 48.0 (42.0-52.0) % Plt Count 140 L (150-375) k/mm3 BMP 06/29/24 13:46 Sodium 141 Potassium 3.7 Chloride 103 Carbon Dioxide 20 L BUN 22 H Creatinine 0.80 Glucose 236 H Calcium 8.8 Cardiac Enzymes 06/29/24 Range/Units 14:52 Troponin I < 0.012 (0.000-0.034) ng/mL Liver Function 06/29/24 Range/Units 13:46 Total Bilirubin 2.7 H (0.2-1.3) mg/dL AST 33 (17-59) U/L ALT 32 (6-50) U/L Alkaline Phosphatase 117 (38-126) U/L Albumin 3.9 (3.5-5.1) g/dL Assessment and Plan Assessment and plan (1) Altered mental status: Code(s): R41.82 - Altered mental status, unspecified Status: Acute Assessment and Plan: Likely from hypoxia and acute infection on top of history of dementia Head CT with no acute findings Treat hypoxia and infection A.m. labs (2) Pneumonia: Code(s): J18.9 - Pneumonia, unspecified organism Status: Acute Assessment and Plan: Healthcare associated, leukocytosis on admission 13.1 IV Rocephin, doxycycline and Flagyl given in ED Cefepime q.6 and vancomycin 2 L fluid bolus Blood cultures pending UA noninfective (3) Acute respiratory failure: Code(s): J96.00 - Acute respiratory failure, unspecified whether with hypoxia or hypercapnia Status: Acute Assessment and Plan: Secondary to pneumonia Currently on 4 L nasal cannula Wean as able See above (4) Type 2 diabetes mellitus: Code(s): E11.9 - Type 2 diabetes mellitus without complications Status: Acute Assessment and Plan: Diabetic diet Hemoglobin A1c Lantus and sliding scale Hold home metformin (5) Bipolar disorder: Code(s): F31.9 - Bipolar disorder, unspecified Status: Acute Assessment and Plan: Continue Abilify, Lamictal and Cymbalta (6) Dementia: Code(s): F03.90 - Unspecified dementia, unspecified severity, without behavioral disturbance, psychotic disturbance, mood disturbance, and anxiety Status: Acute Assessment and Plan: Continue dementia medications Quality VTE Prophylaxis VTE prophylaxis: mechanical ordered and pharmacologic ordered Hospitalist MIPS Advance Care Plan I have confirmed that the patient's Advanced Care Plan is present, code status is documented, or surrogate decision maker is listed in patient medical record.: Yes Medication Reconciliation I have utilized all available resources to obtain, update and review the patients current medications (includes all prescriptions, OTC, herbals, cannabis, and nutritional supplements).: Yes
[2024-06-29] MEDS: metroNIDAZOLE 500 MG/ISO 100ML 500 MG/100 ML BAG 100 MG IVPB (17:34)
[2024-06-29] MEDS: DOXYCYCLINE 100 MG/NS 100 ML 100 MG/100 ML BAG IVPB (17:34)
[2024-06-29] MEDS: DOCUSATE SODIUM 100 MG CAPSULE PO (18:51)
[2024-06-29] MEDS: CEFEPIME 2 GM/NS 50 ML 2 GM/50 ML BAG IVPB (18:54)
[2024-06-29] MEDS: VANCOMYCIN 1,500 MG/NS 500 ML 1,500 MG/500 ML BAG 250 MG IVPB (18:54)
[2024-06-29 18:59] LABS: Troponin I < 0.012 ng/mL (0.000-0.034)
[2024-06-29 20:03] LABS: Glucose Point of Care 127 mg/dl (65-105)
[2024-06-29 20:16] LABS: MRSA (PCR) NOT DETECTED (NOT DETECTE)
[2024-06-29] MEDS: INSULIN GLARGINE (*BKC) 100 UNITS/ML 9 UNITS SUB-Q (20:20)
[2024-06-29 21:18] LABS: Troponin I < 0.012 ng/mL (0.000-0.034)
[2024-06-29] MEDS: MELATONIN 5 MG TABLET PO (22:28)
[2024-06-29] MEDS: DONEPEZIL HCL 10 MG TABLET PO (22:28)
[2024-06-29] MEDS: lamoTRIgine 25 MG TABLET PO (22:28)
[2024-06-29] MEDS: MEMANTINE 10 MG TABLET PO (22:28)
[2024-06-29] MEDS: MIRTAZAPINE 7.5 MG TABLET PO (22:29)
[2024-06-29 23:32] LABS: Lactic Acid Reflex 1.3 mmol/L (0.7-2.0)
[2024-06-29] MEDS: ACETAMINOPHEN 325 MG TABLET 650 MG PO (23:59)
[2024-06-30] VITALS (13 sets, daily range): BP systolic 105–120; BP diastolic 62–66; PULSE 65–107; RESP 14–20; TEMP 36.3–37.1; O2SAT 95–98; BMI 23.8
[2024-06-30] MEDS: CEFEPIME 2 GM/NS 50 ML 2 GM/50 ML BAG IVPB ×3 (01:14→17:02)
[2024-06-30] MEDS: SUCRALFATE SUSP 100 MG/ML 10 ML UDC 1000 MG PO ×3 (05:38→21:00)
[2024-06-30 05:57] LABS: Basophils Percent Auto 0.3 % (0.2-1.2); Eosinophils Percent Auto 0.1 % (0-4.4); Hematocrit 38.9 % (42.0-52.0); Hemoglobin 12.9 g/dL (14.0-18.0); Immature Granulocyte Absolute 0.09 K/mm3 (0.00-0.031); Immature Granulocyte Percent A 0.8 % (0-0.5); Lymphocytes Absolute Auto 1.05 K/mm3 (0.9-3.2); Lymphocytes Percent Auto 9.5 % (18.3-44.2); Mean Corpuscular HGB Conc 33.2 g/dl (32-36); Mean Corpuscular Hemoglobin 30.7 pg (26-34); Mean Corpuscular Volume 92.6 fl (80-100); Mean Platelet Volume 10.4 fl (7.4-10.4); Monocytes Absolute Auto 0.8 K/mm3 (0.1-0.6); Monocytes Percent Auto 7.1 % (2.6-8.5); Neutrophils Absolute Auto 9.1 K/mm3 (1.3-6.7); Neutrophils Percent Auto 82.2 % (45.5-73.1); Platelet Count Result 120 k/mm3 (150-375); Red Cell Distribution Width 13.3 % (11.5-14.5)
[2024-06-30 06:16] LABS: Anion Gap 10 mmol/L (4-12); Blood Urea Nitrogen 17 mg/dL (9-20); Calcium 7.7 mg/dL (8.4-10.2); Carbon Dioxide 23 mmol/L (22-30); Chloride 109 mmol/L (98-107); Estimated CRCL calculation 87 ml/min; Estimated Glomerular Filt Rate > 60; Glucose 112 mg/dL (65-110); Sodium 142 mmol/L (137-145)
--- NOTE | 2024-06-30 07:56 | P.PNIM_ITS ---
Progress Note: A&P Assessment and Plan (1) Altered mental status: Code(s): R41.82 - Altered mental status, unspecified Status: Acute Assessment and Plan: * Likely from hypoxia and acute infection on top of history of dementia * Head CT: No acute intracranial findings * Chest CTA: No evidence of PE, pulmonary opacities, atypical infection/pneumonitis/aspiration * CXR:Haziness in the lung bases suggestive of atelectasis versus early pneumonia * UA: 2+ protein, 1+ ketones, 1+ bilirubin, * Viral PCR: negative for Flu, RSV, COVID * WBC: 11 * Blood cultures pending (2) Pneumonia: Code(s): J18.9 - Pneumonia, unspecified organism Status: Acute Assessment and Plan: * CXR: Haziness in the lung bases suggestive of atelectasis versus early pneumonia * started on CAP tx: azithromycin ceftriaxone on 05/20 * Viral PCR: negative for Flu/COVID/RSV * Consider ordering legionella, mycoplasma and pneumococcal * no supplemental O2 requirement * Blood cultures pending * IV Rocephin, doxycycline and Flagyl given in ED * On Cefepime q.6 and Azithro now (3) Acute respiratory failure: Code(s): J96.00 - Acute respiratory failure, unspecified whether with hypoxia or hypercapnia Status: Acute Assessment and Plan: * Symptoms: SOB * SpO2: 98% * Oxygen supplementation: 4L NC * Suspected cause: secondary to pneumonia * Chest XR: Haziness in the lung bases suggestive of atelectasis versus early pneumonia. (4) Type 2 diabetes mellitus: Code(s): E11.9 - Type 2 diabetes mellitus without complications Status: Acute Assessment and Plan: * Diabetic diet * Hemoglobin A1c * Lantus and sliding scale * Hold home metformin (5) Bipolar disorder: Code(s): F31.9 - Bipolar disorder, unspecified Status: Acute Assessment and Plan: * Continue Abilify, Lamictal and Cymbalta (6) Dementia: Code(s): F03.90 - Unspecified dementia, unspecified severity, without behavioral disturbance, psychotic disturbance, mood disturbance, and anxiety Status: Acute Assessment and Plan: * Continue dementia medications Time Spent With Patient Time: Subjective Date/time seen: 06/30/24 07:56 Interval history: 63-year-old male presents to the hospital with altered mental status and hypoxia. According to EMS patient had a pulse ox of 80% on room air. 06/30/2024 Patient is sitting comfortably in bed at time of examination. A&O x2. Continues to be on 4 L nasal cannula, O2 saturation 98%. Denies any shortness of breath, chest pain, shortness/vomiting, headache/dizziness, or abdominal pain at this time. Preliminary blood cultures negative for growth. Continue treati ng for pneumonia, no other concerns at this time. Review of Systems Review of Systems: ROS unobtainable: Yes unobtainable due to mental status Exam Narrative: General: Ill-appearing, male in no acute respiratory distress who is nontoxic- appearing lying HEENT: normocephalic, atraumatic. Mucous membranes moist. EOMI, PERRLA,. Neck supple without JVD Respiratory: clear to ascultation bilaterally. No rales/rhonic/wheezes. Cardiovascular: Regular rate and rhythm, normal S1-S2 upon ascultation. No murmurs, rubs, or clicks. PMI is nondisplaced, capillary refill less than 3 second. Abdomen: Soft, round, no pulsatile masses, nondistended and nontender. No rebound, no guarding. No CVA tenderness, no hepatosplenomegaly. Bowel sounds present to all four quadrants. No high pitch or tinkling sounds, resonant to percussion. Extremities: No cyanosis, clubbing, or edema present. Pulses are palpable 2/2. Active ROM to all four extremities. Neuro: Alert and orientated x 2-3. PERRLA. Cranial nerves 2-12 intact without focal deficit. Skin: Warm, dry, and intact, without rash, erythema, or lesion. Psych: pleasant, cooperative, normal speech, normal affect, no hallucinations, no dysarthia Objective Data Vital Signs Vital Signs: Vital Signs - 24 hr 06/29/24 13:04 06/29/24 13:15 06/29/24 13:18 Temperature 98.5 F Pulse Rate 125 H 124 H 126 H Respiratory Rate 34 H 30 H 28 H Blood Pressure 135/81 126/77 Pulse Oximetry 94 95 94 Oxygen Delivery Heliox Oxygen Flow Rate Fraction of Inspired Oxygen 06/29/24 13:30 06/29/24 13:31 06/29/24 13:46 Temperature Pulse Rate 123 H 124 H 122 H Respiratory Rate 34 H 35 H 34 H Blood Pressure 134/79 Pulse Oximetry 97 96 97 Oxygen Delivery Oxygen Flow Rate Fraction of Inspired Oxygen 06/29/24 14:00 06/29/24 14:01 06/29/24 14:08 Temperature Pulse Rate 125 H 123 H Respiratory Rate 28 H 36 H Blood Pressure 142/83 H Pulse Oximetry 98 96 94 Oxygen Delivery Nasal Cannula Oxygen Flow Rate 4 Fraction of Inspired Oxygen 06/29/24 15:05 06/29/24 15:15 06/29/24 15:30 Temperature Pulse Rate 114 H 121 H 124 H Respiratory Rate 31 H 33 H 29 H Blood Pressure Pulse Oximetry 97 100 99 Oxygen Delivery Oxygen Flow Rate Fraction of Inspired Oxygen 06/29/24 15:49 06/29/24 16:00 06/29/24 16:01 Temperature Pulse Rate 124 H 111 H 110 H Respiratory Rate 26 H 33 H 28 H Blood Pressure 127/78 Pulse Oximetry 93 97 98 Oxygen Delivery Oxygen Flow Rate Fraction of Inspired Oxygen 06/29/24 16:15 06/29/24 16:16 06/29/24 16:33 Temperature Pulse Rate 106 H 104 H 105 H Respiratory Rate 32 H 35 H 26 H Blood Pressure 128/72 Pulse Oximetry 98 97 98 Oxygen Delivery Oxygen Flow Rate Fraction of Inspired Oxygen 06/29/24 16:51 06/29/24 17:02 06/29/24 17:16 Temperature Pulse Rate 105 H 102 H 99 Respiratory Rate 34 H 35 H 36 H Blood Pressure Pulse Oximetry 99 100 100 Oxygen Delivery Oxygen Flow Rate Fraction of Inspired Oxygen 06/29/24 18:39 06/29/24 18:48 06/29/24 20:00 Temperature 98.2 F Pulse Rate 91 Respiratory Rate 16 Blood Pressure 126/67 Pulse Oximetry 95 98 94 Oxygen Delivery Nasal Cannula Nasal Cannula Oxygen Flow Rate 4 4 Fraction of Inspired Oxygen 06/29/24 20:00 06/29/24 20:30 06/29/24 21:24 Temperature 98.6 F Pulse Rate 96 73 95 Respiratory Rate 20 16 Blood Pressure 129/59 L Pulse Oximetry 94 100 Oxygen Delivery Nasal Cannula Oxygen Flow Rate 4 Fraction of Inspired Oxygen 36 06/29/24 23:58 06/29/24 23:59 06/30/24 00:00 Temperature 100.7 F H 100.7 F H Pulse Rate 107 H Respiratory Rate Blood Pressure Pulse Oximetry Oxygen Delivery Oxygen Flow Rate Fraction of Inspired Oxygen 06/30/24 01:13 06/30/24 04:00 06/30/24 05:37 Temperature 98.7 F 97.9 F Pulse Rate 76 72 Respiratory Rate 14 Blood Pressure 119/62 Pulse Oximetry 98 Oxygen Delivery Oxygen Flow Rate Fraction of Inspired Oxygen Intake/Output Intake/Output: Intake & Output 06/27/24 06/28/24 06/29/24 06/30/24 23:59 23:59 23:59 23:59 Intake Total 2100 100 Balance 2100 100 Meds/Results Medications: Active Medications Generic Name Dose Route Start Last Admin Trade Name Freq PRN Reason Stop Dose Admin Acetaminophen 650 mg 06/29/24 17:08 06/29/24 23:59 Acetaminophen 325 Mg Tablet PO 650 mg Q4H PRN Administration Mild Pain (1-3) or Fever Aripiprazole 4 mg 06/30/24 09:00 Aripiprazole 2 Mg Tablet PO DAILY KARISSA Dextrose 12.5 gm 06/29/24 17:03 Dextrose 50% 25 Gm/50 Ml Syringe IV PUSH PRN PRN Hypoglycemia Protocol Docusate Sodium 100 mg 06/29/24 17:25 06/29/24 18:51 Docusate Sodium 100 Mg Capsule PO 100 mg BID KARISSA Administration Donepezil HCl 10 mg 06/29/24 22:05 06/29/24 22:28 Donepezil Hcl 10 Mg Tablet PO 10 mg HS KARISSA Administration Duloxetine HCl 40 mg 06/30/24 09:00 Duloxetine Hcl 20 Mg Capsule.Dr PO DAILY KARISSA Enoxaparin Sodium 40 mg 06/30/24 09:00 Enoxaparin 40 Mg/0.4 Ml Syringe SUB-Q DAILY [facility] Ferrous Sulfate 325 mg 06/30/24 09:00 Ferrous Sulfate [address] BY MOUTH BID KARISSA Glucagon 1 mg 06/29/24 17:03 Glucagon For Inj 1 Mg Vial IM PRN PRN Hypoglycemia Protocol Glucose 15 gm 06/29/24 17:03 Glucose Oral Gel 15 Gm Of Glucse In 37.5 Gm Tube PO PRN PRN Hypoglycemia Protocol Cefepime HCl 2 gm in 50 mls @ 100 mls/hr 06/29/24 18:00 06/30/24 01:14 Maxipime 2 Gm/Ns 50 Ml IVPB 100 mls/hr Q8H KARISSA Administration Dextrose 1,000 mls @ 100 mls/hr 06/29/24 17:03 Dextrose 5% 1,000 Ml IVPB PRN PRN Hypoglycemia Protocol Vancomycin HCl 1,250 mg in 250 mls @ 166.667 mls/hr 06/30/24 08:00 Vancomycin 1,250 Mg/Ns 250 Ml IVPB Q12H [facility] Insulin Aspart 2 - 5 units 06/30/24 08:00 Insulin Aspart (*Bkc) 100 Units/Ml SUB-Q TIDWM [facility] Protocol Insulin Aspart 1 - 2 units 06/29/24 21:00 06/29/24 20:20 Insulin Aspart (*Bkc) 100 Units/Ml SUB-Q Not Given HS [facility] Protocol Insulin Glargine 9 units 06/29/24 21:00 06/29/24 20:20 Insulin Glargine (*Bkc) 100 Units/Ml 0.15 units/kg (9 units) 9 units SUB-Q Administration HS [facility] Lamotrigine 25 mg 06/29/24 22:05 06/29/24 22:28 Lamotrigine 25 Mg Tablet PO 25 mg Q12HR KARISSA Administration Melatonin 5 mg 06/29/24 22:05 06/29/24 22:28 Melatonin 5 Mg Tablet PO 5 mg HS KARISSA Administration Memantine 10 mg 06/29/24 22:05 06/29/24 22:28 Memantine 10 Mg Tablet PO 10 mg Q12HR KARISSA Administration Mirtazapine 7.5 mg 06/29/24 22:05 06/29/24 22:29 Mirtazapine 7.5 Mg Tablet PO 7.5 mg HS KARISSA Administration Pantoprazole Sodium 40 mg 06/30/24 09:00 Pantoprazole 40 Mg Tablet PO BID KARISSA Senna 8.6 mg 06/30/24 09:00 Sennosides 8.6 Mg Tablet PO BID KARSISA Sucralfate 1,000 mg 06/30/24 07:00 06/30/24 05:38 Sucralfate Susp 100 Mg/Ml 10 Ml Udc PO 1,000 mg 0700,1100,1600,2100 KARISSA Administration Radiology Results: ITS Impressions Chest X-Ray 06/29/24 14:19 IMPRESSION: Haziness in the lung bases suggestive of atelectasis versus early pneumonia. Follow-up advised. Head CT 06/29/24 15:06 IMPRESSION: No acute intracranial findings. Pansinusitis. Chest CTA 06/29/24 15:12 IMPRESSION: Motion limits evaluation of subsegmental pulmonary arteries and the right lower lobe. No CT evidence of acute pulmonary embolus in the adequately visualized pulmonary arteries. Pulmonary opacities may represent atypical infection, pneumonitis, or aspiration. Trace pericardial effusion. Nodular appearing liver border, as can be seen with cirrhotic change. Labs Labs: Laboratory Results - last 24 hr 06/29/24 06/29/24 06/29/24 13:46 14:52 16:01 WBC 13.3 H RBC 5.24 Hgb 15.8 Hct 48.0 MCV 91.6 MCH 30.2 MCHC 32.9 RDW 13.2 Plt Count 140 L MPV 10.3 Immature Gran % (Auto) 1.7 H Neut % (Auto) 88.6 H Lymph % (Auto) 3.1 L [place] % (Auto) 5.9 Eos % (Auto) 0.3 Baso % (Auto) 0.4 Lymph # (Auto) 0.41 L [place] # (Auto) 0.8 H Eos # (Auto) 0.0 Baso # (Auto) 0.1 Abs Immat Gran (auto) 0.22 H Absolute Neuts (auto) 11.8 H Absolute Nucleated RBC 0.000 Nucleated RBC % 0.0 PT 16.1 H INR 1.3 APTT 30.4 Sodium 141 Potassium 3.7 Chloride 103 Carbon Dioxide 20 L Anion Gap 18 H BUN 22 H Creatinine 0.80 Estim Creat Clear Calc Not Reportable Estimated GFR > 60 Glucose 236 H POC Capillary Glucose Lactic Acid Calcium 8.8 Total Bilirubin 2.7 H AST 33 ALT 32 Alkaline Phosphatase 117 Ammonia 10 Troponin I < 0.012 NT-Pro-B Natriuret Pep 188 H Total Protein 8.0 Albumin 3.9 Urine Color Dark yellow Urine Appearance Clear Urine pH 6.0 Ur Specific [place] > 1.045 H Urine Protein 2+ H Urine Glucose (UA) Negative Urine Ketones 1+ H Ur Blood (Man) Negative Urine Nitrate Negative Urine Bilirubin 1+ H Urine Urobilinogen 4.0 H Leukocyte Esterase Rfl Negative Urine RBC 3-5 H Urine WBC 0-5 Ur Squamous Epith Cells None seen Urine Bacteria None seen Urine Casts 0-2 Nasal MRSA (PCR) Influenza A (RT-PCR) Negative Influenza B (RT-PCR) Negative RSV (RT-PCR) Negative SARS-CoV-2 RNA (RT-PCR) Negative 06/29/24 06/29/24 06/29/24 18:07 18:36 19:37 WBC RBC Hgb Hct MCV MCH MCHC RDW Plt Count MPV Immature Gran % (Auto) Neut % (Auto) Lymph % (Auto) [place] % (Auto) Eos % (Auto) Baso % (Auto) Lymph # (Auto) [place] # (Auto) Eos # (Auto) Baso # (Auto) Abs Immat Gran (auto) Absolute Neuts (auto) Absolute Nucleated RBC Nucleated RBC % PT INR APTT Sodium Potassium Chloride Carbon Dioxide Anion Gap BUN Creatinine Estim Creat Clear Calc Estimated GFR Glucose POC Capillary Glucose 127 H Lactic Acid Calcium Total Bilirubin AST ALT Alkaline Phosphatase Ammonia Troponin I < 0.012 NT-Pro-B Natriuret Pep Total Protein Albumin Urine Color Urine Appearance Urine pH Ur Specific [place] Urine Protein Urine Glucose (UA) Urine Ketones Ur Blood (Man) Urine Nitrate Urine Bilirubin Urine Urobilinogen Leukocyte Esterase Rfl Urine RBC Urine WBC Ur Squamous Epith Cells Urine Bacteria Urine Casts Nasal MRSA (PCR) Not detected Influenza A (RT-PCR) Influenza B (RT-PCR) RSV (RT-PCR) SARS-CoV-2 RNA (RT-PCR) 06/29/24 06/29/24 06/30/24 20:53 23:16 05:15 WBC 11.0 H RBC 4.20 L Hgb 12.9 L Hct 38.9 L MCV 92.6 MCH 30.7 MCHC 33.2 RDW 13.3 Plt Count 120 L MPV 10.4 Immature Gran % (Auto) 0.8 H Neut % (Auto) 82.2 H Lymph % (Auto) 9.5 L [place] % (Auto) 7.1 Eos % (Auto) 0.1 Baso % (Auto) 0.3 Lymph # (Auto) 1.05 [place] # (Auto) 0.8 H Eos # (Auto) 0.0 Baso # (Auto) 0.0 Abs Immat Gran (auto) 0.09 H Absolute Neuts (auto) 9.1 H Absolute Nucleated RBC 0.000 Nucleated RBC % 0.0 PT INR APTT Sodium 142 Potassium 3.0 L Chloride 109 H Carbon Dioxide 23 Anion Gap 10 BUN 17 Creatinine 0.66 L Estim Creat Clear Calc 87 Estimated GFR > 60 Glucose 112 H POC Capillary Glucose Lactic Acid 1.3 Calcium 7.7 L Total Bilirubin AST ALT Alkaline Phosphatase Ammonia Troponin I < 0.012 NT-Pro-B Natriuret Pep Total Protein Albumin Urine Color Urine Appearance Urine pH Ur Specific [place] Urine Protein Urine Glucose (UA) Urine Ketones Ur Blood (Man) Urine Nitrate Urine Bilirubin Urine Urobilinogen Leukocyte Esterase Rfl Urine RBC Urine WBC Ur Squamous Epith Cells Urine Bacteria Urine Casts Nasal MRSA (PCR) Influenza A (RT-PCR) Influenza B (RT-PCR) RSV (RT-PCR) SARS-CoV-2 RNA (RT-PCR) Quality VTE Prophylaxis VTE prophylaxis: mechanical ordered and pharmacologic ordered
[2024-06-30 08:19] LABS: Glucose Point of Care 104 mg/dl (65-105)
[2024-06-30] MEDS: VANCOMYCIN 1,250 MG/NS 250 ML 1,250 MG/250 ML BAG 166.67 MG IVPB (08:49)
[2024-06-30] MEDS: FERROUS SULFATE 325 MG TABLET DR BY MOUTH ×2 (08:50→17:01)
[2024-06-30] MEDS: PANTOPRAZOLE 40 MG TABLET PO ×2 (08:50→17:01)
[2024-06-30] MEDS: ARIPiprazole 2 MG TABLET 4 MG PO (08:50)
[2024-06-30] MEDS: SENNOSIDES 8.6 MG TABLET PO ×2 (08:50→17:01)
[2024-06-30] MEDS: DULoxetine HCL 20 MG CAPSULE.DR 40 MG PO (08:50)
[2024-06-30] MEDS: MEMANTINE 10 MG TABLET PO ×2 (08:51→21:01)
[2024-06-30] MEDS: DOCUSATE SODIUM 100 MG CAPSULE PO ×2 (08:51→17:01)
[2024-06-30] MEDS: ENOXAPARIN 40 MG/0.4 ML SYRINGE SUB-Q (08:51)
[2024-06-30] MEDS: lamoTRIgine 25 MG TABLET PO ×2 (08:53→21:01)
[2024-06-30] MEDS: AZITHROMYCIN 500 MG/NS 250 ML 500 MG/250 ML BAG 250 MG IVPB (10:58)
[2024-06-30 11:38] LABS: Glucose Point of Care 87 mg/dl (65-105)
[2024-06-30 16:32] LABS: Glucose Point of Care 74 mg/dl (65-105)
[2024-06-30 16:45] LABS: Fractional Inspired Oxygen 32 %; HCO3 VBG 22.2 mEq/l (24.0-30.0); PCO2 VBG 35.4 mmHg (42.0-48.0); PO2 VBG 79.7 mmHg (35.0-45.0)
[2024-06-30 16:52] LABS: Device NASAL CANNULA; pH VBG 7.416 (7.300-7.400)
[2024-06-30] MEDS: POTASSIUM CHLORIDE 20 MEQ ER TABLET 40 MEQ PO (17:00)
[2024-06-30 20:35] LABS: Glucose Point of Care 156 mg/dl (65-105)
[2024-06-30] MEDS: MELATONIN 5 MG TABLET PO (21:01)
[2024-06-30] MEDS: MIRTAZAPINE 7.5 MG TABLET PO (21:01)
[2024-06-30] MEDS: DONEPEZIL HCL 10 MG TABLET PO (21:01)
[2024-06-30] MEDS: INSULIN GLARGINE (*BKC) 100 UNITS/ML 9 UNITS SUB-Q (21:03)
[2024-07-01] VITALS (10 sets, daily range): BP systolic 114–155; BP diastolic 52–75; PULSE 63–81; RESP 14–18; TEMP 36.2–37.4; O2SAT 92–94
[2024-07-01] MEDS: CEFEPIME 2 GM/NS 50 ML 2 GM/50 ML BAG IVPB ×3 (02:01→18:06)
[2024-07-01] MEDS: SUCRALFATE SUSP 100 MG/ML 10 ML UDC 1000 MG PO ×4 (06:22→21:15)
[2024-07-01 08:16] LABS: Glucose Point of Care 76 mg/dl (65-105)
[2024-07-01] MEDS: ARIPiprazole 2 MG TABLET 4 MG PO (08:39)
[2024-07-01] MEDS: AZITHROMYCIN 250 MG TABLET 500 MG PO (08:39)
[2024-07-01] MEDS: MEMANTINE 10 MG TABLET PO ×2 (08:39→21:10)
[2024-07-01] MEDS: DULoxetine HCL 20 MG CAPSULE.DR 40 MG PO (08:39)
[2024-07-01] MEDS: SENNOSIDES 8.6 MG TABLET PO ×2 (08:39→16:19)
[2024-07-01] MEDS: FERROUS SULFATE 325 MG TABLET DR BY MOUTH ×2 (08:39→16:19)
[2024-07-01] MEDS: DOCUSATE SODIUM 100 MG CAPSULE PO ×2 (08:39→16:19)
[2024-07-01] MEDS: PANTOPRAZOLE 40 MG TABLET PO ×2 (08:39→16:19)
[2024-07-01] MEDS: lamoTRIgine 25 MG TABLET PO ×2 (08:40→21:10)
[2024-07-01] MEDS: ENOXAPARIN 40 MG/0.4 ML SYRINGE SUB-Q (08:42)
--- NOTE | 2024-07-01 09:37 | P.PNIM_ITS ---
Progress Note: A&P Assessment and Plan (1) Altered mental status: Code(s): R41.82 - Altered mental status, unspecified Status: Acute Assessment and Plan: * Likely from hypoxia and acute infection on top of history of dementia * Head CT: No acute intracranial findings * Chest CTA: No evidence of PE, pulmonary opacities, atypical infection/pneumonitis/aspiration * CXR:Haziness in the lung bases suggestive of atelectasis versus early pneumonia * UA: 2+ protein, 1+ ketones, 1+ bilirubin, * Viral PCR: negative for Flu, RSV, COVID * WBC: 8.3 07/01 * Blood cultures - no growth * VBG 07/01: pH 7.441, continue to trend tomorrow (2) Pneumonia: Code(s): J18.9 - Pneumonia, unspecified organism Status: Acute Assessment and Plan: * CXR: Haziness in the lung bases suggestive of atelectasis versus early pneumonia * started on CAP tx: azithromycin ceftriaxone on 05/20 * Viral PCR: negative for Flu/COVID/RSV * Consider ordering legionella, mycoplasma and pneumococcal * no supplemental O2 requirement at baseline, RA/1L today and satting 92% per nursing 07/01, goal to maintain sats of 94% or higher, continue to strive for baseline of RA * Blood cultures negative * IV Rocephin, doxycycline and Flagyl given in ED * On Cefepime q.6 and Azithro now - continue at D/C (3) Acute respiratory failure: Code(s): J96.00 - Acute respiratory failure, unspecified whether with hypoxia or hypercapnia Status: Acute Assessment and Plan: * Symptoms: SOB * SpO2: 98% * Oxygen supplementation: 1L to RA today satting 92% per nursing, will continue to trend with goal of RA * Suspected cause: secondary to pneumonia * Chest XR: Haziness in the lung bases suggestive of atelectasis versus early pneumonia. (4) Type 2 diabetes mellitus: Code(s): E11.9 - Type 2 diabetes mellitus without complications Status: Acute Assessment and Plan: * Diabetic diet * Hemoglobin A1c * Lantus and sliding scale * Hold home metformin (5) Bipolar disorder: Code(s): F31.9 - Bipolar disorder, unspecified Status: Acute Assessment and Plan: * Continue Abilify, Lamictal and Cymbalta (6) Dementia: Code(s): F03.90 - Unspecified dementia, unspecified severity, without behavioral disturbance, psychotic disturbance, mood disturbance, and anxiety Status: Acute Assessment and Plan: * Continue dementia medications Time Spent With Patient Time with patient: 15 - 25 minutes Subjective Date/time seen: 07/01/24 1215 Interval history: Patient is a 63-year-old male who is wheelchair-bound and lives at a facility who reports to the emergency department here at [facility] for altered mental status and hypoxia. Upon today's examination patient is sitting comfortably in bed eating A&O x2, knows self and where he is. Patient has been tolerating saturations today on room air of 92%, goal of 94% or higher, ordered O2 to reflect this. Review of Systems Review of Systems: ROS unobtainable: Yes unobtainable due to mental status Exam Const: General: comfortable and no acute distress HENMT: Face/Nose/Sinus: Normal nares present Mouth: Yes moist mucous membranes Eyes: General: appearance normal, both eyes and all related structures Sclera: sclerae normal Neck: Neck: supple and no JVD Carotids: no bruits Resp: Effort & Inspection: normal respiratory effort Auscultation: clear to auscultation bilaterally Cardio: Rate: regular rate Rhythm: regular rhythm GI: Inspection: non-distended Auscultation: normal bowel sounds Skin: General skin exam: normal color and no rashes or lesions noted Wounds: no wounds Neuro: Speech: normal speech Motor exam (neuro): Normal motor muscle tone present throughout Other: A&Ox2, to person and place Extrem: General: normal to inspection Psych: Mental Status: mental status grossly normal Affect: normal affect Objective Data Vital Signs Vital Signs: Vital Signs - 24 hr 06/30/24 12:00 06/30/24 14:00 06/30/24 14:40 Temperature 97.7 F Pulse Rate 84 74 Respiratory Rate 18 Blood Pressure 105/66 Pulse Oximetry 98 97 Oxygen Delivery Nasal Cannula Oxygen Flow Rate 4 06/30/24 16:00 06/30/24 16:02 06/30/24 20:00 Temperature Pulse Rate 65 65 Respiratory Rate Blood Pressure Pulse Oximetry 95 Oxygen Delivery Nasal Cannula Oxygen Flow Rate 2 06/30/24 20:00 06/30/24 21:15 07/01/24 00:00 Temperature 97.3 F L Pulse Rate 68 70 73 Respiratory Rate 20 Blood Pressure 120/62 Pulse Oximetry 95 Oxygen Delivery Oxygen Flow Rate 07/01/24 04:00 07/01/24 05:36 07/01/24 08:00 Temperature 97.2 F L Pulse Rate 63 71 77 Respiratory Rate 16 Blood Pressure 114/52 L Pulse Oximetry 94 Oxygen Delivery Oxygen Flow Rate Intake/Output Intake/Output: Intake & Output 06/28/24 06/29/24 06/30/24 07/01/24 23:59 23:59 23:59 23:59 Intake Total 2100 1090 200 Balance 2100 1090 200 Meds/Results Medications: Active Medications Generic Name Dose Route Start Last Admin Trade Name Freq PRN Reason Stop Dose Admin Acetaminophen 650 mg 06/29/24 17:08 06/29/24 23:59 Acetaminophen 325 Mg Tablet PO 650 mg Q4H PRN Administration Mild Pain (1-3) or Fever Aripiprazole 4 mg 06/30/24 09:00 07/01/24 08:39 Aripiprazole 2 Mg Tablet PO 4 mg DAILY KARISSA Administration Azithromycin 500 mg 07/01/24 09:00 07/01/24 08:39 Azithromycin 250 Mg Tablet PO 07/04/24 09:01 500 mg DAILY KARISSA Administration Dextrose 12.5 gm 06/29/24 17:03 Dextrose 50% 25 Gm/50 Ml Syringe IV PUSH PRN PRN Hypoglycemia Protocol Docusate Sodium 100 mg 06/29/24 17:25 07/01/24 08:39 Docusate Sodium 100 Mg Capsule PO 100 mg BID KARISSA Administration Donepezil HCl 10 mg 06/29/24 22:05 06/30/24 21:01 Donepezil Hcl 10 Mg Tablet PO 10 mg HS KARISSA Administration Duloxetine HCl 40 mg 06/30/24 09:00 07/01/24 08:39 Duloxetine Hcl 20 Mg Capsule.Dr PO 40 mg DAILY KARISSA Administration Enoxaparin Sodium 40 mg 06/30/24 09:00 07/01/24 08:42 Enoxaparin 40 Mg/0.4 Ml Syringe SUB-Q 40 mg DAILY KARISSA Administration Ferrous Sulfate 325 mg 06/30/24 09:00 07/01/24 08:39 Ferrous Sulfate [address] BY MOUTH 325 mg BID KARISSA Administration Glucagon 1 mg 06/29/24 17:03 Glucagon For Inj 1 Mg Vial IM PRN PRN Hypoglycemia Protocol Glucose 15 gm 06/29/24 17:03 Glucose Oral Gel 15 Gm Of Glucse In 37.5 Gm Tube PO PRN PRN Hypoglycemia Protocol Cefepime HCl 2 gm in 50 mls @ 100 mls/hr 06/29/24 18:00 07/01/24 02:01 Maxipime 2 Gm/Ns 50 Ml IVPB 100 mls/hr Q8H KARISSA Administration Dextrose 1,000 mls @ 100 mls/hr 06/29/24 17:03 Dextrose 5% 1,000 Ml IVPB PRN PRN Hypoglycemia Protocol Insulin Aspart 2 - 5 units 06/30/24 08:00 07/01/24 08:37 Insulin Aspart (*Bkc) 100 Units/Ml SUB-Q Not Given TIDWM [facility] Protocol Insulin Aspart 1 - 2 units 06/29/24 21:00 06/30/24 20:53 Insulin Aspart (*Bkc) 100 Units/Ml SUB-Q Not Given HS [facility] Protocol Insulin Glargine 9 units 06/29/24 21:00 06/30/24 21:03 Insulin Glargine (*Bkc) 100 Units/Ml 0.15 units/kg (9 units) 9 units SUB-Q Administration HS KARISSA Lamotrigine 25 mg 06/29/24 22:05 07/01/24 08:40 Lamotrigine 25 Mg Tablet PO 25 mg Q12HR KARISSA Administration Melatonin 5 mg 06/29/24 22:05 06/30/24 21:01 Melatonin 5 Mg Tablet PO 5 mg HS KARISSA Administration Memantine 10 mg 06/29/24 22:05 07/01/24 08:39 Memantine 10 Mg Tablet PO 10 mg Q12HR KARISSA Administration Mirtazapine 7.5 mg 06/29/24 22:05 06/30/24 21:01 Mirtazapine 7.5 Mg Tablet PO 7.5 mg HS KRAISSA Administration Pantoprazole Sodium 40 mg 06/30/24 09:00 07/01/24 08:39 Pantoprazole 40 Mg Tablet PO 40 mg BID KARISSA Administration Senna 8.6 mg 06/30/24 09:00 07/01/24 08:39 Sennosides 8.6 Mg Tablet PO 8.6 mg BID KARISSA Administration Sucralfate 1,000 mg 06/30/24 07:00 07/01/24 06:22 Sucralfate Susp 100 Mg/Ml 10 Ml Udc PO 1,000 mg 0700,1100,1600,2100 KARISSA Administration Radiology Results: ITS Impressions Chest X-Ray 06/29/24 14:19 IMPRESSION: Haziness in the lung bases suggestive of atelectasis versus early pneumonia. Follow-up advised. Head CT 06/29/24 15:06 IMPRESSION: No acute intracranial findings. Pansinusitis. Chest CTA 06/29/24 15:12 IMPRESSION: Motion limits evaluation of subsegmental pulmonary arteries and the right lower lobe. No CT evidence of acute pulmonary embolus in the adequately visualized pulmonary arteries. Pulmonary opacities may represent atypical infection, pneumonitis, or aspiration. Trace pericardial effusion. Nodular appearing liver border, as can be seen with cirrhotic change. Labs Labs: Laboratory Results - last 24 hr 06/30/24 06/30/24 06/30/24 11:34 16:20 16:37 VBG pH 7.416 H* VBG pCO2 35.4 L VBG pO2 79.7 H VBG HCO3 22.2 L O2 Delivery Device Nasal cannula O2 Liters/Min 3.0 FiO2 32 POC Capillary Glucose 87 74 05/13/25 05/14/25 20:20 08:04 VBG pH VBG pCO2 VBG pO2 VBG HCO3 O2 Delivery Device O2 Liters/Min FiO2 POC Capillary Glucose 156 H 76 Quality VTE Prophylaxis VTE prophylaxis: pharmacologic ordered
[2024-07-01 10:10] LABS: Basophils Absolute Auto 0.1 K/mm3 (0.0-0.1); Basophils Percent Auto 0.6 % (0.2-1.2); Eosinophils Absolute Auto 0.1 K/mm3 (0-0.3); Eosinophils Percent Auto 1.7 % (0-4.4); Hematocrit 41.6 % (42.0-52.0); Hemoglobin 13.5 g/dL (14.0-18.0); Immature Granulocyte Absolute 0.09 K/mm3 (0.00-0.031); Immature Granulocyte Percent A 1.1 % (0-0.5); Lymphocytes Absolute Auto 0.84 K/mm3 (0.9-3.2); Lymphocytes Percent Auto 10.1 % (18.3-44.2); Mean Corpuscular HGB Conc 32.5 g/dl (32-36); Mean Corpuscular Hemoglobin 30.3 pg (26-34); Mean Corpuscular Volume 93.3 fl (80-100); Mean Platelet Volume 9.9 fl (7.4-10.4); Monocytes Absolute Auto 0.5 K/mm3 (0.1-0.6); Monocytes Percent Auto 5.7 % (2.6-8.5); Neutrophils Absolute Auto 6.7 K/mm3 (1.3-6.7); Neutrophils Percent Auto 80.8 % (45.5-73.1); Platelet Count Result 166 k/mm3 (150-375); Red Blood Count 4.46 M/mm3 (4.6-6.20); Red Cell Distribution Width 13.4 % (11.5-14.5); White Blood Count 8.3 K/mm3 (4.5-10.0)
[2024-07-01 10:23] LABS: Alanine Aminotransferase 28 U/L (6-50); Albumin Level 3.1 g/dL (3.5-5.1); Alkaline Phosphatase 173 U/L (38-126); Anion Gap 9 mmol/L (4-12); Aspartate Amino Transferase 56 U/L (17-59); Bilirubin,Total 1.6 mg/dL (0.2-1.3); Blood Urea Nitrogen 14 mg/dL (9-20); Calcium 8.5 mg/dL (8.4-10.2); Carbon Dioxide 24 mmol/L (22-30); Chloride 108 mmol/L (98-107); Estimated CRCL calculation 90 ml/min; Estimated Glomerular Filt Rate > 60; Glucose 126 mg/dL (65-110); Potassium 3.3 mmol/L (3.4-5.0); Sodium 141 mmol/L (137-145)
[2024-07-01 10:48] LABS: Fractional Inspired Oxygen 21 %; HCO3 VBG 23.2 mEq/l (24.0-30.0); PCO2 VBG 34.8 mmHg (42.0-48.0); PO2 VBG 31.9 mmHg (35.0-45.0)
[2024-07-01 10:51] LABS: Device ROOM AIR; pH VBG 7.441 (7.300-7.400)
[2024-07-01 12:14] LABS: Glucose Point of Care 132 mg/dl (65-105)
[2024-07-01 17:00] LABS: Glucose Point of Care 103 mg/dl (65-105)
[2024-07-01 20:34] LABS: Glucose Point of Care 142 mg/dl (65-105)
[2024-07-01 21:10] LABS: Amphetamine Screen Urine Negative (Negative); Barbiturate Screen Urine Negative (Negative); Benzodiazepines Screen Urine Negative (Negative); Cannabinoid Screen Urine Negative (Negative); Cocaine Screen Urine Negative (Negative); Methadone Screen Urine Negative (Negative); Opiate Screen Urine Negative (Negative); Phencyclidine Screen Urine Negative (Negative)
[2024-07-01] MEDS: DONEPEZIL HCL 10 MG TABLET PO (21:10)
[2024-07-01] MEDS: MIRTAZAPINE 7.5 MG TABLET PO (21:10)
[2024-07-01] MEDS: MELATONIN 5 MG TABLET PO (21:10)
[2024-07-01] MEDS: INSULIN GLARGINE (*BKC) 100 UNITS/ML 9 UNITS SUB-Q (21:12)
[2024-07-02] VITALS (10 sets, daily range): BP systolic 135–140; BP diastolic 48–78; PULSE 71–89; RESP 16–20; TEMP 36.4–37.1; O2SAT 95–96
[2024-07-02] MEDS: CEFEPIME 2 GM/NS 50 ML 2 GM/50 ML BAG IVPB ×2 (01:12→09:49)
[2024-07-02 05:47] LABS: Fractional Inspired Oxygen 21 %; HCO3 VBG 23.2 mEq/l (24.0-30.0); PCO2 VBG 32.4 mmHg (42.0-48.0); PO2 VBG 52.7 mmHg (35.0-45.0)
[2024-07-02 05:55] LABS: pH VBG 7.472 (7.300-7.400)
[2024-07-02] MEDS: SUCRALFATE SUSP 100 MG/ML 10 ML UDC 1000 MG PO ×4 (05:55→21:08)
[2024-07-02 06:15] LABS: Alanine Aminotransferase 36 U/L (6-50); Albumin Level 3.2 g/dL (3.5-5.1); Alkaline Phosphatase 197 U/L (38-126); Anion Gap 10 mmol/L (4-12); Aspartate Amino Transferase 54 U/L (17-59); Bilirubin,Total 1.1 mg/dL (0.2-1.3); Blood Urea Nitrogen 13 mg/dL (9-20); Calcium 8.2 mg/dL (8.4-10.2); Carbon Dioxide 22 mmol/L (22-30); Chloride 108 mmol/L (98-107); Estimated CRCL calculation 107 ml/min; Estimated Glomerular Filt Rate > 60; Glucose 87 mg/dL (65-110); Potassium 2.9 mmol/L (3.4-5.0); Sodium 140 mmol/L (137-145)
[2024-07-02 07:45] LABS: Glucose Point of Care 95 mg/dl (65-105)
[2024-07-02] MEDS: SENNOSIDES 8.6 MG TABLET PO ×2 (08:25→16:14)
[2024-07-02] MEDS: DOCUSATE SODIUM 100 MG CAPSULE PO ×2 (08:25→16:14)
[2024-07-02] MEDS: DULoxetine HCL 20 MG CAPSULE.DR 40 MG PO (08:25)
[2024-07-02] MEDS: ENOXAPARIN 40 MG/0.4 ML SYRINGE SUB-Q (08:25)
[2024-07-02] MEDS: FERROUS SULFATE 325 MG TABLET DR BY MOUTH ×2 (08:25→16:14)
[2024-07-02] MEDS: AZITHROMYCIN 250 MG TABLET 500 MG PO (08:26)
[2024-07-02] MEDS: ARIPiprazole 2 MG TABLET 4 MG PO (08:26)
[2024-07-02] MEDS: PANTOPRAZOLE 40 MG TABLET PO ×2 (08:26→16:14)
[2024-07-02] MEDS: lamoTRIgine 25 MG TABLET PO ×2 (08:26→21:02)
[2024-07-02] MEDS: MEMANTINE 10 MG TABLET PO ×2 (08:26→21:02)
[2024-07-02 10:04] LABS: Basophils Absolute Auto 0.1 K/mm3 (0.0-0.1); Basophils Percent Auto 0.6 % (0.2-1.2); Eosinophils Absolute Auto 0.2 K/mm3 (0-0.3); Eosinophils Percent Auto 2.3 % (0-4.4); Hematocrit 41.1 % (42.0-52.0); Hemoglobin 13.5 g/dL (14.0-18.0); Immature Granulocyte Absolute 0.15 K/mm3 (0.00-0.031); Immature Granulocyte Percent A 1.9 % (0-0.5); Lymphocytes Absolute Auto 1.22 K/mm3 (0.9-3.2); Lymphocytes Percent Auto 15.7 % (18.3-44.2); Mean Corpuscular HGB Conc 32.8 g/dl (32-36); Mean Corpuscular Hemoglobin 29.9 pg (26-34); Mean Corpuscular Volume 90.9 fl (80-100); Mean Platelet Volume 10.3 fl (7.4-10.4); Monocytes Absolute Auto 0.5 K/mm3 (0.1-0.6); Monocytes Percent Auto 6.8 % (2.6-8.5); Neutrophils Absolute Auto 5.6 K/mm3 (1.3-6.7); Neutrophils Percent Auto 72.7 % (45.5-73.1); Platelet Count Result 199 k/mm3 (150-375); Red Blood Count 4.52 M/mm3 (4.6-6.20); Red Cell Distribution Width 13.3 % (11.5-14.5); White Blood Count 7.8 K/mm3 (4.5-10.0)
[2024-07-02 10:15] LABS: Fractional Inspired Oxygen 21 %; HCO3 VBG 20.5 mEq/l (24.0-30.0); PO2 VBG 34.6 mmHg (35.0-45.0)
[2024-07-02 10:28] LABS: PCO2 VBG 27.1 mmHg (42.0-48.0); pH VBG 7.496 (7.300-7.400)
[2024-07-02 11:35] LABS: Glucose Point of Care 142 mg/dl (65-105)
--- NOTE | 2024-07-02 11:50 | P.PNIM_ITS ---
Progress Note: A&P Assessment and Plan (1) Altered mental status: Code(s): R41.82 - Altered mental status, unspecified Status: Acute Assessment and Plan: * Likely from hypoxia and acute infection on top of history of dementia * Head CT: No acute intracranial findings * Chest CTA: No evidence of PE, pulmonary opacities, atypical infection/pneumonitis/aspiration * CXR:Haziness in the lung bases suggestive of atelectasis versus early pneumonia * UA: 2+ protein, 1+ ketones, 1+ bilirubin, * Viral PCR: negative for Flu, RSV, COVID * WBC: 7.8 07/02 * Blood cultures - no growth * Trending VBGs, pH mildly high, will obtain ABG in the AM * Baseline orientation per SNF nurse is A&O x2-3 (2) Pneumonia: Code(s): J18.9 - Pneumonia, unspecified organism Status: Acute Assessment and Plan: * CXR: Haziness in the lung bases suggestive of atelectasis versus early pneumonia * Started on CAP tx: azithromycin ceftriaxone on 05/20 * Viral PCR: negative for Flu/COVID/RSV * Consider ordering legionella, mycoplasma and pneumococcal * no supplemental O2 requirement at baseline, on RA and stable today satting 95- 97% * Blood cultures negative * IV Rocephin, doxycycline and Flagyl given in ED * On Cefepime q.6 and Azithro - switched to all oral on 07/02, will continue at D/C * Pt denies SOB, etc, lungs sounding clear (3) Acute respiratory failure: Code(s): J96.00 - Acute respiratory failure, unspecified whether with hypoxia or hypercapnia Status: Acute Assessment and Plan: * Symptoms: SOB * SpO2: 95-97% on RA today * Suspected cause: secondary to pneumonia * Chest XR: Haziness in the lung bases suggestive of atelectasis versus early pneumonia. (4) Type 2 diabetes mellitus: Code(s): E11.9 - Type 2 diabetes mellitus without complications Status: Acute Assessment and Plan: * Diabetic diet * Hemoglobin A1c * Lantus and sliding scale * Hold home metformin (5) Bipolar disorder: Code(s): F31.9 - Bipolar disorder, unspecified Status: Acute Assessment and Plan: * Continue Abilify, Lamictal and Cymbalta (6) Dementia: Code(s): F03.90 - Unspecified dementia, unspecified severity, without behavioral disturbance, psychotic disturbance, mood disturbance, and anxiety Status: Acute Assessment and Plan: * Continue dementia medications * A&O x2-3 per OR (7) Hypokalemia: Code(s): E87.6 - Hypokalemia Status: Acute Assessment and Plan: 2.9 as of AM labs on 07/02, appears to live near this level, takes 20meq PO daily has not been taking this here - restarted for first dose tomorrow AM Denies CP, SOB, palpitations Continue telemetry, NSR 88 bpm today K oral replacement 40 meq BID today, recheck levels 07/03 AM Subjective Date/time seen: 07/02/24 1115 Interval history: Patient is a 63-year-old male who is wheelchair-bound and lives at a facility who reports to the emergency department here at [place] for altered mental status and hypoxia. Upon today's examination patient is sitting comfortably in bed eating A&O x2, knows self and where he is. Called pt [facility] to obtain baseline orientation status and his nurse reports that he goes between A&O x2-3, so pt is at his baseline. Patient has been tolerating saturations today on room air of 95-97%. However, K is low at 2.9, will repeat with orals today (BID) and trend labs in the AM. Hopeful D/C tomorrow. Review of Systems Review of Systems: ROS unobtainable: Yes unobtainable due to mental status Exam Const: General: comfortable and no acute distress HENMT: Face/Nose/Sinus: Normal nares present Mouth: Yes moist mucous membranes Eyes: General: appearance normal, both eyes and all related structures Sclera: sclerae normal Neck: Neck: supple and no JVD Carotids: no bruits Resp: Effort & Inspection: normal respiratory effort Auscultation: clear to auscultation bilaterally Cardio: Rate: regular rate Rhythm: regular rhythm GI: Inspection: non-distended Auscultation: normal bowel sounds Skin: General skin exam: normal color and no rashes or lesions noted Wounds: no wounds Neuro: Speech: normal speech Motor exam (neuro): Normal motor muscle tone present throughout Other: A&Ox2, to person and place - his baseline Extrem: General: normal to inspection Psych: Affect: normal affect Objective Data Vital Signs Vital Signs: Vital Signs - 24 hr 07/01/24 12:00 07/01/24 14:00 07/01/24 16:00 Temperature 97.8 F Pulse Rate 81 72 71 Respiratory Rate 14 Blood Pressure 127/69 Pulse Oximetry 94 Oxygen Delivery Fraction of Inspired Oxygen 07/01/24 20:00 07/01/24 20:00 07/01/24 20:26 Temperature Pulse Rate 73 72 Respiratory Rate Blood Pressure Pulse Oximetry 94 92 Oxygen Delivery Room Air Room Air Fraction of Inspired Oxygen 07/01/24 21:17 07/02/24 00:00 07/02/24 04:00 Temperature 99.3 F Pulse Rate 73 76 71 Respiratory Rate 18 Blood Pressure 155/75 H Pulse Oximetry 94 Oxygen Delivery Fraction of Inspired Oxygen 07/02/24 05:29 07/02/24 08:00 07/02/24 08:00 Temperature 98.8 F Pulse Rate 75 73 74 Respiratory Rate 18 18 Blood Pressure 137/78 Pulse Oximetry 95 95 Oxygen Delivery Room Air Fraction of Inspired Oxygen 21 07/02/24 08:17 Temperature 97.5 F L Pulse Rate 74 Respiratory Rate 18 Blood Pressure 137/66 Pulse Oximetry 95 Oxygen Delivery Fraction of Inspired Oxygen Intake/Output Intake/Output: Intake & Output 06/29/24 06/30/24 07/01/24 07/02/24 23:59 23:59 23:59 23:59 Intake Total 2100 8939 798 4810 Output Total 550 650 Balance 2100 1090 40 987 Meds/Results Medications: Active Medications Generic Name Dose Route Start Last Admin Trade Name Freq PRN Reason Stop Dose Admin Acetaminophen 650 mg 06/29/24 17:08 06/29/24 23:59 Acetaminophen 325 Mg Tablet PO 650 mg Q4H PRN Administration Mild Pain (1-3) or Fever Aripiprazole 4 mg 06/30/24 09:00 07/02/24 08:26 Aripiprazole 2 Mg Tablet PO 4 mg DAILY KARISSA Administration Azithromycin 500 mg 07/01/24 09:00 07/02/24 08:26 Azithromycin 250 Mg Tablet PO 07/04/24 09:01 500 mg DAILY KARISSA Administration Dextrose 12.5 gm 06/29/24 17:03 Dextrose 50% 25 Gm/50 Ml Syringe IV PUSH PRN PRN Hypoglycemia Protocol Docusate Sodium 100 mg 06/29/24 17:25 07/02/24 08:25 Docusate Sodium 100 Mg Capsule PO 100 mg BID KARISSA Administration Donepezil HCl 10 mg 06/29/24 22:05 07/01/24 21:10 Donepezil Hcl 10 Mg Tablet PO 10 mg HS KARISSA Administration Duloxetine HCl 40 mg 06/30/24 09:00 07/02/24 08:25 Duloxetine Hcl 20 Mg Capsule.Dr PO 40 mg DAILY KARISSA Administration Enoxaparin Sodium 40 mg 06/30/24 09:00 07/02/24 08:25 Enoxaparin 40 Mg/0.4 Ml Syringe SUB-Q 40 mg DAILY KARISSA Administration Ferrous Sulfate 325 mg 06/30/24 09:00 07/02/24 08:25 Ferrous Sulfate [address] BY MOUTH 325 mg BID KARISSA Administration Glucagon 1 mg 06/29/24 17:03 Glucagon For Inj 1 Mg Vial IM PRN PRN Hypoglycemia Protocol Glucose 15 gm 06/29/24 17:03 Glucose Oral Gel 15 Gm Of Glucse In 37.5 Gm Tube PO PRN PRN Hypoglycemia Protocol Cefepime HCl 2 gm in 50 mls @ 100 mls/hr 06/29/24 18:00 07/02/24 10:19 Maxipime 2 Gm/Ns 50 Ml IVPB Infused Q8H KARISSA Infusion Dextrose 1,000 mls @ 100 mls/hr 06/29/24 17:03 Dextrose 5% 1,000 Ml IVPB PRN PRN Hypoglycemia Protocol Insulin Aspart 2 - 5 units 06/30/24 08:00 07/02/24 08:26 Insulin Aspart (*Bkc) 100 Units/Ml SUB-Q Not Given TIDWM KARISSA Protocol Insulin Aspart 1 - 2 units 06/29/24 21:00 07/01/24 21:04 Insulin Aspart (*Bkc) 100 Units/Ml SUB-Q Not Given HS KARISSA Protocol Insulin Glargine 9 units 06/29/24 21:00 07/01/24 21:12 Insulin Glargine (*Bkc) 100 Units/Ml 0.15 units/kg (9 units) 9 units SUB-Q Administration HS KARISSA Lamotrigine 25 mg 06/29/24 22:05 07/02/24 08:26 Lamotrigine 25 Mg Tablet PO 25 mg Q12HR KARISSA Administration Melatonin 5 mg 06/29/24 22:05 07/01/24 21:10 Melatonin 5 Mg Tablet PO 5 mg HS KARISSA Administration Memantine 10 mg 06/29/24 22:05 07/02/24 08:26 Memantine 10 Mg Tablet PO 10 mg Q12HR KARISSA Administration Mirtazapine 7.5 mg 06/29/24 22:05 07/01/24 21:10 Mirtazapine 7.5 Mg Tablet PO 7.5 mg HS KARISSA Administration Pantoprazole Sodium 40 mg 06/30/24 09:00 07/02/24 08:26 Pantoprazole 40 Mg Tablet PO 40 mg BID KARISSA Administration Potassium Chloride 40 meq 07/02/24 17:00 Potassium Chloride 20 Meq Er Tablet PO 07/02/24 17:01 ONCE ONE Senna 8.6 mg 06/30/24 09:00 07/02/24 08:25 Sennosides 8.6 Mg Tablet PO 8.6 mg BID KARISSA Administration Sucralfate 1,000 mg 06/30/24 07:00 07/02/24 10:12 Sucralfate Susp 100 Mg/Ml 10 Ml Udc PO 1,000 mg 0700,1100,1600,2100 KARISSA Administration Radiology Results: ITS Impressions Chest X-Ray 06/29/24 14:19 IMPRESSION: Haziness in the lung bases suggestive of atelectasis versus early pneumonia. Follow-up advised. Head CT 06/29/24 15:06 IMPRESSION: No acute intracranial findings. Pansinusitis. Chest CTA 06/29/24 15:12 IMPRESSION: Motion limits evaluation of subsegmental pulmonary arteries and the right lower lobe. No CT evidence of acute pulmonary embolus in the adequately visualized pulmonary arteries. Pulmonary opacities may represent atypical infection, pneumonitis, or aspiration. Trace pericardial effusion. Nodular appearing liver border, as can be seen with cirrhotic change. Labs Labs: Laboratory Results - last 24 hr 07/01/24 07/01/24 07/01/24 11:59 16:55 20:22 WBC RBC Hgb Hct MCV MCH MCHC RDW Plt Count MPV Immature Gran % (Auto) Neut % (Auto) Lymph % (Auto) [place] % (Auto) Eos % (Auto) Baso % (Auto) Lymph # (Auto) [place] # (Auto) Eos # (Auto) Baso # (Auto) Abs Immat Gran (auto) Absolute Neuts (auto) Absolute Nucleated RBC Nucleated RBC % VBG pH VBG pCO2 VBG pO2 VBG HCO3 O2 Delivery Device O2 Liters/Min FiO2 Sodium Potassium Chloride Carbon Dioxide Anion Gap BUN Creatinine Estim Creat Clear Calc Estimated GFR Glucose POC Capillary Glucose 132 H 103 142 H Calcium Total Bilirubin AST ALT Alkaline Phosphatase Total Protein Albumin Urine Opiates Screen Urine Methadone Screen Ur Barbiturates Screen Ur Phencyclidine Scrn Ur Amphetamine Screen U Benzodiazepines Scrn Urine Cocaine Screen U Cannabinoids Screen 07/01/24 07/02/24 07/02/24 20:28 05:35 05:39 WBC 7.8 RBC 4.52 L Hgb 13.5 L Hct 41.1 L MCV 90.9 MCH 29.9 MCHC 32.8 RDW 13.3 Plt Count 199 MPV 10.3 Immature Gran % (Auto) 1.9 H Neut % (Auto) 72.7 Lymph % (Auto) 15.7 L [place] % (Auto) 6.8 Eos % (Auto) 2.3 Baso % (Auto) 0.6 Lymph # (Auto) 1.22 [place] # (Auto) 0.5 Eos # (Auto) 0.2 Baso # (Auto) 0.1 Abs Immat Gran (auto) 0.15 H Absolute Neuts (auto) 5.6 Absolute Nucleated RBC 0.000 Nucleated RBC % 0.0 VBG pH 7.472 H* VBG pCO2 32.4 L VBG pO2 52.7 H VBG HCO3 23.2 L O2 Delivery Device Not Reportable O2 Liters/Min Not Reportable FiO2 21 Sodium 140 Potassium 2.9 L Chloride 108 H Carbon Dioxide 22 Anion Gap 10 BUN 13 Creatinine 0.53 L Estim Creat Clear Calc 107 Estimated GFR > 60 Glucose 87 POC Capillary Glucose Calcium 8.2 L Total Bilirubin 1.1 AST 54 ALT 36 Alkaline Phosphatase 197 H Total Protein 6.0 L Albumin 3.2 L Urine Opiates Screen Negative Urine Methadone Screen Negative Ur Barbiturates Screen Negative Ur Phencyclidine Scrn Negative Ur Amphetamine Screen Negative U Benzodiazepines Scrn Negative Urine Cocaine Screen Negative U Cannabinoids Screen Negative 07/02/24 07/02/24 07/02/24 07:42 09:00 11:31 WBC RBC Hgb Hct MCV MCH MCHC RDW Plt Count MPV Immature Gran % (Auto) Neut % (Auto) Lymph % (Auto) [place] % (Auto) Eos % (Auto) Baso % (Auto) Lymph # (Auto) [place] # (Auto) Eos # (Auto) Baso # (Auto) Abs Immat Gran (auto) Absolute Neuts (auto) Absolute Nucleated RBC Nucleated RBC % VBG pH 7.496 H* VBG pCO2 27.1 L* VBG pO2 34.6 L VBG HCO3 20.5 L O2 Delivery Device Not Reportable O2 Liters/Min Not Reportable FiO2 21 Sodium Potassium Chloride Carbon Dioxide Anion Gap BUN Creatinine Estim Creat Clear Calc Estimated GFR Glucose POC Capillary Glucose 95 142 H Calcium Total Bilirubin AST ALT Alkaline Phosphatase Total Protein Albumin Urine Opiates Screen Urine Methadone Screen Ur Barbiturates Screen Ur Phencyclidine Scrn Ur Amphetamine Screen U Benzodiazepines Scrn Urine Cocaine Screen U Cannabinoids Screen Quality VTE Prophylaxis VTE prophylaxis: mechanical ordered
[2024-07-02] MEDS: POTASSIUM CHLORIDE 20 MEQ ER TABLET 40 MEQ PO ×2 (12:09→16:18)
[2024-07-02 16:26] LABS: Glucose Point of Care 139 mg/dl (65-105)
[2024-07-02 20:29] LABS: Glucose Point of Care 113 mg/dl (65-105)
[2024-07-02] MEDS: MELATONIN 5 MG TABLET PO (21:02)
[2024-07-02] MEDS: DONEPEZIL HCL 10 MG TABLET PO (21:02)
[2024-07-02] MEDS: MIRTAZAPINE 7.5 MG TABLET PO (21:02)
[2024-07-02] MEDS: AMOXICILLIN/CLAVULANATE K 875-125 MG TAB 1 TABLET PO (21:02)
[2024-07-03] VITALS: PULSE 73
[2024-07-03 04:00] VITALS: PULSE 80
[2024-07-03 05:20] VITALS: BP 123/42; PULSE 73; RESP 17; TEMP 35.7; O2SAT 97
[2024-07-03 05:35] LABS: Alveolar/Arterial O2 Gradient 51.8 mmHg; Base Excess ABG -1.5 mEq/l (+/-2.0); Fractional Inspired Oxygen 21 %; HCO3 ABG 21.7 mEq/l (22.0-26.0); Oxygen Content ABG 18.9 %vol (16.0-22.0); Oxygen Saturation ABG 91.5 % (95.0-100.0); Oxyhemoglobin 89.4 % THb (90.0-100.0); PCO2 ABG 32.9 mmHg (35.0-45.0); PO2 ABG 58.5 mmHg (80.0-100.0); PO2 FiO2 Ratio Arterial Blood 2.79 %; Total Hemoglobin 15.1 g/dL (12.0-18.0); pH ABG 7.438 (7.350-7.450)
[2024-07-03 05:43] LABS: Modified Allen's Test Pass; Site Drawn RIGHT RADIAL
[2024-07-03] MEDS: SUCRALFATE SUSP 100 MG/ML 10 ML UDC 1000 MG PO ×2 (06:02→11:39)
[2024-07-03 06:14] LABS: Basophils Absolute Auto 0.1 K/mm3 (0.0-0.1); Eosinophils Absolute Auto 0.2 K/mm3 (0-0.3); Eosinophils Percent Auto 2.7 % (0-4.4); Hematocrit 41.5 % (42.0-52.0); Hemoglobin 13.7 g/dL (14.0-18.0); Immature Granulocyte Percent A 5.5 % (0-0.5); Lymphocytes Absolute Auto 1.75 K/mm3 (0.9-3.2); Lymphocytes Percent Auto 19.4 % (18.3-44.2); Mean Corpuscular Hemoglobin 30.4 pg (26-34); Mean Platelet Volume 9.7 fl (7.4-10.4); Monocytes Absolute Auto 0.7 K/mm3 (0.1-0.6); Monocytes Percent Auto 7.3 % (2.6-8.5); Neutrophils Absolute Auto 5.8 K/mm3 (1.3-6.7); Neutrophils Percent Auto 64.1 % (45.5-73.1); Platelet Count Result 267 k/mm3 (150-375); Red Blood Count 4.51 M/mm3 (4.6-6.20); Red Cell Distribution Width 13.2 % (11.5-14.5)
[2024-07-03 06:25] LABS: Alanine Aminotransferase 53 U/L (6-50); Albumin Level 3.4 g/dL (3.5-5.1); Alkaline Phosphatase 225 U/L (38-126); Anion Gap 10 mmol/L (4-12); Aspartate Amino Transferase 70 U/L (17-59); Bilirubin,Total 0.9 mg/dL (0.2-1.3); Blood Urea Nitrogen 14 mg/dL (9-20); Calcium 8.5 mg/dL (8.4-10.2); Carbon Dioxide 22 mmol/L (22-30); Chloride 107 mmol/L (98-107); Estimated CRCL calculation 95 ml/min; Estimated Glomerular Filt Rate > 60; Glucose 118 mg/dL (65-110); Potassium 3.6 mmol/L (3.4-5.0); Sodium 139 mmol/L (137-145)
[2024-07-03 07:58] LABS: Glucose Point of Care 129 mg/dl (65-105)
[2024-07-03 08:00] VITALS: PULSE 65
[2024-07-03] MEDS: ENOXAPARIN 40 MG/0.4 ML SYRINGE SUB-Q (09:18)
[2024-07-03] MEDS: AZITHROMYCIN 250 MG TABLET 500 MG PO (09:18)
[2024-07-03] MEDS: DULoxetine HCL 20 MG CAPSULE.DR 40 MG PO (09:18)
[2024-07-03] MEDS: DOCUSATE SODIUM 100 MG CAPSULE PO (09:18)
[2024-07-03] MEDS: MEMANTINE 10 MG TABLET PO (09:19)
[2024-07-03] MEDS: ARIPiprazole 2 MG TABLET 4 MG PO (09:19)
[2024-07-03] MEDS: AMOXICILLIN/CLAVULANATE K 875-125 MG TAB 1 TABLET PO (09:19)
[2024-07-03] MEDS: PANTOPRAZOLE 40 MG TABLET PO (09:19)
[2024-07-03] MEDS: lamoTRIgine 25 MG TABLET PO (09:19)
[2024-07-03] MEDS: SENNOSIDES 8.6 MG TABLET PO (09:19)
[2024-07-03] MEDS: POTASSIUM CHLORIDE 20 MEQ PACKET (FOR LIQUID) PO (09:19)
[2024-07-03] MEDS: FERROUS SULFATE 325 MG TABLET DR BY MOUTH (09:20)
--- NOTE | 2024-07-03 10:02 | PCNFU ---
Nutrition Follow-Up Complete: Increased nutrient needs related to altered skin integrity as evidenced by DTPI to buttocks Goal:PO intake 50% or greater for meals and supplements Pt current nutrition is Diabetic, Glucerna shakes BID, LETTY BID. Nutrition recommendation: continue with current plan of care Last recorded weight is 66.8 kg. Bowel Motility: +BM 07/02 Labs Reviewed: Hgb:13.7, HCT:41.5, Cr:0.6, Glu:118 Meds Noted: insulin, KCL, remeron, protonix Skin: DTPI to buttocks Additional Notes: Pt continues on a diabetic diet, intake improved some to 25-100%, varied. Supplements in place. Encourage po intake of meals and supplements. Monitor intake, wt, labs, skin. Follow up in 5 days
[2024-07-03 12:00] VITALS: PULSE 69
--- NOTE | 2024-07-03 12:00 | P.DS_ITS ---
DS: Admitting Diagnosis Discharge Date 07/03/2024 Admitting Diagnosis Hypoxia, PNA DS: Discharge Diagnosis Discharge Diagnosis (1) Altered mental status: Code(s): R41.82 - Altered mental status, unspecified Status: Acute Assessment and Plan: * Likely from hypoxia and acute infection on top of history of dementia * Head CT: No acute intracranial findings * Chest CTA: No evidence of PE, pulmonary opacities, atypical infection/pneumonitis/aspiration * CXR:Haziness in the lung bases suggestive of atelectasis versus early pneumonia * UA: 2+ protein, 1+ ketones, 1+ bilirubin, * Viral PCR: negative for Flu, RSV, COVID * WBC: 9 07/03 * Blood cultures - no growth * Trending VBGs, pH mildly high, will obtain ABG in the AM - WDL, baseline for pt. * Baseline orientation per SNF nurse is A&O x2-3, has been stable here and is back to baseline. (2) Pneumonia: Code(s): J18.9 - Pneumonia, unspecified organism Status: Acute Assessment and Plan: * CXR: Haziness in the lung bases suggestive of atelectasis versus early pneumonia * Started on CAP tx: azithromycin ceftriaxone on 05/20 * Viral PCR: negative for Flu/COVID/RSV * Consider ordering legionella, mycoplasma and pneumococcal * no supplemental O2 requirement at baseline, on RA and stable today satting 95- 97% * Blood cultures negative * IV Rocephin, doxycycline and Flagyl given in ED * On Cefepime q.6 and Azithro - switched to all oral on 07/02, will continue augmentin and azithro at D/C * Pt denies SOB, etc, lungs sounding clear (3) Acute respiratory failure: Code(s): J96.00 - Acute respiratory failure, unspecified whether with hypoxia or hypercapnia Status: Acute Assessment and Plan: * Symptoms: SOB * SpO2: 95-97% on RA today, has been off O2 for several days * Suspected cause: secondary to pneumonia * Chest XR: Haziness in the lung bases suggestive of atelectasis versus early pneumonia. (4) Type 2 diabetes mellitus: Code(s): E11.9 - Type 2 diabetes mellitus without complications Status: Acute Assessment and Plan: * Diabetic diet * Hemoglobin A1c * Lantus and sliding scale * Hold home metformin, continue at D/C (5) Bipolar disorder: Code(s): F31.9 - Bipolar disorder, unspecified Status: Acute Assessment and Plan: * Continue Abilify, Lamictal and Cymbalta (6) Dementia: Code(s): F03.90 - Unspecified dementia, unspecified severity, without behavioral disturbance, psychotic disturbance, mood disturbance, and anxiety Status: Acute Assessment and Plan: * Continue dementia medications * A&O x2-3 per NH, back to baseline here (7) Hypokalemia: Code(s): E87.6 - Hypokalemia Status: Acute Assessment and Plan: 2.9 as of AM labs on 07/02, appears to live near this level, takes 20meq PO daily has not been taking this here - restarted for first dose tomorrow AM Denies CP, SOB, palpitations Continue telemetry, NSR 88 bpm today K oral replacement 40 meq BID yesterday, recheck levels 07/03 AM - WDL, continue baseline PO K supplement at discharge DS: Summary Hospital Course Reason for hospitalization: Hypoxia, PNA Hospital Course: Patient is a 63-year-old male who is wheelchair-bound and lives at a facility who reports to the emergency department here at [place] for altered mental status and hypoxia. throughout his admission patient was placed on oxygen but has been since weaned down to room air and has remained stable. Upon today's examination patient is sitting comfortably in bed eating A&O x2, knows self and where he is. Called pt [facility] to obtain baseline orientation status and his nurse reports that he goes between A&O x2-3, so pt is at his baseline. Dyana ent was found to have pneumonia in the emergency department, he was started on and will continue appropriate antibiotics upon discharge. Patient has been tolerating saturations today on room air of 95-97%. Had a low K yesterday which was repleted back to baseline measurement, will continue oral K supplement that he takes at home when discharged. Status at Discharge Cognitive/behavioral status at discharge: Stable Time Spent with Patient Time attestation: Total time spent providing and/or coordinating discharge services: Exam Const: General: comfortable and no acute distress Other: Disheveled, appears to be baseline HENMT: Face/Nose/Sinus: Normal nares present Mouth: Yes moist mucous membranes Eyes: General: appearance normal, both eyes and all related structures Sclera: sclerae normal Neck: Neck: supple and no JVD Carotids: no bruits Resp: Effort & Inspection: normal respiratory effort Auscultation: clear to auscultation bilaterally Cardio: Rate: regular rate Rhythm: regular rhythm GI: Inspection: non-distended Auscultation: normal bowel sounds Skin: General skin exam: normal color and no rashes or lesions noted Wounds : no wounds Neuro: Speech: normal speech Motor exam (neuro): Normal motor muscle tone present throughout Other: A&Ox3 - his baseline Extrem: General: normal to inspection Psych: Mental Status: mental status grossly normal Affect: normal affect DS: Data Data Completed and Pending Labs on day of discharge: Labs from last 24 hours 07/03/24 07/03/24 07/03/24 07:53 05:54 05:17 WBC 9.0 RBC 4.51 L Hgb 13.7 L Hct 41.5 L MCV 92.0 MCH 30.4 MCHC 33.0 RDW 13.2 Plt Count 267 MPV 9.7 Immature Gran % (Auto) 5.5 H Neut % (Auto) 64.1 Lymph % (Auto) 19.4 [place] % (Auto) 7.3 Eos % (Auto) 2.7 Baso % (Auto) 1.0 Lymph # (Auto) 1.75 [place] # (Auto) 0.7 H Eos # (Auto) 0.2 Baso # (Auto) 0.1 Abs Immat Gran (auto) 0.50 H Absolute Neuts (auto) 5.8 Absolute Nucleated RBC 0.000 Nucleated RBC % 0.0 Puncture Site Right radial ABG pH 7.438 ABG pCO2 32.9 L ABG pO2 58.5 L ABG PO2/FiO2 Ratio 2.79 ABG HCO3 21.7 L ABG O2 Saturation 91.5 L ABG O2 Content 18.9 ABG Base Excess -1.5 A-a Gradient 51.8 Oxyhemoglobin 89.4 L Total Hemoglobin 15.1 O2 Delivery Device Not Reportable O2 Liters/Min Not Reportable FiO2 21 Sodium 139 Potassium 3.6 Chloride 107 Carbon Dioxide 22 Anion Gap 10 BUN 14 Creatinine 0.60 L Estim Creat Clear Calc 95 Estimated GFR > 60 Glucose 118 H POC Capillary Glucose 129 H Calcium 8.5 Total Bilirubin 0.9 AST 70 H ALT 53 H Alkaline Phosphatase 225 H Total Protein 7.0 Albumin 3.4 L 07/02/24 07/02/24 20:26 16:22 WBC RBC Hgb Hct MCV MCH MCHC RDW Plt Count MPV Immature Gran % (Auto) Neut % (Auto) Lymph % (Auto) [place] % (Auto) Eos % (Auto) Baso % (Auto) Lymph # (Auto) [place] # (Auto) Eos # (Auto) Baso # (Auto) Abs Immat Gran (auto) Absolute Neuts (auto) Absolute Nucleated RBC Nucleated RBC % Puncture Site ABG pH ABG pCO2 ABG pO2 ABG PO2/FiO2 Ratio ABG HCO3 ABG O2 Saturation ABG O2 Content ABG Base Excess A-a Gradient Oxyhemoglobin Total Hemoglobin O2 Delivery Device O2 Liters/Min FiO2 Sodium Potassium Chloride Carbon Dioxide Anion Gap BUN Creatinine Estim Creat Clear Calc Estimated GFR Glucose POC Capillary Glucose 113 H 139 H Calcium Total Bilirubin AST ALT Alkaline Phosphatase Total Protein Albumin Preliminary micro results at discharge 06/29/24 15:51 Blood Culture - Preliminary Blood 06/29/24 16:01 Blood Culture - Preliminary Blood Discharge Plan Discharge Attending physician on discharge: Corinne Beckman Discharging Clinician: Corinne Beckman Anticipated Discharge Date/Time: 07/03/24 14:00 Patient Disposition: SNF Activity: as tolerated Diet: diabetic Discharge Instructions: 1. Continue taking your oral antibiotics for pneumonia, these were sent to your pharmacy. 2. Continue taking all of your home medications, including your daily oral Potassium supplement. 3. If you have any issues breathing again, please come back to the ER [facility]. Patient Instructions: Antibiotic Form, Community Acquired Pneumonia (GEN) Patient Language: Swedish Stand Alone Forms: General Discharge Information Follow-up/Referrals: Ruben,MD Carlos [Primary Care Provider] - 2 Weeks Discharge Medications: New azithromycin [Zithromax] 250 mg Tablet 500 mg PO DAILY 1 Days Qty: 2 0RF amoxicillin-pot clavulanate 875-125 mg tablet 1 tablet PO Q12H Qty: 7 0RF Rx Instructions: Start the first dose tonight and then continue tomorrow with twice daily until run out. Continued metformin 500 mg Tablet 500 mg PO BID sennosides [senna] 8.6 mg Tablet 8.6 mg PO BID acetaminophen 500 mg Tablet 1,000 mg PO Q8H PRN (Reason: pain) ferrous sulfate 325 mg (65 mg iron) Tablet 325 mg PO BID mirtazapine [Remeron] 15 mg Tablet 7.5 mg PO HS multivitamin with minerals Tablet 1 tablet PO DAILY duloxetine 40 mg Capsule,Delayed Release(Dr/Ec) 40 mg PO DAILY insulin glargine [Lantus U-100 Insulin] 100 unit/mL Solution 15 unit subcut HS Qty: 10 0RF potassium chloride 20 mEq Packet 20 meq PO DAILY Qty: 30 0RF insulin aspart U-100 [Novolog U-100 Insulin aspart] 100 unit/mL Solution 2 - 5 unit subcut WMHS Qty: 10 0RF Protocol: Insulin Corrective Low-Dose Condition: glucose < 70 mg/dl Dose/Route: Follow Hypoglycemia Order Condition: glucose 70-200 mg/dl Dose/Route: No additional insulin Condition: glucose 201-250 mg/dl Dose/Route: 2 units sub-Q Condition: glucose 251-300 mg/dl Dose/Route: 3 units sub-Q Condition: glucose 301-350 mg/dl Dose/Route: 4 units sub-Q Condition: glucose 351-400 mg/dl Dose/Route: 5 units sub-Q Condition: glucose > 400 mg/dl Dose/Route: Call Rx Instructions: Condition Dose/Route Instruction glucose < 70 mg/dl Follow Hypoglycemia Order glucose 70-200 mg/dl No additional insulin glucose 201-250 mg/dl 2 units sub-Q glucose 251-300 mg/dl 3 units sub-Q glucose 301-350 mg/dl 4 units sub-Q glucose 351-400 mg/dl 5 units sub-Q glucose > 400 mg/dl Call donepezil 10 mg tablet 10 mg PO HS aripiprazole 5 mg tablet 4 mg PO DAILY melatonin 5 mg Tablet 5 mg PO HS memantine 10 mg tablet 10 mg PO BID Desitin Daily Defense 13 % cream 1 applic topical TID PRN (Reason: skin irritation) Qty: 136 0RF lamotrigine 25 mg tablet 25 mg PO BID (DME) DropSafe Pen Needle 31 gauge x 5/16 needle MISCELLANEOUS fluticasone propionate [Allergy Relief (fluticasone)] 50 mcg/actuation spray,suspension 1 spray intranasal HS Rx Instructions: administer into each nostril sucralfate 100 mg/mL Suspension 1,000 mg PO QID Patient Comments: Administer before meals and at bed time pantoprazole 40 mg tablet,delayed release (DR/EC) 40 mg PO BID 14 Days Qty: 28 0RF Date of admission: 06/29/24 18:47 Primary Care Provider: ParishCarlos Admitting Provider: Karla Orlando Attending physician on admission: Blayne Lim Condition: Stable Quality VTE Prophylaxis VTE prophylaxis: mechanical ordered Hospitalist MIPS Heart Failure (Exclusion) Patient has history of Heart Transplant or Left Ventricular Assistive Device?: No IF YES, STOP HERE Heart Failure (Qualifier) Patient has current or prior documentation of LVEF less than or equal to 40%, or mod/servere depressed LVSF?: No IF NO, STOP HERE
== END 2024-07-03 14:20 | DRG 193 ==
LOC: ANHED 13:41 → ANH3MEDSUR 16:40
PROVIDERS: Emergency Medicine; Nurse Practitioner Gerontology; Physician Assistant; Admitting Provider Family Medicine; Emergency Provider Emergency Medicine; PCP Internal Medicine
DX: J18.9 Pneumonia, unspecified organism (principal); J96.01 Acute respiratory failure with hypoxia; Z20.822 Contact with and (suspected) exposure to COVID-19; F03.90 Unspecified dementia, unspecified severity, without behavioral disturbance, psychotic disturbance, mood disturbance, and anxiety; F31.9 Bipolar disorder, unspecified; E87.6 Hypokalemia; E11.42 Type 2 diabetes mellitus with diabetic polyneuropathy; F20.9 Schizophrenia, unspecified; K21.9 Gastro-esophageal reflux disease without esophagitis; F41.8 Other specified anxiety disorders; K76.0 Fatty (change of) liver, not elsewhere classified; Z99.3 Dependence on wheelchair; Z66 Do not resuscitate
CPT/HCPCS: 36415; 36600; 70450; 71046; 71275; 80048; 80053; 80307; 81001; 82140; 82803; 82805; 82948; 83605; 83880; 84484; 85018; 85025; 85610; 85730; 87040; 87637; 87641; 93005; 96361; 96365; 96367; 96368; 99285; A9270; G0378; J0456; J0692; J0696; J1650; J1815; J1836; J3370; J7030; Q9967

== ENCOUNTER 2024-07-09 00:39 | Day surgery (SDC) | payer MEDICARE, MEDICAID, SELFPAY ==
--- OUTSIDE RECORDS SUMMARY | 2024-07-09 00:43 | XMS_ITS | CONTINUITY OF CARE DOCUMENT ---
Author Name mason cuevas Address Unknown Organization [facility] Address [address] [place] [address] Phone [phone] Care Team Providers Care Appraiser Art Name Role Phone Collin GARCIA, Cuong Unavailable PERCY GARCIA, NICO Unavailable Unavailable NICO GREER MD Unavailable Unavailable PROBLEMS Condition Status Date Provider Notes TOBACCO ABUSE active Cuogn Polanco MD PULMONARY HYPERTENSION, SECONDARY PAS P40 active 11/06 Cuong Polanco MD SEIZURE DISORDER active Cuong Polanco MD ANXIETY DEPRESSION active Cuong Polanco MD ALCOHOL ABUSE HX OF active Cuong Polanco MD ENCOUNTERS Date Type Provider Location Encounter Diag nosis - In-person encounter Office Visit Cuong Polanco MD [facility] - In-person encounter Office Visit Cuong Polanco MD [facility] ALCOHOL ABUSE HX OF - In-person encounter Office Visit Cuong Polanco MD [facility] TOBACCO ABUSEPULMONARY HYPERTENSION, SECONDARY PAS [id number] DISORDERANXIETY DEPRESSION VITAL SIGNS Date Observation Value [...] Location 8 cortisol, serum, morning 8.0 ug/dL [facility] [place] 7 B-12, serum 499 pg/mL [facility] [place] 7 folate, serum 12.2 ng/mL [facility] [place] 7 Estimated Glomerular Filtration Rate (calc) 82 mL/min/{1. 73_m2} [facility] [place] 0 blood glucose, finger stick 82 [facility] [place] 8 [facility] calcium, serum 9.1 mg/dL [facility] [place] 8 blood glucose, fasting 82 mg/[facility] creatinine, serum 0.81 mg/dL [facility] [place] 8 urea nitrogen, blood 13 mg/dL [facility] [place] 8 carbon dioxide, serum, total 26 [...] Telles social history reviewed E&M reviewed Vivek aLndry RN smoking history, tot al pack/year 37 [...] use, averag e drinks per day yes [facility] alcohol use, average drinks per day none [facility] number of years as a smoker 10 years or m ore [facility] smoking status Smoker [facility] MENTAL STATUS Date Observation Value Provider assessment [...] Payer name Policy type / Coverage type [place] [employer] green party ID [place] MED[place] Medicare [id number] [facility] Medicaid 1 [id number] TREATMENT PLAN Date Name Performer Cuong Polanco MD : O rders: E KG ([id number]) Cuong Polanco MD : L ast EEG: Cuong Polanco MD routine Cuong Polanco MD routine: O rders: E KG ([id number]) Cuong Polanco MD routine Cuong Polanco MD routine Cuong Polanco MD routine Cuong Polanco MD HFU Cuong Polanco MD HISTORY OF PROCEDURES Procedure Date Procedure Name Provider Procedure Notes S tatus EKG Cuong Polanco MD completed EKG Cuong Polanco MD completed
--- OUTSIDE RECORDS SUMMARY | 2024-07-09 00:43 | XMS_ITS | Clinical Summary ---
Author Organization [facility] Address [address] [place] [address] Care Team Providers Care Financial Associate Name Role Phone Unavailable Primary Care Provider Unavailabl e Source Comments [facility],non-owned Affiliates and Associated Physician Practices is amultiple site organization consisting of ambulatory clinics and hospital sitesin [place], [place], [place] and [place]. This disclosure is being madepursuant to the Care Everywhere program and may not contain all information available regarding this patient. Last updated 17.[facility] Allergies No known active allergies Medications * [...] on file Legal Sex Male 11:20 AM [employer] Gender Identity Not on file Sexual Orientation Not on file Last Filed Vital Signs Vital Sign Reading Time Taken Comments Blood Pressure 136/75 04/17/2018 7:57 AM [employer] TE[employer] Pulse 62 04/17/2018 7:57 AM [employer] TE[employer] Temperature 36.3 C (97.4 F) 04/17/2018 7:57 AM [employer] TE[employer] Respiratory Rate 16 04/17/2018 7:57 AM [employer] TE[employer]ER Oxygen Saturation 99% 04/17/2018 7:57 AM [employer] TE[employer]ER Inhaled Oxygen Concentration - - Weight 42.2 kg (93 lb) 04/15/2018 2:58 PM [employer] TE[employer] Height 167.6 cm (5' 6 ) 04/09/2018 10:05 PM [employer] TE[employer] Body Mass Index 15.01 04/09/2018 10:05 PM [employer] TE[employer]ER Plan of Treatment Health Maintenance Due Date [...] Comments LIPID PROFILE Routine 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 from Last 3 Months or Most Recently Relevant to Health Maintenance Results * (ABNORMAL) LIPID PROFILE (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) Cholesterol 140 <200 mg/dL 04/17/2018 8:03 AM [facility] Triglycerides 69 <150 mg/dL 04/17/2018 8:03 AM [facility] HDL Cholesterol 34(L) >40 mg/dL 9 8:03 AM [facility] Chol HDL Ratio 4.1 1.0 - 6.0 04/17/2018 8:03 AM [facility] LDL Calculated 92 65 - 130 mg/dL 04/17/2018 8:03 AM [facility] VLDL Calculated 14 10 - 40 mg/dL 04/17/2018 8:03 AM [facility] Blood BLOOD SPECIMEN / Unknown Lab Venipuncture / Unknown 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 04/17/2018 7:32 AM [facility] - 04/17/2018 8:03 AM [facility] Lipid Profile Comment: CHOLESTEROL LEVEL..................CLINICAL [...] ORDERABLES Kristen garay Result Performing Organization Address City/State/[facility] Co de Phone Number [facility] [address] [place] [address], [facility] from Last 3 Months or Most Recently Relevant to Health Maintenance Insurance MEDICAID - OUT OF STATE MEDICARE MANAGED CARE PLAN GENERIC MEDICARE ADV SELF PAY NO INSURANCE Member Subscriber Plan / Payer (Ef fective for All Dates) Name:Rosalva Castillo Member ID:Not on file Relation to Subscriber:Not on file Name:ROSALVA CASTILLO Subscriber ID:Not on file Address: [address] [place] [address] Payer ID:Not on file Group ID:Not on file Type:Self Pay Address: [place], [place] MEDICARE [place] Advance Directives * Full Code (Latest Code Status on File) Date Activated Date Inactivated Comments 04/09/2018 11:39 PM 04/17/2018 12:27 PM
--- NOTE | 2024-07-09 09:21 | SUR.PREOP ---
Spoke with Mary Montaño in care coordination regarding patient not having any family or POA to sign legal paper work. Case discussed with Mary. Patient was discharge from here on 07/03. She said Dr. Rahman would need to sign consent for the procedure to be done. Dr. Rahman agreed to sign consent. We will proceed with procedure.
--- NOTE | 2024-07-09 11:11 | P.PNAN_ITS ---
Anes - Initial Pre Proc Eval Procedure: Operation Date: 07/09/24 08:30 Proposed Procedures p Esophagogastroduodenoscopy - Sukhjinder Guevara MD Date/Time: 07/09/24 11:11 Surgeon: Sukhjinder Guevara MD Pre Op Diagnosis: Gastritis, Esophagitis Patient Data Age: 63 Gender: M Height: Weight: 64.5 kg Allergies Allergy/AdvReac Type Severity Reaction Status Date / Time spider venom Allergy Unknown Swelling Verified 07/09/24 11:14 Home Medications ?Medication ?Instructions ?Recorded ?Confirmed ?Type aripiprazole 5 mg tablet 4 mg PO DAILY 09/12/20 07/06/24 History donepezil 10 mg tablet 10 mg PO HS 09/12/20 07/06/24 History melatonin 5 mg tablet 5 mg PO HS 09/12/20 07/06/24 History memantine 10 mg tablet 10 mg PO BID 09/12/20 07/06/24 History acetaminophen 500 mg tablet 1,000 mg PO Q8H PRN pain 02/17/23 07/06/24 History duloxetine 40 mg capsule,delayed 40 mg PO DAILY 02/17/23 07/06/24 History release ferrous sulfate 325 mg (65 mg 325 mg PO BID 02/17/23 07/06/24 History iron) tablet metformin 500 mg tablet 500 mg PO BID 02/17/23 07/06/24 History mirtazapine 15 mg tablet (Remeron) 7.5 mg PO HS 02/17/23 07/06/24 History multivitamin with minerals 1 tablet PO DAILY 02/17/23 07/06/24 History sennosides 8.6 mg tablet (senna) 8.6 mg PO BID 02/17/23 07/06/24 History insulin aspart U-100 100 unit/mL 2 - 5 unit subcut [facility]HS #10 mL 02/22/23 07/06/24 Rx subcutaneous solution (Novolog U-100 Insulin aspart) insulin glargine 100 unit/mL 15 unit (0.15 mL) subcut HS #10 mL 02/22/23 07/06/24 Rx subcutaneous solution (Lantus U-100 Insulin) potassium chloride 20 mEq oral 20 meq PO DAILY #30 ea 02/22/23 07/06/24 Rx packet zinc oxide 13 % topical cream 1 applic topical TID PRN skin 01/11/24 05/19/25 Rx (Desitin Daily Defense) irritation #136 grams fluticasone propionate 50 1 spray intranasal HS 04/12/24 07/06/24 History mcg/actuation nasal spray,suspension (Allergy Relief (fluticasone)) lamotrigine 25 mg tablet 25 mg PO BID 04/12/24 07/06/24 History pen needle, diabetic, safety 31 04/12/24 06/30/24 History gauge x 5/16 (DropSafe Pen Needle) sucralfate 100 mg/mL oral 1,000 mg PO QID 04/12/24 07/06/24 History suspension pantoprazole 40 mg tablet,delayed 40 mg PO BID 14 days #28 tabs 04/14/24 07/06/24 Rx release amoxicillin 875 mg-potassium 1 tablet PO Q12H #7 tabs 07/03/24 07/06/24 Rx clavulanate 125 mg tablet Patient hx anesthesia problems: none Family hx anesthesia problems: none Results Review: All pre-operative results and documents have been reviewed as part of the pre- operative evaluation. [facility] Past Medical History Medical History Left renal atrophy Type 2 diabetes mellitus Former smoker Recovering alcoholic in remission Memory impairment Hypertension Fatty liver Peripheral neuropathy Benign tumor of meningioma (cerebral) Chronic obstructive pulmonary disease Bipolar disorder Esophageal stricture Depression with anxiety Dementia Gastroesophageal reflux disease Schizophrenia Hypertension Surgical History Surgical History History of arthroscopic knee surgery Anterior cruciate ligament repair. History of esophagogastroduodenoscopy (06/2020) History of colonoscopy with polypectomy (06/2020) Family History Family History Mother Liver cancer Other Family history unknown Social History Social History Social History: Surrogate medical decision maker: Tee Esteban, brother. Code status: Do not resuscitate. Smoking status: Never smoker Second hand tobacco smoke exposure: No Alcohol intake: never Alcohol use details: History of alcohol abuse. Substance use: former Substance use type: does not use Do You Feel Safe in your Home?: Yes Lack of Transportation: No Lack of Food: Never True Current Housing: I Have Housing Concerned About Future Housing: No Difficulty Paying Gas/Electric Bills: No Difficulty Paying for Meds: No Currently Unemployed: No Education: Don't Know Difficulty w/ Childcare or Family Care: No Living arrangements: assisted Additional living arrangements comments: Resident at [facility]. 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 Spiritual care concerns: No Anes - Eval Final PreProcedure Day of Procedure 07/09/24 11:11 Patient weight: normal Heart: regular rate and rhythm Lungs: clear to auscultation and normal air movement Airway: Mallampati scale class II Neurological: alert and oriented Last oral intake: >/= 8 hours ASA classification: IV Emergent: no Anesthetic plan: proceed Anesthesia type and monitoring: general GIVS and standard monitoring Results Review: All pre-operative results and documents have been reviewed as part of the pre- operative evaluation. Informed Consent: The patient's anesthetic plan and its attendant risks and benefits were discussed with the patient/family/POA. Questions were solicited and answers provided to the satisfaction of the patient/family/POA.
[2024-07-09 11:15] VITALS: BP 129/86; PULSE 84; RESP 18; TEMP 36.1; O2SAT 98
[2024-07-09] MEDS: LACTATED RINGERS 1,000 ML 150 ML IV CONT (11:29)
[2024-07-09 11:30] LABS: Glucose Point of Care 106 mg/dl (65-105)
--- NOTE | 2024-07-09 12:23 | PM.HPGS ---
History of Present Illness History of Present Illness Consent: Risks, benefits, and alternatives have been discussed and questions answered. Patient agrees to proceed with procedure. Chief complaint: Gastritis, Esophagitis Narrative: Dax Esteban is a 63 year old male with history of severe erosive esophagitis 03/2024, he is staying at a halfway because of dementia, here to reassess Review of Systems Review of Systems: All systems reviewed & are unremarkable except as noted in HPI and below PMFSH Past Medical History Medical History Left renal atrophy Type 2 diabetes mellitus Former smoker Recovering alcoholic in remission Memory impairment Hypertension Fatty liver Peripheral neuropathy Benign tumor of meningioma (cerebral) Chronic obstructive pulmonary disease Bipolar disorder Esophageal stricture Depression with anxiety Dementia Gastroesophageal reflux disease Schizophrenia Hypertension Surgical History Surgical History History of arthroscopic knee surgery Anterior cruciate ligament repair. History of esophagogastroduodenoscopy (06/2020) History of colonoscopy with polypectomy (06/2020) Family History Family History Mother Liver cancer Other Family history unknown Social History Social History Social History: Surrogate medical decision maker: Tee Esteban, brother. Code status: Do not resuscitate. Smoking status: Never smoker Second hand tobacco smoke exposure: No Alcohol intake: never Alcohol use details: History of alcohol abuse. Substance use: former Substance use type: does not use Do You Feel Safe in your Home?: Yes Lack of Transportation: No Lack of Food: Never True Current Housing: I Have Housing Concerned About Future Housing: No Difficulty Paying Gas/Electric Bills: No Difficulty Paying for Meds: No Currently Unemployed: No Education: Don't Know Difficulty w/ Childcare or Family Care: No Living arrangements: halfway Additional living arrangements comments: Resident at [facility]. 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 Spiritual care concerns: No Meds Home Medications and Allergies Home Medications ?Medication ?Instructions ?Recorded ?Confirmed ?Type aripiprazole 5 mg tablet 4 mg PO DAILY 09/12/20 07/06/24 History donepezil 10 mg tablet 10 mg PO HS 09/12/20 07/06/24 History melatonin 5 mg tablet 5 mg PO HS 09/12/20 07/06/24 History memantine 10 mg tablet 10 mg PO BID 09/12/20 07/06/24 History acetaminophen 500 mg tablet 1,000 mg PO Q8H PRN pain 02/17/23 07/06/24 History duloxetine 40 mg capsule,delayed 40 mg PO DAILY 02/17/23 07/06/24 History release ferrous sulfate 325 mg (65 mg 325 mg PO BID 02/17/23 07/06/24 History iron) tablet metformin 500 mg tablet 500 mg PO BID 02/17/23 07/06/24 History mirtazapine 15 mg tablet (Remeron) 7.5 mg PO HS 02/17/23 07/06/24 History multivitamin with minerals 1 tablet PO DAILY 02/17/23 07/06/24 History sennosides 8.6 mg tablet (senna) 8.6 mg PO BID 02/17/23 07/06/24 History insulin aspart U-100 100 unit/mL 2 - 5 unit subcut WMHS #10 mL 02/22/23 07/06/24 Rx subcutaneous solution (Novolog U-100 Insulin aspart) insulin glargine 100 unit/mL 15 unit (0.15 mL) subcut HS #10 mL 02/22/23 07/06/24 Rx subcutaneous solution (Lantus U-100 Insulin) potassium chloride 20 mEq oral 20 meq PO DAILY #30 ea 02/22/23 07/06/24 Rx packet zinc oxide 13 % topical cream 1 applic topical TID PRN skin 02/28/23 07/06/24 Rx (Desitin Daily Defense) irritation #136 grams fluticasone propionate 50 1 spray intranasal HS 04/12/24 07/06/24 History mcg/actuation nasal spray,suspension (Allergy Relief (fluticasone)) lamotrigine 25 mg tablet 25 mg PO BID 04/12/24 07/06/24 History pen needle, diabetic, safety 31 04/12/24 06/30/24 History gauge x 5/16 (DropSafe Pen Needle) sucralfate 100 mg/mL oral 1,000 mg PO QID 04/12/24 07/06/24 History suspension pantoprazole 40 mg tablet,delayed 40 mg PO BID 14 days #28 tabs 04/14/24 07/06/24 Rx release amoxicillin 875 mg-potassium 1 tablet PO Q12H #7 tabs 07/03/24 07/06/24 Rx clavulanate 125 mg tablet Allergies Allergy/AdvReac Type Severity Reaction Status Date / Time spider venom Allergy Unknown Swelling Verified 07/09/24 11:14 Vital Signs Vital Signs - 24 hr 07/09/24 11:15 Temperature 97 F L Pulse Rate 84 Respiratory Rate 18 Blood Pressure 129/86 Pulse Oximetry 98 Oxygen Delivery Room Air Exam HENMT: Head: normal to inspection Chest: Chest palpation & inspection: normal inspection of the chest Resp: Effort & Inspection: normal respiratory effort GI: Inspection: normal to inspection GI Palp: Yes Soft to palpation and No Tenderness to palpation present (GI) Assessment and Plan Assessment and plan (1) Erosive esophagitis: Code(s): K22.10 - Ulcer of esophagus without bleeding Status: Acute Assessment and Plan: egd to assess on ppi (2) Dysphagia: Code(s): R13.10 - Dysphagia, unspecified Status: Acute
[2024-07-09 12:44] VITALS: BP 94/60; PULSE 103; RESP 20; O2SAT 95
[2024-07-09 12:54] VITALS: BP 95/61; PULSE 94; RESP 20; O2SAT 98
[2024-07-09 13:04] VITALS: BP 115/67; PULSE 73; RESP 21; O2SAT 100
[2024-07-09 13:09] VITALS: BP 111/72; PULSE 78; RESP 24; O2SAT 100
[2024-07-09 13:10] LABS: Glucose Point of Care 92 mg/dl (65-105)
== END 2024-07-09 13:30 | disposition home or self-care (01) ==
PROVIDERS: PCP Internal Medicine; Visit Provider Internal Medicine Gastroenterology
PROC: 0DJ08ZZ Inspection of Upper Intestinal Tract, Via Natural or Artificial Opening Endoscopic (ICD-10-PCS; CPT 43249; principal; 2024-07-09 08:30)
DX: K22.10 Ulcer of esophagus without bleeding (principal); K21.9 Gastro-esophageal reflux disease without esophagitis; K22.2 Esophageal obstruction; E11.9 Type 2 diabetes mellitus without complications
CPT/HCPCS: 43249; 82948; 88305; C1726; J2003; J2704; J7120

== ENCOUNTER 2024-12-20 22:38 | Emergency (ER) | payer MEDICARE, MEDICAID, SELFPAY ==
[2024-12-20 22:49] VITALS: BP 150/82; PULSE 74; RESP 15; TEMP 36.8; O2SAT 95
--- NOTE | 2024-12-20 23:08 | ED.GENADULT ---
HPI - General Adult General Chief complaint: Unspecified Stated complaint: got wrong medications Time Seen by Provider: 12/20/24 22:46 History of Present Illness HPI narrative: 64-year-old male with history of dementia and schizophrenia presenting to the emergency department as he was given another patient's medications accidentally while at his nursing facility. Patient has no complaints whatsoever and otherwise feels fine. Patient states he is hungry but has no issues. Denies any headache, vision changes, nausea, vomiting, abdominal pain, back pain, fever, chills. No weakness or sensation changes. On review and discussion with longterm and EMS patient was given 1 tablet of trazodone 50 mg 1 tablet of tramadol 50 mg, sildenafil 20 mg tablet, nortriptyline 25 mg tablet, Mucinex 1 mg tablet. 300 mg tablet gabapentin, fish oil baclofen and atorvastatin 1 tablet. Patient did not receive any of his antipsychotics or donepezil. He is normally alert x2 and has as baseline mentation presently. Denies any complaints and just wants something the eat. Presents via EMS. This error occurred approximately 8:00 p.m. and is currently 11:00 p.m. during my assessment without any progression or developing symptoms. Related Data Home Medications ?Medication ?Instructions ?Recorded ?Confirmed ?Last Taken ?Type aripiprazole 5 mg tablet 4 mg PO DAILY 09/12/20 07/06/24 Unknown History donepezil 10 mg tablet 10 mg PO HS 09/12/20 07/06/24 Unknown History melatonin 5 mg tablet 5 mg PO HS 09/12/20 07/06/24 Unknown History memantine 10 mg tablet 10 mg PO BID 09/12/20 07/06/24 Unknown History acetaminophen 500 mg tablet 1,000 mg PO Q8H PRN pain 02/17/23 07/06/24 Unknown History duloxetine 40 mg capsule,delayed 40 mg PO DAILY 02/17/23 07/06/24 Unknown History release ferrous sulfate 325 mg (65 mg 325 mg PO BID 02/17/23 07/06/24 Unknown History iron) tablet metformin 500 mg tablet 500 mg PO BID 02/17/23 07/06/24 Unknown History mirtazapine 15 mg tablet (Remeron) 7.5 mg PO HS 02/17/23 07/06/24 Unknown History multivitamin with minerals 1 tablet PO DAILY 02/17/23 07/06/24 Unknown History sennosides 8.6 mg tablet (senna) 8.6 mg PO BID 02/17/23 07/06/24 Unknown History fluticasone propionate 50 1 spray intranasal HS 04/12/24 07/06/24 Unknown History mcg/actuation nasal spray,suspension (Allergy Relief (fluticasone)) lamotrigine 25 mg tablet 25 mg PO BID 04/12/24 07/06/24 Unknown History pen needle, diabetic, safety 31 04/12/24 06/30/24 Unknown History gauge x 5/16 (DropSafe Pen Needle) Allergies Allergy/AdvReac Type Severity Reaction Status Date / Time spider venom Allergy Unknown Swelling Verified 07/09/24 11:14 Review of Systems Review of Systems: As reviewed above in HPI [facility] Past Medical History Medical History Left renal atrophy Type 2 diabetes mellitus Former smoker Recovering alcoholic in remission Memory impairment Hypertension Fatty liver Peripheral neuropathy Benign tumor of meningioma (cerebral) Chronic obstructive pulmonary disease Bipolar disorder Esophageal stricture Depression with anxiety Dementia Gastroesophageal reflux disease Schizophrenia Hypertension Surgical History Surgical History History of arthroscopic knee surgery Anterior cruciate ligament repair. History of esophagogastroduodenoscopy (06/2020) History of colonoscopy with polypectomy (06/2020) Family History Family History Mother Liver cancer Other Family history unknown Social History Social History Social History: Surrogate medical decision maker: Tee Andersonpool, brother. Code status: Do not resuscitate. Smoking status: Never smoker Second hand tobacco smoke exposure: No Alcohol intake: never Alcohol use details: History of alcohol abuse. Substance use: former Substance use type: does not use Do You Feel Safe in your Home?: Yes Lack of Transportation: No Lack of Food: Never True Current Housing: I Have Housing Concerned About Future Housing: No Difficulty Paying Gas/Electric Bills: No Difficulty Paying for Meds: No Currently Unemployed: No Education: Don't Know Difficulty w/ Childcare or Family Care: No Living arrangements: longterm Additional living arrangements comments: Resident at [facility]. 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 Spiritual care concerns: No Exam Narrative: GENERAL: [Well-appearing, well-nourished, and in no acute distress.] HEAD: [Normocephalic, atraumatic.] EYES: [PERRLA and EOMI.] ENT: Nares clear, no rhinorrhea or epistaxis. Mucous membranes moist. NECK: Supple. CHEST: [Clear to auscultation. No respiratory distress.] HEART: [Regular rate and rhythm]. No murmur heard. [Normal peripheral pulses.] ABDOMEN: [Soft, nondistended], [nontender], [No rigidity or guarding] EXTREMITIES: Normal range of motion. [No edema.] SKIN: Warm, dry, no rash. NEURO: No focal deficits. Moving all extremities. No strength or sensory loss. No facial asymmetry or slurring speech. Answering all my questions appropriately. Alert x2 which is baseline. PSYCH: [Normal mood and affect.] Course Vital Signs Vital signs: Vital Signs Temperature 36.8 C 12/20/24 22:49 Pulse Rate 74 12/20/24 22:49 Respiratory Rate 15 12/20/24 22:49 Blood Pressure 150/82 H 12/20/24 22:49 Pulse Oximetry 95 12/20/24 22:49 Oxygen Delivery Room Air 12/20/24 22:49 Temperature 36.8 C 12/20/24 22:49 Pulse Rate 84 12/21/24 00:26 Respiratory Rate 17 12/21/24 00:26 Blood Pressure 135/79 12/21/24 00:26 Pulse Oximetry 93 12/21/24 00:26 Oxygen Delivery Room Air 12/20/24 23:10 Medical Decision Making MDM Narrative Medical decision making narrative: 64-year-old male with history of dementia and schizophrenia presenting to the emergency department as he was given another patient's medications accidentally while at his nursing facility. Patient has no complaints whatsoever and otherwise feels fine. Patient states he is hungry but has no issues. Denies any headache, vision changes, nausea, vomiting, abdominal pain, back pain, fever, chills. No weakness or sensation changes. On review and discussion with longterm and EMS patient was given 1 tablet of trazodone 50 mg 1 tablet of tramadol 50 mg, sildenafil 20 mg tablet, nortriptyline 25 mg tablet, Mucinex 1 mg tablet. 300 mg tablet gabapentin, fish oil baclofen and atorvastatin 1 tablet. Patient did not receive any of his antipsychotics or donepezil. He is normally alert x2 and has as baseline mentation presently. Denies any complaints and just wants something the eat. Presents via EMS. This error occurred approximately 8:00 p.m. and is currently 11:00 p.m. during my assessment without any progression or developing symptoms. Patient has an unremarkable set of vitals. No tachycardia, fever, hypoxia. Normal examination and baseline mental status. We did speak to poison Control regarding these medications and he is already passed peak onset of these medications aside from gabapentin and reportedly all that would be expect is light drowsiness if anything. Patient is doing well and has no urgent or emergent concerns needing further workup. He is safe for discharge back to his care facility at this time. Patient was given food and water and comfortable with the plan. Ambulance services arranged. Medical Records Medical records reviewed: Yes I reviewed the external patient's medical records. Vital Signs Vital Signs: Vital Signs Temperature 36.8 C 12/20/24 22:49 Pulse Rate 74 12/20/24 22:49 Respiratory Rate 15 12/20/24 22:49 Blood Pressure 150/82 H 12/20/24 22:49 Pulse Oximetry 95 12/20/24 22:49 Oxygen Delivery Room Air 12/20/24 22:49 Temperature 36.8 C 12/20/24 22:49 Pulse Rate 84 12/21/24 00:26 Respiratory Rate 17 12/21/24 00:26 Blood Pressure 135/79 12/21/24 00:26 Pulse Oximetry 93 12/21/24 00:26 Oxygen Delivery Room Air 12/20/24 23:10 Discharge Plan Discharge Clinical Impression: Ingestion, drug, inadvertent or accidental, Dementia Patient Disposition: Home Condition: Stable Instructions: Antibiotic Form Additional Instructions: No concerns raised today based on the medications that you are accidentally administered. Poison Control was contacted. Your safe to go back to her facility at this time. Expect some slight drowsiness from the medications but otherwise no urgent or emergent concerns. Follow-up with your regular care providers. Return to normal medication dosing regimen tomorrow. Patient Language: Japanese Prescriptions: No Action metformin 500 mg Tablet 500 mg PO BID sennosides [senna] 8.6 mg Tablet 8.6 mg PO BID acetaminophen 500 mg Tablet 1,000 mg PO Q8H PRN (Reason: pain) ferrous sulfate 325 mg (65 mg iron) Tablet 325 mg PO BID mirtazapine [Remeron] 15 mg Tablet 7.5 mg PO HS multivitamin with minerals Tablet 1 tablet PO DAILY duloxetine 40 mg Capsule,Delayed Release(Dr/Ec) 40 mg PO DAILY insulin glargine [Lantus U-100 Insulin] 100 unit/mL Solution 15 unit subcut HS Qty: 10 0RF potassium chloride 20 mEq Packet 20 meq PO DAILY Qty: 30 0RF insulin aspart U-100 [Novolog U-100 Insulin aspart] 100 unit/mL Solution 2 - 5 unit subcut WMHS Qty: 10 0RF Protocol: Insulin Corrective Low-Dose Condition: glucose < 70 mg/dl Dose/Route: Follow Hypoglycemia Order Condition: glucose 70-200 mg/dl Dose/Route: No additional insulin Condition: glucose 201-250 mg/dl Dose/Route: 2 units sub-Q Condition: glucose 251-300 mg/dl Dose/Route: 3 units sub-Q Condition: glucose 301-350 mg/dl Dose/Route: 4 units sub-Q Condition: glucose 351-400 mg/dl Dose/Route: 5 units sub-Q Condition: glucose > 400 mg/dl Dose/Route: Call Rx Instructions: Condition Dose/Route Instruction glucose < 70 mg/dl Follow Hypoglycemia Order glucose 70-200 mg/dl No additional insulin glucose 201-250 mg/dl 2 units sub-Q glucose 251-300 mg/dl 3 units sub-Q glucose 301-350 mg/dl 4 units sub-Q glucose 351-400 mg/dl 5 units sub-Q glucose > 400 mg/dl Call amoxicillin-pot clavulanate 875-125 mg tablet 1 tablet PO Q12H Qty: 7 0RF Rx Instructions: Start the first dose tonight and then continue tomorrow with twice daily until run out. donepezil 10 mg tablet 10 mg PO HS aripiprazole 5 mg tablet 4 mg PO DAILY melatonin 5 mg Tablet 5 mg PO HS memantine 10 mg tablet 10 mg PO BID Desitin Daily Defense 13 % cream 1 applic topical TID PRN (Reason: skin irritation) Qty: 136 0RF lamotrigine 25 mg tablet 25 mg PO BID (DME) DropSafe Pen Needle 31 gauge x 5/16 needle MISCELLANEOUS fluticasone propionate [Allergy Relief (fluticasone)] 50 mcg/actuation spray,suspension 1 spray intranasal HS Rx Instructions: administer into each nostril pantoprazole 40 mg tablet,delayed release (DR/EC) 40 mg PO BID Qty: 60 11RF Follow-up/Referrals: Ruben,MD Carlos [Primary Care Provider, Unknown] Time of Disposition: 23:14
[2024-12-20 23:10] VITALS: O2SAT 95
[2024-12-20 23:11] VITALS: RESP 15; O2SAT 95
--- NOTE | 2024-12-20 23:11 | PC.NURSE ---
[id number] This RN called Poison Control, spoke with ANNELISE Hoyt and informed of situation and the meds that were given. Evelina states most meds have reached the peak and would only expect slight drowsiness from gabapentin that was given. Evelina was informed of plan of care that provider stated, to d/c back to the [place] and Evelina states she is okay with the plan. ERP notified.
--- NOTE | 2024-12-20 23:25 | PC.NURSE ---
Attempted to call report to [place], no answer and unable to leave a message. Will call again.
[2024-12-20 23:36] VITALS: BP 141/86; PULSE 73; RESP 17; O2SAT 95
[2024-12-21 00:26] VITALS: BP 135/79; PULSE 84; RESP 17; O2SAT 93
== END 2024-12-21 00:34 ==
PROVIDERS: Emergency Provider Student in an Organized Health Care Education/Training Program; PCP Internal Medicine
DX: T43.211A Poisoning by selective serotonin and norepinephrine reuptake inhibitors, accidental (unintentional), initial encounter (principal); T40.421A Poisoning by tramadol, accidental (unintentional), initial encounter; T46.7X1A Poisoning by peripheral vasodilators, accidental (unintentional), initial encounter; T43.011A Poisoning by tricyclic antidepressants, accidental (unintentional), initial encounter; T48.4X1A Poisoning by expectorants, accidental (unintentional), initial encounter; T42.6X1A Poisoning by other antiepileptic and sedative-hypnotic drugs, accidental (unintentional), initial encounter; T42.8X1A Poisoning by antiparkinsonism drugs and other central muscle-tone depressants, accidental (unintentional), initial encounter; T46.6X1A Poisoning by antihyperlipidemic and antiarteriosclerotic drugs, accidental (unintentional), initial encounter; F03.90 Unspecified dementia, unspecified severity, without behavioral disturbance, psychotic disturbance, mood disturbance, and anxiety; I10 Essential (primary) hypertension; E11.42 Type 2 diabetes mellitus with diabetic polyneuropathy; J44.9 Chronic obstructive pulmonary disease, unspecified; K21.9 Gastro-esophageal reflux disease without esophagitis; F20.9 Schizophrenia, unspecified; F31.9 Bipolar disorder, unspecified; F41.8 Other specified anxiety disorders; Z66 Do not resuscitate; Z86.0100 Personal history of colon polyps, unspecified; Z79.4 Long term (current) use of insulin; Z79.899 Other long term (current) drug therapy; Z79.84 Long term (current) use of oral hypoglycemic drugs
CPT/HCPCS: 99283